=== PATIENT | female | born 1945 | race Caucasian/White ===

== ENCOUNTER → 2019-10-16 10:36 | Outpatient (BNVA) | payer MEDICARE, OTHER, SELFPAY | PROVIDERS: Family Provider Family Medicine; PCP Family Medicine; Visit Provider Nurse Practitioner Family | DX: R25.1 Tremor, unspecified (principal); R07.9 Chest pain, unspecified; J01.90 Acute sinusitis, unspecified | CPT/HCPCS: 36416; 82962 ==

== ENCOUNTER 2019-10-19 21:43 | Emergency (ER) | payer MEDICARE, OTHER, SELFPAY ==
[2019-10-19 21:48] VITALS: BP 155/84; PULSE 66; RESP 16; TEMP 37; O2SAT 93; BMI 27.2
--- NOTE | 2019-10-19 22:32 | ECG_ITS ---
Measurements Intervals [place] Rate: 58 P: 48 VT: 144 QRS: 44 QRSD: 98 T: -33 QT: 399 QTc: 394 SINUS BRADYCARDIA NONSPECIFIC T-WAVE ABNORMALITY Compared to ECG 01/05/2018 22:10:28 Sinus rhythm no longer present Possible ischemia no longer present T-wave abnormality still present Electronically Signed On 10-20-2019 14:09:10 [employer] by Sivan Smallwood M.D. [id number]
--- NOTE | 2019-10-19 22:33 | XR_ITS ---
WS: [id number] XR chest 1V portable [id number] REASON FOR EXAM: dyspnea/cough FINDINGS: A large hiatal hernia is seen. The heart and mediastinum were normal. There is arteriosclerotic changes in the arch of the aorta. The peripheral lungs are clear there is no congestive heart failure, pneumonia, pleural effusion, or pneumothorax. No osseous abnormalities. XR/XR chest 1V portable [id number] IMPRESSION: Large hiatal hernia Arteriosclerotic changes in the arch of the aorta.
--- NOTE | 2019-10-19 22:59 | ED_ITS ---
Entered by Estefany Valle, acting as scribe for Niraj Krueger DO Oct 19, 2019 21:43 HPI - Chest Pain General: Chief Complaint: Chest Pain Stated Complaint: CHEST PAIN Time Seen by Provider: 10/19/19 22:30 History of Present Illness: HPI narrative: 74 yo female complains of chest pain for 3 days. Worse with palpation. Pt reports having some releif with tramadol. No change with activity. No associated dyspnea, no diaphoresis. MD complaint: chest pain Timing of current episode: episodic Pain location: substernal and left chest Pain radiation: none Exacerbating factors: palpation Associated symptoms: Deny abdominal pain, dyspnea, fever(s), nausea, palpitations, syncope or vomiting Review of Systems Narrative: 74yo female presents with chest pain. Symptoms started 3 days ago and have been intermittent. Patient denies any trouble breathing, nausea, or vomiting. She does not notice anything worsens chest pain but does note pain improves with tramadol. Const: Denies: fever, chills, body aches, fatigue, malaise or night sweats Eyes: Denies: change in vision or blurry vision ENMT: Denies: throat pain, oral sores/lesions, dental pain, nasal discharge or nasal congestion Card: Reports: chest pain; Denies: palpitations, irregular heart rhythm, edema, syncope, shortness of breath on exertion, shortness of breath when lying down or leg pain with exertion Resp: Denies: shortness of breath, productive cough, non-productive cough or wheezing GI: Denies: abdominal pain, nausea, vomiting, vomiting blood, coffee grounds in vomit, difficulty swallowing, heartburn/indigestion, diarrhea, constipation, cramping, blood in stool or black tarry stool : Denies: flank pain, painful urination, urinary frequency, urinary urgency, urinary incontinence or blood in urine Musc: Denies: neck pain, back pain, extremity pain, extremity swelling, joint pain or joint swelling Skin/Breast: Denies: rash, itching or redness Neuro: Denies: headache, numbness in extremities, weakness in extremities, changes in sensation, lack of coordination, difficulty walking, frequent falls, dizziness, vertigo or confusion Psych: Denies: anxiety, depression, loss of interest, visual hallucinations, auditory hallucinations, suicidal ideation or homicidal ideation Endo: Denies: excessive urination, excessive thirst, tired all the time or cold intolerance Emery/Lymph: Denies: easy bruising, easy bleeding, petechiae, enlarged lymph nodes or tender lymph nodes PFSH ED PFSH: Medical History (Updated 10/20/19 @ 00:07 by Niraj Krueger, ) Anxiety and depression Asthma, mild persistent Asymptomatic cholelithiasis Bilateral hearing loss Calculus of kidney right; 6 mm without private branch exchange service adviser time 01/10; 7 mm obstructing right proximal stone; evaluated and treated [facility] Hospitalized at [facility] 02/10 for sepsis, UTI, NSTEMI, and right proximal ureteral calculus with hydronephrosis Chronic idiopathic constipation Chronic low back pain Chronic osteoarthritis Chronic right shoulder pain Essential (primary) hypertension Gastro-esophageal reflux disease without esophagitis HX: breast cancer 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, unspecified Mixed hyperlipidemia Obstructive sleep apnea Osteoporosis PAD (peripheral artery disease) stent right SFA Type 2 diabetes mellitus with diabetic polyneuropathy Urinary incontinence in female Vitamin D deficiency Surgical History (Updated 10/18/19 @ 11:17 by CARLOTTA Aponte) History of intravascular stent placement (~2003) right leg; [place], [place] History of lumpectomy of left breast (~1969) [place] History of shoulder surgery (~2014) right; Dr Chiu, [place] [facility] [place] Hx of bladder repair surgery (~2004) Dr Nunez's office in [place], [place] Hx of lithotripsy Social History Smoking and tobacco status: former smoker Quit status (tobacco): has quit using tobacco Year quit tobacco: 2001 Alcohol intake: never Lives independently: Yes Household members: none Marital status: / Current occupational status: retired Current gender identity: Female Physical Exam Const: COMMON NORMALS: average body habitus, oriented x3 and alert GENERAL APPEARANCE: cooperative, comfortable, well kempt and well developed NUTRITIONAL APPEARANCE: obese ORIENTATION/CONSCIOUSNESS: Yes awake, Yes oriented to person and Yes oriented to place HENMT: COMMON NORMALS: normocephalic, head/scalp atraumatic, EAC's normal, TM's normal bilaterally, external nose normal, moist oral mucous membranes and oropharynx normal HEAD & SCALP: normocephalic and atraumatic NOSE: external nose normal EXTERNAL AUDITORY CANAL: EAC's normal TYMPANIC MEMBRANE: TM's normal bilaterally MOUTH: oral and palatal mucosa normal, lip normal and tongue normal THROAT: posterior oropharynx normal and tonsils normal Eye: COMMON NORMALS: PERRL, EOMs intact bilaterally, conjunctivae normal and no scleral icterus CONJUNCTIVA: Yes conjunctivae normal PUPIL: Yes PERRL Neck/C-Spine: COMMON NORMALS: full ROM, no lymphadenopathy, supple, no meningeal signs and thyroid normal THYROID: thyroid normal and asymmetrical Lymph: LYMPHATIC: no lymphadenopathy noted Chest: CHEST: Yes tenderness sternoclavicular joint Resp: COMMON NORMALS: normal respiratory effort, no retractions, no use of accessory muscles and clear to auscultation bilaterally AUSCULTATION: clear to auscultation bilaterally Cardio: COMMON NORMALS: regular rate and regular rhythm RATE: regular rate RHYTHM: regular rhythm HEART SOUNDS: no murmurs GI: COMMON NORMALS: normal to inspection, nondistended, normoactive bowel sounds, soft to palpation and no hepatosplenomegaly PALPATION: Yes soft and Yes no hepatosplenomegaly : COMMON NORMALS: Yes no CVA tenderness BLADDER/KIDNEY EXAM: Yes no CVA tenderness Back/Pelvis: COMMON NORMALS: no CVA tenderness LUMBAR SPINE/LOWER BACK: Yes normal to inspection Extremity: COMMON NORMALS: no clubbing, cyanosis or edema, no calf tenderness and no pedal edema Neuro: COMMON NORMALS: oriented x3 SENSORIUM/ORIENTATION: Yes alert, Yes oriented to person and Yes oriented to place MENINGEAL SIGNS: Yes no meningeal signs Psych: APPEARANCE: Yes well kempt Skin: COMMON NORMALS: no rashes or lesions noted and skin turgor normal GENERAL SKIN EXAM: no rashes or lesions noted and turgor normal Course ED course: pain is reproducible with palpation. Vital Signs: Vital signs: Vital Signs Temperature 98.6 F 10/19/19 21:48 Pulse Rate 55 L 10/20/19 00:32 Respiratory Rate 16 10/20/19 00:32 Blood Pressure 124/65 10/20/19 00:32 Pulse Oximetry 94 10/20/19 00:32 MDM - Chest Pain Lab Data: Labs: Lab Results 10/19/19 10/19/19 10/19/19 Range/Units 23:02 23:02 23:02 WBC 4.1 (4.0-10.0) 10^3/ uL RBC 4.57 (4.1-5.3) 10^6/u L Hgb 12.7 (11.5-15.3) g/dL Hct 42.0 (37.0-47.0) % MCV 91.9 (81-99) fL MCH 27.8 L (28.0-34.0) pg MCHC 30.2 (30.0-36.0) g/dL RDW 13.1 (12.1-15.1) % Plt Count 173 (130-400) 10^3/c mm MPV 11.1 H (7.4-10.4) fL Neut % (Auto) 53.7 % Lymph % (Auto) 33.1 % [place] % (Auto) 8.1 % Eos % (Auto) 4.7 % Baso % (Auto) 0.2 % Neut # (Auto) 2.2 (1.8-7.7) 10^3/u L Lymph # (Auto) 1.3 (0.8-4.8) 10^3/u L [place] # (Auto) 0.3 (0.2-0.9) 10^3/u L Eos # (Auto) 0.2 (0.0-0.8) 10^3/u L Baso # (Auto) 0.0 (0.0-0.1) 10^3/u L Nucleated RBC % (a uto) 0 % Nucleated RBCs # 0.0 /100WBC Sodium 139 (136-145) mmol/L Potassium 4.7 (3.5-5.1) mmol/L Chloride 102 (98-107) mmol/L Carbon Dioxide 25 (22-29) mmol/L Anion Gap 16.7 (5-19) BUN 17 (8-23) mg/dL Creatinine 0.8 (0.5-0.9) mg/dL Glucose 108 (65-115) mg/dL Calcium 10.5 (8.5-10.5) mg/dL Total Bilirubin 0.2 (0.15-1.2) mg/dL AST 20 (0-32) U/L ALT 16 (0-33) U/L Alkaline Phosphata se 45 (35-105) IU/L Troponin T Baselin e 11 H (0-10) ng/mL Total Protein 7.8 (6.6-8.7) g/dL Albumin 4.6 (3.5-5.2) g/dL Globulin 3.2 (1.3-4.6) g/dL Discharge Plan Discharge Patient Disposition: Home, Self-Care Clinical Impression: Anterior chest wall pain Condition: Stable Prescriptions: No Action fosinopril 10 mg tablet 10 mg PO DAILY RF: 0 citalopram 20 mg tablet 20 mg PO ONCE RF: 0 metformin 500 mg tablet 500 mg PO BID RF: 0 tramadol 50 mg tablet 50 mg PO TID PRNRF: 0 omeprazole 20 mg capsule,delayed release(DR/EC) 20 mg PO DAILY RF: 0 potassium chloride 10 mEq tablet extended release 20 meq PO DAILY RF: 0 sennosides [Senna Lax] 8.6 mg tablet 17.2 mg PO .HS RF: 0 simvastatin 10 mg tablet 10 mg PO ONCE RF: 0 aspirin 81 mg tablet,delayed release (DR/EC) 81 mg PO ONCE RF: 0 cetirizine [Zyrtec] 10 mg tablet 10 mg PO ONCE RF: 0 cholecalciferol (vitamin D3) 2,000 unit tablet 2,000 unit PO ONCE RF: 0 oxybutynin chloride 5 mg tablet 5 mg PO BID RF: 0 ketoconazole 2 % shampoo 1 applic TOPICAL .3 x week RF: 0 ketoconazole 2 % cream 1 applic TOPICAL BID RF: 0 fluticasone propionate [Flonase Allergy Relief] 50 mcg/actuation spray,suspension 2 spray INTRANASAL DAILY RF: 0 nitroglycerin 0.4 mg tablet, sublingual 0.4 mg SUBLINGUAL Q5M PRN (Reason: Chest Pain) RF: 0 multivitamin Capsule 1 cap PO QAM RF: 0 calcium carbonate-vitamin D3 250-125 mg-unit tablet 1 tab PO DAILY RF: 0 glucosamine [id number] 500-250-250 mg capsule 1 cap PO DAILY RF: 0 omega-3 fatty acids [Fish Oil Concentrate] 1,000 mg capsule 1,000 mg PO DAILY RF: 0 amoxicillin-pot clavulanate [Augmentin] 875-125 mg tablet 1 tab PO BID Qty: 20 RF: 0 Discharge Orders: Discharge Order (Routine); Ordered 10/20/19 Ordered By: Niraj Krueger Referrals: Lucy Moreland MD [Primary Care Provider] - Discharge Diet: Usual diet Discharge Activity: Limit activity as instructed Activity Restrictions/Additional Instructions: Follow-up with Dr. Maguire this coming week. Discharge Date/Time: 10/20/19 00:33 Coding Level of Care Code ED Oriental Rug Repairer for Chg Fwd Exam Comprehensive The documentation recorded by the Tori monsivais Bailey Leadawn, accurately reflects the service I personally performed and the decisions made by , Niraj Krueger, Oct 19, 2019 21:43
[2019-10-19 23:07] LABS: Basophils % 0.2 %; Eosinophils # 0.2 10^3/uL (0.0-0.8); Eosinophils % 4.7 %; Hemoglobin 12.7 g/dL (11.5-15.3); Lymphocytes # 1.3 10^3/uL (0.8-4.8); Lymphocytes % 33.1 %; Mean Corpuscular HGB Conc 30.2 g/dL (30.0-36.0); Mean Corpuscular Hemoglobin 27.8 pg (28.0-34.0); Mean Corpuscular Volume 91.9 fL (81-99); Mean Platelet Volume 11.1 fL (7.4-10.4); Monocytes # 0.3 10^3/uL (0.2-0.9); Monocytes % 8.1 %; Neutrophils # 2.2 10^3/uL (1.8-7.7); Neutrophils % 53.7 %; Nucleated Red Blood Cells % 0 %; Platelet Count 173 10^3/cmm (130-400); Red Blood Count 4.57 10^6/uL (4.1-5.3); Red Cell Distribution Width 13.1 % (12.1-15.1); White Blood Count 4.1 10^3/uL (4.0-10.0)
[2019-10-19 23:31] LABS: Alanine Aminotransferase 16 U/L (0-33); Albumin Level 4.6 g/dL (3.5-5.2); Alkaline Phosphatase 45 IU/L (35-105); Anion Gap 16.7 (5-19); Aspartate Amino Transferase 20 U/L (0-32); Blood Urea Nitrogen 17 mg/dL (8-23); Calcium 10.5 mg/dL (8.5-10.5); Carbon Dioxide 25 mmol/L (22-29); Chloride 102 mmol/L (98-107); Globulin 3.2 g/dL (1.3-4.6); Glucose 108 mg/dL (65-115); Potassium 4.7 mmol/L (3.5-5.1); Sodium 139 mmol/L (136-145); Total Bilirubin 0.2 mg/dL (0.15-1.2); Total Protein 7.8 g/dL (6.6-8.7)
[2019-10-19 23:33] LABS: Troponin(5th) Baseline 11 ng/mL (0-10)
[2019-10-19 23:51] VITALS: BP 128/74; PULSE 57; RESP 23; O2SAT 94
[2019-10-20] VITALS: BP 124/69; PULSE 55; RESP 14; O2SAT 93
[2019-10-20 00:32] VITALS: BP 124/65; PULSE 55; RESP 16; O2SAT 94
--- NOTE | 2019-10-23 14:04 | DCPLANNER ---
assistant manager quality management had message to schedule a follow up appointment for patient with [facility]. assistant manager quality management called [facility], spoke with Alee, a follow up appointment is scheduled for Tuesday, November 12, 2019 at 11:[address] Maguire. Clinic will call patient with appointment information.
--- NOTE | 2019-11-13 11:30 | DCPLANNER ---
Appointment scheduled for 11.12.19 with [facility], was cancelled.
== END 2019-10-20 00:33 | disposition home or self-care (01) ==
PROVIDERS: Emergency Provider Family Medicine; Family Provider Family Medicine; PCP Family Medicine
DX: R07.89 Other chest pain (principal); J45.20 Mild intermittent asthma, uncomplicated; I10 Essential (primary) hypertension; E78.2 Mixed hyperlipidemia; E11.51 Type 2 diabetes mellitus with diabetic peripheral angiopathy without gangrene; E11.42 Type 2 diabetes mellitus with diabetic polyneuropathy; E66.9 Obesity, unspecified; Z68.27 Body mass index [BMI] 27.0-27.9, adult; Z79.84 Long term (current) use of oral hypoglycemic drugs; Z79.51 Long term (current) use of inhaled steroids; Z87.891 Personal history of nicotine dependence
CPT/HCPCS: 71045; 80053; 84484; 85025; 93005; 99282; 99284

== ENCOUNTER → 2019-11-27 13:11 | Outpatient (BNVA) | payer MEDICARE, OTHER, SELFPAY | PROVIDERS: Family Provider Family Medicine; PCP Family Medicine; Visit Provider Anesthesiology | DX: Z76.89 Persons encountering health services in other specified circumstances (principal) ==

== ENCOUNTER 2020-01-15 09:55 | Outpatient (CLI) | payer MEDICARE, OTHER, SELFPAY ==
--- NOTE | 2019-11-06 09:32 | PC.NURSE ---
Stress test rescheduled Pt drank cup of coffee at 0700 this am she states. Stress test rescheduled and instructions sent home with patient.
--- NOTE | 2020-01-15 10:21 | NMCV_ITS ---
NM sarah perf SPECT r/s* [id number] Lucy Galindo Age: 74 Gender: F : 1945 Exam Date: 01/15/2020 11:02 Ordering Phys: Lyn Aguiar Technologist: SHERWIN Middleton Exam Location: [facility] Indications: ATHEROSCLEROTIC HEART DISEASE STRESS TEST Please see separate stress test report in [facility] for full findings IMAGE PROTOCOL Rest/Stress 1 Lexiscan Day Radiopharmaceutical Dose (mCi) Administration Site Administered by Rest: Tc-99m 10.4 IV SHERWIN Nesbitt Sestamibi Stress:Tc-99m 32.4 IV SHERWIN Nesbitt Sestamibi Rest: 15-Jan-2020 60 Discovery 630 Stress: 15-Jan-2020 30 Discovery 630 0.4mg Lexiscan. Supine position only as patient was unable to lay prone. SPECT RESULTS Technical Quality: Good Raw Data Analysis: Subdiaphragmatic activity Image Corrections: No attenuation or motion correction applied Summed Stress Score: 10 Summed Rest Score: 6 Summed Difference Score: 4 PERFUSION FINDINGS Moderate area of decreased tracer uptake in the basal and mid inferolateral, mid anterolateral, apical lateral, apical anterior and LV apex with some reversibility in the inferolateral and anterolateral regions. Small area of decreased tracer was also was noted in the basal inferior region, with some reversibility. FUNCTIONAL RESULTS (calculated via Gated SPECT) Stress Image LV EF (%): 64 Stress EDV (mL):89 TID: 0.87 Stress ESV (mL):32 FUNCTIONAL FINDINGS: LV wall motion analysis revealed mild hypokinesia of the septum. IMPRESSIONS 1. Myocardial perfusion imaging revealing moderate area of slightly decreased tracer uptake in the basal and mid inferolateral, mid anterolateral and basal inferior wall regions, with some reversibility, suggestive of myocardial scarring with ischemia mostly in the distribution of the left circumflex artery with some involvement of the right coronary artery. 2. Normal LV ejection fraction 64%. 3. LV wall motion analysis revealing mild hypokinesia of the septum. 4. Normal LV volume. No similar previous studies are available for comparison. No similar previous studies are available for comparison Dr Sole Maguire MD [facility] (Electronically Signed) Final Date: 15 Jan 2020 18:06 S
--- NOTE | 2020-01-15 10:21 | ECG_ITS ---
NAME OF STUDY: LEXISCAN SESTAMIBI STRESS TEST INDICATION: Chest Pain, LEXISCAN STRESS TEST ORDERING PHYSICIAN: Cardiology nurse practitioner CLINICAL INFORMATION: Chest pain INTERPRETATION: 1. The patient was brought to the laboratory where Lexiscan was infused over 20 seconds. The resting blood pressure was 188/87. Maximum blood pressure was 209/81. The resting heart rate was 56 beats per minute. The maximum heart rate is 117 beats per minute. 2. The baseline electrocardiogram reveals sinus rhythm with an interventricular conduction delay and T wave inversion in the inferolateral leads. 3. With Lexiscan infusion, there were no ST segment changes to suggest ischemia. 4. The patient experienced no symptoms or arrhythmias during the examination. CONCLUSION: 1. Unremarkable Lexiscan infusion. 2. Nuclear imaging to follow. Electronically Signed On 01-15-2020 16:16:55 CDT by Mark Berrios M.D. [id number]
[2020-01-15 10:22] VITALS: BMI 26.2
[2020-01-15 11:51] VITALS: BP 181/67; PULSE 98
[2020-01-15] MEDS: regadenoson 0.4 Mg/5 ml Syringe IVP (11:51)
== END 2020-01-15 09:56 | disposition home or self-care (01) ==
LOC: RAD 09:58
PROVIDERS: Family Provider Family Medicine; PCP Family Medicine; Visit Provider Nurse Practitioner Family
DX: I25.10 Atherosclerotic heart disease of native coronary artery without angina pectoris (principal); I25.9 Chronic ischemic heart disease, unspecified
CPT/HCPCS: 78452; 93017; A9500; J2785

== ENCOUNTER → 2020-02-15 09:43 | Outpatient (BNVA) | payer MEDICARE, OTHER, SELFPAY | PROVIDERS: Family Provider Family Medicine; PCP Family Medicine; Visit Provider Anesthesiology | DX: G89.29 Other chronic pain (principal); M54.2 Cervicalgia; M25.511 Pain in right shoulder; M19.90 Unspecified osteoarthritis, unspecified site; M54.9 Dorsalgia, unspecified; M79.7 Fibromyalgia; Z79.891 Long term (current) use of opiate analgesic | CPT/HCPCS: 99214 ==

== ENCOUNTER → 2020-02-20 11:16 | Outpatient (BNVA) | payer MEDICARE, OTHER, SELFPAY | PROVIDERS: Family Provider Family Medicine; PCP Family Medicine; Visit Provider Family Medicine | DX: E78.2 Mixed hyperlipidemia (principal); E11.42 Type 2 diabetes mellitus with diabetic polyneuropathy | CPT/HCPCS: 80053; 80061; 83036; 84443; 85025 ==

== ENCOUNTER 2020-03-03 09:59 | Outpatient (CLI) | payer MEDICARE, OTHER, SELFPAY ==
--- NOTE | 2020-03-03 10:24 | MM_ITS ---
WS: [id number] BILATERAL DIGITAL DIAGNOSTIC MAMMOGRAM MAMMOGRAPHY WITH CAD CLINICAL INFORMATION: HX OF BREAST CA HISTORY: History of left breast cancer. Bilateral breast tenderness. COMPARISON: February 26, 2019. TECHNIQUE: Bilateral CC, MLO, and ML views. FINDINGS: Scattered fibroglandular densities bilaterally. Vascular calcification. Secretory calcification. Punc kirkpatrick and lucent centered calcifications are stable. Stable parenchymal fibrosis left breast from prio r lumpectomy. Decreased left breast volume is unchanged. No suspicious focal mass, asymmetry, calcifications, or architectural distortion. No evidence of ro gnancy. MM/[place] [id number] IMPRESSION: BI-RADS: 2-Benign FOLLOW UP: 1 Year Follow-up Recommend return to annual diagnostic mammography.
== END 2020-03-03 10:00 | disposition home or self-care (01) ==
LOC: RADSHAW 10:04
PROVIDERS: PCP Family Medicine; Visit Provider Family Medicine
DX: Z85.3 Personal history of malignant neoplasm of breast (principal)
CPT/HCPCS: 77066

== ENCOUNTER → 2020-03-04 10:54 | Outpatient (BNVA) | payer MEDICARE, OTHER, SELFPAY | PROVIDERS: PCP Family Medicine; Visit Provider Internal Medicine Cardiovascular Disease | DX: R94.39 Abnormal result of other cardiovascular function study (principal); Z79.01 Long term (current) use of anticoagulants; Z79.899 Other long term (current) drug therapy | CPT/HCPCS: 80053; 85025 ==

== ENCOUNTER 2020-03-07 11:41 | Day surgery (SDC) | payer MEDICARE, OTHER, SELFPAY ==
[2020-03-06 11:40] VITALS: BMI 26.2
[2020-03-07] VITALS (22 sets, daily range): BP systolic 85–171; BP diastolic 50–93; PULSE 60–92; RESP 10–25; TEMP 36.9; O2SAT 93–98
--- NOTE | 2020-03-07 11:14 | W.PM.OPSUD ---
Surgery/Procedure H&P Update DATE OF PROCEDURE: March 07, 2020 DATE H&P PERFORMED: 03/04/20 H&P UPDATE INFORMATION: I have reviewed H&P completed within last 30 days and I have examined patient prior to procedure PLANNED PROCEDURE: Operation Date: 03/07/20 13:30 Proposed Procedures p Cardiac Catheterization(Left) - Sole Maguire MD PATIENT REASSESSED PRIOR TO SEDATION, WITH NO CHANGE NOTED: Yes PHYSICAL EXAM: alert and oriented x 3 AIRWAY EVAL/ANESTHESIA PLAN: normal airway, ASA III, Monitored Anesthesia, Local Anesthesia, Risks, benefits & alternatives of sedation and/or procedure discussed and Patient agrees to continue as planned
--- NOTE | 2020-03-07 11:30 | XACV_ITS ---
Ht: 150 cm Wt: 59 kg BSA: 1.58 m2 Gender: Female : 1945 Any Known Allergies: No known allergies Exam Priority: Routine Procedure(s): Procedure Description: Diagnostic procedure Procedure Description: Left ventriculography Procedure Description: Coronary Angiography Diagnostic Cath Status: Elective Diagnostic Findings The left main is a medium caliber vessel with no significant stenotic lesions. The left and descending artery is a medium caliber vessel which appears to taper off towards the LV apex. Right after the first diagonal branch, the artery appears to have around 40% eccentric narrowing. Mid and distal LAD he was found to have minimal intimal irregularities. The left circumflex artery is a relatively small caliber vessel, of found to have minimal intimal arises proximally with no significant obstructive lesions. The intermedius artery appears to be a high diagonal branch with a minimal ostial narrowing. No significant stenotic lesions were noted. The right coronary artery is a medium caliber dominant vessel which was found to have stented areas at the mid and distal segments. The stented areas were found to be widely patent. The PDA and the PLV branches were found to have minimal intimal irregularities. The proximal right coronary artery also was found to have mild diffuse disease. Conclusions No significant disease noted in the Left Main, LAD, Circumflex, or RCA coronary arteries. Normal left ventricular systolic function. Ejection fraction of 55%. This is a 74-year-old white female with a history of coronary disease, status post PCI, presented with complaints of chest pain and shortness of breath. She had a myocardial perfusion imaging which revealed areas of fixed and reversible defects. As per the patient, her symptoms were limiting her activities. In view of her ongoing symptoms, in order to further evaluate the coronary status, a cardiac catheterization was recommended. Patient underwent left heart catheterization with a left and right coronary angiogram and LV angiogram today. The findings are as follows. Patent stented segments of the right coronary artery. Mild diffuse disease in the other vessels. Normal LV size ejection fraction of 55%. LVEDP of 8 mmHg. Based on this angiogram findings, it was decided to treat her medically. She is transferred to medical floor in stable condition. Recommendations Continue current medical management and risk factor modification. Diagnostic RX Recommendation: medical therapy and/or counseling LV EDP: 8 mmHg Ejection Fraction: 55.0 % Left Ventriculography Findings: The LV gram was performed in the SALAS position. The LV cavity appears to be normal size. The LV ejection fraction was around 55%. No significant mitral valve prolapse. or mitral regurgitation. No filling defects were noted. Pressures Phase:Rest AO : 291 mmHg / 163 mmHg ( 220 mmHg ) @ 9:02:00 AM 289 mmHg / 110 mmHg ( 177 mmHg ) @ 9:11:00 AM 296 mmHg / 99 mmHg ( 177 mmHg ) @ 9:11:00 AM LV : 269 mmHg / -25 mmHg / @ 9:08:00 AM 265 mmHg / -32 mmHg / @ 9:09:00 AM 280 mmHg / -39 mmHg / @ 9:11:00 AM Valves Phase:DefaultPhase AV : 1.0 mmHg @ 2:28:09 PM AV Mean Gradient: 0.0 mmHg @ 2:28:09 PM Clinical Evaluation EBL: 5mL-10mL Procedural Details Procedure Consent Obtained. Pre-Procedure Time Out. Identified patient by full name and date of as verbalized by the patient/guarantor. Does the consent match the physician's order: Yes. Accurate & Complete Informed Consent: Yes. Inpatient/Outpatient History & Physical on Chart: Yes. If H&P is completed, is and addenduem needed: No; If yes, is the addendum complete: N/A. Visualize and Verify Site with Patient/Guarantor: N/A. Relevant Radiology Images available: Yes. Pre-op teaching completed and patient verbalized understanding. The risks, benefits, and alternatives of sedation and/or procedure were discussed by physician. The patient agrees to continue. Procedure started. Correct patient, site and procedure confirmed by cath team. Current diagnosis: Chest Pain. PERRLA. 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 Lungs clear x 5 lobes. Pre Procedural Pulses: bilateral dorsalis pedis was 1+. Pre Procedural Pulses: bilateral posterior tibial was 1+. Pre Procedural Pulses: bilateral radial was 2+. Oxygen started at 2liters/min via nasal canula. bilateral groins was prepped with chloroprep then draped in the usual sterile fashion. Physician notified. Baseline sample Acquired. HR: 66 BPM. Equipment: 5F - Femoral. Kit, Micropuncture. Heparinized Saline (2 units/mL), 1000 mL bag. Cardiac Cath Pack. ACIST Manifold Kit Model BT 2000. Physician arrived. Physician scrubbed in. Immediate Pre-Procedure Time Out. Correct Patient: Yes; Correct Procedure: Yes; Correct Site: Yes; Correct Patient Position: Yes; Correct Supplies: Yes; Dried Flammable Prep: Yes; Blood Products Available: No;. Lidocaine 1% infiltrated to the right groin. Lidocaine 1% infiltrated to the right groin. Venous access obtained with a micropuncture set. 4FR sheath sutured in. Arterial access obtained with micropuncture set. A 5 somali JL4 catheter in over wire. Multiple views taken of left coronary artery. Catheter out. A 5 somali JR4 catheter in over wire. Multiple views taken of right coronary artery. Catheter out. A 5 somali Angled Pig catheter in over wire. EDP Sample taken: LV 269/-26,15; HR: 87 BPM; SpO2: 100%. EDP Sample taken: LV 265/-33,6; HR: 91 BPM; SpO2: 100%. LV gram performed in SALAS @ 10 mL/second for a total of 30 mL. EDP Sample taken: LV 280/-40,10; HR: 94 BPM; SpO2: 100%. Pullback taken: LV Off; AO 289/110(177); Mean: 0mmHg, Peak to Peak: 1mmHg, SEP: 12sec/min; HR: 94 BPM; SpO2: 100%. Catheter out. Sheath(s) sutured into position with 2-0 silk and sterile 4x4's and Op-site applied over the site. No oozing or signs and symptoms of hematoma noted. Arterial sheath flushed and connected to tranducer and pressure bag with heparinized saline. Vital chart was stopped. PERRLA. 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 No VTE prophylaxis required. Medication's Wasted: Lidocaine 1% = 5 mL. Medication's Wasted: Other = 75mcg. Medication's Wasted: Heparin = 3000 units. Medication's Wasted: Hydralazine 10 mg. A Suture was successful obtaining hemostatsis at the Right Femoral vein insertion site. A Suture was successful obtaining hemostatsis at the Right Femoral artery insertion site. Post Procedure: Pulses reassessed and unchanged. [facility] Clinical Fraility Score: 4: Vulnerable. Carpet Tile Layer Indications: Suspected CAD. Chest Pain Symptom Assessment: Typical Angina Symptoms. Cardiovascular Instability: No. Total IV fluids: 100 mL. Contrast type used: Omnipaque 300 mgI/mL, 500 mL bottle. Post-op diagnosis: Chest Pain. Complications: None. Estimated blood loss: 5mL-10mL. Glucose checked, result 92. Procedure completed. Patient transferred by bed to 1st floor. Site: Right Femoral vein Sheath Size: 4 Fr Hemostasis Method: Suture Hemostasis Success: Successful Site: Right Femoral artery Sheath Size: 5 Fr Hemostasis Method: Suture Hemostasis Success: Successful Procedure Medications Start: 1:51 PM Stop: 1:51 PM Medication: Versed 1 mg and Fentanyl 25 mcg Amount: 1 Route: I.V. Start: 1:55 PM Stop: 1:55 PM Medication: Hydralazine Amount: 10 mg Route: I.V. Start: 1:57 PM Stop: 1:57 PM Medication: Heparin Amount: 1500 units Route: I.V. Start: 2:00 PM Stop: 2:00 PM Medication: Versed Amount: 1 mg Route: I.V. I, the attending physician, have reviewed and verified all procedure medications. Yes, all medications given per verbal order History/Risk Factors Hypertension: Yes Dyslipidemia: Yes Diabetic Therapy: Oral Peripheral Arterial Disease (PAD): Yes Myocardial Infarction (NM): No Obesity: No Renal Disease: No Tobacco Use: Former Prior Interventions PCI: No CABG: No Valve Surgery: No Report Signatures Finalized by:Dr Sole Maguire MD [facility] on 03/07/2020 4:04:18 PM
[2020-03-07] MEDS: diphenhydrAMINE 50 mg Capsule PO (12:55)
--- NOTE | 2020-03-07 13:02 | SUR.PREOP ---
Difficult IV access Patient has poor peripheral IV access. 4 attempts made by myself (2 attempts) and Filiberto Gifford (2 attempts). Dr Maguire notified. States he will place a femoral venous line in the laborer cutting tool.
[2020-03-07 14:31] LABS: Glucose Point of Care 92 mg/dL (70-110)
--- NOTE | 2020-03-07 14:57 | PC.NURSE ---
From Systems Administration Analyst Received pt from label stitcher, alert, awake,hard of hearing, oriented. Noted 2 sheaths on right groin. 5 Fr arterial sheath and 4 Fr Venous sheath. Received verbal order from dr. michelle to removed venous sheath once the 1 L of bag is finished tonight. oriented pt to staff and call light use. Will monitor.
[2020-03-07] MEDS: dextrose 5%-ns + KCl 20 20 MEQ/1,000 ML BAG 125 MEQ IV (15:31)
[2020-03-07] MEDS: tizanidine 4 mg Tablet PO (15:47)
--- NOTE | 2020-03-07 16:30 | PC.NURSE ---
Sheath Removal Explained procedure to pt. Pre-medicated pt with fentanyl as ordered prior to sheath removal. Femoral artery felt. 5 Fr sheath removed on right groin. Manual pressure applied for 20 mins. Hemostasis achieved. No hematoma, swelling or bleeding noted. PT and DP is palpable 2+-3+. warm skin. Pt denies any pain and tolerated procedure well. Neurovascular monitored. Applied dressing to right groin. Instructed pt to call nurse if she started to have any unusual pain, numbness or wetness on right groin area. Pt verbalizes understanding.
[2020-03-07] MEDS: fentaNYL 50 mcg/mL INJ 2mL IVP (16:32)
[2020-03-07 17:05] LABS: Glucose Point of Care 123 mg/dL (70-110)
[2020-03-07] MEDS: potassium chloride ER 10 mEq Tablet PO (18:42)
[2020-03-07] MEDS: atorvastatin 40 mg Tablet 20 MG PO (21:37)
[2020-03-07] MEDS: aspirin 81 mg EC Tablet PO (21:37)
[2020-03-07] MEDS: oxybutynin 5 mg Tablet PO (21:37)
[2020-03-07] MEDS: TRAMadol 50 mg Tablet PO (22:43)
[2020-03-08] MEDS: acetaminophen 325 mg Tablet 650 MG PO (03:12)
[2020-03-08 04:34] LABS: Anion Gap 14.3 (5-19); Blood Urea Nitrogen 17 mg/dL (8-23); Calcium 10.1 mg/dL (8.5-10.5); Carbon Dioxide 26 mmol/L (22-29); Chloride 105 mmol/L (98-107); Glucose 112 mg/dL (65-115); Osmolality Calculated 289 mOsm/kg (285-295); Potassium 4.3 mmol/L (3.5-5.1); Sodium 141 mmol/L (136-145)
--- NOTE | 2020-03-08 06:00 | PC.NURSE ---
At 1220 I pulled her venous sheath. Held direct pressure on the site for ten minutes. Sight was dry and intact. Applied a sponge dressing covered with bio-collusive dressing.
[2020-03-08 07:01] VITALS: BP 130/72; PULSE 68; RESP 15; TEMP 36.8; O2SAT 92
[2020-03-08 07:36] LABS: Glucose Point of Care 108 mg/dL (70-110)
[2020-03-08] MEDS: omega-3 fatty acids 1,000 mg Capsule 1000 MG PO (07:58)
[2020-03-08] MEDS: cetirizine 10 mg Tablet PO (07:58)
[2020-03-08] MEDS: pantoprazole DR 40 mg Tablet PO (08:01)
[2020-03-08] MEDS: meloxicam 7.5 mg tablet PO (08:01)
[2020-03-08] MEDS: citalopram 20 mg Tablet PO (08:01)
[2020-03-08] MEDS: lisinopril 10 mg Tablet PO (08:01)
[2020-03-08] MEDS: potassium chloride ER 10 mEq Tablet PO (08:01)
--- NOTE | 2020-03-08 08:05 | PM.DCS ---
Discharge Providers Date of Admission: March 07, 2020 Date of Discharge: March 08, 2020 Attending Provider at Discharge: Sole Maguire MD Primary Care Provider: Lucy Moreland MD Diagnoses at Discharge Discharge Diagnosis (1) Abnormal nuclear stress test: Status: Acute (2) Dyslipidemia (high LDL; low HDL): Status: Acute (3) Benign essential HTN: Status: Acute (4) Peripheral arterial disease: Status: Acute (5) Atherosclerotic heart disease of [place] coronary artery without angina pectoris: Status: Acute Qualifiers: [place] vs. transplanted heart: [place] heart Qualified Code(s): I25.10 - Atherosclerotic heart disease of [place] coronary artery without angina pectoris (6) Type 2 diabetes mellitus with diabetic polyneuropathy: Status: Acute (7) Chronic low back pain: Status: Chronic (8) Essential (primary) hypertension: Status: Acute (9) Obstructive sleep apnea: Status: Acute (10) Chest pain: Status: Acute Qualifiers: Chest pain type: unspecified Qualified Code(s): R07.9 - Chest pain, unspecified Reason for Visit Reason for Visit: OPIAB Brief History: Patient was placed in the hospital yesterday by Dr. Maguire for elective coronary angiography due to chest pain and an abnormal stress test Hospital Course Hospital Course: Patient was placed in the hospital yesterday for purposes of elective coronary angiography due to chest pain and an abnormal stress test. Angiography revealed patent stents and nothing which required intervention. The procedure was done via the right common femoral artery. No vascular complications were noted. No bleeding, hematoma or pulsatile mass. Patient was kept overnight since the procedure was done late in the day. Physical Exam Narrative: EXAM NARRATIVE: GENERAL: In general she looks comfortable HEENT: Exam within normal limits. NECK: Supple without jugular vein distention. The carotid upstroke is normal without bruits. BACK: Exam normal. LUNGS: Clear. HEART: Regular rate and rhythm. ABDOMEN: Benign without organomegaly or tenderness. EXTREMITIES: No edema. The right groin entry site is flat, dry without bleeding or hematoma or pulsatile mass. NEUROLOGIC: Exam normal. SKIN: Unremarkable. Discharge Data Data Completed and Pending: Completed Studies During Hospitalization Category Date Time Status TRIM OPERATOR request for service Routin e Exams 03/07/20 11:30 Completed Labs from last 24 hours 03/08/20 03/08/20 03/07/20 07:30 03:20 16:37 Sodium 141 Potassium 4.3 Chloride 105 Carbon Dioxide 26 Anion Gap 14.3 BUN 17 Creatinine 0.7 Glucose 112 POC Glucose 108 123 Calculated Osmolal ity 289 Calcium 10.1 03/07/20 14:26 Sodium Potassium Chloride Carbon Dioxide Anion Gap BUN Creatinine Glucose POC Glucose 92 Calculated Osmolal ity Calcium Vitals: Last Vital Signs Temp 98.2 F 03/08/20 07:01 Pulse 68 03/08/20 07:01 Resp 15 03/08/20 07:01 BP 130/72 03/08/20 07:01 Pulse Ox 92 03/08/20 07:01 Discharge Plan Discharge Patient Disposition: Home, Self-Care Condition: Stable Prescriptions: Continued meloxicam 7.5 mg tablet 7.5 mg PO QAM RF: 0 citalopram 20 mg tablet 20 mg PO QAM RF: 0 cetirizine [Zyrtec] 10 mg tablet 10 mg PO DAILY RF: 0 cholecalciferol (vitamin D3) 2,000 unit tablet 2,000 unit PO EVERY OTHER DAY RF: 0 ketoconazole 2 % cream 1 applic TOPICAL BID RF: 0 fluticasone propionate [Flonase Allergy Relief] 50 mcg/actuation spray,suspension 2 spray INTRANASAL DAILY RF: 0 nitroglycerin 0.4 mg tablet, sublingual 0.4 mg SUBLINGUAL Q5M PRN (Reason: Chest Pain) RF: 0 multivitamin Capsule 1 cap PO BEDTIME RF: 0 glucosamine [id number]-tzv 500-250-250 mg capsule 1 cap PO QAM RF: 0 omega-3 fatty acids [Fish Oil Concentrate] 1,000 mg capsule 1,000 mg PO QAM RF: 0 tramadol 50 mg tablet 50 mg PO TID PRN (Reason: pain) 30 Days Qty: 90 RF: 1 tizanidine 4 mg tablet 4 mg PO QDAY PRN (Reason: muscle spasticity) Qty: 30 RF: 0 albuterol sulfate [Ventolin HFA] 90 mcg/actuation HFA aerosol inhaler 2 puff INHALATION .qid prn Qty: 8.5 RF: 1 ketoconazole 2 % shampoo 1 applic TOPICAL .3 x week Qty: 120 RF: 2 sennosides [Senna Lax] 8.6 mg tablet 17.2 mg PO .HS 30 Days Qty: 60 RF: 3 simvastatin 10 mg tablet 10 mg PO BEDTIME RF: 0 fosinopril 10 mg tablet 10 mg PO QAM RF: 0 metformin 500 mg tablet 500 mg PO BID RF: 0 potassium chloride 10 mEq tablet extended release 10 meq PO BID RF: 0 aspirin 81 mg tablet,delayed release (DR/EC) 81 mg PO BEDTIME RF: 0 omeprazole 20 mg capsule,delayed release(DR/EC) 20 mg PO QAM RF: 0 oxybutynin chloride 5 mg tablet 5 mg PO BEDTIME RF: 0 Discharge Orders: Discharge Order (Routine); Ordered 03/08/20 Ordered By: Mark Berrios Referrals: Lyn Aguiar FNP [Nurse Practitioner] - 7-10 days Lucy Moreland MD [Primary Care Provider] - Discharge Diet: Usual diet Discharge Activity: Limit activity as instructed Patient Instructions: Left Heart Catheterization (DC), Post Angiogram Home Care Instructions Activity Restrictions/Additional Instructions: No lifting over 10 pounds for 2 days. Hold metformin for 2 days. Otherwise all medications the same. 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 transplanted heart: [place] heart Type 2 diabetes mellitus with diabetic polyneuropathy E11.42 Chronic low back pain M54.5; G89.29 Essential (primary) hypertension I10 Obstructive sleep apnea G47.33 Chest pain R07.9 Chest pain type: unspecified
[2020-03-08 11:39] VITALS: BP 141/61; PULSE 80; RESP 19; TEMP 37; O2SAT 95
[2020-03-08] MEDS: TRAMadol 50 mg Tablet PO (11:59)
[2020-03-08 12:01] VITALS: BP 136/79
[2020-03-08] MEDS: fluticasone nasal spray 16gm Btl 2 SPRAY INTRANASAL (12:15)
[2020-03-08] MEDS: ketoconazole Cream 15 gm 1 APPLIC TOPICAL (12:23)
--- NOTE | 2020-03-08 13:07 | PC.NURSE ---
Discharge to home Instructed pt on follow-up appointments with her pcp and dr. michelle HYDROELECTRIC PLANT MECHANICAL ENGINEER in 7-days. Educated pt and dgtr Sade on post angiogram home care instructions such as activity restrictions and wound care. Discharge papers provided to pt. Ushered pt via wheelchair to ER.
== END 2020-03-08 13:07 | disposition home or self-care (01) ==
LOC: CCL 11:43 → CSU 23:51
PROVIDERS: PCP Family Medicine; Visit Provider Internal Medicine Cardiovascular Disease
DX: I25.10 Atherosclerotic heart disease of native coronary artery without angina pectoris (principal); R94.39 Abnormal result of other cardiovascular function study; I10 Essential (primary) hypertension; I73.9 Peripheral vascular disease, unspecified; E78.2 Mixed hyperlipidemia; E11.42 Type 2 diabetes mellitus with diabetic polyneuropathy; G89.29 Other chronic pain; M54.5 Low back pain; G47.33 Obstructive sleep apnea (adult) (pediatric); R07.9 Chest pain, unspecified; Z79.82 Long term (current) use of aspirin; Z79.84 Long term (current) use of oral hypoglycemic drugs; M79.7 Fibromyalgia; Z85.3 Personal history of malignant neoplasm of breast
CPT/HCPCS: 12345; 36415; 36416; 80048; 82962; 93452; C1769; C1887; C1894; J0360; J1644; J2250; J3010; J7030; Q0163; Q9967

== ENCOUNTER → 2020-03-17 12:35 | Outpatient (BNVA) | payer MEDICARE, OTHER, SELFPAY | PROVIDERS: PCP Family Medicine; Visit Provider Nurse Practitioner Family | DX: I25.10 Atherosclerotic heart disease of native coronary artery without angina pectoris (principal); Z87.891 Personal history of nicotine dependence | CPT/HCPCS: 80048 ==

== ENCOUNTER → 2020-03-26 11:43 | Outpatient (BNVA) | payer MEDICARE, OTHER, SELFPAY | PROVIDERS: PCP Family Medicine; Visit Provider Family Medicine | DX: E11.9 Type 2 diabetes mellitus without complications (principal); F17.211 Nicotine dependence, cigarettes, in remission; Z71.89 Other specified counseling | CPT/HCPCS: 36416; 82962 ==

== ENCOUNTER 2020-04-17 09:12 | Outpatient (CLI) | payer MEDICARE, OTHER, SELFPAY ==
--- NOTE | 2020-04-17 09:30 | XR_ITS ---
WS: [id number] EXAM: ABDOMINAL KUB DATE OF EXAMINATION: 04/17/2020, 0925 hours COMPARISON: Abdominal KUB from 08/30/[address] from 09/01/2018 HISTORY: Patient is 75 years old with history of kidney stones. Follow-up. FINDINGS: Bowel gas pattern is normal. There is quite a bit of increased stool suggesting constipation. Multipl e calcifications in the pelvis are again demonstrated felt to represent uterine calcified leiomyomas. On the CT from 09/01/2018 there is a calcification overlying the inferior right kidney silhouette whic h appears to be present but hard to evaluate secondary to stool obscuring detail. No calcification ov erlying the left kidney silhouette or course of the ureters. Overall bone density is decreased. Degen erative changes in the spine. Solid organ silhouettes do not appear enlarged. XR/XR KUB [id number] IMPRESSION: Calcification overlying the right kidney silhouette appear to be similar to a C T from 09/01/2018. Poorly seen secondary to overlying stool. Increased stool with findings of constipation.
== END 2020-04-17 09:13 | disposition home or self-care (01) ==
LOC: RAD 09:17
PROVIDERS: PCP Family Medicine; Visit Provider Urology
DX: N20.0 Calculus of kidney (principal); K59.00 Constipation, unspecified
CPT/HCPCS: 74018; 81001

== ENCOUNTER → 2020-05-19 12:06 | Outpatient (BNVA) | payer MEDICARE, OTHER, SELFPAY | PROVIDERS: PCP Family Medicine; Visit Provider Nurse Practitioner Family | DX: E55.9 Vitamin D deficiency, unspecified (principal); E11.42 Type 2 diabetes mellitus with diabetic polyneuropathy; E78.5 Hyperlipidemia, unspecified; I10 Essential (primary) hypertension | CPT/HCPCS: 80053; 80061; 82306; 83036; 84443; 85025 ==

== ENCOUNTER → 2020-05-20 09:21 | Outpatient (BNVA) | payer MEDICARE, OTHER, SELFPAY | PROVIDERS: Family Provider Family Medicine; PCP Family Medicine; Visit Provider Anesthesiology | DX: G89.29 Other chronic pain (principal); M54.2 Cervicalgia; M54.9 Dorsalgia, unspecified; M19.90 Unspecified osteoarthritis, unspecified site; Z79.891 Long term (current) use of opiate analgesic | CPT/HCPCS: 99213; 99214 ==

== ENCOUNTER → 2020-08-06 11:50 | Outpatient (BNVA) | payer MEDICARE, OTHER, SELFPAY | PROVIDERS: Family Provider Family Medicine; PCP Family Medicine; Visit Provider Family Medicine | DX: E11.9 Type 2 diabetes mellitus without complications (principal); E78.5 Hyperlipidemia, unspecified; E55.9 Vitamin D deficiency, unspecified; I10 Essential (primary) hypertension | CPT/HCPCS: 80053; 80061; 83036; 85025 ==

== ENCOUNTER → 2020-09-09 09:56 | Outpatient (BNVA) | payer MEDICARE, OTHER, SELFPAY | PROVIDERS: Family Provider Family Medicine; PCP Family Medicine; Visit Provider Anesthesiology | DX: G89.29 Other chronic pain (principal); M54.2 Cervicalgia; M54.9 Dorsalgia, unspecified; M19.90 Unspecified osteoarthritis, unspecified site; Z79.891 Long term (current) use of opiate analgesic | CPT/HCPCS: 99214 ==

== ENCOUNTER → 2020-11-19 10:55 | Outpatient (BNVA) | payer MEDICARE, OTHER, SELFPAY | PROVIDERS: Family Provider Family Medicine; PCP Family Medicine; Visit Provider Nurse Practitioner Family | DX: E11.9 Type 2 diabetes mellitus without complications (principal); E55.9 Vitamin D deficiency, unspecified; K21.9 Gastro-esophageal reflux disease without esophagitis; F41.9 Anxiety disorder, unspecified; F32.9 Major depressive disorder, single episode, unspecified; I10 Essential (primary) hypertension; E78.5 Hyperlipidemia, unspecified; L21.9 Seborrheic dermatitis, unspecified; G47.33 Obstructive sleep apnea (adult) (pediatric); F17.211 Nicotine dependence, cigarettes, in remission | CPT/HCPCS: 80053; 80061; 82306; 83036; 85025 ==

== ENCOUNTER 2020-12-07 13:29 | Observation (INO) | payer MEDICARE, OTHER, SELFPAY ==
[2020-12-07] VITALS (7 sets, daily range): BP systolic 144–151; BP diastolic 79–110; PULSE 56–77; RESP 17–21; TEMP 36.8; O2SAT 92–96; BMI 28.6
--- NOTE | 2020-12-07 14:07 | ECG_ITS ---
[facility] Test Date: 2020-12-11 Pat Name: Lucy Galindo Department: Room: 276 Gender: Female Associate Financial Advisor: : 1945 Requested By: Bud Cortes Order Number: [id number] Jimi MD: Sole Maguire M.D. Measurements Intervals [place] Rate: 90 P: 39 TN: 123 QRS: -7 QRSD: 93 T: 18 QT: 339 QTc: 417 Interpretive Statements SINUS RHYTHM Compared to ECG 12/07/2020 21:38:46 Sinus bradycardia no longer present T-wave abnormality no longer present Possible ischemia no longer present Electronically Signed On 12-12-2020 20:55:16 CDT by Sole Maguire M.D. [id number]
--- NOTE | 2020-12-07 14:07 | XRR_ITS ---
PROCEDURE INFORMATION: Exam: XR Chest Exam date and time: 12/07/2020 2:23 PM Age: 75 years old Clinical indication: Chest pain/chest ache. Dyspnea. TECHNIQUE: Imaging protocol: XR of the chest. Views: 1 view. COMPARISON: CR XR chest 1V portable [id number] 10/19/2019 10:34 PM FINDINGS: Lungs: No pulmonary consolidation. Pleural spaces: No pleural effusion. No pneumothorax. Heart/Mediastinum: The cardiac silhouette is approximately unchanged given differences in patient rotation. A large hiatal hernia is again seen. No gross evidence of pneumomediastinum. Bones/joints: No gross fracture. There are suture anchors in the proximal right humerus. Probable calcific tendinosis of the right rotator cuff. XR/XR chest 1V portable [id number] IMPRESSION: 1. Stable cardiomegaly. 2. Stable large hiatal hernia.
--- NOTE | 2020-12-07 14:09 | W.ED.SOB ---
HPI - SOB/Dyspnea General: Chief Complaint: Shortness of Breath/Dyspnea Stated Complaint: SOB, CP Time Seen by Provider: 12/07/20 13:51 History of Present Illness: HPI Narrative: The patient is a 75-year-old female with past medical history of coronary artery disease with AK in the early 1999', diabetes, frequent UTIs who comes to the ER complaining of increasing shortness of breath with minimal exertion. For example she says when she arrived to the ER and changed into the gown she became short of breath and after she lies on the gurney her shortness of breath resolves. She also says she has a mild midsternal chest ache which comes and goes not related to the shortness of breath. She is a former heavy smoker but never has been told that she has COPD. She says she had a recent stress test last year and that she follows Dr. Maguire for this problem of shortness of breath. She saw him a week ago and he told her to come to the ER if it got worse and she says it is getting worse with lesser and lesser exertion. Denies recent illness MD elicited complaint: shortness of breath Pertinent past history: diabetes Severity: moderate Exacerbating factors: exertion Relieving factors: nothing Associated symptoms: Reports no associated symptoms; Deny abdominal pain, chest pain, dizziness, extremity pain, orthopnea, palpitations or polyuria Treatment prior to arrival: none Review of Systems General: Reports: 10 or more systems reviewed and unremarkable except in HPI and below Const: Denies: fatigue Eyes: Denies: change in vision, blurry vision or eye redness ENMT: Denies: throat pain, swelling of lips/tongue, ear or mastoid pain or nasal congestion Card: Denies: chest pain, palpitations, irregular heart rhythm, edema, dyspnea on exertion or orthopnea Resp: Reports: dyspnea; Denies: productive cough or non-productive cough GI: Denies: abdominal pain, diarrhea or GI cramping : Denies: flank pain, difficulty voiding, urinary frequency or urinary urgency Musc: Denies: neck pain, back pain, extremity pain, joint pain, joint redness, limited range of motion or muscle weakness Skin/Breast: Denies: rash, pruritus, erythema, skin pain or skin tenderness Neuro: Denies: headache(s), numbness in extremities, weakness in extremities, sensory changes, difficulty walking, dizziness, confusion or Slurred speech present Psych: Denies: anxiety or depression Endo: Denies: polyuria All/Imm: Denies: urticaria, throat swelling or tongue swelling PFSH ED PFSH: Medical History Abnormal nuclear stress test Anxiety and depression Asthma, mild persistent Asymptomatic cholelithiasis Atherosclerotic heart disease of [place] coronary artery without angina pectoris Benign essential HTN Bilateral hearing loss Calculus of kidney right; 6 mm 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 Hospitalized at [facility] 02/10 for sepsis, UTI, NSTEMI, and right proximal ureteral calculus with hydronephrosis Chronic idiopathic constipation Chronic low back pain Chronic neck and back pain Chronic osteoarthritis Chronic right shoulder pain Dyslipidemia (high LDL; low HDL) Encounter for counseling for care management of patient with chronic conditions and complex health needs using nurse-based model Encounter for long-term opiate analgesic use Enrolled in chronic care management Essential (primary) hypertension Fibromyalgia Gastro-esophageal reflux disease without esophagitis HX: breast cancer 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, 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 Mixed hyperlipidemia Obstructive sleep apnea Osteoporosis PAD (peripheral artery disease) stent right SFA Peripheral arterial disease Recurrent UTI Type 2 diabetes mellitus with diabetic polyneuropathy Urinary incontinence in female Vitamin D deficiency Surgical History History of intravascular stent placement (~2003) right leg; [place], [place] History of lumpectomy of left breast (~1969) [place] History of shoulder surgery (~2014) right; [place] [facility] [place] of bladder repair surgery (~2004) Dr Nunez's office in [place], [place] Hx of lithotripsy Family History Brother Cancer Lung Father , at age 74 Diabetes Cancer colon Mother , age 89 Diabetes CAD (coronary artery disease) Cancer breast Denies family history of Clotting disorder Dementia Hyperlipidemia Psychiatric illness Chronic kidney disease (CKD) Suicide Anesthesia complication Bleeding disorder Family history of premature coronary artery disease Lung disease Hypertension Stroke Social History Smoking and tobacco status: former smoker Quit status (tobacco): has quit using tobacco Year quit tobacco: 2001 Alcohol intake: never Lives independently: Yes Household members: none Marital status: / Current occupational status: retired History of recent travel: No Current gender identity: Female Physical Exam Const: COMMON NORMALS: no acute distress, average body habitus, patient oriented x3, no limitations, healthy appearing, alert and well nourished GENERAL APPEARANCE: cooperative, comfortable, well kempt and well developed ORIENTATION/CONSCIOUSNESS: Yes awake, Yes oriented to person, Yes oriented to place and Yes oriented to time HENMT: COMMON NORMALS: normocephalic, external ears normal and Normal external nose present HEAD & SCALP: normal to inspection and normocephalic NOSE: Normal external nose present EXTERNAL EAR: Yes external ears normal MOUTH: Normal oral and palatal mucosa present THROAT: posterior oropharynx normal Eye: COMMON NORMALS: Equal, round and reactive pupils present and EOMs intact bilaterally GENERAL EYE: appearance normal, both eyes and all related structures PUPIL: Yes Equal, round and reactive pupils present Neck/C-Spine: COMMON NORMALS: full ROM, no lymphadenopathy, no meningeal signs and no JVD GENERAL: Yes normal visual inspection Lymph: LYMPHATIC: no lymphadenopathy noted Chest: COMMONS NORMALS: normal inspection of the chest and normal palpation of entire chest wall Resp: COMMON NORMALS: normal respiratory effort, No retractions, No use of accessory muscles, clear to auscultation bilaterally and percussion normal EFFORT & INSPECTION: Yes able to speak in complete sentences AUSCULTATION: clear to auscultation bilaterally PERCUSSION: percussion normal Cardio: COMMON NORMALS: no JVD, regular rate, regular rhythm, S1 normal heart sound present, S2 normal heart sound present and Peripheral pulses 2+ throughout RATE: regular rate RHYTHM: regular rhythm HEART SOUNDS: S1 normal heart sound present and S2 normal heart sound present PERIPHERAL PULSES: Peripheral pulses 2+ throughout GI: COMMON NORMALS: Normal to inspection, nondistended, normoactive bowel sounds present, Soft to palpation, non-tender and no masses INSPECTION: Yes normal to inspection PALPATION: Yes Soft to palpation : COMMON NORMALS: Yes no CVA tenderness BLADDER/KIDNEY EXAM: Yes no CVA tenderness Back/Pelvis: COMMON NORMALS: no CVA tenderness, thoracic and lumbar spine normal to inspection, no thoracic nor lumbar tenderness and thoraco-lumbar ROM normal Extremity: COMMON NORMALS: normal to inspection, full ROM, capillary refill normal, no joint enlargement and no pedal edema GENERAL: Yes normal exam except as noted Neuro: COMMON NORMALS: patient oriented x3, CN's II-XII intact bilaterally, moves all extremities, no focal motor deficits, no sensory deficits noted and gait normal SENSORIUM/ORIENTATION: Yes alert, Yes oriented to person, Yes oriented to place and Yes oriented to time MENINGEAL SIGNS: Yes no meningeal signs Psych: COMMON NORMALS: mental status grossly normal, Normal thought process present, cooperative, normal affect and speech normal APPEARANCE: Yes well kempt ATTITUDE: Yes calm SPEECH: Yes normal speech THOUGHT PROCESS: Normal thought process present Skin: COMMON NORMALS: no rashes or lesions noted GENERAL SKIN EXAM: no rashes or lesions noted Course Vital Signs: Vital signs: Vital Signs Temperature 98.2 F 12/07/20 13:36 Pulse Rate 57 L 12/07/20 17:20 Respiratory Rate 19 H 12/07/20 17:20 Blood Pressure 144/110 12/07/20 17:20 Pulse Oximetry 96 12/07/20 17:20 MDM - SOB/Dyspnea MDM Narrative: Medical decision making narrative: The patient is a 75-year-old female with coronary artery disease, history of myocardial infarction who comes to the ER complaining of increasing shortness of breath on exertion. She is not short of breath with minimal exertion. Perfusion scan from last year shows areas of reversible ischemia. Initial troponin and EKG are normal. Attempted to contact Dr. Maguire with no LOC. Dr. Gunn is in a procedure and unable to answer. Discussed with Dr. Sy who accepts for observation. Lab Data: Labs: Lab Results 12/07/20 12/07/20 12/07/20 Range/Units 14:45 14:45 14:45 WBC 6.3 (4.0-10.0) 10^3/ uL RBC 4.66 (4.1-5.3) 10^6/u L Hgb 13.2 (11.5-15.3) g/dL Hct 42.6 (37.0-47.0) % MCV 91.4 (81-99) fL MCH 28.3 (28.0-34.0) pg MCHC 31.0 (30.0-36.0) g/dL RDW 13.0 (12.1-15.1) % Plt Count 169 (130-400) 10^3/c mm MPV 11.6 H (7.4-10.4) fL Neut % (Auto) 68.2 % Lymph % (Auto) 19.4 % [place] % (Auto) 8.7 % Eos % (Auto) 2.7 % Baso % (Auto) 0.5 % Neut # (Auto) 4.30 (1.8-7.7) 10^3/u L Lymph # (Auto) 1.2 (0.8-4.8) 10^3/u L [place] # (Auto) 0.6 (0.2-0.9) 10^3/u L Eos # (Auto) 0.2 (0.0-0.8) 10^3/u L Baso # (Auto) 0.0 (0.0-0.1) 10^3/u L Nucleated RBC % (a uto) 0 % Nucleated RBCs # 0.0 /100WBC D-Dimer 0.55 (0-0.59) ug/mIFE U Sodium 141 (136-145) mmol/L Potassium 4.6 (3.5-5.1) mmol/L Chloride 102 (98-107) mmol/L Carbon Dioxide 27 (22-29) mmol/L Anion Gap 16.6 (5-19) BUN 14 (8-23) mg/dL Creatinine 0.6 (0.5-0.9) mg/dL GFR Calculation Not Reportable Glucose 83 (65-115) mg/dL Calculated Osmolal ity 292 (285-295) mOsm/k g Calcium 9.7 (8.5-10.5) mg/dL Total Bilirubin 0.3 (0.15-1.2) mg/dL AST 18 (0-32) U/L ALT 13 (0-33) U/L Alkaline Phosphata se 54 (35-105) IU/L Troponin T Baselin e (0-10) ng/L NT-Pro-B Natriuret Pep 362 (0-450) pg/mL Total Protein 7.5 (6.6-8.7) g/dL Albumin 4.6 (3.5-5.2) g/dL Globulin 2.9 (1.3-4.6) g/dL Urine Color (Yellow) Urine Appearance (CLEAR) Urine pH (5-7) Ur Specific Gravit y (1.005-1.030) Urine Protein (Negative) Urine Glucose (UA) (Normal) Urine Ketones (Negative) Urine Blood (Negative) Urine Nitrate (Negative) Urine Bilirubin (Negative) Urine Urobilinogen (Negative) mg/dL Ur Leukocyte [place] ase (Negative) 12/07/20 12/07/20 Range/Units 14:45 15:13 WBC (4.0-10.0) 10^3/ uL RBC (4.1-5.3) 10^6/u L Hgb (11.5-15.3) g/dL Hct (37.0-47.0) % MCV (81-99) fL MCH (28.0-34.0) pg MCHC (30.0-36.0) g/dL RDW (12.1-15.1) % Plt Count (130-400) 10^3/c mm MPV (7.4-10.4) fL Neut % (Auto) % Lymph % (Auto) % [place] % (Auto) % Eos % (Auto) % Baso % (Auto) % Neut # (Auto) (1.8-7.7) 10^3/u L Lymph # (Auto) (0.8-4.8) 10^3/u L [place] # (Auto) (0.2-0.9) 10^3/u L Eos # (Auto) (0.0-0.8) 10^3/u L Baso # (Auto) (0.0-0.1) 10^3/u L Nucleated RBC % (a uto) % Nucleated RBCs # /100WBC D-Dimer (0-0.59) ug/mIFE U Sodium (136-145) mmol/L Potassium (3.5-5.1) mmol/L Chloride (98-107) mmol/L Carbon Dioxide (22-29) mmol/L Anion Gap (5-19) BUN (8-23) mg/dL Creatinine (0.5-0.9) mg/dL GFR Calculation Glucose (65-115) mg/dL Calculated Osmolal ity (285-295) mOsm/k g Calcium (8.5-10.5) mg/dL Total Bilirubin (0.15-1.2) mg/dL AST (0-32) U/L ALT (0-33) U/L Alkaline Phosphata se (35-105) IU/L Troponin T Baselin e 7 (0-10) ng/L NT-Pro-B Natriuret Pep (0-450) pg/mL Total Protein (6.6-8.7) g/dL Albumin (3.5-5.2) g/dL Globulin (1.3-4.6) g/dL Urine Color Yellow (Yellow) Urine Appearance Clear (CLEAR) Urine pH 5 (5-7) Ur Specific Gravit y 1.015 (1.005-1.030) Urine Protein Neg (Negative) Urine Glucose (UA) Norm (Normal) Urine Ketones Negative (Negative) Urine Blood Neg (Negative) Urine Nitrate Negative (Negative) Urine Bilirubin Neg (Negative) Urine Urobilinogen Norm (Negative) mg/dL Ur Leukocyte [place] ase Negative (Negative) Discharge Plan Discharge Patient Disposition: Placed in Observation Clinical Impression: REMY (dyspnea on exertion) Coding Level of Care Code ED Aging Box Hand for Baljeet Fwd Exam Comprehensive
[2020-12-07 14:48] LABS: Basophils % 0.5 %; Eosinophils # 0.2 10^3/uL (0.0-0.8); Eosinophils % 2.7 %; Hematocrit 42.6 % (37.0-47.0); Hemoglobin 13.2 g/dL (11.5-15.3); Lymphocytes # 1.2 10^3/uL (0.8-4.8); Lymphocytes % 19.4 %; Mean Corpuscular Hemoglobin 28.3 pg (28.0-34.0); Mean Corpuscular Volume 91.4 fL (81-99); Mean Platelet Volume 11.6 fL (7.4-10.4); Monocytes # 0.6 10^3/uL (0.2-0.9); Monocytes % 8.7 %; Neutrophils % 68.2 %; Nucleated Red Blood Cells % 0 %; Platelet Count 169 10^3/cmm (130-400); Red Blood Count 4.66 10^6/uL (4.1-5.3); White Blood Count 6.3 10^3/uL (4.0-10.0)
[2020-12-07] MEDS: aspirin 81 mg Chew Tablet 324 MG PO (15:06)
[2020-12-07 15:25] LABS: D Dimer 0.55 ug/mIFEU (0-0.59)
[2020-12-07 15:26] LABS: Troponin(5th) Baseline 7 ng/L (0-10)
[2020-12-07 15:30] LABS: Add Urine Microscopic? NO; Charge for UA Resulting for Rev
[2020-12-07 15:34] LABS: Alanine Aminotransferase 13 U/L (0-33); Albumin Level 4.6 g/dL (3.5-5.2); Alkaline Phosphatase 54 IU/L (35-105); Aspartate Amino Transferase 18 U/L (0-32); Blood Urea Nitrogen 14 mg/dL (8-23); Calcium 9.7 mg/dL (8.5-10.5); Carbon Dioxide 27 mmol/L (22-29); Chloride 102 mmol/L (98-107); Globulin 2.9 g/dL (1.3-4.6); Glucose 83 mg/dL (65-115); NT Pro B Type Natriuretic Pept 362 pg/mL (0-450); Osmolality Calculated 292 mOsm/kg (285-295); Sodium 141 mmol/L (136-145); Total Bilirubin 0.3 mg/dL (0.15-1.2); Total Protein 7.5 g/dL (6.6-8.7)
[2020-12-07 15:37] LABS: Bilirubin Urine Neg (Negative); Blood Urine Neg (Negative); Glucose Urine UA Norm (Normal); Ketones Urine Negative (Negative); Leukocyte Esterase Urine Negative (Negative); Nitrate Urine Negative (Negative); Protein Urine Neg (Negative); Specific Gravity, Urine 1.015 (1.005-1.030); Urine Appearance Clear (CLEAR); Urine Color Yellow (Yellow); Urobilinogen Urine Norm (Negative); pH Urine 5 (5-7)
[2020-12-07 15:54] LABS: Anion Gap 16.6 (5-19)
[2020-12-07 15:55] LABS: Potassium 4.6 mmol/L (3.5-5.1)
--- NOTE | 2020-12-07 16:07 | ECG_ITS ---
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 Measurements Intervals [place] Rate: 58 P: 40 ND: 135 QRS: 12 QRSD: 101 T: -31 QT: 440 QTc: 433 Interpretive Statements SINUS BRADYCARDIA NONSPECIFIC T-WAVE ABNORMALITY Compared to ECG 10/19/2019 21:57:47 No significant changes Electronically Signed On 12-08-2020 20:14:47 CDT by Chavez Gunn M.D. [id number]
--- NOTE | 2020-12-07 18:49 | PM.HP ---
Providers/Chief Complaint Primary Care Provider: Lucy Moreland MD Chief Complaint: SOB, CP History of Present Illness Lucy Galindo is a 75 year old female with a past medical history of CAD, status post stenting, history of breast cancer, peripheral arterial disease, hypertension, MILAD, anxiety, depression, asthma, bilateral hearing loss, chronic osteoarthritis, fibromyalgia, GERD, MILAD on CPAP, gto-[id number] type 2 diabetes mellitus, who presents to [facility] due to exertional shortness of breath. Patient tells me that she has exertional shortness of breath for the last 6 months, she tells me that she for the last 6 months has developed increased shortness of breath with exertion, she tells me that she takes a [employer] blasting to [facility], normally she is able to do most of her shopping with minimal symptomatology, but over the last 6 months she is becoming increasingly short of breath when she finishes her shopping trip, she denies wheezing, denies cough, denies any sick contacts, denies any exposure to COVID-19, denies any COVID-19 positivity. Denies any recent surgeries, no recent travel, no calf pain, no calf swelling. She tells me that sometimes with this change shortness of breath she will get some anterior chest discomfort, really not a pain, but more like a pressure-like pain across anterior chest, lasting a few seconds, nonradiating, no lightheaded, dizziness, no nausea, vomiting. Patient had a angiogram on 03/17/2020 which showed mild diffuse disease, patent stented segment, normal LV function. She also saw Dr. Maguire a few days ago, who felt that her symptoms were fairly nonspecific, and that symptoms could be related to reactive artery disease. Denies current smoking, but does have previous history of smoking. Denies any wheezing with exertion. Albuterol does not seem to help her symptomatology. Denies any orthopnea. Denies any paroxysmal nocturnal dyspnea. Review of Systems Const: Denies: fever(s), chills, fatigue or malaise Eyes: Denies: change in vision or blurry vision ENMT: Denies: nasal congestion Card: Reports: chest pain; Denies: irregular heart rhythm, swelling of feet/ankles or lightheadedness Resp: Reports: dyspnea; Denies: productive cough, non-productive cough or wheezing GI: Denies: abdominal pain, nausea, vomiting, hematemesis, diarrhea, constipation, hematochezia or melena : Denies: flank pain, dysuria or urinary frequency Musc: Denies: neck pain or back pain Skin/Breast: Denies: rash Neuro: Denies: headache(s), dizziness or vertigo Psych: Denies: anxiety or depression Endo: Denies: polyuria or polydipsia Medications/Allergies Home Medications Medication Instructions Recorded Confirmed Last Taken Type glucosamine sulfate 500 1 cap PO BID@ cap 08/31/19 12/07/20 12/07/20 History mg-chondroitin 250 mg-msm 250 mg capsule nitroglycerin 0.4 mg sublingual 0.4 mg SUBLINGUAL Q5M PRN 08/31/19 12/07/20 12/05/20 History tablet omega-3 fatty acids 1,000 mg 1,000 mg PO DAILY@999 cap 08/31/19 12/07/20 12/07/20 History capsule oxybutynin chloride 5 mg PO BEDTIME@199903/06/20 12/07/20 12/06/20 History tramadol 50 mg tablet 50 mg PO TID PRN 30 Days #90 tab 09/09/20 12/07/20 12/07/20 Rx ketoconazole 2 % shampoo 1 applic TOPICAL .3 x week #120 ml 11/19/20 12/07/20 Unknown Rx ketoconazole 2 % topical cream 1 applic TOPICAL BID #60 g 11/19/20 12/07/20 12/07/20 Rx vitamin B complex 1 tab PO DAILY@99911/19/20 12/07/20 12/07/20 History Flonase Allergy Relief 2 spray INTRANASAL DAILY@99912/07/20 12/07/20 12/07/20 History Kimmie-osmar 17.2 mg PO BEDTIME@199912/07/20 12/07/20 12/06/20 History Ventolin HFA 2 puff INHALATION QID PRN 12/07/20 12/07/20 Unknown History Vitamin B-12 1 tab PO DAILY@99912/07/20 12/07/20 12/07/20 History Zyrtec 10 mg PO DAILY@99912/07/20 12/07/20 12/07/20 History aspirin 81 mg PO BEDTIME@199912/07/20 12/07/2012/06/21 History cholecalciferol (vitamin D3) 2,000 unit PO Q2D 12/07/20 12/07/20 12/06/20 History citalopram 20 mg PO DAILY@1000 12/07/20 12/07/20 12/07/20 History fosinopril 10 mg PO DAILY@1000 12/07/20 12/07/20 12/07/20 History meloxicam 7.5 mg PO DAILY@1000 12/07/20 12/07/20 12/07/20 History metformin 500 mg PO BID@1000,199912/07/20 12/07/20 12/07/20 History multivitamin 1 tab PO DAILY@199912/07/20 12/07/20 12/06/20 History omeprazole 20 mg PO DAILY@1000 12/07/20 12/07/20 12/07/20 History potassium chloride 10 meq PO BID@1000,199912/07/20 12/07/20 12/07/20 History simvastatin 40 mg PO BEDTIME 12/07/20 12/07/20 12/06/20 History tizanidine 4 mg PO DAILY PRN 12/07/20 12/07/20 Unknown History Allergies Allergy/AdvReac Type Severity Reaction Status Date / Time No Known Allergies Allergy Verified 12/07/20 13:35 PFSH Acute PFSH: Medical History Abnormal nuclear stress test Anxiety and depression Asthma, mild persistent Asymptomatic cholelithiasis Atherosclerotic heart disease of [place] coronary artery without angina pectoris Benign essential HTN Bilateral hearing loss Calculus of kidney right; 6 mm without change management manager time 01/10; 7 mm obstructing right proximal stone; evaluated and treated [facility] Hospitalized at [facility] 02/10 for sepsis, UTI, NSTEMI, and right proximal ureteral calculus with hydronephrosis Chronic idiopathic constipation Chronic low back pain Chronic neck and back pain Chronic osteoarthritis Chronic right shoulder pain Dyslipidemia (high LDL; low HDL) Encounter for counseling for care management of patient with chronic conditions and complex health needs using nurse-based model Encounter for long-term opiate analgesic use Enrolled in chronic care management Essential (primary) hypertension Fibromyalgia Gastro-esophageal reflux disease without esophagitis HX: breast cancer 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, unspecified intermediate card tender (current) use of opiate analgesic Mixed hyperlipidemia Obstructive sleep apnea Osteoporosis PAD (peripheral artery disease) stent right SFA Peripheral arterial disease Recurrent UTI Type 2 diabetes mellitus with diabetic polyneuropathy Urinary incontinence in female Vitamin D deficiency Surgical History History of intravascular stent placement (~2003) right leg; [place], [place] History of lumpectomy of left breast (~1969) [place] History of shoulder surgery (~2014) right; Dr Chiu, [facility] [place] Hx of bladder repair surgery (~2004) Dr Nunez's office in [place], [place] Hx of lithotripsy Family History Brother Cancer Lung Father , at age 74 Diabetes Cancer colon Mother , age 89 Diabetes CAD (coronary artery disease) Cancer breast Denies family history of Clotting disorder Dementia Hyperlipidemia Psychiatric illness Chronic kidney disease (CKD) Suicide Anesthesia complication Bleeding disorder Family history of premature coronary artery disease Lung disease Hypertension Stroke Social History Smoking and tobacco status: former smoker Quit status (tobacco): has quit using tobacco Year quit tobacco: 2001 Alcohol intake: never Lives independently: Yes Household members: none Marital status: / Current occupational status: retired History of recent travel: No Current gender identity: Female Vitals/I&O/Wt Last Vital Signs Temp 98.2 F 12/07/20 13:36 Pulse 57 L 12/07/20 17:20 Resp 19 H 12/07/20 17:20 BP 144/110 12/07/20 17:20 Pulse Ox 96 12/07/20 17:20 Weight last 48 hrs Weight 64.41 kg Physical Exam Narrative: EXAM NARRATIVE: Patient has bilateral hearing loss, hard of hearing Const: COMMON NORMALS: no acute distress and patient oriented x3 GENERAL APPEARANCE: cooperative and comfortable HENMT: COMMON NORMALS: normocephalic HEAD & SCALP: normocephalic Eye: COMMON NORMALS: Equal, round and reactive pupils present and EOMs intact bilaterally GENERAL EYE: appearance normal, both eyes and all related structures PUPIL: Yes Equal, round and reactive pupils present Neck/C-Spine: COMMON NORMALS: full ROM, no lymphadenopathy and no JVD THYROID: Thyroid normal Lymph: LYMPHATIC: no lymphadenopathy noted Resp: COMMON NORMALS: normal respiratory effort, No retractions, No use of accessory muscles and clear to auscultation bilaterally AUSCULTATION: clear to auscultation bilaterally Cardio: COMMON NORMALS: no JVD, regular rate, regular rhythm, S1 normal heart sound present, S2 normal heart sound present, No gallops present (Cardio), No clicks present (Cardio) and No murmurs present (Cardio) RATE: regular rate RHYTHM: regular rhythm HEART SOUNDS: S1 normal heart sound present and S2 normal heart sound present GI: COMMON NORMALS: Normal to inspection, nondistended, normoactive bowel sounds present, Soft to palpation, non-tender and No hepatosplenomegaly present PALPATION: Yes Soft to palpation and Yes No hepatosplenomegaly present Extremity: COMMON NORMALS: normal to inspection, full ROM and no pedal edema Neuro: COMMON NORMALS: patient oriented x3, CN's II-XII intact bilaterally, moves all extremities and no focal motor deficits Psych: COMMON NORMALS: mental status grossly normal, Normal thought process present and cooperative THOUGHT PROCESS: Normal thought process present Data : 12/07/20 14:45 12/07/20 14:45 A&P Assessment and plan (1) REMY (dyspnea on exertion): -Etiology is unclear at this point -She did have a cardiac catheterization in February 2020 which showed mild diffuse disease, patent stented segment, no significant revascularizable lesions -No wheezing, no history of COPD, but does has asthma, albuterol does not seem to help -Troponins here are minimally elevated, EKG no acute ST-T wave changes, BMP within normal limits, chest x-ray does not show focal pneumonia, no pulmonary vascular congestion Plan: -Admit -Follow troponins, serial EKGs -Monitor for symptomatology, monitor for chest pain -Continue aspirin, statin, nitro -We will order CT angiogram of the chest to evaluate for possible pulmonary emboli -We will order cardiac echocardiogram -Follow telemetry, for any A. fib events -Will consider discussing case with cardiology based on pending work-up -If work-up comes unremarkable, can consider event monitor for monitor for paroxysmal A. fib as a possible etiology -Full code -Lovenox for DVT prophylaxis Status: Acute (2) Anxiety and depression: Status: Acute (3) Osteoporosis: Status: Acute Qualifiers: Osteoporosis type: age-related Presence of current pathological fracture: without current pathological fracture Qualified Code(s): M81.0 - Age-related osteoporosis without current pathological fracture (4) Diabetes: Low-dose sliding scale Status: Acute Qualifiers: Diabetes mellitus type: type 2 Diabetes mellitus intermediate card tender insulin use: without intermediate card tender use Diabetes mellitus complication status: without complication Qualified Code(s): E11.9 - Type 2 diabetes mellitus without complications (5) Benign essential HTN: Status: Acute (6) Peripheral arterial disease: Status: Acute (7) Atherosclerotic heart disease of mo[place]gan coronary artery without angina pectoris: Status: Acute Qualifiers: [place] vs. transplanted heart: mo[place]gan heart Qualified Code(s): I25.10 - Atherosclerotic heart disease of [place] coronary artery without angina pectoris (8) Chronic neck and back pain: Status: Acute (9) Fibromyalgia: Status: Chronic (10) Mixed hyperlipidemia: Status: Acute (11) Obstructive sleep apnea: Status: Acute Attestations Medical Necessity Statement*: Patient requires hospitalization, outpatient with observation, for exertional shortness of breath, chest pain Coding Level of Care Code Acute Team Leader for [facility] Fw Diagnoses REMY (dyspnea on exertion) R06.00 Anxiety and depression F41.9; F32.9 Osteoporosis M81.0 Osteoporosis type: age-related Presence of current pathological fracture: without current pathological fracture Diabetes E11.9 Diabetes mellitus type: type 2 Diabetes mellitus intermediate card tender insulin use: without intermediate card tender use Diabetes mellitus complication status: without complication Benign essential HTN I10 Peripheral arterial disease I73.9 Atherosclerotic heart disease of mo[place] coronary artery without angina pectoris I25.10 [place] vs. transplanted heart: [place]gan heart Chronic neck and back pain M54.2; M54.9; G89.29 Fibromyalgia M79.7 Mixed hyperlipidemia E78.2 Obstructive sleep apnea G47.33
[2020-12-07 18:53] LABS: Troponin 5 2HR 7.35 ng/L (0-10); Troponin 5 2HR Delta 0.35 ABS# (0-10)
--- NOTE | 2020-12-07 20:07 | ECG_ITS ---
[facility] ED Test Date: 2020-12-07 Pat Name: Lucy Galindo Department: Room: 276 Gender: Female X Ray Inspector: : 1945 Requested By: Bud Cortes Order Number: [id number] Jimi MD: Sivan Smallwood M.D. Measurements Intervals [place] Rate: 55 P: 41 DC: 147 QRS: 18 QRSD: 100 T: -40 QT: 441 QTc: 425 Interpretive Statements SINUS BRADYCARDIA MODERATE T-WAVE ABNORMALITY, CONSIDER INFERIOR ISCHEMIA [-0.1+ mV T WAVE IN II/aVF] Compared to ECG 12/07/2020 17:12:00 Possible ischemia now present T-wave abnormality still present Electronically Signed On 12-14-2020 10:58:12 CDT by Sivan Smallwood M.D. [id number]
--- NOTE | 2020-12-07 20:26 | CTR_ITS ---
PROCEDURE INFORMATION: Exam: CTA Chest With Contrast Exam date and time: 12/07/2020 1:51 AM Age: 75 years old Clinical indication: Dyspnea; Prior surgery; Surgery date: 6+ months; Surgery type: Stent; Additional info: SOB TECHNIQUE: Imaging protocol: Computed tomographic angiography of the chest with contrast. 3D rendering (Not supervised by radiologist): MIP and/or 3D reconstructed images were created by the technologist. Radiation optimization: All CT scans at this facility use at least one of these dose optimization techniques: automated exposure control; mA and/or kV adjustment per patient size (includes targeted exams where dose is matched to clinical indication); or iterative reconstruction. Contrast material: OMNI 350; Contrast volume: 95 ml; Contrast route: INTRAVENOUS (IV); COMPARISON: 1. CR (CHEST, ) 2020-12-07 14:22 2. CR XR chest 1V portable [id number] 2019-10-19 22:34 RADIATION DOSE METRICS: Total DLP (mGy-cm): 622.42 FINDINGS: Limitations: Limited by patient's body habitus. Pulmonary arteries: No filling defects in the pulmonary arteries to suggest pulmonary emboli. The pulmonary arteries demonstrate moderate central enlargement, consistent with moderate pulmonary hypertension. Aorta: Mild aortic atherosclerosis. Lungs: Dependent subsegmental pulmonary atelectasis. There is a pulmonary parenchymal calcification consistent with remote granulomatous organism exposure. Pleural spaces: Unremarkable. No pneumothorax. No pleural effusion. Heart: Mild moderate coronary artery disease. Lymph nodes: Multiple calcified mediastinal and hilar lymph nodes. Stomach and bowel: Moderate to large hiatal hernia with gastric wall thickening. Bones/joints: Unremarkable. No acute fracture. Soft tissues: Previous left breast surgery with mastectomy or lumpectomy. Small right-sided Bochdalek hernia. Medium size left [place]k hernia. Other findings: Right proximal humeral suture anchors. Exaggerated kyphotic curvature. IMPRESSION: 1. Moderate to large paraesophageal hiatal hernia with gastric wall thickening. 2. No filling defects in the pulmonary arteries to suggest pulmonary emboli. PROCEDURE INFORMATION: Exam: CT Abdomen With Contrast Exam date and time: 12/07/2020 1:51 AM Age: 75 years old Clinical indication: Dyspnea; Prior surgery; Surgery date: 6+ months; Surgery type: Stent; Additional info: SOB TECHNIQUE: Imaging protocol: Computed tomography images of the abdomen with intravenous contrast. COMPARISON: 1. CR (CHEST, ) 2020-12-07 14:22 2. CR XR chest 1V portable [id number] 2019-10-19 22:34 FINDINGS: Liver: The liver demonstrates punctate calcifications, consistent with remote granulomatous organism exposure. Gallbladder and bile ducts: Cholelithiasis. Pancreas: Normal. No ductal dilation. Spleen: Normal. No splenomegaly. Adrenals: Normal. No mass. Kidneys and ureters: Lobulated scarred right inferior renal pole. Couple tiny punctate nonobstructing renal calculi. Stomach and bowel: Moderate colonic diverticulosis. Moderate to large paraesophageal hiatal hernia with gastric wall thickening. Intraperitoneal space: Unremarkable. No free air. No significant fluid collection. Lymph nodes: Unremarkable. No enlarged lymph nodes. Vasculature: Moderate renal artery stenosis. 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 Mild moderate celiac artery origin stenosis. Moderate aortic atherosclerosis. Bones/joints: Unremarkable. No acute fracture. No dislocation. Soft tissues: Unremarkable. CT/CT angio chest PE protcl [id number] IMPRESSION: 1. Cholelithiasis. 2. Moderate colonic diverticulosis without acute inflammatory changes. 3. Moderate renal artery stenosis. 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 Mild moderate celiac artery origin stenosis. 4. Moderate to large paraesophageal hiatal hernia with gastric wall thickening. Radiation Dose CTDIVOL = (mGy): DLP = 622.42 (mGy-cm)
[2020-12-07 21:26] LABS: Troponin 5 6HR 8.34 ng/L (0-10); Troponin 5 6HR Delta 1.34 ng/L (0-12)
--- NOTE | 2020-12-07 22:57 | PC.NURSE ---
Medication was given late due to CT
[2020-12-08] VITALS (7 sets, daily range): BP systolic 118–147; BP diastolic 75–79; PULSE 56–80; RESP 16–18; TEMP 36.7–37.2; O2SAT 90–95
[2020-12-08] MEDS: iohexol 350 mg/mL 100 mL Btl IV (02:16)
[2020-12-08] MEDS: aspirin 81 mg EC Tablet PO (02:24)
[2020-12-08] MEDS: atorvastatin 40 mg Tablet 20 MG PO (02:24)
[2020-12-08] MEDS: potassium chloride ER 10 mEq Tablet PO ×2 (02:24→09:17)
[2020-12-08] MEDS: sennosides 8.6 mg Tablet 17.2 MG PO (02:25)
[2020-12-08] MEDS: oxybutynin 5 mg Tablet PO (02:25)
[2020-12-08] MEDS: enoxaparin 40 mg/0.4 mL Syringe SUBCUT (02:25)
[2020-12-08] MEDS: TRAMadol 50 mg Tablet PO ×2 (02:32→09:07)
--- NOTE | 2020-12-08 06:26 | PC.NURSE ---
No tele available. Tele placed on patient at 645
[2020-12-08 07:02] LABS: Glucose Point of Care 109 mg/dL (70-110)
[2020-12-08 07:58] LABS: Basophils % 0.6 %; Eosinophils # 0.2 10^3/uL (0.0-0.8); Eosinophils % 4.7 %; Hematocrit 41.8 % (37.0-47.0); Lymphocytes # 1.2 10^3/uL (0.8-4.8); Mean Corpuscular HGB Conc 31.1 g/dL (30.0-36.0); Mean Corpuscular Hemoglobin 28.6 pg (28.0-34.0); Mean Corpuscular Volume 91.9 fL (81-99); Monocytes # 0.5 10^3/uL (0.2-0.9); Monocytes % 9.8 %; Neutrophils # 2.99 10^3/uL (1.8-7.7); Neutrophils % 60.7 %; Nucleated Red Blood Cells % 0 %; Platelet Count 225 10^3/cmm (130-400); Red Blood Count 4.55 10^6/uL (4.1-5.3); White Blood Count 4.9 10^3/uL (4.0-10.0)
[2020-12-08 08:27] LABS: Alanine Aminotransferase 10 U/L (0-33); Albumin Level 4.1 g/dL (3.5-5.2); Alkaline Phosphatase 50 IU/L (35-105); Aspartate Amino Transferase 14 U/L (0-32); Blood Urea Nitrogen 12 mg/dL (8-23); Calcium 9.4 mg/dL (8.5-10.5); Carbon Dioxide 25 mmol/L (22-29); Chloride 105 mmol/L (98-107); Globulin 2.7 g/dL (1.3-4.6); Glucose 102 mg/dL (65-115); Magnesium 1.6 mg/dL (1.7-2.3); NT Pro B Type Natriuretic Pept 808 pg/mL (0-450); Osmolality Calculated 290 mOsm/kg (285-295); Sodium 140 mmol/L (136-145); Total Bilirubin 0.4 mg/dL (0.15-1.2); Total Protein 6.8 g/dL (6.6-8.7)
[2020-12-08] MEDS: lisinopril 10 mg Tablet PO (09:09)
[2020-12-08] MEDS: fluticasone nasal spray 16gm Btl 2 SPRAY INTRANASAL (09:09)
[2020-12-08] MEDS: omega-3 fatty acids 1,000 mg Capsule 1000 MG PO (09:09)
[2020-12-08] MEDS: citalopram 20 mg Tablet PO (09:09)
[2020-12-08] MEDS: cetirizine 10 mg Tablet PO (09:09)
[2020-12-08] MEDS: pantoprazole DR 40 mg Tablet PO (09:09)
[2020-12-08 10:35] LABS: Glucose Point of Care 199 mg/dL (70-110)
--- NOTE | 2020-12-08 11:19 | P.DS_ITS ---
Discharge Providers Date of Admission: 12/07/20 18:37 Date of Discharge: December 08, 2020 Attending Provider at Admission: Chin Sy MD Attending Provider at Discharge: Tania Reyes MD Primary Care Provider: Lucy Moreland MD Diagnoses at Discharge Discharge Diagnosis (1) REMY (dyspnea on exertion): Status: Acute (2) Paraesophageal hernia: Status: Acute (3) Atherosclerotic heart disease of [place] coronary artery without angina pectoris: Status: Chronic Qualifiers: [place] vs. 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 insulin use: without prison use Diabetes mellitus type: type 2 Qualified Code(s): E11.9 - Type 2 diabetes mellitus without complications (9) Osteoporosis: Status: Chronic Qualifiers: Osteoporosis type: age-related Presence of current pathological fracture: without current pathological fracture Qualified Code(s): M81.0 - Age- related osteoporosis without current pathological fracture (10) Chronic neck and back pain: Status: Chronic (11) Fibromyalgia: Status: Chronic (12) Anxiety and depression: Status: Chronic (13) Renal artery stenosis: Status: Chronic Permanent problem details: Moderate, noted on CTA 11/2020 (14) Superior mesenteric artery stenosis: Status: Chronic Permanent problem details: Moderate, noted on CTA 11/2020 Some celiac artery stenosis also noted Reason for Visit Reason for Visit: SOB, CP Hospital Course Hospital Course Mrs. Galindo presented with shortness of breath. It has been progressively worsening lately. She has noticed it more when she bends over or gets up and moves around. She has been seen by Dr. Maguire recently and had an arteriogram last year which just showed some mild diffuse changes but patent stents. Dr. Maguire did not feel that her symptoms were cardiac in nature. He was thinking more reactive airway disease. Her breathing became worse prompting her to come in for additional evaluation as she was scared that something more significant was going on. CTA of the chest did not show any evidence of PE. Echocardiogram showed an ejection fraction of 60%. She did have grade 1/4 diastolic dysfun ction. Serial cardiac enzymes were unremarkable. No arrhythmias were noted on telemetry monitoring. What was noted on CTA of the chest was a large paraesophageal hernia. I wonder how much this is contributing to her symptoms. I did go on and start her on a PPI because of this. My overall suspicion is that her symptoms are multifactorial related to weight gain over the last year, some increasing kyphosis related to osteoporosis, decreased activity as well as known sleep apnea. We talked about gradually increasing exercises as directed by physical therapy to see if she can increase her endurance. She felt comfortable with this plan and does not know why she quit working on keeping up her activity. We also discussed posture to help with the her upper back and neck pain which she attributes to sitting in a chair hunched over looking at her cell phone so much. Is feeling better after being reassured that things were looking okay. She remains short of breath but hopeful that things will get better over time. The CTA that she had done to evaluate for PE did end up revealing evidence of some renal artery stenosis as well as superior mesenteric artery stenosis. Blood pressures were within appropriate ranges and not requiring significant additional management. She did not complain of abdominal pain or other GI symptoms. These diagnoses were added to patient's problem list for future reference. Physical Exam Narrative: EXAM NARRATIVE: No acute distress, awake and alert, oriented. She does have a hump at the upper part of her back associated with some pain and stiffness. No point tenderness along her back or chest wall. Lungs are clear to auscultation. No end expiratory wheezes, pursed lip breathing or other accessory muscle use noted. She has a regular rhythm. Abdomen is soft. Posture is noted to be slouched. We talked about trying to sit more upright. No pitting edema. Discharge Data Data Completed and Pending: Completed Studies During Hospitalization Category Date Time Status CT angio chest PE protcl [id number] Urge nt Cat Scan 12/07/20 20:26 Completed XR chest 1V bay[place] ble [id number] Stat Exams 12/07/20 14:07 Completed CV echo complete* [id number] Routine Ultrasound 12/08/20 20:26 Completed Laboratory Last Values WBC 4.9 10^3/uL (4.0- 10.0) 12/08/20 07:15 RBC 4.55 10^6/uL (4.1 -5.3) 12/08/20 07:15 Hgb 13.0 g/dL (11.5-1 5.3) 12/08/20 07:15 Hct 41.8 % (37.0-47.0 ) 12/08/20 07:15 MCV 91.9 fL (81-99) 12/08/20 07:15 MCH 28.6 pg (28.0-34. 0) 12/08/20 07:15 MCHC 31.1 g/dL (30.0-3 6.0) 12/08/20 07:15 RDW 13.0 % (12.1-15.1 ) 12/08/20 07:15 Plt Count 225 10^3/cmm (130 -400) 12/08/20 07:15 MPV 11.0 fL (7.4-10.4 ) H 12/08/20 07:15 Neut % (Auto) 60.7 % 12/08/20 07:15 Lymph % (Auto) 24.0 % 12/08/20 07:15 [place] % (Auto) 9.8 % 12/08/20 07:15 Eos % (Auto) 4.7 % 12/08/20 07:15 Baso % (Auto) 0.6 % 12/08/20 07:15 Neut # (Auto) 2.99 10^3/uL (1.8 -7.7) 12/08/20 07:15 Lymph # (Auto) 1.2 10^3/uL (0.8- 4.8) 12/08/20 07:15 [place] # (Auto) 0.5 10^3/uL (0.2- 0.9) 12/08/20 07:15 Eos # (Auto) 0.2 10^3/uL (0.0- 0.8) 12/08/20 07:15 Baso # (Auto) 0.0 10^3/uL (0.0- 0.1) 12/08/20 07:15 Nucleated RBC % (a uto) 0 % 12/08/20 07:15 Nucleated RBCs # 0.0 /100WBC 12/08/20 07:15 D-Dimer 0.55 ug/mIFEU (0- 0.59) 12/07/20 14:45 Sodium 140 mmol/L (136-1 45) 12/08/20 07:15 Potassium 4.0 mmol/L (3.5-5 .1) 12/08/20 07:15 Chloride 105 mmol/L (98-10 7) 12/08/20 07:15 Carbon Dioxide 25 mmol/L (22-29) 12/08/20 07:15 Anion Gap 14.0 (5-19) 12/08/20 07:15 BUN 12 mg/dL (8-23) 12/08/20 07:15 Creatinine 0.5 mg/dL (0.5-0. 9) 12/08/20 07:15 GFR Calculation Not Reportable 12/08/20 07:15 Glucose 102 mg/dL (65-115 ) 12/08/20 07:15 POC Glucose 199 mg/dL (70-110 ) H 12/08/20 10:29 Calculated Osmolal ity 290 mOsm/kg (285- 295) 12/08/20 07:15 Calcium 9.4 mg/dL (8.5-10 .5) 12/08/20 07:15 Phosphorus 4.0 mg/dL (2.5-4. 5) 12/08/20 07:15 Magnesium 1.6 mg/dL (1.7-2. 3) L 12/08/20 07:15 Total Bilirubin 0.4 mg/dL (0.15-1 .2) 12/08/20 07:15 AST 14 U/L (0-32) 12/08/20 07:15 ALT 10 U/L (0-33) 12/08/20 07:15 Alkaline Phosphata se 50 IU/L (35-105) 12/08/20 07:15 Troponin T Baselin e 7 ng/L (0-10) 12/07/20 14:45 Troponin T 120 Min toby 7.35 ng/L (0-10) 12/07/20 17:02 Delta Troponin T 0.35 ABS# (0-10) 12/07/20 17:02 Troponin T Hi Sens 6Hr 8.34 ng/L (0-10) 12/07/20 20:38 Troponin T Hi Sens 6Hr Delta 1.34 ng/L (0-12) 12/07/20 20:38 NT-Pro-B Natriuret Pep 808 pg/mL (0-450) H 12/08/20 07:15 Total Protein 6.8 g/dL (6.6-8.7 ) 12/08/20 07:15 Albumin 4.1 g/dL (3.5-5.2 ) 12/08/20 07:15 Globulin 2.7 g/dL (1.3-4.6 ) 12/08/20 07:15 Urine Color Yellow (Yellow) 12/07/20 15:13 Urine Appearance Clear (CLEAR) 12/07/20 15:13 Urine pH 5 (5-7) 12/07/20 15:13 Ur Specific Gravit y 1.015 (1.005-1.0 30) 12/07/20 15:13 Urine Protein Neg (Negative) 12/07/20 15:13 Urine Glucose (UA) Norm (Normal) 12/07/20 15:13 Urine Ketones Negative (Negati ve) 12/07/20 15:13 Urine Blood Neg (Negative) 12/07/20 15:13 Urine Nitrate Negative (Negati ve) 12/07/20 15:13 Urine Bilirubin Neg (Negative) 12/07/20 15:13 Urine Urobilinogen Norm mg/dL (Negat tamia) 12/07/20 15:13 Ur Leukocyte [place] ase Negative (Negati ve) 12/07/20 15:13 Vitals: Last Vital Signs Temp 98.7 F 12/08/20 07:30 Pulse 80 12/08/20 08:25 Resp 16 12/08/20 08:25 BP 118/75 12/08/20 07:30 Pulse Ox 91 12/08/20 08:25 Discharge Plan Discharge Patient Disposition: Home Condition: Stable Prescriptions: New pantoprazole 40 mg tablet,delayed release (DR/EC) 40 mg PO DAILY Qty: 30 RF: 0 Continued nitroglycerin 0.4 mg tablet, sublingual 0.4 mg SUBLINGUAL Q5M PRN (Reason: Chest Pain) RF: 0 glucosamine eby-pukrjndmwq-cbd 500-250-250 mg capsule 1 cap PO BID@1000,2000 RF: 0 omega-3 fatty acids [Fish Oil Concentrate] 1,000 mg capsule 1,000 mg PO DAILY@1000 RF: 0 tramadol 50 mg tablet 50 mg PO TID PRN (Reason: pain) 30 Days Qty: 90 RF: 2 vitamin B complex 1 tab PO DAILY@1000 RF: 0 ketoconazole 2 % shampoo 1 applic TOPICAL .3 x week Qty: 120 RF: 2 ketoconazole 2 % cream 1 applic TOPICAL BID Qty: 60 RF: 1 oxybutynin chloride 5 mg tablet 5 mg PO BEDTIME@1999 RF: 0 multivitamin Tablet 1 tab PO DAILY@1999 RF: 0 fosinopril 10 mg tablet 10 mg PO DAILY@999 RF: 0 Kimmie-osmar 8.6 mg tablet 17.2 mg PO BEDTIME@1999 RF: 0 Zyrtec 10 mg tablet 10 mg PO DAILY@999 RF: 0 tizanidine 4 mg tablet 4 mg PO DAILY PRN (Reason: muscle spasticity) RF: 0 potassium chloride 10 mEq tablet extended release 10 meq PO BID@ RF: 0 aspirin 81 mg tablet,delayed release (DR/EC) 81 mg PO BEDTIME@1999 RF: 0 meloxicam 7.5 mg tablet 7.5 mg PO DAILY@999 RF: 0 citalopram 20 mg tablet 20 mg PO DAILY@999 RF: 0 simvastatin 20 mg tablet 40 mg PO BEDTIME RF: 0 omeprazole 20 mg capsule,delayed release(DR/EC) 20 mg PO DAILY@999 RF: 0 Ventolin HFA 90 mcg/actuation HFA aerosol inhaler 2 puff INHALATION QID PRN (Reason: Shortness Of Breath) RF: 0 Flonase Allergy Relief 50 mcg/actuation spray,suspension 2 spray INTRANASAL DAILY@999 RF: 0 cholecalciferol (vitamin D3) 50 mcg (2,000 unit) tablet 2,000 unit PO Q2D RF: 0 Vitamin B-12 1 tab PO DAILY@999 RF: 0 Held metformin 500 mg tablet 500 mg PO BID@ RF: 0 Hold Instructions: Resume on 12/10/20. held due to contrast administration for CTA chest Discharge Orders: Discharge Order (Routine); Ordered 12/08/20 Ordered By: Tania Reyes Referrals: Lucy Moreland MD [Primary Care Provider] - 12/12/20 10:20 am Discharge Diet: Usual diet Discharge Activity: Increase activity as tolerated and As per PT/OT instructions Patient Instructions: Osteoarthritis, Type 2 Diabetes, Diabetes and Diet, Pantoprazole (By mouth), Dyspnea Activity Restrictions/Additional Instructions: You were evaluated secondary to increasing shortness of breath with activity. CTA of the chest did not show any evidence of pulmonary emboli. You were noted to have part of your stomach protruding along your esophagus, what is known as a hernia. This may be a partial contributor to your shortness of breath. Because of this I have started you on a stomach medication to see if it gives you any relief in your symptoms. As we discussed, I believe your shortness of breath is probably multifactorial related to known obstructive sleep apnea, weight gain over the last year, some kyphosis related to osteoporosis and decreased activity of late. Echocardiogram was done and showed normal ejection fraction without any wall motion abnormalities or notated elevated pressures. Because you had a CAT scan of your chest with contrast I have held metformin for a couple of days but she can otherwise resume medications as she usually takes them, described above. Please follow-up with your primary care provider for continued symptoms. As we discussed use recently saw Dr. Maguire who did not feel symptoms were secondary to cardiac issues.. Please STOP taking your metformin until you follow up with Dr. Moreland. Discharge Attestations Time Spent in Discharge Care*: greater than 30 min Specific Discharge Activities: educating patient, documenting/other paperwork and evaluating patient/reviewing data Status at Discharge: Cognitive status at discharge: cognitively intact , Behavioral status at discharge: cooperative , Functional status at discharge: independent ambulation Overall status at discharge: patient is back to base line Quality Metrics Clinical Quality Measures During this hospital stay, did patient experience: None Coding Level of Care Code Acute Chg FW [place] note Diagnoses REMY (dyspnea on exertion) R06.00 Paraesophageal hernia K44.9 Atherosclerotic heart disease of [place] coronary artery without angina pectoris I25.10 [place] vs. 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
--- NOTE | 2020-12-08 20:26 | USCV_ITS ---
Lucy Galindo Age: 75 Gender: F : 1945 Exam Date: 12/08/2020 06:14 Ordering Phys: Chin Sy MD Technologist: Sharee Campbell Exam Location: [facility] [place] Indication: SOB BP: 147 / 77 HR: 63 Rhythm: Sinus Technical Quality: Adequate MEASUREMENTS (Male / Female) Normal Values 2D ECHO LV Diastolic Diameter PLAX 3.7 cm 4.2 - 5.9 / 3.9 - 5.3 cm LV Systolic Diameter PLAX 2.2 cm LV Chamber Size 2.0 cm IVS Diastolic Thickness 1.0 cm 0.6 - 1.0 / 0.6 - 0.9 cm IVS Systolic Thickness 1.1 cm LVPW Diastolic Thickness 1.0 cm 0.6 - 1.0 / 0.6 - 0.9 cm LVPW Systolic Thickness 1.6 cm RV Chamber Size 2.8 cm LVOT Diameter 2.1 cm LV Ejection Fraction 2D Teich 70.7 % LV Ejection Fraction MOD 2C 57.9 % LV Ejection Fraction 2C AL 62.0 % LA Diameter 3.7 cm LA Width 2.4 cm LA Height 3.0 cm RA Width 2.4 cm RA Height 2.9 cm Aorta at Sinotubular Diameter 2.1 cm M-MODE LV Diastolic Diameter MM 4.1 cm 4.2 - 5.9 / 3.9 - 5.3 cm LV Systolic Diameter MM 2.6 cm LV Ejection Fraction MM Teich 65.0 % IVS Diastolic Thickness MM 0.8 cm 0.6 - 1.0 / 0.6 - 0.9 cm IVS Systolic Thickness MM 1.5 cm LVPW Diastolic Thickness MM 1.3 cm 0.6 - 1.0 / 0.6 - 0.9 cm LVPW Systolic Thickness MM 1.4 cm RV Diastolic Diameter MM 0.9 cm Aortic Annulus Diameter 2.8 cm LA Ao Ratio MM 1.6 MV E Point Septal Separation 0.3 cm DOPPLER AV Peak Velocity 144.0 cm/s LVOT Peak Velocity 96.0 cm/s AV Area Cont Eq vti 2.3 cm squared AV Area Cont Eq pk 2.2 cm squared MV Area PHT 2.4 cm squared Mitral E to A Ratio 0.7 MV E' Velocity 41.5 cm/s Mitral E to MV E' Ratio 13.5 Mitral E to LV E' Lateral Ratio 16.3 Mitral E to LV E' Septal Ratio 11.7 TR Peak Velocity 152.9 cm/s TR Peak Gradient 9.4 mmHg TR Mean Velocity 104.9 cm/s TR Mean Gradient 5.1 mmHg TR Velocity Time Integral 41.0 cm TV Peak E Velocity 58.0 cm/s Right Atrial Pressure 3.0 mmHg Pulmonary Artery Systolic Pressu 12.4 mmHg PV Peak Velocity 105.0 cm/s RV Acceleration Time 0.1 s RV Ejection Time 0.3 s RV AcT/ET 0.3 FINDINGS Left Ventricle Normal left ventricular size and systolic function, EF 60 %. Mild left ventricular hypertrophy. Grade I/IV diastolic dysfunction (abnormal relaxation filling pattern), normal to mildly elevated filling pressures. Dyskinetic basal septal segment Right Ventricle The right ventricle is normal in size and function. Right Atrium The right atrium is normal in size. Left Atrium The left atrium is normal in size. Mitral Valve Moderate mitral annular calcification. Aortic Valve Thickened aortic valve. Tricuspid Valve Trace tricuspid valve regurgitation. Estimated pulmonary artery peak systolic pressure was 12.4 mmHg Pulmonic Valve Pulmonic valve not well visualized. Pericardium Normal pericardium without effusion. Aorta Normal ascending aorta dimension. CONCLUSIONS Normal left ventricular size and systolic function, EF 60 %. Mild left ventricular hypertrophy. Grade I/IV diastolic dysfunction (abnormal relaxation filling pattern), normal to mildly elevated filling pressures. Wall motion of normality as mentioned above .moderate mitral annular calcification. Thickened aortic valve. Trace tricuspid valve regurgitation. Estimated pulmonary artery peak systolic pressure was 12.4 mmHg. Compared to the study from 10/17/2015, there may not be a significant change Dr Sole Maguire MD [facility] (Electronically Signed) Final Date: 08 December 2020 08:40 S
== END 2020-12-08 13:50 | disposition home or self-care (01) ==
LOC: ER 18:40 → MEDSURG 18:58
PROVIDERS: Admitting Provider Family Medicine; Emergency Provider Family Medicine; PCP Family Medicine; Visit Provider Hospitalist
DX: R06.00 Dyspnea, unspecified (principal); K44.9 Diaphragmatic hernia without obstruction or gangrene; I25.10 Atherosclerotic heart disease of native coronary artery without angina pectoris; G47.33 Obstructive sleep apnea (adult) (pediatric); E78.2 Mixed hyperlipidemia; I73.9 Peripheral vascular disease, unspecified; I10 Essential (primary) hypertension; E11.9 Type 2 diabetes mellitus without complications; M81.0 Age-related osteoporosis without current pathological fracture; M54.2 Cervicalgia; G89.29 Other chronic pain; M79.7 Fibromyalgia; F41.9 Anxiety disorder, unspecified; F32.9 Major depressive disorder, single episode, unspecified; I70.1 Atherosclerosis of renal artery; K55.1 Chronic vascular disorders of intestine; Z95.5 Presence of coronary angioplasty implant and graft; Z85.3 Personal history of malignant neoplasm of breast; Z87.891 Personal history of nicotine dependence
CPT/HCPCS: 36415; 36416; 71045; 71275; 80053; 81003; 82962; 83735; 83880; 84100; 84484; 85025; 85378; 93005; 93306; 94664; 96372; 97110; 97161; 97165; 99285; G0378; J1650; J1815; Q9967

== ENCOUNTER → 2020-12-10 11:12 | Outpatient (BNVA) | payer MEDICARE, OTHER, SELFPAY | PROVIDERS: PCP Family Medicine; Visit Provider Nurse Practitioner Family | DX: K21.9 Gastro-esophageal reflux disease without esophagitis (principal); K44.9 Diaphragmatic hernia without obstruction or gangrene; E11.42 Type 2 diabetes mellitus with diabetic polyneuropathy | CPT/HCPCS: 80048 ==

== ENCOUNTER → 2020-12-16 10:22 | Outpatient (BNVA) | payer MEDICARE, OTHER, SELFPAY | PROVIDERS: PCP Family Medicine; Visit Provider Anesthesiology | DX: G89.29 Other chronic pain (principal); M54.2 Cervicalgia; M54.9 Dorsalgia, unspecified; M19.90 Unspecified osteoarthritis, unspecified site; Z79.891 Long term (current) use of opiate analgesic | CPT/HCPCS: 99214 ==

== ENCOUNTER 2021-01-25 17:46 | Emergency (ER) | payer MEDICARE, OTHER, SELFPAY ==
[2021-01-25 17:49] VITALS: BP 185/97; PULSE 71; RESP 18; TEMP 36.7; O2SAT 96; BMI 27.2
--- NOTE | 2021-01-25 17:50 | CTR_ITS ---
PROCEDURE INFORMATION: Exam: CT Head Without Contrast Exam date and time: 01/25/2021 6:36 PM Age: 75 years old Clinical indication: Injury or trauma; Fall; Laceration; Without loss of consciousness; Without residual foreign body; Forehead and scalp; Patient HX: Tripped while walking [place] to forehead and back of head TECHNIQUE: Imaging protocol: Computed tomography of the head without contrast. Radiation optimization: All CT scans at this facility use at least one of these dose optimization techniques: automated exposure control; mA and/or kV adjustment per patient size (includes targeted exams where dose is matched to clinical indication); or iterative reconstruction. COMPARISON: CT head wo con* [id number] 10/11/2016 9:00 PM RADIATION DOSE METRICS: Total DLP (mGy-cm): 960.52 FINDINGS: Brain: Brain atrophy is again noted. No hemorrhage or evidence of acute infarction is seen. 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 Paranasal sinuses: Visualized sinuses are unremarkable. No fluid levels. Mastoid air cells: Visualized mastoid air cells are well aerated. Bones/joints: Unremarkable. No acute fracture. Soft tissues: Mild soft tissue swelling and a laceration are present in the forehead. CT/CT head wo con* [id number] IMPRESSION: No acute intracranial abnormality Radiation Dose CTDIVOL = (mGy): DLP = 960.52 (mGy-cm)
--- NOTE | 2021-01-25 17:50 | CTR_ITS ---
PROCEDURE INFORMATION: Exam: CT Cervical Spine Without Contrast Exam date and time: 01/25/2021 6:36 PM Age: 75 years old Clinical indication: Injury or trauma; Fall; Blunt trauma; Patient HX: Tripped while walking; Additional info: All TECHNIQUE: Imaging protocol: Computed tomography images of the cervical spine without contrast. Radiation optimization: All CT scans at this facility use at least one of these dose optimization techniques: automated exposure control; mA and/or kV adjustment per patient size (includes targeted exams where dose is matched to clinical indication); or iterative reconstruction. COMPARISON: CT Cervical Spine wo* [id number] 10/11/2016 9:04 PM RADIATION DOSE METRICS: Total DLP (mGy-cm): 316.29 FINDINGS: Mild degenerative changes are observed in the cervical spine. No cervical spine fracture is visualized. Spinal alignment is normal. A tiny bone island is present in the C3 vertebral body. CT/CT cervical spin wo con* [id number] IMPRESSION: No cervical spine fracture. Radiation Dose CTDIVOL = (mGy): DLP = 316.29 (mGy-cm)
[2021-01-25 18:37] VITALS: BP 152/114; PULSE 69; O2SAT 96
--- NOTE | 2021-01-25 18:59 | W.ED.WOUNDLC ---
Documented by User: Adry Osman 01/25/21 21:29 HPI - Wound/Laceration General: Chief Complaint: Wound/Laceration Stated Complaint: HEAD LAC S/P FALL Time Seen by Provider: 01/25/21 17:50 Source: patient Mode of arrival: ambulatory Limitations: no limitations History of Present Illness: HPI narrative: 75 yo female patient presents to ER via ambulance for head laceration. Pt states she is always unsteady on her feet when she walks and did not have anyone there at the moment to help her. Pt states she was out in the yard and fell and hit her head on a rock. Pt denies any LOC. pt denies any neck pain. Pt deneis any back or hip pain Pt states the only thing that hurts is her head. Pt is not anticoagulated. Pt is unsure of last tetanus Onset (ago): minute(s) (15) Location: other (forehead 10 cm laceration) Place: home Context: accidental Associated symptoms: Reports no associated symptoms; Denies chills, fever(s), nausea, syncope or vomiting Review of Systems Const: Denies: fever(s), chills, body aches, change in appetite, change in weight, fatigue, malaise or diaphoresis Eyes: Denies: change in vision, blurry vision, blind spots, photophobia, eye discomfort, eye discharge, eye redness, floaters or seeing flashes ENMT: Denies: throat pain, uvular edema, enlarged tonsils, odynophagia, hoarseness, mouth pain, swelling of lips/tongue, oral sores, bleeding gums, dental pain, dry mouth, ear or mastoid pain, ear discharge, change in hearing, tinnitus, disequilibrium, nasal discharge, nasal congestion, post nasal drip or sinus pain Card: Denies: chest pain, palpitations, irregular heart rhythm, edema, swelling of feet/ankles, lightheadedness, syncope, pre-syncope, dyspnea on exertion, orthopnea, leg pain with exertion or acrocyanosis Resp: Denies: dyspnea, productive cough, non-productive cough, wheezing, stridor, pain on inspiration, change in phlegm color, hemoptysis or chest congestion GI: Denies: abdominal pain, nausea, vomiting, hematemesis, dysphagia, diarrhea, constipation, GI cramping, change in bowel habits or rectal pain : Denies: flank pain, difficulty voiding, dysuria, urinary frequency, urinary urgency, urinary hesitancy or hematuria Musc: Denies: neck pain, back pain, extremity pain, extremity swelling, joint pain, joint swelling, joint redness, joint warmth or deformity Skin/Breast: Reports: other (10 cm laceration to midline forehead); Denies: rash, pruritus, erythema, sores, new lesions, changes in skin color or dry skin Neuro: Denies: headache(s), numbness in extremities, weakness in extremities, sensory changes, lack of coordination, difficulty walking, frequent falls, dizziness, vertigo, confusion, behavioral changes, Slurred speech present, difficulty communicating thoughts or seizure-like activity Psych: Denies: anxiety, depression, suicidal ideation or homicidal ideation Endo: Denies: polyuria, polydipsia, tired all the time, cold intolerance, excessive sweating, flushing, hot flashes or heat intolerance Emery/Lymph: Denies: easy bruising, easy bleeding, petechiae, purpura, enlarged lymph nodes or tender lymph nodes All/Imm: Denies: urticaria, throat swelling, tongue swelling, facial swelling, acute wheezing or itchy eyes PFSH ED PFSH: Medical History Abnormal nuclear stress test Anxiety and depression Asthma, mild persistent Asymptomatic cholelithiasis Atherosclerotic heart disease of [place] coronary artery without angina pectoris Benign essential HTN Bilateral hearing loss Calculus of kidney right; 6 mm without exchange architect time 01/10; 7 mm obstructing right proximal stone; evaluated and treated [facility] Hospitalized at [facility] 02/10 for sepsis, UTI, NSTEMI, and right proximal ureteral calculus with hydronephrosis Chronic idiopathic constipation Chronic low back pain Chronic neck and back pain Chronic osteoarthritis Chronic right shoulder pain Fibromyalgia Gastro-esophageal reflux disease without esophagitis HX: breast cancer 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, 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 Mixed hyperlipidemia Obstructive sleep apnea on CPAP Osteoporosis PAD (peripheral artery disease) stent right SFA Recurrent UTI Renal artery stenosis Moderate, noted on CTA 11/2020 Superior mesenteric artery stenosis Moderate, noted on CTA 11/2020 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 Urinary incontinence in female Vitamin D deficiency Surgical History History of intravascular stent placement (~2003) right leg; [place], [place] History of lumpectomy of left breast (~1969) [place] History of shoulder surgery (~2014) right; Dr Chiu, [facility] [place] Hx of bilateral cataract extraction Hx of bladder repair surgery (~2004) Dr Nunez's office in [place], [place] Hx of lithotripsy Family History Brother Cancer Lung Father , at age 74 Diabetes Cancer colon Mother , age 89 Diabetes CAD (coronary artery disease) Cancer breast Denies family history of Clotting disorder Dementia Hyperlipidemia Psychiatric illness Chronic kidney disease (CKD) Suicide Anesthesia complication Bleeding disorder Family history of premature coronary artery disease Lung disease Hypertension Stroke Social History Smoking and tobacco status: former smoker Quit status (tobacco): has quit using tobacco Year quit tobacco: 2001 Former quit date comment: smoked 2PPD x 25 yrs Second hand smoke exposure: No Alcohol intake: never Caregiver/support person: Yes Lives independently: Yes Household members: none Marital status: / Current occupational status: retired History of recent travel: No Current gender identity: Female Special shan needs: No Physical Exam Const: COMMON NORMALS: no acute distress, patient oriented x3, healthy appearing, alert and well nourished GENERAL APPEARANCE: cooperative, comfortable, well kempt and well developed; not ill appearing ORIENTATION/CONSCIOUSNESS: Yes awake, Yes oriented to person, Yes oriented to place and Yes oriented to time HENMT: COMMON NORMALS: hearing grossly normal bilaterally, external ears normal, EAC's normal, TM's normal bilaterally, Normal external nose present, Normal nasal mucous membranes and turbinates present and moist oral mucous membranes HEAD & SCALP: normal to inspection and other (pt with 10 cm laceration to forehead jagged and linear) FACE & SINUS: sinuses nontender and face symmetric NOSE: Normal external nose present, Normal nares present, Normal nasal mucous membranes and turbinates present, No nasal discharge present and Abnormal external nose present EXTERNAL EAR: Yes external ears normal and Yes mastoids normal EXTERNAL AUDITORY CANAL: EAC's normal TYMPANIC MEMBRANE: TM's normal bilaterally MOUTH: Normal oral and palatal mucosa present, lip normal, tongue normal and Normal salivary glands and ducts present THROAT: no uvular edema Eye: COMMON NORMALS: Equal, round and reactive pupils present, EOMs intact bilaterally, conjunctivae normal, no scleral icterus and no papilledema GENERAL EYE: appearance normal, both eyes and all related structures EYELID: eyelids normal CONJUNCTIVA: Yes conjunctivae normal SCLERA: sclerae normal CORNEA: Yes corneas normal PUPIL: Yes Equal, round and reactive pupils present DIRECT OPHTHALMOSCOPY: Yes no papilledema Neck/C-Spine: COMMON NORMALS: full ROM, no lymphadenopathy, supple, no meningeal signs, no JVD and Thyroid normal GENERAL: Yes normal visual inspection and Yes trachea midline THYROID: Thyroid normal CERVICAL SPINE: Yes cervical ROM normal Lymph: LYMPHATIC: no lymphadenopathy noted and no lymphedema noted Chest: COMMONS NORMALS: normal inspection of the chest and normal palpation of entire chest wall Resp: COMMON NORMALS: normal respiratory effort, No retractions, No use of accessory muscles and clear to auscultation bilaterally EFFORT & INSPECTION: Yes able to speak in complete sentences and Yes symmetric chest movement AUSCULTATION: clear to auscultation bilaterally Cardio: COMMON NORMALS: no JVD, regular rate and regular rhythm RATE: regular rate RHYTHM: regular rhythm GI: COMMON NORMALS: Normal to inspection, nondistended, normoactive bowel sounds present, Soft to palpation, non-tender, No hepatosplenomegaly present, no masses and no bruits INSPECTION: Yes normal to inspection AUSCULTATION: Yes normoactive bowel sounds PALPATION: Yes Soft to palpation and Yes No hepatosplenomegaly present PERCUSSION: normal to percussion RECTAL EXAM: deferred : COMMON NORMALS: Yes no CVA tenderness, Yes normal external appearance, Yes normal appearance of the vagina, Yes normal appearance of the cervix, Yes normal bimanual exam, Yes No adnexal tenderness and Yes no masses BLADDER/KIDNEY EXAM: Yes no CVA tenderness BIMANUAL EXAM - VAGINA & UTERUS: Yes normal bimanual exam Back/Pelvis: COMMON NORMALS: no CVA tenderness, thoracic and lumbar spine normal to inspection, no thoracic nor lumbar tenderness, thoraco-lumbar ROM normal and straight leg raise negative bilaterally THORACIC SPINE/UPPER BACK: Yes normal to inspection LUMBAR SPINE/LOWER BACK: Yes normal to inspection Extremity: COMMON NORMALS: normal to inspection, full ROM and capillary refill normal GENERAL: Yes normal exam except as noted Neuro: COMMON NORMALS: patient oriented x3, CN's II-XII intact bilaterally, moves all extremities, no focal motor deficits, no sensory deficits noted, deep tendon reflexes 2+ bilaterally and gait normal SENSORIUM/ORIENTATION: Yes alert, Yes oriented to person, Yes oriented to place and Yes oriented to time MENINGEAL SIGNS: Yes no meningeal signs CRANIAL NERVES: Yes CN normal except as noted SPEECH: speech normal GAIT: Yes Normal gait present SENSORY EXAM: Yes extremities MOTOR EXAM: 5/5 motor strength present throughout Psych: COMMON NORMALS: mental status grossly normal, Normal thought process present, cooperative, normal affect, speech normal, activity/motor behavior normal, denies hallucinations, denies homicidal ideation and denies suicidal ideation APPEARANCE: Yes grossly normal and Yes well kempt ATTITUDE: Yes calm ACTIVITY/MOTOR BEHAVIOR: Yes appropriate eye contact SPEECH: Yes normal speech THOUGHT PROCESS: Normal thought process present THOUGHT CONTENT: Yes Normal thought content present ATTENTION/CONCENTRATION: Yes attention grossly intact MEMORY/COGNITION: Yes memory grossly intact INSIGHT: Good insight present (Psych) JUDGEMENT: Good judgement present (Psych) Skin: COMMON NORMALS: no rashes or lesions noted, no wounds, turgor normal, no jaundice, no petechiae and no mottling GENERAL SKIN EXAM: no rashes or lesions noted and turgor normal Procedures Laceration Laceration 1: Site: scalp Size (cm): 10 Description: linear, flap and irregular Depth: simple, single layer Local Anesthetic: lidocaine 1% and with epi Amount of anesthesia used (mL): 10 Pre-repair: wound explored and irrigated extensively Skin layer closed with: nylon Size (cm): 5-0 Number of sutures: 17 Technique: simple, interrupted Course Vital Signs: Vital signs: Vital Signs Temperature 98.1 F 01/25/21 17:49 Pulse Rate 101 H 01/25/21 21:39 Respiratory Rate 19 H 01/25/21 21:39 Blood Pressure 140/91 01/25/21 21:39 Pulse Oximetry 98 01/25/21 21:39 MDM - Wound/Laceration MDM Narrative: Medical decision making narrative: Pt is well appearing non toxic and in no acute distress. Pt ct head and ct ervical spine were negative for any acute findings. Pt did not have any LOC. Pt tetanus was updated. I will start patienet on antibiotics given extent of laceration. Please see procedure note for lac repair. I discussed with patient and family head injury precautions and home care and when to return to the ER. Lab Data: Labs: Lab Results 01/25/21 01/25/21 01/25/21 Range/Units 19:24 19:24 19:24 WBC 10.5 H (4.0-10.0) 10^3/ uL RBC 4.21 (4.1-5.3) 10^6/u L Hgb 11.9 (11.5-15.3) g/dL Hct 39.1 (37.0-47.0) % MCV 92.9 (81-99) fL MCH 28.3 (28.0-34.0) pg MCHC 30.4 (30.0-36.0) g/dL RDW 12.8 (12.1-15.1) % Plt Count 217 (130-400) 10^3/c mm MPV 11.0 H (7.4-10.4) fL Neut % (Auto) 79.2 % Lymph % (Auto) 13.7 % [place] % (Auto) 4.5 % Eos % (Auto) 1.9 % Baso % (Auto) 0.4 % Neut # (Auto) 8.31 H (1.8-7.7) 10^3/u L Lymph # (Auto) 1.4 (0.8-4.8) 10^3/u L [place] # (Auto) 0.5 (0.2-0.9) 10^3/u L Eos # (Auto) 0.2 (0.0-0.8) 10^3/u L Baso # (Auto) 0.0 (0.0-0.1) 10^3/u L Nucleated RBC % (a uto) 0 % Nucleated RBCs # 0.0 /100WBC PT 13.50 (12.1-14.9) SECO NDS INR 1.00 (0.8-1.2) APTT 28.0 (23.9-36.7) SECO NDS Sodium 137 (136-145) mmol/L Potassium 4.3 (3.5-5.1) mmol/L Chloride 102 (98-107) mmol/L Carbon Dioxide 23 (22-29) mmol/L Anion Gap 16.3 (5-19) BUN 16 (8-23) mg/dL Creatinine 0.6 (0.5-0.9) mg/dL GFR Calculation Not Reportable Glucose 121 H (65-115) mg/dL Calculated Osmolal ity 286 (285-295) mOsm/k g Calcium 8.7 (8.5-10.5) mg/dL Discharge Plan Discharge Patient Disposition: Home Clinical Impression: Closed head injury without loss of consciousness Qualifiers: Encounter type: initial encounter Qualified Code(s): S09.90XA - Unspecified injury of head, initial encounter Laceration of head Qualifiers: Encounter type: initial encounter Location of open wound of head: scalp Foreign body presence: without foreign body Qualified Code(s): S01.01XA - Laceration without foreign body of scalp, initial encounter Condition: Stable Prescriptions: New cephalexin 500 mg capsule 500 mg PO Q8H 10 Days Qty: 30 RF: 0 No Action nitroglycerin 0.4 mg tablet, sublingual 0.4 mg SUBLINGUAL Q5M PRN (Reason: Chest Pain) RF: 0 glucosamine [id number]-zyo 500-250-250 mg capsule 1 cap PO BID@ RF: 0 tramadol 50 mg tablet 50 mg PO TID PRN (Reason: pain) 30 Days Qty: 90 RF: 1 vitamin B complex 1 tab PO DAILY@999 RF: 0 ketoconazole 2 % shampoo 1 applic TOPICAL .3 x week Qty: 120 RF: 2 ketoconazole 2 % cream 1 applic TOPICAL BID Qty: 60 RF: 1 pantoprazole 40 mg tablet,delayed release (DR/EC) 40 mg PO DAILY Qty: 30 RF: 2 oxybutynin chloride 5 mg tablet 5 mg PO BEDTIME@1999 RF: 0 multivitamin Tablet 1 tab PO DAILY@1999 RF: 0 fosinopril 10 mg tablet 10 mg PO DAILY@999 RF: 0 metformin 500 mg tablet 500 mg PO BID@ RF: 0 Hold Instructions: Resume on 12/10/20. held due to contrast administration for CTA chest Kimmie-osmar 8.6 mg tablet 17.2 mg PO BEDTIME@1999 RF: 0 Zyrtec 10 mg tablet 10 mg PO DAILY@999 RF: 0 tizanidine 4 mg tablet 4 mg PO DAILY PRN (Reason: muscle spasticity) RF: 0 potassium chloride 10 mEq tablet extended release 10 meq PO BID@999,1999 RF: 0 aspirin 81 mg tablet,delayed release (DR/EC) 81 mg PO BEDTIME@1999 RF: 0 meloxicam 7.5 mg tablet 7.5 mg PO DAILY@999 RF: 0 citalopram 20 mg tablet 20 mg PO DAILY@1000 RF: 0 simvastatin 20 mg tablet 40 mg PO BEDTIME RF: 0 omeprazole 20 mg capsule,delayed release(DR/EC) 20 mg PO DAILY@999 RF: 0 Ventolin HFA 90 mcg/actuation HFA aerosol inhaler 2 puff INHALATION QID PRN (Reason: Shortness Of Breath) RF: 0 Flonase Allergy Relief 50 mcg/actuation spray,suspension 2 spray INTRANASAL DAILY@999 RF: 0 cholecalciferol (vitamin D3) 50 mcg (2,000 unit) tablet 2,000 unit PO Q2D RF: 0 Vitamin B-12 1 tab PO DAILY@999 RF: 0 Discharge Orders: Discharge ED (Routine); Ordered 01/25/21 Ordered By: Adry Osman Referrals: Lucy Moreland MD [Primary Care Provider] - Discharge Diet: Advance as tolerated Discharge Activity: Resume usual activity Patient Instructions: Concussion/Head Injury - Adult, Scalp Laceration, Opioid Safety Activity Restrictions/Additional Instructions: Please take medications as prescribed Please return to ER in 8-10 days for suture removal or sooner if headaches that get worse weakness or numbness in any part of your body coordination problems that get worse vomiting (that occurs more than once) slurred speech problems waking up from sleep more confusion, irritability, or anxiety any symptom that seems to be getting worse Coding Level of Care Code ED Sensor Specialist for Chg Fwd Exam Comprehensive Documented by User: Pedro Ly DO 01/26/21 02:15 HPI - Wound/Laceration General: Chief Complaint: Wound/Laceration Stated Complaint: HEAD LAC S/P FALL Time Seen by Provider: 01/25/21 17:50 PFSH ED PFSH: Medical History Abnormal nuclear stress test Anxiety and depression Asthma, mild persistent Asymptomatic cholelithiasis Atherosclerotic heart disease of [place] coronary artery without angina pectoris Benign essential HTN Bilateral hearing loss Calculus of kidney right; 6 mm without exchange architect time 01/10; 7 mm obstructing right proximal stone; evaluated and treated [facility] Hospitalized at [facility] 02/10 for sepsis, UTI, NSTEMI, and right proximal ureteral calculus with hydronephrosis Chronic idiopathic constipation Chronic low back pain Chronic neck and back pain Chronic osteoarthritis Chronic right shoulder pain Fibromyalgia Gastro-esophageal reflux disease without esophagitis HX: breast cancer 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, 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 Mixed hyperlipidemia Obstructive sleep apnea on CPAP Osteoporosis PAD (peripheral artery disease) stent right SFA Recurrent UTI Renal artery stenosis Moderate, noted on CTA 11/2020 Superior mesenteric artery stenosis Moderate, noted on CTA 11/2020 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 Urinary incontinence in female Vitamin D deficiency Surgical History History of intravascular stent placement (~2003) right leg; [place], [place] History of lumpectomy of left breast (~1969) [place] History of shoulder surgery (~2014) right; Dr Chiu, [facility] [place] Hx of bilateral cataract extraction Hx of bladder repair surgery (~2004) Dr Nunez's office in [place], [place] Hx of lithotripsy Family History Brother Cancer Lung Father , at age 74 Diabetes Cancer colon Mother , age 89 Diabetes CAD (coronary artery disease) Cancer breast Denies family history of Clotting disorder Dementia Hyperlipidemia Psychiatric illness Chronic kidney disease (CKD) Suicide Anesthesia complication Bleeding disorder Family history of premature coronary artery disease Lung disease Hypertension Stroke Social History Smoking and tobacco status: former smoker Quit status (tobacco): has quit using tobacco Year quit tobacco: 2001 Former quit date comment: smoked 2PPD x 25 yrs Second hand smoke exposure: No Alcohol intake: never Caregiver/support person: Yes Lives independently: Yes Household members: none Marital status: / Current occupational status: retired History of recent travel: No Current gender identity: Female Special shan needs: No Course Vital Signs: Vital signs: Vital Signs Temperature 98.1 F 01/25/21 17:49 Pulse Rate 101 H 01/25/21 21:39 Respiratory Rate 19 H 01/25/21 21:39 Blood Pressure 140/91 01/25/21 21:39 Pulse Oximetry 98 01/25/21 21:39 MDM - Wound/Laceration MDM Narrative: Medical decision making narrative: 75-year-old female with significant injury after a fall. She was evaluated originally by CARLOTTA Mcginnis. I agree with her history, evaluation, and management. I examined the patient as well. Her laceration came together excellent. She is awake, and appropriate, and at baseline mentally. She will be allowed discharge. Lab Data: Labs: Lab Results 01/25/21 01/25/21 01/25/21 Range/Units 19:24 19:24 19:24 WBC 10.5 H (4.0-10.0) 10^3/ uL RBC 4.21 (4.1-5.3) 10^6/u L Hgb 11.9 (11.5-15.3) g/dL Hct 39.1 (37.0-47.0) % MCV 92.9 (81-99) fL MCH 28.3 (28.0-34.0) pg MCHC 30.4 (30.0-36.0) g/dL RDW 12.8 (12.1-15.1) % Plt Count 217 (130-400) 10^3/c mm MPV 11.0 H (7.4-10.4) fL Neut % (Auto) 79.2 % Lymph % (Auto) 13.7 % [place] % (Auto) 4.5 % Eos % (Auto) 1.9 % Baso % (Auto) 0.4 % Neut # (Auto) 8.31 H (1.8-7.7) 10^3/u L Lymph # (Auto) 1.4 (0.8-4.8) 10^3/u L [place] # (Auto) 0.5 (0.2-0.9) 10^3/u L Eos # (Auto) 0.2 (0.0-0.8) 10^3/u L Baso # (Auto) 0.0 (0.0-0.1) 10^3/u L Nucleated RBC % (a uto) 0 % Nucleated RBCs # 0.0 /100WBC PT 13.50 (12.1-14.9) SECO NDS INR 1.00 (0.8-1.2) APTT 28.0 (23.9-36.7) SECO NDS Sodium 137 (136-145) mmol/L Potassium 4.3 (3.5-5.1) mmol/L Chloride 102 (98-107) mmol/L Carbon Dioxide 23 (22-29) mmol/L Anion Gap 16.3 (5-19) BUN 16 (8-23) mg/dL Creatinine 0.6 (0.5-0.9) mg/dL GFR Calculation Not Reportable Glucose 121 H (65-115) mg/dL Calculated Osmolal ity 286 (285-295) mOsm/k g Calcium 8.7 (8.5-10.5) mg/dL Discharge Plan Discharge Patient Disposition: Home Clinical Impression: Closed head injury without loss of consciousness Qualifiers: Encounter type: initial encounter Qualified Code(s): S09.90XA - Unspecified injury of head, initial encounter Laceration of head Qualifiers: Encounter type: initial encounter Location of open wound of head: scalp Foreign body presence: without foreign body Qualified Code(s): S01.01XA - Laceration without foreign body of scalp, initial encounter Condition: Stable Prescriptions: New cephalexin 500 mg capsule 500 mg PO Q8H 10 Days Qty: 30 RF: 0 No Action nitroglycerin 0.4 mg tablet, sublingual 0.4 mg SUBLINGUAL Q5M PRN (Reason: Chest Pain) RF: 0 glucosamine [id number]-[id number]-rfu 500-250-250 mg capsule 1 cap PO BID@1000,2000 RF: 0 tramadol 50 mg tablet 50 mg PO TID PRN (Reason: pain) 30 Days Qty: 90 RF: 1 vitamin B complex 1 tab PO DAILY@1000 RF: 0 ketoconazole 2 % shampoo 1 applic TOPICAL .3 x week Qty: 120 RF: 2 ketoconazole 2 % cream 1 applic TOPICAL BID Qty: 60 RF: 1 pantoprazole 40 mg tablet,delayed release (DR/EC) 40 mg PO DAILY Qty: 30 RF: 2 oxybutynin chloride 5 mg tablet 5 mg PO BEDTIME@1999 RF: 0 multivitamin Tablet 1 tab PO DAILY@1999 RF: 0 fosinopril 10 mg tablet 10 mg PO DAILY@999 RF: 0 metformin 500 mg tablet 500 mg PO BID@ RF: 0 Hold Instructions: Resume on 12/10/20. held due to contrast administration for CTA chest Kimmie-osmar 8.6 mg tablet 17.2 mg PO BEDTIME@1999 RF: 0 Zyrtec 10 mg tablet 10 mg PO DAILY@999 RF: 0 tizanidine 4 mg tablet 4 mg PO DAILY PRN (Reason: muscle spasticity) RF: 0 potassium chloride 10 mEq tablet extended release 10 meq PO BID@ RF: 0 aspirin 81 mg tablet,delayed release (DR/EC) 81 mg PO BEDTIME@1999 RF: 0 meloxicam 7.5 mg tablet 7.5 mg PO DAILY@999 RF: 0 citalopram 20 mg tablet 20 mg PO DAILY@999 RF: 0 simvastatin 20 mg tablet 40 mg PO BEDTIME RF: 0 omeprazole 20 mg capsule,delayed release(DR/EC) 20 mg PO DAILY@999 RF: 0 Ventolin HFA 90 mcg/actuation HFA aerosol inhaler 2 puff INHALATION QID PRN (Reason: Shortness Of Breath) RF: 0 Flonase Allergy Relief 50 mcg/actuation spray,suspension 2 spray INTRANASAL DAILY@999 RF: 0 cholecalciferol (vitamin D3) 50 mcg (2,000 unit) tablet 2,000 unit PO Q2D RF: 0 Vitamin B-12 1 tab PO DAILY@999 RF: 0 Discharge Orders: Discharge ED (Routine); Ordered 01/25/21 Ordered By: Adry Osman Referrals: Lucy Moreland MD [Primary Care Provider] - Discharge Diet: Advance as tolerated Discharge Activity: Resume usual activity Patient Instructions: Concussion/Head Injury - Adult, Scalp Laceration, Opioid Safety Activity Restrictions/Additional Instructions: Please take medications as prescribed Please return to ER in 8-10 days for suture removal or sooner if headaches that get worse weakness or numbness in any part of your body coordination problems that get worse vomiting (that occurs more than once) slurred speech problems waking up from sleep more confusion, irritability, or anxiety any symptom that seems to be getting worse Coding Level of Care Code ED Sensor Specialist for [place] Fwd Exam Comprehensive
[2021-01-25 19:29] LABS: Basophils % 0.4 %; Eosinophils # 0.2 10^3/uL (0.0-0.8); Eosinophils % 1.9 %; Hematocrit 39.1 % (37.0-47.0); Hemoglobin 11.9 g/dL (11.5-15.3); Lymphocytes # 1.4 10^3/uL (0.8-4.8); Lymphocytes % 13.7 %; Mean Corpuscular HGB Conc 30.4 g/dL (30.0-36.0); Mean Corpuscular Hemoglobin 28.3 pg (28.0-34.0); Mean Corpuscular Volume 92.9 fL (81-99); Monocytes # 0.5 10^3/uL (0.2-0.9); Monocytes % 4.5 %; Neutrophils # 8.31 10^3/uL (1.8-7.7); Neutrophils % 79.2 %; Nucleated Red Blood Cells % 0 %; Platelet Count 217 10^3/cmm (130-400); Red Blood Count 4.21 10^6/uL (4.1-5.3); Red Cell Distribution Width 12.8 % (12.1-15.1); White Blood Count 10.5 10^3/uL (4.0-10.0)
[2021-01-25] MEDS: tetanus-diphtheria tox (adult) 0.5 mL SDV IM (19:37)
[2021-01-25 19:45] LABS: Blood Urea Nitrogen 16 mg/dL (8-23); Calcium 8.7 mg/dL (8.5-10.5); Carbon Dioxide 23 mmol/L (22-29); Chloride 102 mmol/L (98-107); Creatinine Clr Calc Pharmacy 58.7367; Glucose 121 mg/dL (65-115); Osmolality Calculated 286 mOsm/kg (285-295); Sodium 137 mmol/L (136-145)
[2021-01-25 19:54] LABS: Anion Gap 16.3 (5-19); Potassium 4.3 mmol/L (3.5-5.1)
[2021-01-25 21:27] VITALS: BP 129/96; PULSE 86; RESP 19; O2SAT 95
[2021-01-25] MEDS: cephALEXin 500 mg Capsule PO (21:31)
[2021-01-25 21:39] VITALS: BP 140/91; PULSE 101; RESP 19; O2SAT 98
== END 2021-01-25 21:39 | disposition home or self-care (01) ==
PROVIDERS: Emergency Provider Registered Nurse; PCP Family Medicine
DX: S09.8XXA Other specified injuries of head, initial encounter (principal); S01.01XA Laceration without foreign body of scalp, initial encounter; Z79.84 Long term (current) use of oral hypoglycemic drugs; Z79.82 Long term (current) use of aspirin; I25.10 Atherosclerotic heart disease of native coronary artery without angina pectoris; I10 Essential (primary) hypertension; Z85.3 Personal history of malignant neoplasm of breast; E78.2 Mixed hyperlipidemia; E11.9 Type 2 diabetes mellitus without complications; Z87.891 Personal history of nicotine dependence; W19.XXXA Unspecified fall, initial encounter; Z23 Encounter for immunization
CPT/HCPCS: 12004; 70450; 72125; 80048; 85025; 85610; 85730; 90471; 90714; 99283; 99291

== ENCOUNTER → 2021-02-09 11:30 | Outpatient (BNVA) | payer MEDICARE, OTHER, SELFPAY | PROVIDERS: PCP Family Medicine; Visit Provider Family Medicine | DX: N23 Unspecified renal colic (principal); R53.1 Weakness; Z48.02 Encounter for removal of sutures | CPT/HCPCS: 81000 ==

== ENCOUNTER 2021-02-19 06:00 | Outpatient (RCR) | payer MEDICARE, OTHER, SELFPAY | END 2021-02-25 23:59 | disposition home or self-care (01) | LOC: APT 06:00 | PROVIDERS: PCP Family Medicine; Referring Provider Family Medicine; Visit Provider Family Medicine | DX: R53.1 Weakness (principal) | CPT/HCPCS: 97112; 97161 ==

== ENCOUNTER → 2021-02-19 10:22 | Outpatient (BNVA) | payer MEDICARE, OTHER, SELFPAY | PROVIDERS: PCP Family Medicine; Visit Provider Family Medicine | DX: E11.42 Type 2 diabetes mellitus with diabetic polyneuropathy (principal); E78.5 Hyperlipidemia, unspecified; F32.9 Major depressive disorder, single episode, unspecified; F41.9 Anxiety disorder, unspecified; I10 Essential (primary) hypertension | CPT/HCPCS: 80053; 80061; 83036; 85025 ==

== ENCOUNTER 2021-02-26 06:00 | Outpatient (RCR) | payer MEDICARE, OTHER, SELFPAY | END 2021-03-28 23:59 | disposition home or self-care (01) | LOC: APT 06:00 | PROVIDERS: PCP Family Medicine; Referring Provider Family Medicine; Visit Provider Family Medicine | DX: R53.1 Weakness (principal) | CPT/HCPCS: 97110 ==

== ENCOUNTER → 2021-03-10 09:52 | Outpatient (BNVA) | payer MEDICARE, OTHER, SELFPAY | PROVIDERS: PCP Family Medicine; Visit Provider Anesthesiology | DX: G89.29 Other chronic pain (principal); M54.2 Cervicalgia; M54.5 Low back pain; M19.90 Unspecified osteoarthritis, unspecified site; Z79.891 Long term (current) use of opiate analgesic | CPT/HCPCS: 99214 ==

== ENCOUNTER 2021-03-24 10:40 | Outpatient (CLI) | payer MEDICARE, OTHER, SELFPAY ==
--- NOTE | 2021-03-24 11:00 | MM_ITS ---
WS: [id number] BILATERAL DIGITAL DIAGNOSTIC MAMMOGRAM MAMMOGRAPHY WITH CAD CLINICAL INFORMATION: Z85.3 - Personal history of malignant neoplasm of breast COMPARISON: March 03, 2020 TECHNIQUE: Bilateral CC, MLO, and ML views. FINDINGS: Scattered fibroglandular densities bilaterally. Punctate calcifications. Vascular calcifications. Vol ume loss left breast similar to the prior examination. No suspicious focal mass, asymmetry, calcifications, or architectural distortion. No evidence of ro gnancy. MM/[id number] IMPRESSION: BI-RADS: 2-Benign FOLLOW UP: 1 Year Follow-up Recommend return to annual diagnostic mammography.
== END 2021-03-24 10:41 | disposition home or self-care (01) ==
PROVIDERS: PCP Family Medicine; Visit Provider Family Medicine
DX: Z85.3 Personal history of malignant neoplasm of breast (principal)
CPT/HCPCS: 77066

== ENCOUNTER → 2021-06-10 11:15 | Outpatient (BNVA) | payer MEDICARE, OTHER, SELFPAY | PROVIDERS: PCP Family Medicine; Visit Provider Family Medicine | DX: E11.42 Type 2 diabetes mellitus with diabetic polyneuropathy (principal); E53.8 Deficiency of other specified B group vitamins; E55.9 Vitamin D deficiency, unspecified; E78.5 Hyperlipidemia, unspecified; I10 Essential (primary) hypertension; Z23 Encounter for immunization | CPT/HCPCS: 80053; 80061; 82607; 83036; 84443; 85025 ==

== ENCOUNTER 2021-06-29 06:00 | Outpatient (RCR) | payer MEDICARE, OTHER, SELFPAY | END 2021-07-28 23:59 | disposition home or self-care (01) | LOC: APT 06:00 | PROVIDERS: PCP Family Medicine; Referring Provider Family Medicine; Visit Provider Family Medicine | DX: R53.1 Weakness (principal) | CPT/HCPCS: 97110; 97164 ==

== ENCOUNTER → 2021-07-01 11:19 | Outpatient (BNVA) | payer MEDICARE, OTHER, SELFPAY | PROVIDERS: PCP Family Medicine; Visit Provider Nurse Practitioner Family | DX: J40 Bronchitis, not specified as acute or chronic (principal); Z20.822 Contact with and (suspected) exposure to COVID-19 | CPT/HCPCS: 71046; 87635 ==

== ENCOUNTER → 2021-07-14 08:27 | Outpatient (BNVA) | payer MEDICARE, OTHER, SELFPAY | PROVIDERS: PCP Family Medicine; Visit Provider Anesthesiology | DX: G89.29 Other chronic pain (principal); M54.50 Low back pain, unspecified; M54.2 Cervicalgia; M25.511 Pain in right shoulder; M19.90 Unspecified osteoarthritis, unspecified site; Z79.891 Long term (current) use of opiate analgesic; Z87.891 Personal history of nicotine dependence | CPT/HCPCS: 99214 ==

== ENCOUNTER 2021-07-29 12:12 | Outpatient (RCR) | payer MEDICARE, OTHER, SELFPAY | END 2021-08-28 23:59 | disposition home or self-care (01) | LOC: APT 12:12 | PROVIDERS: PCP Family Medicine; Referring Provider Family Medicine; Visit Provider Family Medicine | DX: R53.1 Weakness (principal) | CPT/HCPCS: 71046; 97110; 97164 ==

== ENCOUNTER → 2021-09-15 08:08 | Outpatient (BNVA) | payer MEDICARE, OTHER, SELFPAY | PROVIDERS: PCP Family Medicine; Visit Provider Anesthesiology | DX: G89.29 Other chronic pain (principal); M54.50 Low back pain, unspecified; M54.2 Cervicalgia; M19.90 Unspecified osteoarthritis, unspecified site; Z87.891 Personal history of nicotine dependence; Z79.891 Long term (current) use of opiate analgesic | CPT/HCPCS: 99214 ==

== ENCOUNTER → 2022-02-03 11:56 | Outpatient (BNVA) | payer MEDICARE, OTHER, SELFPAY | PROVIDERS: PCP Family Medicine; Visit Provider Nurse Practitioner Family | DX: E53.8 Deficiency of other specified B group vitamins (principal); E55.9 Vitamin D deficiency, unspecified; I10 Essential (primary) hypertension; E78.5 Hyperlipidemia, unspecified; E11.42 Type 2 diabetes mellitus with diabetic polyneuropathy; R60.9 Edema, unspecified; J44.9 Chronic obstructive pulmonary disease, unspecified | CPT/HCPCS: 80053; 80061; 82607; 83036; 85025 ==

== ENCOUNTER 2022-03-15 09:57 | Outpatient (CLI) | payer MEDICARE, OTHER, SELFPAY ==
--- NOTE | 2022-03-15 10:00 | XR_ITS ---
WS: [id number] XR KUB [id number] REASON FOR EXAM: UROLITHIASIS FINDINGS: Large amount of stool and gas in the colon overlying both kidneys. No intrarenal calculi are identified. No calculi along the course of the ureters or overlying the bladder are identified. There are calcifications in the pelvis compatible with uterine leiomyoma. No other significant findings. XR/XR KUB [id number] IMPRESSION: No urinary tract calculi are identified however this could be technical.
== END 2022-03-15 09:58 | disposition home or self-care (01) ==
PROVIDERS: PCP Family Medicine; Visit Provider Urology
DX: I25.10 Atherosclerotic heart disease of native coronary artery without angina pectoris (principal); E78.5 Hyperlipidemia, unspecified; I10 Essential (primary) hypertension; R60.9 Edema, unspecified; N20.9 Urinary calculus, unspecified; N39.0 Urinary tract infection, site not specified; R32 Unspecified urinary incontinence
CPT/HCPCS: 51798; 74018; 81003; 99213; 99214

== ENCOUNTER 2022-03-29 09:57 | Outpatient (CLI) | payer MEDICARE, OTHER, SELFPAY ==
--- NOTE | 2022-03-29 10:09 | MM_ITS ---
WS: [id number] DIAGNOSTIC BILATERAL DIGITAL BREAST TOMOSYNTHESIS MAMMOGRAPHY WITH CAD HISTORY: HX OF BREAST CA COMPARISON: 03/24/2021, 03/03/2020 and 02/26/2019 TECHNIQUE: Bilateral craniocaudad, mediolateral oblique, and mediolateral views are submitted with to mosynthesis and SM. Computer aided detection utilized. Breast composition: There are scattered areas of fibroglandular density. Volume loss and postoperativ e and posttreatment changes within the LEFT breast are stable. There is scarring and skin thickening and retraction of the LEFT breast. Dystrophic calcifications. No recurrent mass identified. There are a few benign calcifications scattered within the RIGHT breast. MM/[place] [id number] IMPRESSION: BI-RADS: 2-Benign FOLLOW UP: 1 Year Follow-up
== END 2022-03-29 09:58 | disposition home or self-care (01) ==
PROVIDERS: PCP Family Medicine; Visit Provider Family Medicine
DX: Z85.3 Personal history of malignant neoplasm of breast (principal)
CPT/HCPCS: 77062

== ENCOUNTER → 2022-05-12 12:02 | Outpatient (BNVA) | payer MEDICARE, OTHER, SELFPAY | PROVIDERS: PCP Family Medicine; Visit Provider Family Medicine | DX: D64.9 Anemia, unspecified (principal); E11.42 Type 2 diabetes mellitus with diabetic polyneuropathy; E55.9 Vitamin D deficiency, unspecified; E78.5 Hyperlipidemia, unspecified; I10 Essential (primary) hypertension; J44.9 Chronic obstructive pulmonary disease, unspecified; R60.9 Edema, unspecified; R32 Unspecified urinary incontinence | CPT/HCPCS: 80053; 80061; 82306; 83036; 84443; 85025 ==

== ENCOUNTER 2022-06-05 20:38 | Emergency (ER) | payer MEDICARE, OTHER, SELFPAY ==
[2022-06-05 20:47] VITALS: BP 132/74; PULSE 54; RESP 19; TEMP 37.2; O2SAT 94; BMI 24.2
--- NOTE | 2022-06-05 21:17 | XRR_ITS ---
PROCEDURE INFORMATION: Exam: XR Chest Exam date and time: 06/05/2022 9:29 PM Age: 77 years old Clinical indication: Shortness of breath; Additional info: SOB TECHNIQUE: Imaging protocol: Radiologic exam of the chest. Views: 1 view. COMPARISON: CR XR chest 2V* [id number] 07/29/2021 12:02 PM FINDINGS: Lungs: Continued prominent lung volumes. Small calcified granuloma in the right mid lung still likely. No interval consolidation. Pleural spaces: No pneumothorax or apparent pleural fluid. Heart/Mediastinum: Moderate hiatal hernia again evident. Cardiomegaly more apparent than before, probably unchanged. Bones/joints: Metallic anchors in the right humeral head. No suggestion of acute bony disease. XR/XR chest 1V portable [id number] IMPRESSION: No acute findings. Continued cardiomegaly, prominent lung volumes and a moderate hiatal hernia.
[2022-06-05 21:36] LABS: Basophils % 0.2 %; Eosinophils # 0.1 10^3/uL (0.0-0.8); Eosinophils % 0.9 %; Hemoglobin 13.3 g/dL (11.5-15.3); Lymphocytes % 10.6 %; Mean Corpuscular HGB Conc 30.9 g/dL (30.0-36.0); Mean Corpuscular Hemoglobin 28.2 pg (28.0-34.0); Mean Corpuscular Volume 91.3 fl (81-99); Monocytes # 0.5 10^3/uL (0.2-0.9); Monocytes % 5.4 %; Neutrophils # 7.89 10^3/uL (1.8-7.7); Neutrophils % 82.6 %; Nucleated Red Blood Cells % 0 %; Platelet Count 192 10^3/cmm (130-400); Red Blood Count 4.71 10^6/uL (4.1-5.3); Red Cell Distribution Width 13.8 % (12.1-15.1); White Blood Count 9.6 10^3/uL (4.0-10.0)
[2022-06-05] MEDS: FUROsemide 10 mg/mL SDV 10mL 60 MG IVP (21:37)
--- NOTE | 2022-06-05 21:38 | ECG_ITS ---
[facility] Test Date: 2022-06-05 Pat Name: Lucy Galindo Department: Room: Gender: Female [employer] Manager: : 1945 Requested By: Pedro Bassett Order Number: [id number] Jimi MD: Sole Maguire M.D. Measurements Intervals [place] Rate: 55 P: 56 GA: 138 QRS: 46 QRSD: 101 T: -11 QT: 447 QTc: 429 Interpretive Statements SINUS BRADYCARDIA NONSPECIFIC T-WAVE ABNORMALITY Compared to ECG 12/11/2020 08:57:15 T-wave abnormality now present Sinus rhythm no longer present Electronically Signed On 06-06-2022 18:03:49 CDT by Sole Maguire M.D. [email or web address]/store/[id number]
[2022-06-05 21:56] LABS: SARS Covid-2 Antigen negative (Negative)
[2022-06-05 22:10] LABS: Lactic Sepsis W/Reflex 1.2 mmol/L (0.5-2.2); Troponin(5th) Baseline 24 ng/L (0-10)
[2022-06-05 22:15] LABS: Add Urine Microscopic? NO; Charge for UA Resulting for Rev
[2022-06-05 22:18] LABS: Alanine Aminotransferase 11 U/L (0-33); Albumin Level 4.3 g/dL (3.5-5.2); Alkaline Phosphatase 48 U/L (35-105); Anion Gap 13.7 (5-19); Aspartate Amino Transferase 15 U/L (0-32); Blood Urea Nitrogen 18 mg/dL (8-23); Calcium 9.5 mg/dL (8.5-10.5); Carbon Dioxide 28 mmol/L (22-29); Chloride 99 mmol/L (98-107); Creatinine Clr Calc Pharmacy 50.6038; Glucose 144 mg/dL (65-115); NT Pro B Type Natriuretic Pept 1849 pg/mL (0-450); Osmolality Calculated 286 mOsm/kg (285-295); Potassium 4.7 mmol/L (3.5-5.1); Sodium 136 mmol/L (136-145); Total Bilirubin 0.4 mg/dL (0.15-1.2); Total Protein 7.3 g/dL (6.6-8.7)
[2022-06-05 22:21] LABS: Bilirubin Urine Neg (Negative); Blood Urine Neg (Negative); Glucose Urine UA Norm (Normal); Ketones Urine Negative (Negative); Leukocyte Esterase Urine Negative (Negative); Nitrate Urine Negative (Negative); Protein Urine Neg (Negative); Urine Appearance Clear (CLEAR); Urine Color Yellow (Yellow); Urobilinogen Urine Neg (Negative); pH Urine 5 (5-7)
--- NOTE | 2022-06-05 23:18 | ECG_ITS ---
[facility] Test Date: 2022-06-05 Pat Name: Lucy Galindo Department: Room: Gender: Female Inspector Publications: : 1945 Requested By: Pedro Bassett Order Number: [id number] Jimi MD: Sole Maguire M.D. Measurements Intervals [place] Rate: 62 P: 65 ME: 151 QRS: 46 QRSD: 101 T: 0 QT: 435 QTc: 445 Interpretive Statements SINUS RHYTHM WITH FREQUENT ECTOPIC PREMATURE COMPLEXES NONSPECIFIC ST & T-WAVE ABNORMALITY ABNORMAL RHYTHM ECG Compared to ECG 06/05/2022 21:38:33 Sinus bradycardia no longer present T-wave abnormality still present Electronically Signed On 06-06-2022 18:28:16 CDT by Sole Maguire M.D. [email or web address] rutan hospital.[employer]/store/OM/[id number]
[2022-06-05 23:41] LABS: Troponin 5 2HR 27.69 ng/L (0-10)
[2022-06-05 23:42] LABS: Troponin 5 2HR Delta 3.69 ABS# (0-10)
--- NOTE | 2022-06-06 16:57 | W.ED.SOB ---
HPI - SOB/Dyspnea General: Chief Complaint: Shortness of Breath/Dyspnea Stated Complaint: SOB Time Seen by Provider: 06/05/22 20:49 Source: patient History of Present Illness: HPI Narrative: 77 year old female here with shortness of breath. Symptoms have progressed over the course of the day. She denies any fever. She notes a very mild cough. No speed and production. No sick contacts. She has furosemide at home to take, but did not notice her legs swelling too much, so she did not take it. She uses oxygen at home at 2 liters. She?s feeling much better here than she did at home, after EMS treatment. MD elicited complaint: shortness of breath Pertinent past history: other Onset (ago): hour(s) Context: other Timing: constant and progressively worsening Severity: moderate Exacerbating factors: lying flat and exertion Relieving factors: oxygen and bronchodilators Known history of: other Associated symptoms: Reports chest congestion, chest pain (mild), cough (mild) and orthopnea; Deny abdominal pain, dizziness, fever(s), hemoptysis, nausea, palpitations or vomiting Treatment prior to arrival: oxygen and bronchodilator Related Data: Home oxygen amount: 2 liters Review of Systems Const: Denies: fever(s) Eyes: Denies: change in vision Card: Reports: chest pain (mild) and orthopnea; Denies: palpitations Resp: Reports: chest congestion; Denies: hemoptysis GI: Denies: abdominal pain, nausea or vomiting : Denies: difficulty voiding Skin/Breast: Denies: rash Neuro: Denies: dizziness [facility] ED PFSH: Medical History Abnormal nuclear stress test Anxiety and depression Asthma, mild persistent Asymptomatic cholelithiasis Atherosclerotic heart disease of [place] coronary artery without angina pectoris Benign essential HTN Bilateral hearing loss Calculus of kidney right; 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 01/10; 7 mm obstructing right proximal stone; evaluated and treated [facility] Hospitalized at [facility] 02/10 for sepsis, UTI, NSTEMI, and right proximal ureteral calculus with hydronephrosis Chronic idiopathic constipation Chronic low back pain Chronic neck and back pain Chronic osteoarthritis Chronic right shoulder pain Fibromyalgia Gastro-esophageal reflux disease without esophagitis HX: breast cancer 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, unspecified prison (current) use of opiate analgesic Mixed hyperlipidemia Obstructive sleep apnea on CPAP Osteoporosis PAD (peripheral artery disease) stent right SFA Recurrent UTI Renal artery stenosis Moderate, noted on CTA 11/2020 Superior mesenteric artery stenosis Moderate, noted on CTA 11/2020 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 Urinary incontinence in female Urolithiasis Vitamin D deficiency Surgical History History of intravascular stent placement (~2003) right leg; [place], [place] History of lumpectomy of left breast (~1969) [place] History of shoulder surgery (~2014) right; Dr Chiu, [facility] Hx of bilateral cataract extraction Hx of bladder repair surgery (~2004) Dr Nunez's office in [place], [place] Hx of lithotripsy Family History Brother Cancer Lung Father , at age 74 Diabetes Cancer colon Mother , age 89 Diabetes CAD (coronary artery disease) Cancer breast Denies family history of Clotting disorder Dementia Hyperlipidemia Psychiatric illness Chronic kidney disease (CKD) Suicide Anesthesia complication Bleeding disorder Family history of premature coronary artery disease Lung disease Hypertension Stroke Social History Smoking and tobacco status: former smoker Quit status (tobacco): has quit using tobacco Year quit tobacco: 2001 Former quit date comment: smoked 2PPD x 25 yrs Second hand smoke exposure: No Alcohol intake: never Caregiver/support person: Yes Lives independently: Yes Household members: none Marital status: / Current occupational status: retired History of recent travel: No Current gender identity: Female Special shan needs: No Physical Exam Const: COMMON NORMALS: no acute distress and alert GENERAL APPEARANCE: cooperative, comfortable and frail appearing; not ill appearing HENMT: COMMON NORMALS: normocephalic and Normal external nose present HEAD & SCALP: normocephalic FACE & SINUS: normal facial exam and face symmetric NOSE: Normal external nose present Eye: COMMON NORMALS: Equal, round and reactive pupils present and EOMs intact bilaterally PUPIL: Yes Equal, round and reactive pupils present Neck/C-Spine: GENERAL: Yes trachea midline Chest: CHEST: Yes Symmetrical chest wall rise Resp: COMMON NORMALS: normal respiratory effort, No retractions, No use of accessory muscles and clear to auscultation bilaterally AUSCULTATION: clear to auscultation bilaterally and diminished lung sounds Cardio: COMMON NORMALS: regular rate and regular rhythm RATE: regular rate RHYTHM: regular rhythm GI: COMMON NORMALS: Normal to inspection, nondistended, normoactive bowel sounds present Extremity: GENERAL: Yes edema (1+) Neuro: MARQUES COMA SCALE: document GCS findings Everett coma scale eye opening: Spontaneous [place] coma scale verbal response: Orientated Marques coma scale motor response: Obey commands Marques coma scale total score: 15 SENSORIUM/ORIENTATION: Yes alert SENSORY EXAM: Yes extremities (intact) Psych: COMMON NORMALS: speech normal SPEECH: Yes normal speech Skin: COMMON NORMALS: no rashes or lesions noted GENERAL SKIN EXAM: no rashes or lesions noted Course Vital Signs: Vital signs: Vital Signs Temperature 98.9 F 06/05/22 20:47 Pulse Rate 54 L 06/05/22 20:47 Respiratory Rate 19 H 06/05/22 20:47 Blood Pressure 132/74 06/05/22 20:47 Pulse Oximetry 94 06/05/22 20:47 Oxygen Delivery Me thod 06/05/22 20:47 Oxygen Flow Rate 2 06/05/22 20:47 MDM - SOB/Dyspnea Medical Decision Making She is improved after dialysis here. Sats have been normal on her home oxygen setting. She will continue diary sis at home. She knows to return for any return of her symptoms. Laboratory work up is reviewed. CBC is normal. BMP is not remarkable. Troponin Did not significantly change it two hours. BNP is elevated. Chest X-ray is read as non acute, but there is cardiomegaly, and some mild vascular congestion present. EKG shows no acute St changes. Lab Data : 06/05/22 21:25 06/05/22 21:25 Labs/Radiology: Radiology Impressions Chest X-Ray 06/05/22 21:17 IMPRESSION: No acute findings. Continued cardiomegaly, prominent lung volumes and a moderate hiatal hernia. Laboratory Results WBC 9.6 10^3/uL (4.0-10.0) 06/05/22 21:25 RBC 4.71 10^6/uL (4.1-5.3) 06/05/22 21:25 Hgb 13.3 g/dL (11.5-15.3) 06/05/22 21:25 Hct 43.0 % (37.0-47.0) 06/05/22: MCV 91.3 fl (81-99) 06/05/22 21: MCH 28.2 pg (28.0-34.0) 06/05/22: MCHC 30.9 g/dL (30.0-36.0) 06/05/22: RDW 13.8 % (12.1-15.1) 06/05/22: Plt Count 192 10^3/cmm (130-400) 06/05/22: MPV 11.0 fL (7.4-10.4) H 06/05/22: Neut % (Auto) 82.6 % 06/05/22: Lymph % (Auto) 10.6 % 06/05/22: [place] % (Auto) 5.4 % 06/05/22: Eos % (Auto) 0.9 % 06/05/22: Baso % (Auto) 0.2 % 06/05/22: Neut # (Auto) 7.89 10^3/uL (1.8-7.7) H 06/05/22: Lymph # (Auto) 1.0 10^3/uL (0.8-4.8) 06/05/22: [place] # (Auto) 0.5 10^3/uL (0.2-0.9) 06/05/22: Eos # (Auto) 0.1 10^3/uL (0.0-0.8) 06/05/22: Baso # (Auto) 0.0 10^3/uL (0.0-0.1) 06/05/22: Nucleated RBC % (auto) 0 % 06/05/22: Nucleated RBCs # 0.0 /100WBC 06/05/22 21: Sodium 136 mmol/L (136-145) 06/05/22 21: Potassium 4.7 mmol/L (3.5-5.1) 06/05/22: Chloride 99 mmol/L (98-107) 06/05/22: Carbon Dioxide 28 mmol/L (22-29) 06/05/22 21:25 Anion Gap 13.7 (5-19) 06/05/22 21:25 BUN 18 mg/dL (8-23) 06/05/22 21:25 Creatinine 0.7 mg/dL (0.5-0.9) 06/05/22 21:25 GFR Calculation Not Reportable 06/05/22 21:25 Glucose 144 mg/dL (65-115) H 06/05/22 21:25 Calculated Osmolality 286 mOsm/kg (285-295) 06/05/22 21:25 Lactic Acid 1.2 mmol/L (0.5-2.2) 06/05/22 21:25 Calcium 9.5 mg/dL (8.5-10.5) 06/05/22:25 Total Bilirubin 0.4 mg/dL (0.15-1.2) 06/05/22 21:25 AST 15 U/L (0-32) 06/05/22 21:25 ALT 11 U/L (0-33) 06/05/22 21:25 Alkaline Phosphatase 48 U/L (35-105) 06/05/22 21:25 Troponin T Baseline 24 ng/L (0-10) H 06/05/22 21:25 Troponin T 120 Minute 27.69 ng/L (0-10) H 06/05/22 23:15 Delta Troponin T 3.69 ABS# (0-10) 06/05/22 23:15 NT-Pro-B Natriuret Pep 1849 pg/mL (0-450) H 06/05/22 21:25 Total Protein 7.3 g/dL (6.6-8.7) 06/05/22 21:25 Albumin 4.3 g/dL (3.5-5.2) 06/05/22 21:25 Globulin 3.0 g/dL (1.3-4.6) 06/05/22 21:25 Urine Color Yellow (Yellow) 06/05/22 22:10 Urine Appearance Clear (CLEAR) 06/05/22 22:10 Urine pH 5 (5-7) 06/05/22 22:10 Ur Specific [place] 1.020 (1.005-1.030) 06/05/22 22:10 Urine Protein Neg (Negative) 06/05/22 22:10 Urine Glucose (UA) Norm (Normal) 06/05/22 22:10 Urine Ketones Negative (Negative) 06/05/22 22:10 Urine Blood Neg (Negative) 06/05/22 22:10 Urine Nitrate Negative (Negative) 06/05/22 22:10 Urine Bilirubin Neg (Negative) 06/05/22 22:10 Urine Urobilinogen Neg mg/dL (Negative) 06/05/22 22:10 Ur Leukocyte Esterase Negative (Negative) 06/05/22 22:10 SARS-CoV-2 Ag (Rapid) negative (Negative) 06/05/22 21:35 Discharge Plan Discharge Patient Disposition: Home Clinical Impression: Pulmonary edema Condition: Stable Prescriptions: No Action vitamin B complex 1 tab PO DAILY@1000 ketoconazole 2 % cream 1 applic TOPICAL BID Qty: 60 1RF Rx Instructions: to rash on face and chin Ventolin HFA 90 mcg/actuation HFA aerosol inhaler 2 puff INHALATION QID PRN (Reason: Shortness Of Breath) Qty: 18 2RF amlodipine 5 mg tablet See Rx Instructions .ROUTE .COMPLEX Qty: 30 2RF Dose Instruction: TAKE ONE TABLET BY MOUTH DAILY Rx Instructions: TAKE ONE TABLET BY MOUTH DAILY budesonide-formoterol 80-4.5 mcg/actuation HFA aerosol inhaler See Rx Instructions .ROUTE .COMPLEX Qty: 10.2 2RF Dose Instruction: INHALE TWO PUFFS INTO LUNGS TWICE DAILY Rx Instructions: INHALE TWO PUFFS INTO LUNGS TWICE DAILY carvedilol 3.125 mg tablet 3.125 mg PO BID Qty: 180 3RF Rx Instructions: must administer with a meal/food cholecalciferol (vitamin D3) 50 mcg (2,000 unit) tablet See Rx Instructions .ROUTE .COMPLEX Qty: 90 1RF Dose Instruction: TAKE ONE TABLET BY MOUTH EVERY OTHER DAY Rx Instructions: TAKE ONE TABLET BY MOUTH EVERY OTHER DAY citalopram 20 mg tablet See Rx Instructions .ROUTE .COMPLEX Qty: 90 1RF Dose Instruction: TAKE ONE TABLET BY MOUTH DAILY AT 10:00AM Rx Instructions: TAKE ONE TABLET BY MOUTH DAILY AT 10:00AM furosemide 20 mg tablet 20 mg PO QAM PRN (Reason: edema) Qty: 90 0RF ketoconazole 2 % shampoo 1 applic TOPICAL .3 x week Qty: 120 2RF lisinopril 40 mg tablet 40 mg PO DAILY 90 Days Qty: 90 3RF meloxicam 7.5 mg tablet See Rx Instructions .ROUTE .COMPLEX Qty: 90 0RF Dose Instruction: TAKE ONE TABLET BY MOUTH DAILY AT 10:00AM Rx Instructions: TAKE ONE TABLET BY MOUTH DAILY AT 10:00AM metformin 500 mg tablet See Rx Instructions .ROUTE .COMPLEX Qty: 180 1RF Hold Instructions: Resume on 12/10/20. held due to contrast administration for CTA chest Dose Instruction: TAKE ONE TABLET BY MOUTH TWICE DAILY AT 10:00AM AND 8:00PM Rx Instructions: TAKE ONE TABLET BY MOUTH TWICE DAILY AT 10:00AM AND 8:00PM nitroglycerin 0.4 mg tablet, sublingual 0.4 mg SUBLINGUAL Q5M PRN (Reason: Chest Pain) Qty: 20 0RF oxybutynin chloride 5 mg tablet See Rx Instructions .ROUTE .COMPLEX Qty: 60 2RF Dose Instruction: TAKE ONE TABLET BY MOUTH TWICE DAILY Rx Instructions: TAKE ONE TABLET BY MOUTH TWICE DAILY pantoprazole 40 mg tablet,delayed release (DR/EC) See Rx Instructions .ROUTE .COMPLEX Qty: 90 1RF Dose Instruction: TAKE ONE TABLET BY MOUTH DAILY Rx Instructions: TAKE ONE TABLET BY MOUTH DAILY potassium chloride 10 mEq tablet extended release See Rx Instructions .ROUTE .COMPLEX Qty: 180 1RF Dose Instruction: TAKE ONE TABLET BY MOUTH TWICE DAILY AT 10:00AM AND 8:00PM Rx Instructions: TAKE ONE TABLET BY MOUTH TWICE DAILY AT 10:00AM AND 8:00PM rosuvastatin 10 mg tablet See Rx Instructions .ROUTE .COMPLEX Qty: 30 3RF Dose Instruction: TAKE ONE TABLET BY MOUTH DAILY Rx Instructions: TAKE ONE TABLET BY MOUTH DAILY Kimmie-osmar 8.6 mg tablet See Rx Instructions .ROUTE .COMPLEX Qty: 120 5RF Dose Instruction: TAKE TWO TABLETS BY MOUTH AT BEDTIME Rx Instructions: TAKE TWO TABLETS BY MOUTH AT BEDTIME (DME) oxygen 2L via NC See Rx Instructions .Route .MEDSUPPLY Qty: 1 0RF Rx Instructions: As directed aspirin 81 mg tablet,delayed release (DR/EC) See Rx Instructions .ROUTE .COMPLEX Qty: 90 4RF Dose Instruction: TAKE ONE TABLET BY MOUTH AT BEDTIME Rx Instructions: TAKE ONE TABLET BY MOUTH AT BEDTIME tramadol 50 mg tablet 50 mg PO TID Qty: 90 0RF tizanidine 4 mg tablet See Rx Instructions .ROUTE .COMPLEX Qty: 30 1RF Dose Instruction: TAKE ONE TABLET BY MOUTH EVERY DAY NEEDED FOR MUSCLE SPASTICITY Rx Instructions: TAKE ONE TABLET BY MOUTH EVERY DAY NEEDED FOR MUSCLE SPASTICITY multivitamin Tablet 1 tab PO DAILY@1999 Discharge Orders: Discharge ED (Routine); Ordered 06/06/22 Ordered By: Pedro Ly Referrals: Lucy Moreland MD [Primary Care Provider] - Patient Instructions: Pulmonary Edema (ED) Activity Restrictions/Additional Instructions: Take your furosemide (water pill) daily for the next 3 days, then stop. Return for fever greater than 100, development of cough, worsening shortness of breath despite treatment, any other concerning symptoms. Coding Level of Care Code ED Ceo Na for Baljeet Mcfarland
== END 2022-06-06 00:43 | disposition home or self-care (01) ==
PROVIDERS: Emergency Provider Emergency Medicine; PCP Family Medicine
DX: J81.1 Chronic pulmonary edema (principal); Z79.84 Long term (current) use of oral hypoglycemic drugs; Z79.82 Long term (current) use of aspirin; Z20.822 Contact with and (suspected) exposure to COVID-19; I25.10 Atherosclerotic heart disease of native coronary artery without angina pectoris; Z85.3 Personal history of malignant neoplasm of breast; E78.2 Mixed hyperlipidemia; E11.9 Type 2 diabetes mellitus without complications
CPT/HCPCS: 71045; 80053; 81003; 83605; 83880; 84484; 85025; 87426; 93005; 96374; 99285; J1940

== ENCOUNTER 2022-08-05 10:23 | Emergency (ER) | payer MEDICARE, OTHER, SELFPAY ==
[2022-08-05 10:28] VITALS: BP 110/67
[2022-08-05 10:33] VITALS: BP 169/90; PULSE 68; RESP 16; O2SAT 93
--- NOTE | 2022-08-05 11:01 | XR_ITS ---
WS: [id number] EXAMINATION: XR ribs LT mn 3V w CXR1V [id number] REASON FOR EXAM: fall, pain COMPARISON: 06/05/2022. ORDER DATE: 08/05/2022 11:01 AM FINDINGS: Lungs: Continued prominent lung volumes. Small calcified granuloma in the right mid lung still likely. No interval consolidation. Pleural spaces: No pneumothorax or apparent pleural fluid. Heart/Mediastinum: Large hiatal hernia again evident. Cardiomegaly unchanged. Bones/joints: Metallic anchors in the right humeral head. No suggestion of acute rib fracture change.. XR/XR ribs LT mn 3V w CXR1V [id number] IMPRESSION: No acute findings. Continued cardiomegaly, prominent lung volumes and Unchanged large hiatal hernia. No acute fractures.
--- NOTE | 2022-08-05 11:01 | W.ED.FALL ---
Documented by User: AGATA Diallo 08/05/22 14:00 HPI - Fall General: Stated Complaint: fall, rib pain Time Seen by Provider: 08/05/22 10:42 Source: patient Mode of arrival: EMS Limitations: no limitations History of Present Illness: Patient is a 77-year-old female presents to ED today via EMS for concerns of a left rib fracture. Patient tells me she had gotten out of bed in the middle of the night to use the restroom when she accidentally stumbled and fell and struck her left side. Patient states she was able to get up from the floor with assistance and has been ambulatory since the fall. She does not complain of any hip or knee pain. She denies striking her head or LOC. She denies feeling dizzy or lightheaded prior to the fall. He has not had any chest pain, shortness of breath, difficulty breathing, or palpitations. She states she has pain to her left ribs with deep inhalation. Patient tells me she has chronic shortness of breath from COPD and is supposed to be wearing oxygen continuously however admittedly does not. She wears CPAP at night. She states her shortness of breath currently is at her baseline. complaint: fall Onset (ago): hour(s) Fall from: standing Fall witnessed: no Place fall occurred: home Loss of consciousness: None Prolonged down time: no Symptoms prior to fall: none Context: tripped/slipped Location of injury: chest (L ribs) Associated symptoms-after fall: Reports chest pain (L rib pain); Denies abdominal pain, confusion, difficulty walking, headache(s), hematuria, lightheadedness or neck pain Review of Systems Const: Denies: fever(s), chills, body aches, fatigue or malaise Card: Reports: chest pain (L rib pain) and dyspnea on exertion (chronic); Denies: palpitations, irregular heart rhythm, edema, swelling of feet/ankles, lightheadedness, syncope, pre-syncope, orthopnea, leg pain with exertion or acrocyanosis Resp: Reports: dyspnea (chronic-supposed to wear O2 continously but does not) and pain on inspiration; Denies: productive cough, non-productive cough, wheezing, change in phlegm color, hemoptysis or chest congestion GI: Denies: abdominal pain, nausea, vomiting or diarrhea : Denies: flank pain, dysuria or hematuria Musc: Denies: neck pain, back pain, extremity pain or joint pain Skin/Breast: Denies: rash Neuro: Denies: headache(s), numbness in extremities, weakness in extremities, sensory changes, lack of coordination, difficulty walking, dizziness or confusion PFS ED PFSH: Medical History Abnormal nuclear stress test Anxiety and depression Asthma, mild persistent Asymptomatic cholelithiasis Atherosclerotic heart disease of [place] coronary artery without angina pectoris Benign essential HTN Bilateral hearing loss Calculus of kidney right; 6 mm without microsoft exchange administrator time 01/10; 7 mm obstructing right proximal stone; evaluated and treated [facility] Hospitalized at [facility] 02/10 for sepsis, UTI, NSTEMI, and right proximal ureteral calculus with hydronephrosis Chronic idiopathic constipation Chronic low back pain Chronic neck and back pain Chronic osteoarthritis Chronic right shoulder pain Fibromyalgia Gastro-esophageal reflux disease without esophagitis HX: breast cancer 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, 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 Mixed hyperlipidemia Obstructive sleep apnea on CPAP Osteoporosis PAD (peripheral artery disease) stent right SFA Recurrent UTI Renal artery stenosis Moderate, noted on CTA 11/2020 Superior mesenteric artery stenosis Moderate, noted on CTA 11/2020 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 Urinary incontinence in female Urolithiasis Vitamin D deficiency Surgical History History of intravascular stent placement (~2003) right leg; [place], [place] History of lumpectomy of left breast (~1969) [place] History of shoulder surgery (~2014) right; Dr Chiu, [facility] [place] Hx of bilateral cataract extraction Hx of bladder repair surgery (~2004) Dr Nunez's office in [place], [place] Hx of lithotripsy Family History Brother Cancer Lung Father , at age 74 Diabetes Cancer colon Mother , age 89 Diabetes CAD (coronary artery disease) Cancer breast Denies family history of Clotting disorder Dementia Hyperlipidemia Psychiatric illness Chronic kidney disease (CKD) Suicide Anesthesia complication Bleeding disorder Family history of premature coronary artery disease Lung disease Hypertension Stroke Social History Smoking and tobacco status: former smoker Quit status (tobacco): has quit using tobacco Year quit tobacco: 2001 Former quit date comment: smoked 2PPD x 25 yrs Second hand smoke exposure: No Alcohol intake: never Caregiver/support person: Yes Lives independently: Yes Household members: none Marital status: / Current occupational status: retired History of recent travel: No Current gender identity: Female Special shan needs: No Physical Exam Const: COMMON NORMALS: no acute distress, average body habitus, patient oriented x3, no limitations, healthy appearing, alert and well nourished GENERAL APPEARANCE: cooperative ORIENTATION/CONSCIOUSNESS: Yes awake, Yes oriented to person, Yes oriented to place and Yes oriented to time OTHER: hard of hearing HENMT: COMMON NORMALS: normocephalic and atraumatic HEAD & SCALP: normal to inspection, normocephalic and atraumatic FACE & SINUS: normal facial exam Neck/C-Spine: COMMON NORMALS: full ROM GENERAL: Yes normal visual inspection CERVICAL SPINE: Yes cervical ROM normal, No pain with cervical ROM, No Cervical spine tenderness, No step off deformity and No Paracervical muscle tenderness Chest: COMMONS NORMALS: normal inspection of the chest CHEST: Yes tenderness (L lateral ribs; crepitus noted consistent with rib fx) Resp: COMMON NORMALS: normal respiratory effort EFFORT & INSPECTION: Yes able to speak in complete sentences, No labored, No grunting, No stridor, No retractions and No uses accessory muscles AUSCULTATION: rhonchi (patient with hx of COPD) OTHER: pain to left ribs with deep inspiration Cardio: COMMON NORMALS: regular rate and regular rhythm RATE: regular rate RHYTHM: regular rhythm GI: COMMON NORMALS: Normal to inspection, nondistended, normoactive bowel sounds present, Soft to palpation and non-tender INSPECTION: Yes normal to inspection PALPATION: Yes Soft to palpation Back/Pelvis: COMMON NORMALS: thoracic and lumbar spine normal to inspection, no thoracic nor lumbar tenderness and thoraco-lumbar ROM normal Extremity: COMMON NORMALS: normal to inspection and full ROM GENERAL: Yes normal exam except as noted Neuro: MARQUES COMA SCALE: document GCS findings [place] coma scale eye opening: Spontaneous [place] coma scale verbal response: Orientated [place] coma scale motor response: Obey commands [place] coma scale total score: 15 COMMON NORMALS: patient oriented x3, CN's II-XII intact bilaterally, moves all extremities, no focal motor deficits and no sensory deficits noted SENSORIUM/ORIENTATION: Yes alert, Yes oriented to person, Yes oriented to place and Yes oriented to time Skin: COMMON NORMALS: no rashes or lesions noted GENERAL SKIN EXAM: no rashes or lesions noted Course Vital Signs: Vital signs: Vital Signs Pulse Rate 68 08/05/22 10:33 Respiratory Rate 16 08/05/22 10:33 Blood Pressure 169/90 08/05/22 10:33 Pulse Oximetry 93 08/05/22 10:33 Oxygen Delivery Me thod 08/05/22 10:33 MDM - Fall Medical Decision Making Patient has nondisplaced fractures of her ninth and 10th ribs. Patient states she takes tramadol daily for arthritis and would like to continue this medication and does not want anything stronger. She will be discharged home with an incentive spirometer. Recommend she wear her oxygen like she is supposed to with her COPD. She states she lives with her son who can continue to help care for her. I would like her to follow-up with primary care next week. Strict return ED precautions given. Case was discussed with Dr. Martinez who agrees with care plan for patient. Lab Data 08/05/22 10:51 08/05/22 10:51 Radiology Impressions Ribs X-Ray 08/05/22 11:01 IMPRESSION: No acute findings. Continued cardiomegaly, prominent lung volumes and Unchanged large hiatal hernia. No acute fractures. Chest CT 08/05/22 12:13 IMPRESSION: 1. No pneumothorax or pulmonary contusion or laceration. 2. Nondisplaced posterior lateral LEFT 10th rib fracture in 2 places. Ninth rib also is probably fractured, nondisplaced. 3. Large hiatal hernia. 4. Cardiomegaly and pulmonary hypertension. 5. Cholelithiasis. Laboratory Results WBC 4.4 10^3/uL (4.0-10.0) 08/05/22 10:51 RBC 5.45 10^6/uL (4.1-5.3) H 08/05/22 10:51 Hgb 15.5 g/dL (11.5-15.3) H 08/05/22 10:51 Hct 48.9 % (37.0-47.0) H 08/05/22 10:51 MCV 89.7 fl (81-99) 08/05/22 10:51 MCH 28.4 pg (28.0-34.0) 08/05/22 10:51 MCHC 31.7 g/dL (30.0-36.0) 08/05/22 10:51 RDW 13.9 % (12.1-15.1) 08/05/22 10:51 Plt Count 235 10^3/cmm (130-400) 08/05/22 10:51 MPV 11.9 fL (7.4-10.4) H 08/05/22 10:51 Neut % (Auto) 69.4 % 08/05/22 10:51 Lymph % (Auto) 19.9 % 08/05/22 10:51 [place] % (Auto) 7.4 % 08/05/22 10:51 Eos % (Auto) 2.9 % 08/05/22 10:51 Baso % (Auto) 0.2 % 08/05/22 10:51 Neut # (Auto) 3.07 10^3/uL (1.8-7.7) 08/05/22 10:51 Lymph # (Auto) 0.9 10^3/uL (0.8-4.8) 08/05/22 10:51 [place] # (Auto) 0.3 10^3/uL (0.2-0.9) 08/05/22 10:51 Eos # (Auto) 0.1 10^3/uL (0.0-0.8) 08/05/22 10:51 Baso # (Auto) 0.0 10^3/uL (0.0-0.1) 08/05/22 10:51 Nucleated RBC % (auto) 0 % 08/05/22 10:51 Nucleated RBCs # 0.0 /100WBC 08/05/22 10:51 Sodium 142 mmol/L (136-145) 08/05/22 10:51 Potassium 4.1 mmol/L (3.5-5.1) 08/05/22 10:51 Chloride 98 mmol/L (98-107) 08/05/22 10:51 Carbon Dioxide 29 mmol/L (22-29) 08/05/22 10:51 Anion Gap 19.1 (5-19) H 08/05/22 10:51 BUN 16 mg/dL (8-23) 08/05/22 10:51 Creatinine 0.8 mg/dL (0.5-0.9) 08/05/22 10:51 GFR Calculation Not Reportable 08/05/22 10:51 Glucose 144 mg/dL (65-115) H 08/05/22 10:51 Calculated Osmolality 298 mOsm/kg (285-295) H 08/05/22 10:51 Calcium 10.6 mg/dL (8.5-10.5) H 08/05/22 10:51 Total Bilirubin 0.5 mg/dL (0.15-1.2) 08/05/22 10:51 AST 18 U/L (0-32) 08/05/22 10:51 ALT 13 U/L (0-33) 08/05/22 10:51 Alkaline Phosphatase 50 U/L (35-105) 08/05/22 10:51 Total Protein 8.4 g/dL (6.6-8.7) 08/05/22 10:51 Albumin 5.2 g/dL (3.5-5.2) 08/05/22 10:51 Globulin 3.2 g/dL (1.3-4.6) 08/05/22 10:51 Discharge Plan Discharge Patient Disposition: Home Clinical Impression: Multiple fractures of ribs of left side Qualifiers: Encounter type: initial encounter Fracture type: closed Qualified Code(s): S22.42XA - Multiple fractures of ribs, left side, initial encounter for closed fracture Condition: Stable Prescriptions: No Action Ventolin HFA 90 mcg/actuation HFA aerosol inhaler 2 puff INHALATION QID PRN (Reason: Shortness Of Breath) Qty: 18 2RF carvedilol 3.125 mg tablet 3.125 mg PO BID Qty: 180 3RF Rx Instructions: must administer with a meal/food furosemide 20 mg tablet 20 mg PO QAM PRN (Reason: edema) Qty: 90 0RF ketoconazole 2 % shampoo 1 applic TOPICAL .3 x week Qty: 120 2RF (DME) oxygen 2L via NC See Rx Instructions .Route .MEDSUPPLY Qty: 1 0RF Rx Instructions: As directed ciprofloxacin HCl 250 mg tablet 250 mg PO BID Qty: 20 0RF Rx Instructions: for 10 days (rx filled 08/03/22) multivitamin Tablet 1 tab PO DAILY@2000 Nitrostat 0.4 mg Tablet, Sublingual 0.4 mg SUBLINGUAL Q5M PRN (Reason: Chest Pain) Rx Instructions: do not exceed 3 doses per episode Zyrtec 10 mg Tablet 10 mg PO DAILY PRN (Reason: Allergy Symptoms) Vitamin B-12 1,000 mcg Tablet 1,000 mcg PO DAILY vitamin B complex Tablet 1 tab PO DAILY metformin 500 mg tablet 500 mg PO BID tizanidine 4 mg tablet 4 mg PO DAILY PRN (Reason: Muscle Spasticity) potassium chloride 10 mEq tablet extended release 10 meq PO BID@10,20 amlodipine 5 mg tablet 5 mg PO QAM aspirin 81 mg tablet,delayed release (DR/EC) 81 mg PO BEDTIME tramadol 50 mg tablet 50 mg PO Q4H PRN (Reason: Pain) meloxicam 7.5 mg tablet 7.5 mg PO DAILY@10 citalopram 20 mg tablet 20 mg PO DAILY@10 pantoprazole 40 mg tablet,delayed release (DR/EC) 40 mg PO QAM ketoconazole 2 % cream 1 applic TOPICAL BID PRN (Reason: Rash) Rx Instructions: to rash on face and chin oxybutynin chloride 5 mg tablet 5 mg PO BID rosuvastatin 10 mg tablet 10 mg PO QPM budesonide-formoterol 80-4.5 mcg/actuation HFA aerosol inhaler 2 puff inhalation BID cholecalciferol (vitamin D3) 50 mcg (2,000 unit) tablet 2,000 unit PO EVERY OTHER DAY Kimmie-osmar 8.6 mg tablet 17.2 mg PO BEDTIME Discharge Orders: Discharge ED (Routine); Ordered 08/05/22 Ordered By: Sol Castro Referrals: Lucy Moreland MD [Primary Care Provider] - Patient Instructions: Rib Fracture (ED), Fractures - Rib Activity Restrictions/Additional Instructions: As we discussed you would like to continue taking your Tramadol for pain and did not want to try anything stronger for treatment of your rib fractures. You need to be using your incentive spirometer as frequently as possible. He should have been given instructions prior to discharge on usage. You need to be wearing your oxygen for your COPD as instructed. Please follow-up with your primary care provider early next week for reevaluation. You need to return to the emergency department for severe chest pain, shortness of breath, difficulty breathing, fevers, or any other concerns you may have. I hope you begin to feel better soon. Coding Level of Care Code ED Estimating Engineer for Chg Fwd Exam Comprehensive Documented by User: Roger Martinez DO 08/05/22 14:26 HPI - Fall General: Stated Complaint: fall, rib pain Time Seen by Provider: 08/05/22 10:42 PFSH ED PFSH: Medical History Abnormal nuclear stress test Anxiety and depression Asthma, mild persistent Asymptomatic cholelithiasis Atherosclerotic heart disease of [place] coronary artery without angina pectoris Benign essential HTN Bilateral hearing loss Calculus of kidney right; 6 mm without microsoft exchange administrator time 01/10; 7 mm obstructing right proximal stone; evaluated and treated [facility] Hospitalized at [facility] 02/10 for sepsis, UTI, NSTEMI, and right proximal ureteral calculus with hydronephrosis Chronic idiopathic constipation Chronic low back pain Chronic neck and back pain Chronic osteoarthritis Chronic right shoulder pain Fibromyalgia Gastro-esophageal reflux disease without esophagitis HX: breast cancer 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, 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 Mixed hyperlipidemia Obstructive sleep apnea on CPAP Osteoporosis PAD (peripheral artery disease) stent right SFA Recurrent UTI Renal artery stenosis Moderate, noted on CTA 11/2020 Superior mesenteric artery stenosis Moderate, noted on CTA 11/2020 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 Urinary incontinence in female Urolithiasis Vitamin D deficiency Surgical History History of intravascular stent placement (~2003) right leg; [place], [place] History of lumpectomy of left breast (~1969) [place] History of shoulder surgery (~2014) right; Dr Chiu, [facility] [place] Hx of bilateral cataract extraction Hx of bladder repair surgery (~2004) Dr Nunez's office in [place], [place] Hx of lithotripsy Family History Brother Cancer Lung Father , at age 74 Diabetes Cancer colon Mother , age 89 Diabetes CAD (coronary artery disease) Cancer breast Denies family history of Clotting disorder Dementia Hyperlipidemia Psychiatric illness Chronic kidney disease (CKD) Suicide Anesthesia complication Bleeding disorder Family history of premature coronary artery disease Lung disease Hypertension Stroke Social History Smoking and tobacco status: former smoker Quit status (tobacco): has quit using tobacco Year quit tobacco: 2001 Former quit date comment: smoked 2PPD x 25 yrs Second hand smoke exposure: No Alcohol intake: never Caregiver/support person: Yes Lives independently: Yes Household members: none Marital status: / Current occupational status: retired History of recent travel: No Current gender identity: Female Special shan needs: No Physical Exam Neuro: MARQUES COMA SCALE: document GCS findings [place] coma scale total score: 15 Course Consultations: Consultation #1: I was one of the attending physicians on duty at the time that this patient was seen by the advanced nurse practitioner. This case was reviewed with me and I recommended a CT scan. She is CT scan did not reveal any evidence of pneumothorax did show lower left-sided rib fractures. We reviewed potential treatment plans and it was the patient's preference to be discharged home with family assistance and close follow-up. I agree with that plan of care with good return precautions. Vital Signs: Vital signs: Vital Signs Pulse Rate 68 08/05/22 10:33 Respiratory Rate 16 08/05/22 10:33 Blood Pressure 169/90 08/05/22 10:33 Pulse Oximetry 93 08/05/22 10:33 Oxygen Delivery Or thod 08/05/22 10:33 MDM - Fall Lab Data 08/05/22 10:51 08/05/22 10:51 Radiology Impressions Ribs X-Ray 08/05/22 11:01 IMPRESSION: No acute findings. Continued cardiomegaly, prominent lung volumes and Unchanged large hiatal hernia. No acute fractures. Chest CT 08/05/22 12:13 IMPRESSION: 1. No pneumothorax or pulmonary contusion or laceration. 2. Nondisplaced posterior lateral LEFT 10th rib fracture in 2 places. Ninth rib also is probably fractured, nondisplaced. 3. Large hiatal hernia. 4. Cardiomegaly and pulmonary hypertension. 5. Cholelithiasis. Laboratory Results WBC 4.4 10^3/uL (4.0-10.0) 08/05/22 10:51 RBC 5.45 10^6/uL (4.1-5.3) H 08/05/22 10:51 Hgb 15.5 g/dL (11.5-15.3) H 08/05/22 10:51 Hct 48.9 % (37.0-47.0) H 08/05/22 10:51 MCV 89.7 fl (81-99) 08/05/22 10:51 MCH 28.4 pg (28.0-34.0) 08/05/22 10:51 MCHC 31.7 g/dL (30.0-36.0) 08/05/22 10:51 RDW 13.9 % (12.1-15.1) 08/05/22 10:51 Plt Count 235 10^3/cmm (130-400) 08/05/22 10:51 MPV 11.9 fL (7.4-10.4) H 08/05/22 10:51 Neut % (Auto) 69.4 % 08/05/22 10:51 Lymph % (Auto) 19.9 % 08/05/22 10:51 [place] % (Auto) 7.4 % 08/05/22 10:51 Eos % (Auto) 2.9 % 08/05/22 10:51 Baso % (Auto) 0.2 % 08/05/22 10:51 Neut # (Auto) 3.07 10^3/uL (1.8-7.7) 08/05/22 10:51 Lymph # (Auto) 0.9 10^3/uL (0.8-4.8) 08/05/22 10:51 [place] # (Auto) 0.3 10^3/uL (0.2-0.9) 08/05/22 10:51 Eos # (Auto) 0.1 10^3/uL (0.0-0.8) 08/05/22 10:51 Baso # (Auto) 0.0 10^3/uL (0.0-0.1) 08/05/22 10:51 Nucleated RBC % (auto) 0 % 08/05/22 10:51 Nucleated RBCs # 0.0 /100WBC 08/05/22 10:51 Sodium 142 mmol/L (136-145) 08/05/22 10:51 Potassium 4.1 mmol/L (3.5-5.1) 08/05/22 10:51 Chloride 98 mmol/L (98-107) 08/05/22 10:51 Carbon Dioxide 29 mmol/L (22-29) 08/05/22 10:51 Anion Gap 19.1 (5-19) H 08/05/22 10:51 BUN 16 mg/dL (8-23) 08/05/22 10:51 Creatinine 0.8 mg/dL (0.5-0.9) 08/05/22 10:51 GFR Calculation Not Reportable 08/05/22 10:51 Glucose 144 mg/dL (65-115) H 08/05/22 10:51 Calculated Osmolality 298 mOsm/kg (285-295) H 08/05/22 10:51 Calcium 10.6 mg/dL (8.5-10.5) H 08/05/22 10:51 Total Bilirubin 0.5 mg/dL (0.15-1.2) 08/05/22 10:51 AST 18 U/L (0-32) 08/05/22 10:51 ALT 13 U/L (0-33) 08/05/22 10:51 Alkaline Phosphatase 50 U/L (35-105) 08/05/22 10:51 Total Protein 8.4 g/dL (6.6-8.7) 08/05/22 10:51 Albumin 5.2 g/dL (3.5-5.2) 08/05/22 10:51 Globulin 3.2 g/dL (1.3-4.6) 08/05/22 10:51 Discharge Plan Discharge Patient Disposition: Home Clinical Impression: Multiple fractures of ribs of left side Qualifiers: Encounter type: initial encounter Fracture type: closed Qualified Code(s): S22.42XA - Multiple fractures of ribs, left side, initial encounter for closed fracture Condition: Stable Prescriptions: No Action Ventolin HFA 90 mcg/actuation HFA aerosol inhaler 2 puff INHALATION QID PRN (Reason: Shortness Of Breath) Qty: 18 2RF carvedilol 3.125 mg tablet 3.125 mg PO BID Qty: 180 3RF Rx Instructions: must administer with a meal/food furosemide 20 mg tablet 20 mg PO QAM PRN (Reason: edema) Qty: 90 0RF ketoconazole 2 % shampoo 1 applic TOPICAL .3 x week Qty: 120 2RF (DME) oxygen 2L via [place] See Rx Instructions .Route .MEDSUPPLY Qty: 1 0RF Rx Instructions: As directed ciprofloxacin HCl 250 mg tablet 250 mg PO BID Qty: 20 0RF Rx Instructions: for 10 days (rx filled 08/03/22) multivitamin Tablet 1 tab PO DAILY@2000 Nitrostat 0.4 mg Tablet, Sublingual 0.4 mg SUBLINGUAL Q5M PRN (Reason: Chest Pain) Rx Instructions: do not exceed 3 doses per episode Zyrtec 10 mg Tablet 10 mg PO DAILY PRN (Reason: Allergy Symptoms) Vitamin B-12 1,000 mcg Tablet 1,000 mcg PO DAILY vitamin B complex Tablet 1 tab PO DAILY metformin 500 mg tablet 500 mg PO BID tizanidine 4 mg tablet 4 mg PO DAILY PRN (Reason: Muscle Spasticity) potassium chloride 10 mEq tablet extended release 10 meq PO BID@10,20 amlodipine 5 mg tablet 5 mg PO QAM aspirin 81 mg tablet,delayed release (DR/EC) 81 mg PO BEDTIME tramadol 50 mg tablet 50 mg PO Q4H PRN (Reason: Pain) meloxicam 7.5 mg tablet 7.5 mg PO DAILY@10 citalopram 20 mg tablet 20 mg PO DAILY@10 pantoprazole 40 mg tablet,delayed release (DR/EC) 40 mg PO QAM ketoconazole 2 % cream 1 applic TOPICAL BID PRN (Reason: Rash) Rx Instructions: to rash on face and chin oxybutynin chloride 5 mg tablet 5 mg PO BID rosuvastatin 10 mg tablet 10 mg PO QPM budesonide-formoterol 80-4.5 mcg/actuation HFA aerosol inhaler 2 puff inhalation BID cholecalciferol (vitamin D3) 50 mcg (2,000 unit) tablet 2,000 unit PO EVERY OTHER DAY Kimmie-osmar 8.6 mg tablet 17.2 mg PO BEDTIME Discharge Orders: Discharge ED (Routine); Ordered 08/05/22 Ordered By: Sol Castro Referrals: Lucy Moreland MD [Primary Care Provider] - Patient Instructions: Rib Fracture (ED), Fractures - Rib Activity Restrictions/Additional Instructions: As we discussed you would like to continue taking your Tramadol for pain and did not want to try anything stronger for treatment of your rib fractures. You need to be using your incentive spirometer as frequently as possible. He should have been given instructions prior to discharge on usage. You need to be wearing your oxygen for your COPD as instructed. Please follow-up with your primary care provider early next week for reevaluation. You need to return to the emergency department for severe chest pain, shortness of breath, difficulty breathing, fevers, or any other concerns you may have. I hope you begin to feel better soon. Coding Level of Care Code ED Estimating Engineer for Baljeet Fwd Exam Comprehensive
--- NOTE | 2022-08-05 11:46 | PC.PHAR ---
pt states she takes care of her own medications-pt states she doesnt take lisinopril 40mg daily lyle minor never filled transferred [facility] filled 09/09/21 90d/s-
--- NOTE | 2022-08-05 12:13 | CT_ITS ---
WS: [id number] CT CHEST WITHOUT INTRAVENOUS CONTRAST HISTORY: L rib pain/trauma/fall TECHNIQUE: Contiguous 5 mm axial imaging performed on the thorax. Coronal and sagittal reformats are submitted. All CT scans at [facility] use at least one of these dose optimization techniques: automated exposure control; mA and/or kV adjustment per patient size (includes targeted exams where dose is matched to clinical indication); or iterative reconstruction. CONTRAST: None DLP: 263.34 mGy.cm COMPARISON: 12/08/2020 Lungs and central airway: Increased AP diameter due to marked kyphosis. No pneumothorax or mass. A fe w scattered granulomata. No pulmonary contusion or laceration. Pleura: Normal. No pleural effusion. Heart and pericardium: Mild enlargement of the heart. Mediastinum and krista: No mediastinum or hilar adenopathy. Vessels: Heavily calcified aorta. Pulmonary artery is enlarged measuring 3.2 cm. Chest wall and lower neck: No soft tissue masses. Upper abdomen: Cholelithiasis. Heavily calcified splenic artery. Large hiatal hernia. Osseous structures: Marked increase in thoracic kyphosis. No spine fracture. Nondisplaced fractures i nvolving the posterior lateral LEFT 10th rib and 2 places. Suspect nondisplaced ninth rib fracture. CT/CT chest wo con [id number] IMPRESSION: 1. No pneumothorax or pulmonary contusion or laceration. 2. Nondisplaced posterior lateral LEFT 10th rib fracture in 2 places. Ninth ri b also is probably fractured, nondisplaced. 3. Large hiatal hernia. 4. Cardiomegaly and pulmonary hypertension. 5. Cholelithiasis.
[2022-08-05 12:24] LABS: Basophils % 0.2 %; Eosinophils # 0.1 10^3/uL (0.0-0.8); Eosinophils % 2.9 %; Hematocrit 48.9 % (37.0-47.0); Hemoglobin 15.5 g/dL (11.5-15.3); Lymphocytes # 0.9 10^3/uL (0.8-4.8); Lymphocytes % 19.9 %; Mean Corpuscular HGB Conc 31.7 g/dL (30.0-36.0); Mean Corpuscular Hemoglobin 28.4 pg (28.0-34.0); Mean Corpuscular Volume 89.7 fl (81-99); Mean Platelet Volume 11.9 fL (7.4-10.4); Monocytes # 0.3 10^3/uL (0.2-0.9); Monocytes % 7.4 %; Neutrophils # 3.07 10^3/uL (1.8-7.7); Neutrophils % 69.4 %; Nucleated Red Blood Cells % 0 %; Platelet Count 235 10^3/cmm (130-400); Red Blood Count 5.45 10^6/uL (4.1-5.3); Red Cell Distribution Width 13.9 % (12.1-15.1); White Blood Count 4.4 10^3/uL (4.0-10.0)
[2022-08-05 12:39] LABS: Alanine Aminotransferase 13 U/L (0-33); Albumin Level 5.2 g/dL (3.5-5.2); Alkaline Phosphatase 50 U/L (35-105); Anion Gap 19.1 (5-19); Aspartate Amino Transferase 18 U/L (0-32); Blood Urea Nitrogen 16 mg/dL (8-23); Calcium 10.6 mg/dL (8.5-10.5); Carbon Dioxide 29 mmol/L (22-29); Chloride 98 mmol/L (98-107); Globulin 3.2 g/dL (1.3-4.6); Glucose 144 mg/dL (65-115); Osmolality Calculated 298 mOsm/kg (285-295); Potassium 4.1 mmol/L (3.5-5.1); Sodium 142 mmol/L (136-145); Total Bilirubin 0.5 mg/dL (0.15-1.2); Total Protein 8.4 g/dL (6.6-8.7)
[2022-08-05 15:30] VITALS: PULSE 69; RESP 16; O2SAT 92
== END 2022-08-05 15:30 | disposition home or self-care (01) ==
PROVIDERS: Emergency Provider Physician Assistant; PCP Family Medicine
DX: S22.42XA Multiple fractures of ribs, left side, initial encounter for closed fracture (principal); Z79.84 Long term (current) use of oral hypoglycemic drugs; Z79.82 Long term (current) use of aspirin; Z87.891 Personal history of nicotine dependence; I25.10 Atherosclerotic heart disease of native coronary artery without angina pectoris; Z85.3 Personal history of malignant neoplasm of breast; E78.2 Mixed hyperlipidemia; E11.9 Type 2 diabetes mellitus without complications; W01.10XA Fall on same level from slipping, tripping and stumbling with subsequent striking against unspecified object, initial encounter
CPT/HCPCS: 71101; 71250; 80053; 85025; 99284

== ENCOUNTER → 2023-01-03 14:32 | Outpatient (BNVA) | payer MEDICARE, OTHER, SELFPAY | PROVIDERS: PCP Family Medicine; Visit Provider Family Medicine | DX: E11.42 Type 2 diabetes mellitus with diabetic polyneuropathy (principal); E55.9 Vitamin D deficiency, unspecified; E78.5 Hyperlipidemia, unspecified; I10 Essential (primary) hypertension; F32.9 Major depressive disorder, single episode, unspecified; F41.9 Anxiety disorder, unspecified | CPT/HCPCS: 80053; 80061; 82306; 83036; 84443; 85025 ==

== ENCOUNTER → 2023-04-13 10:34 | Outpatient (BNVA) | payer MEDICARE, OTHER, SELFPAY | PROVIDERS: PCP Family Medicine; Visit Provider Family Medicine | DX: E11.42 Type 2 diabetes mellitus with diabetic polyneuropathy (principal) | CPT/HCPCS: 80053; 80061; 83036; 85025 ==

== ENCOUNTER 2023-06-13 10:07 | Outpatient (CLI) | payer MEDICARE, SELFPAY ==
--- NOTE | 2023-06-13 10:20 | MM_ITS ---
WS: [id number] DIAGNOSTIC BILATERAL DIGITAL BREAST TOMOSYNTHESIS MAMMOGRAPHY WITH CAD HISTORY: Z85.3 - Personal history of malignant neoplasm of breast COMPARISON: 03/29/2022 and 03/24/2021 TECHNIQUE: Bilateral craniocaudad, mediolateral oblique, and mediolateral views are submitted with to mosynthesis and SM. Computer aided detection utilized. Breast composition: There are scattered areas of fibroglandular density. Volume loss in the LEFT [facility]. Prior lumpectomy. Increased breast arterial calcifications in the LEFT breast. Benign calcificati ons RIGHT breast. IMPRESSION: MM/[place] [id number] BI-RADS: 2-Benign FOLLOW UP: 1 Year Follow-up
== END 2023-06-13 10:08 | disposition home or self-care (01) ==
PROVIDERS: PCP Family Medicine; Visit Provider Family Medicine
DX: Z85.3 Personal history of malignant neoplasm of breast (principal)
CPT/HCPCS: 77062; G0279

== ENCOUNTER → 2023-10-19 17:32 | Outpatient (BNVA) | payer MEDICARE, SELFPAY | PROVIDERS: PCP Family Medicine; Visit Provider Nurse Practitioner Family | DX: N39.0 Urinary tract infection, site not specified (principal) | CPT/HCPCS: 81000; 81003 ==

== ENCOUNTER → 2023-12-02 13:29 | Outpatient (BNVA) | payer MEDICARE, SELFPAY | PROVIDERS: PCP Family Medicine; Visit Provider Family Medicine | DX: J44.9 Chronic obstructive pulmonary disease, unspecified (principal); R09.02 Hypoxemia; E11.42 Type 2 diabetes mellitus with diabetic polyneuropathy; I10 Essential (primary) hypertension; E78.5 Hyperlipidemia, unspecified; E55.9 Vitamin D deficiency, unspecified; E53.8 Deficiency of other specified B group vitamins; I50.9 Heart failure, unspecified; F32.9 Major depressive disorder, single episode, unspecified; F41.9 Anxiety disorder, unspecified; R06.00 Dyspnea, unspecified | CPT/HCPCS: 80053; 80061; 82306; 82607; 83036; 84443; 85025 ==

== ENCOUNTER → 2024-01-21 12:35 | Outpatient (BNVA) | payer MEDICARE, SELFPAY | PROVIDERS: PCP Family Medicine; Visit Provider Family Medicine | DX: R10.9 Unspecified abdominal pain (principal); M94.0 Chondrocostal junction syndrome [Tietze] | CPT/HCPCS: 81000 ==

== ENCOUNTER → 2024-05-23 12:20 | Outpatient (BNVA) | payer MEDICARE, SELFPAY | PROVIDERS: PCP Nurse Practitioner; Visit Provider Nurse Practitioner | DX: E11.9 Type 2 diabetes mellitus without complications (principal) | CPT/HCPCS: 80053; 80061; 83036 ==

== ENCOUNTER 2024-05-29 09:50 | Inpatient (IN) | payer MEDICARE, SELFPAY ==
[2024-05-29] VITALS (58 sets, daily range): BP systolic 85–139; BP diastolic 56–92; PULSE 66–129; RESP 20–30; TEMP 36.8–37.2; O2SAT 89–96; BMI 27.4; BMI 26.2
--- NOTE | 2024-05-29 09:53 | XR_ITS ---
WS: [id number] Exam: XR chest 1V portable [id number] Date/Time of Exam: 05/29/2024 9:55 AM Reason For Exam: dyspnea/cough Comparison 08/05/2022. Mild patchy infiltrates noted in both lower lobes suspicious for pneumonia. The lungs are fully infla rhea. No pleural effusions. Heart size top limits normal. The mediastinum is normal in contour. Large hiatal hernia. XR/XR chest 1V portable [id number] IMPRESSION: 1. Mild patchy bibasal infiltrates suspicious for pneumonia. 2. Prominent hiatal hernia.
--- NOTE | 2024-05-29 09:54 | ECG_ITS ---
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 Measurements Intervals [place] Rate: 83 P: 71 [place]: 131 QRS: 50 QRSD: 101 T: -57 QT: 333 QTc: 392 Interpretive Statements SINUS RHYTHM NONSPECIFIC T-WAVE ABNORMALITY Compared to ECG 06/05/2022 23:12:07 No significant changes Electronically Signed On 05-29-2024 16:25:31 CDT by Chavez Gunn M.D. [id number] f
--- NOTE | 2024-05-29 10:02 | W.ED.SOB ---
HPI - SOB/Dyspnea General: Chief Complaint: Shortness of Breath/Dyspnea Stated Complaint: SOB Time Seen by Provider: 05/29/24 09:52 History of Present Illness: HPI Narrative: 79-year-old female presents emergency room via EMS from local clinic. She has not not been feeling well last week was told she had pneumonia and started some antibiotics and steroids she is on antihypertensives and diuretics as well she has a history of diabetes mellitus. She went to the doctor's office today in follow-up with having increasing shortness of breath reported reported severe hypoxia down in the 60% range she is normally on 2 liters (patient states she takes 2-1/2 the office note states she is supposed to be on 2) she arrives here sats are good on 4 L. She was in atrial fibrillation when first encountered EMS had an EKG showing atrial fibrillation but she converted when arriving here she is in a sinus arrhythmia with a rate in the 80s and 90s during exam she went back into A-fib with a rate of 140s. She denies any productive cough she feels like he did not think coughed up no fever sweats or chills. Patient reports having been seen in the office recently according to the office notes on they stopped amlodipine due to swelling and started on Entresto twice a day. Associated symptoms: Reports chest congestion and palpitations; Deny abdominal pain, chest pain or fever(s) Related Data Home Medications Medication Instructions Recorded Confirmed multivitamin 1 tab PO DAILY@199912/07/20 05/29/24 aspirin 81 mg tablet,delayed 81 mg PO BEDTIME 08/05/22 05/29/24 release nitroglycerin 0.4 mg sublingual 0.4 mg sublingual Q5M PRN Chest 08/05/22 05/29/24 tablet (Nitrostat) Pain sennosides 8.6 mg tablet (Kimmie-osmar) 17.2 mg PO BEDTIME 08/05/22 05/29/24 tramadol 50 mg tablet 50 mg PO Q4H PRN Pain 08/05/22 05/29/24 vitamin B complex 1 tab PO DAILY 08/05/22 05/29/24 Previous Rx's Medication Instructions Recorded ketoconazole 2 % shampoo 1 applic topical .3 x week #120 mL 05/12/22 cetirizine 10 mg tablet (Zyrtec) 10 mg PO DAILY PRN Allergy 12/02/23 Symptoms #30 tabs cyanocobalamin (vitamin B-12) 1,000 mcg IM .monthly #3 mL 12/02/23 1,000 mcg/mL injection solution ketoconazole 2 % topical cream 1 applic topical BID PRN Rash #30 12/02/23 grams meloxicam 7.5 mg tablet See Rx Instructions .Route 12/02/23 .COMPLEX #90 tabs oxygen 2L via NC #1 ea 12/02/23 pantoprazole 40 mg tablet,delayed 40 mg PO QAM #90 tabs 12/02/23 release potassium chloride 10 mEq See Rx Instructions .Route 12/02/23 tablet,extended release .COMPLEX #180 tabs tizanidine 4 mg tablet See Rx Instructions .Route 12/02/23 .COMPLEX #30 tabs furosemide 20 mg tablet 20 mg PO QAM PRN edema #90 tabs 02/14/24 albuterol sulfate 90 mcg/actuation 2 puff inhalation Q4H PRN 05/23/24 aerosol inhaler shortness of breath or wheezing #18 grams budesonide 160 mcg-glycopyr 9 2 inh inhalation BID #10.7 grams 05/23/24 mcg-formot 4.8 mcg/actuation HFA inhaler (Breztri Aerosphere) carvedilol 3.125 mg tablet 3.125 mg PO BID #60 tabs 05/23/24 cholecalciferol (vitamin D3) 50 2,000 unit PO EVERY OTHER DAY #14 05/23/24 mcg (2,000 unit) tablet tabs citalopram 20 mg tablet 20 mg PO DAILY #30 tabs 05/23/24 metformin 500 mg tablet 500 mg PO BID #60 tabs 05/23/24 oxybutynin chloride 5 mg tablet 5 mg PO BID #60 tabs 05/23/24 rosuvastatin 10 mg tablet 10 mg PO .at bedtime #30 tabs 05/23/24 sacubitril 24 mg-valsartan 26 mg 1 tab PO BID #60 tabs 05/23/24 tablet (Entresto) Allergies Allergy/AdvReac Type Severity Reaction Status Date / Time No Known Allergies Allergy Verified 05/29/24 08:40 Review of Systems Const: Denies: fever(s) or chills Card: Reports: palpitations and irregular heart rhythm; Denies: chest pain Resp: Reports: dyspnea, non-productive cough, wheezing and chest congestion GI: Denies: abdominal pain : Denies: dysuria, urinary frequency or urinary urgency Musc: Denies: neck pain or back pain Skin/Breast: Denies: rash PFSH ED PFSH: Medical History Urolithiasis Superior mesenteric artery stenosis Moderate, noted on CTA 11/2020 Some celiac artery stenosis also noted Renal artery stenosis Moderate, noted on CTA 11/2020 Abnormal nuclear stress test Benign essential HTN Atherosclerotic heart disease of [place] coronary artery without angina pectoris Chronic neck and back pain Recurrent UTI Fibromyalgia group home (current) use of opiate analgesic Chronic low back pain Calculus of kidney right; 6 mm without change of address clerk time 01/10; 7 mm obstructing right proximal stone; evaluated and treated [facility] 02/10 for sepsis, UTI, NSTEMI, and right proximal ureteral calculus with hydronephrosis Bilateral hearing loss 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, unspecified Anxiety and depression HX: breast cancer Chronic osteoarthritis Chronic idiopathic constipation PAD (peripheral artery disease) stent right SFA Mixed hyperlipidemia Vitamin D deficiency Gastro-esophageal reflux disease without esophagitis Asthma, mild persistent Urinary incontinence in female Chronic right shoulder pain Osteoporosis Asymptomatic cholelithiasis Obstructive sleep apnea on CPAP Type 2 diabetes mellitus with diabetic polyneuropathy Surgical History Hx of bilateral cataract extraction Hx of lithotripsy History of lumpectomy of left breast (~1969) [place] History of [place] surgery (~2014) [place]; [place] [facility] [place]x of bladder repair surgery (~2004) Dr Nunez's office in [place], [place] History of intravascular stent placement (~2003) right leg; [place], [place] Family History Brother Cancer Lung Father , at age 74 Diabetes Cancer colon Mother , age 89 Diabetes CAD (coronary artery disease) Cancer breast Denies family history of Clotting disorder Dementia Hyperlipidemia Psychiatric illness Chronic kidney disease (CKD) Suicide Anesthesia complication Bleeding disorder Family history of premature coronary artery disease Lung disease Hypertension Stroke Social History Smoking and tobacco/nicotine status: former use of tobacco/nicotine Quit status (tobacco/nicotine): has quit using Year quit tobacco: 2001 Former quit date comment: smoked 2PPD x 25 yrs Second hand smoke exposure: No Alcohol intake: never Substance/Drug Use: never Caregiver/support person: Yes Lives independently: Yes Household members: none Marital status: / Current occupational status: retired Current gender identity: Female Special shan needs: No Physical Exam Const: GENERAL APPEARANCE: cooperative ORIENTATION/CONSCIOUSNESS: Yes awake, Yes oriented to person, Yes oriented to place and Yes oriented to time HENMT: COMMON NORMALS: normocephalic, atraumatic and hearing grossly normal bilaterally HEAD & SCALP: normocephalic and atraumatic Resp: COMMON NORMALS: normal respiratory effort, No retractions, No use of accessory muscles and clear to auscultation bilaterally AUSCULTATION: clear to auscultation bilaterally Cardio: COMMON NORMALS: regular rate and No murmurs present (Cardio) RATE: regular rate and tachycardic RHYTHM: abnormal rhythm GI: COMMON NORMALS: Soft to palpation and No hepatosplenomegaly present AUSCULTATION: Yes normoactive bowel sounds PALPATION: Yes Soft to palpation, No Tenderness to palpation present (GI), No Guarding due to palpation present (GI) and Yes No hepatosplenomegaly present Extremity: COMMON NORMALS: normal to inspection, capillary refill normal, no clubbing, cyanosis or edema, no calf tenderness and no pedal edema Neuro: SENSORIUM/ORIENTATION: Yes oriented to person, Yes oriented to place and Yes oriented to time Skin: COMMON NORMALS: no rashes or lesions noted GENERAL SKIN EXAM: no rashes or lesions noted Course Vital Signs: Vital signs: Vital Signs Temperature 98.6 F 05/29/24 09:51 Pulse Rate 94 05/29/24 11:05 Respiratory Rate 25 H 05/29/24 11:05 Blood Pressure 121/74 05/29/24 11:05 Pulse Oximetry 95 05/29/24 11:00 Oxygen Delivery Me thod Nasal Cannula 05/29/24 09:51 Oxygen Flow Rate 4 05/29/24 09:51 MDM - SOB/Dyspnea Medical Decision Making Pneumonia and right lower lobe with A-fib with rapid ventricular response. Initially she converted then had recurrent she has started on Cardizem 10 a push and then an IV drip. She required titration up to 7-1/2 to get her rate under control currently she is at upper 70s to low 80s on the 7 and half. We have cultured her and started her on IV Levaquin continuing to require 4 L/min as well. Discussed with hospitalist will admit. Lab Data 05/29/24 10:12 05/29/24 10:12 Labs/Radiology: Radiology Impressions Chest X-Ray 05/29/24 09:53 IMPRESSION: 1. Mild patchy bibasal infiltrates suspicious for pneumonia. 2. Prominent hiatal hernia. Laboratory Results WBC 7.57 10^3/uL (3.29-11.43) 05/29/24 10:12 RBC 4.43 10^6/uL (3.85-5.65) 05/29/24 10:12 Hgb 11.90 g/dL (11.27-16.99) 05/29/24 10:12 Hct 38.8 % (36-47) 05/29/24 10:12 MCV 87.6 fl (85-98) 05/29/24 10:12 MCH 26.9 pg (27-33) L 05/29/24 10:12 MCHC 30.7 g/dL (30-55) 05/29/24 10:12 RDW 14.7 % (12.1-15.1) 05/29/24 10:12 Plt Count 328 10^3/cmm (157-399) 05/29/24 10:12 MPV 9.9 fL (7.4-10.4) 05/29/24 10:12 Neut % (Auto) 80.9 % 05/29/24 10:12 Lymph % (Auto) 9.0 % 05/29/24 10:12 Bee % (Auto) 8.9 % 05/29/24 10:12 Eos % (Auto) 0.0 % 05/29/24 10:12 Baso % (Auto) 0.4 % 05/29/24 10:12 Neut # (Auto) 6.13 10^3/uL (1.8-7.7) 05/29/24 10:12 Lymph # (Auto) 0.7 10^3/uL (0.8-4.8) L 05/29/24 10:12 Bee # (Auto) 0.7 10^3/uL (0.2-0.9) 05/29/24 10:12 Eos # (Auto) 0.0 10^3/uL (0.0-0.8) 05/29/24 10:12 Baso # (Auto) 0.0 10^3/uL (0.0-0.1) 05/29/24 10:12 Nucleated RBC % (auto) 0 % 05/29/24 10:12 Nucleated RBCs # 0.0 /100WBC 05/29/24 10:12 Specimen Type Arterial 05/29/24 09:57 Sample Site Radial, right 05/29/24 09:57 ABG pH 7.41 (7.35-7.45) 05/29/24 09:57 ABG pCO2 45.1 mmHg (35-45) H 05/29/24 09:57 ABG pO2 69.2 mmHg (80.0-100.0) L 05/29/24 09:57 ABG PO2/FiO2 Ratio 192 05/29/24 09:57 ABG HCO3 28.4 mmol/L (22-26) H 05/29/24 09:57 ABG O2 Saturation 94.9 05/29/24 09:57 ABG Base Excess 3.2 mmol/L (-2.0-2.0) H 05/29/24 09:57 Rafal Test Pos 05/29/24 09:57 A-a O2 Gradient 17.3 mmHg (5-10) H 05/29/24 09:57 Hematocrit 34.9 % (37-47) L 05/29/24 09:57 Hgb O2 Saturation 93.9 % (95-100) L 05/29/24 09:57 Carboxyhemoglobin 1.0 %THgb (0.4-20.1) 05/29/24 09:57 Methemoglobin 0.1 % (0.4-1.5) L 05/29/24 09:57 Total Hemoglobin 11.4 g/dL (12-16) L 05/29/24 09:57 Sodium 142.0 mmol/L (131-143) 05/29/24 09:57 Potassium 3.4 mmol/L (3.5-5.0) L 05/29/24 09:57 Glucose 165.0 mg/dL (70-115) H 05/29/24 09:57 Ionized Calcium 1.2 mmol/L (1.1-1.4) 05/29/24 09:57 O2 Delivery Device Nc 05/29/24 09:57 O2 Liters/Min 4.0 % 05/29/24 09:57 FiO2 36.0 % 05/29/24 09:57 Sample Taker Operator ID Keeganro 05/29/24 09:57 Sodium 142 mmol/L (136-145) 05/29/24 10:12 Potassium 3.9 mmol/L (3.5-5.1) 05/29/24 10:12 Chloride 100 mmol/L (98-107) 05/29/24 10:12 Carbon Dioxide 29 mmol/L (22-29) 05/29/24 10:12 Anion Gap 16.9 (5-19) 05/29/24 10:12 BUN 21 mg/dL (8-23) 05/29/24 10:12 Creatinine 1.2 mg/dL (0.5-0.9) H 05/29/24 10:12 GFR Calculation Not Reportable 05/29/24 10:12 Glucose 166 mg/dL (65-115) H 05/29/24 10:12 Calculated Osmolality 301 mOsm/kg (285-295) H 05/29/24 10:12 Calcium 9.3 mg/dL (8.5-10.5) 05/29/24 10:12 Total Bilirubin 0.5 mg/dL (0.15-1.2) 05/29/24 10:12 AST 23 U/L (0-32) 05/29/24 10:12 ALT 19 U/L (0-33) 05/29/24 10:12 Alkaline Phosphatase 113 U/L (35-105) H 05/29/24 10:12 Troponin T Baseline 28 ng/L (0-10) H 05/29/24 10:12 NT-Pro-B Natriuret Pep 3596 pg/mL (0-450) H 05/29/24 10:12 Total Protein 6.7 g/dL (6.6-8.7) 05/29/24 10:12 Albumin 3.7 g/dL (3.5-5.2) 05/29/24 10:12 Globulin 3.0 g/dL (1.3-4.6) 05/29/24 10:12 All radiology interpretation(s) finalized by discharge Discharge Plan Discharge Patient Disposition: Admitted As Inpatient Clinical Impression: Acute hypoxemic respiratory failure, Acute exacerbation of chronic obstructive airways disease, Pneumonia, Atrial fibrillation with rapid ventricular response Condition: Stable Coding Level of Care Code ED Fun House Attendant for Baljeet Mcfarland
--- NOTE | 2024-05-29 10:07 | ECG_ITS ---
[facility] Test Date: 2024-05-29 Pat Name: Lucy Galindo Department: Room: Gender: Female Field Auditor: : 1945 Requested By: Niraj Nelson Order Number: [id number] Jimi MD: Chavez Gunn M.D. Measurements Intervals [place] Rate: 120 P: 0 [place]: 0 QRS: 50 QRSD: 109 T: 268 QT: 324 QTc: 458 Interpretive Statements ATRIAL FIBRILLATION WITH RAPID VENTRICULAR RESPONSE WITH ABERRANT CONDUCTION OR VENTRICULAR PREMATURE COMPLEXES ST DEVIATION AND MODERATE T-WAVE ABNORMALITY, CONSIDER LATERAL ISCHEMIA [-0.1+ mV T-WAVE IN I/aVL/V5/V6] ST DEVIATION AND MODERATE T-WAVE ABNORMALITY, CONSIDER INFERIOR ISCHEMIA [-0.1+ mV T-WAVE IN II/aVF] INTERPRETATION BASED ON A DEFAULT AGE OF 40 YEARS Compared to ECG 05/29/2024 09:51:07 Aberrant conduction of supraventricular beat(s) now present Possible ischemia now present Sinus rhythm no longer present T-wave abnormality still present Electronically Signed On 05-29-2024 16:25:16 CDT by Chavez Gunn M.D. [id number] f
[2024-05-29 10:10] LABS: ABG PCO2 45.1 mmHg (35-45); ABG PH Result 7.41 (7.35-7.45); Alveolar-Arterial Oxygen Gradi 17.3 mmHg (5-10); Arterial Blood Gas Hematocrit 34.9 % (37-47); Base Excess ABG 3.2 mmol/L (-2.0-2.0); Blood Gas Allen Test Pos; Blood Gas Operator Identificat MONRO; Blood Gas Sample Site Radial, right; Blood Gas Sample Type Arterial; HCO3 ABG 28.4 mmol/L (22-26); HGB O2 Sat 93.9 % (95-100); Ionized Calcium Level - ABG 1.2 mmol/L (1.1-1.4); Methemoglobin 0.1 % (0.4-1.5); Oxygen Device NC; Oxygen Saturation ABG 94.9; PO2 ABG 69.2 mmHg (80.0-100.0); PO2 FiO2 Ratio Arterial Blood 192; Potassium Level - ABG 3.4 mmol/L (3.5-5.0); Total Hemoglobin 11.4 g/dL (12-16)
[2024-05-29] MEDS: dilTIAZem 5 mg/mL SDV 5 mL 10 MG IVP (10:12)
[2024-05-29] MEDS: dilTIAZem 100 MG in sodium chloride 0.9% (add-van) 100 ML IV (10:16)
[2024-05-29 10:21] LABS: Basophils % 0.4 %; Hematocrit 38.8 % (36-47); Lymphocytes # 0.7 10^3/uL (0.8-4.8); Mean Corpuscular HGB Conc 30.7 g/dL (30-55); Mean Corpuscular Hemoglobin 26.9 pg (27-33); Mean Corpuscular Volume 87.6 fl (85-98); Mean Platelet Volume 9.9 fL (7.4-10.4); Monocytes # 0.7 10^3/uL (0.2-0.9); Monocytes % 8.9 %; Neutrophils # 6.13 10^3/uL (1.8-7.7); Neutrophils % 80.9 %; Nucleated Red Blood Cells % 0 %; Platelet Count 328 10^3/cmm (157-399); Red Blood Count 4.43 10^6/uL (3.85-5.65); Red Cell Distribution Width 14.7 % (12.1-15.1); White Blood Count 7.57 10^3/uL (3.29-11.43)
[2024-05-29 10:41] LABS: Troponin(5th) Baseline 28 ng/L (0-10)
[2024-05-29 10:50] LABS: Alanine Aminotransferase 19 U/L (0-33); Albumin Level 3.7 g/dL (3.5-5.2); Alkaline Phosphatase 113 U/L (35-105); Anion Gap 16.9 (5-19); Aspartate Amino Transferase 23 U/L (0-32); Blood Urea Nitrogen 21 mg/dL (8-23); Calcium 9.3 mg/dL (8.5-10.5); Carbon Dioxide 29 mmol/L (22-29); Chloride 100 mmol/L (98-107); Creatinine Clr Calc Pharmacy 37.0205; Glucose 166 mg/dL (65-115); NT Pro B Type Natriuretic Pept 3596 pg/mL (0-450); Osmolality Calculated 301 mOsm/kg (285-295); Potassium 3.9 mmol/L (3.5-5.1); Sodium 142 mmol/L (136-145); Total Bilirubin 0.5 mg/dL (0.15-1.2); Total Protein 6.7 g/dL (6.6-8.7)
[2024-05-29 11:27] LABS: Bilirubin Urine Negative (Negative); Blood Urine 2+ (Negative); Glucose Urine UA Negative (Normal); Ketones Urine Trace (Negative); Leukocyte Esterase Urine Negative (Negative); Nitrate Urine Negative (Negative); Protein Urine 2+ (Negative); Specific Gravity, Urine 1.015 (1.005-1.030); Urine Appearance Cloudy (CLEAR); Urine Color Yellow (Yellow); pH Urine 5.5 (5-7)
[2024-05-29 11:32] LABS: Lactic Sepsis W/Reflex 1.6 mmol/L (0.5-2.2)
[2024-05-29 11:36] LABS: UA Manual Slide Review YES; UA Slide Review UA Slide Review Perf
[2024-05-29 11:41] LABS: Add Urine Culture? No; Add Urine Microscopic? YES; Bacteria Urine 1+ /hpf; Fine Granular Casts Urine 25-40 /lpf; Mucus Urine 1+ /hpf; RBC Urine 0-4 /hpf (0-2); Squamous Epithelial Cell Urine 0-4 /hpf (0-5); Transitional Epi Cells Urine 0-4 /hpf
[2024-05-29] MEDS: methylPREDNISolone sod succ 125 mg/2 mL INJ IVP (11:51)
--- NOTE | 2024-05-29 11:54 | ECG_ITS ---
[facility] Test Date: 2024-05-29 Pat Name: Lucy Galindo Department: Room: Gender: Female Stock Room Manager: : 1945 Requested By: Niraj Nelson Order Number: [id number] Jimi MD: Chavez Gunn M.D. Measurements Intervals [place] Rate: 85 P: 75 [place]: 127 QRS: 44 QRSD: 101 T: -77 QT: 297 QTc: 353 Interpretive Statements SINUS RHYTHM WITH FREQUENT SUPRAVENTRICULAR PREMATURE COMPLEXES NONSPECIFIC ST & T-WAVE ABNORMALITY Compared to ECG 05/29/2024 10:02:55 Atrial fibrillation no longer present Ventricular premature complex(es) no longer present Aberrant conduction of supraventricular beat(s) no longer present Possible ischemia no longer present T-wave abnormality still present Electronically Signed On 05-29-2024 16:32:14 CDT by Chavez Gunn M.D. [id number]
[2024-05-29] MEDS: ipratropium-albuterol 3 mL Neb INHALATION ×3 (11:55→20:13)
[2024-05-29] MEDS: levofloxacin-dextrose 5 % 750 MG/150 ML PREMIX 100 MG IV (12:02)
[2024-05-29 12:05] LABS: Troponin 5 2HR 19.65 ng/L (0-10)
[2024-05-29 12:07] LABS: Troponin 5 2HR Delta -8.35 ABS# (0-10)
--- NOTE | 2024-05-29 12:44 | PM.HP ---
Providers/Chief Complaint Admitting Physician: Noman Lino MD Primary Care Provider: Allan Mak, DIRECTOR SEARCH-C Chief Complaint: SOB History of Present Illness Lucy Galindo is a 79 year old female presenting to the emergency department with shortness of breath, confusion, increased wheezing the last 4 days. Family believes she is had a temperature possibly up to 104 ?F although this is not confirmed. She has not had any vomiting, diarrhea. There have been some ill contacts with her grandkids. No prior history of A-fib. No blood in stool or black or tarry stools. Denies any chest discomfort. Family reports no obvious aspiration, and is still been drinking liquids. Cough has been productive of yellow sputum, no blood In the emergency department she received a Cardizem bolus, Cardizem drip, DuoNeb, Levaquin, and Solu-Medrol. Review of Systems General: Reports: 10 or more systems reviewed and unremarkable except in HPI and below Card: Denies: chest pain Resp: Reports: dyspnea, productive cough and wheezing GI: Denies: abdominal pain, nausea, vomiting, hematochezia or melena Medications/Allergies Home Medications Medication Instructions Recorded Confirmed Last Taken Type multivitamin 1 tab PO DAILY@199912/07/20 05/29/24 05/28/24 20:00 History ketoconazole 2 % shampoo 1 applic topical .3 x week #120 mL 05/12/22 05/29/24 Unknown Rx aspirin 81 mg tablet,delayed 81 mg PO BEDTIME 08/05/22 05/29/24 05/28/24 20:00 History release nitroglycerin 0.4 mg sublingual 0.4 mg sublingual Q5M PRN Chest 08/05/22 05/29/24 Unknown History tablet (Nitrostat) Pain sennosides 8.6 mg tablet (Kimmie-osmar) 17.2 mg PO BEDTIME 08/05/22 05/29/24 05/28/24 07:00 History tramadol 50 mg tablet 50 mg PO Q4H PRN Pain 08/05/22 05/29/24 05/28/24 20:00 History vitamin B complex 1 tab PO DAILY 08/05/22 05/29/24 05/28/24 History cetirizine 10 mg tablet (Zyrtec) 10 mg PO DAILY PRN Allergy 12/02/23 05/29/24 Unknown Rx Symptoms #30 tabs cyanocobalamin (vitamin B-12) 1,000 mcg IM .monthly #3 mL 12/02/23 05/29/24 05/16/24 08:00 Rx 1,000 mcg/mL injection solution ketoconazole 2 % topical cream 1 applic topical BID PRN Rash #30 12/02/23 05/29/24 Unknown Rx grams meloxicam 7.5 mg tablet See Rx Instructions .Route 12/02/23 05/29/24 05/28/24 10:00 Rx .COMPLEX #90 tabs oxygen 2L via NC #1 ea 12/02/23 05/29/24 Unknown Rx pantoprazole 40 mg tablet,delayed 40 mg PO QAM #90 tabs 12/02/23 05/29/24 05/29/24 07:00 Rx release potassium chloride 10 mEq See Rx Instructions .Route 12/02/23 05/29/24 05/28/24 20:00 Rx tablet,extended release .COMPLEX #180 tabs tizanidine 4 mg tablet See Rx Instructions .Route 12/02/23 05/29/24 Unknown Rx .COMPLEX #30 tabs furosemide 20 mg tablet 20 mg PO QAM PRN edema #90 tabs 02/14/24 05/29/24 05/29/24 07:00 Rx albuterol sulfate 90 mcg/actuation 2 puff inhalation Q4H PRN 05/23/24 05/29/24 Unknown Rx aerosol inhaler shortness of breath or wheezing #18 grams budesonide 160 mcg-glycopyr 9 2 inh inhalation BID #10.7 grams 05/23/24 05/29/24 Unknown Rx mcg-formot 4.8 mcg/actuation HFA inhaler (Breztri Aerosphere) carvedilol 3.125 mg tablet 3.125 mg PO BID #60 tabs 05/23/24 05/29/24 05/29/24 08:00 Rx cholecalciferol (vitamin D3) 50 2,000 unit PO EVERY OTHER DAY #14 05/23/24 05/29/24 05/27/24 Rx mcg (2,000 unit) tablet tabs citalopram 20 mg tablet 20 mg PO DAILY #30 tabs 05/23/24 05/29/24 05/29/24 07:00 Rx metformin 500 mg tablet 500 mg PO BID #60 tabs 05/23/24 05/29/24 05/29/24 07:00 Rx oxybutynin chloride 5 mg tablet 5 mg PO BID #60 tabs 05/23/24 05/29/24 05/29/24 07:00 Rx rosuvastatin 10 mg tablet 10 mg PO .at bedtime #30 tabs 05/23/24 05/29/24 05/28/24 20:00 Rx sacubitril 24 mg-valsartan 26 mg 1 tab PO BID #60 tabs 05/23/24 05/29/24 05/29/24 07:00 Rx tablet (Entresto) Allergies Allergy/AdvReac Type Severity Reaction Status Date / Time No Known Allergies Allergy Verified 05/29/24 08:40 PFSH Acute PFSH: Medical History Urolithiasis Superior mesenteric artery stenosis Moderate, noted on CTA 11/2020 Some celiac artery stenosis also noted Renal artery stenosis Moderate, noted on CTA 11/2020 Abnormal nuclear stress test Benign essential HTN Atherosclerotic heart disease of [place] coronary artery without angina pectoris Chronic neck and back pain Recurrent UTI Fibromyalgia USP (current) use of opiate analgesic Chronic low back pain Calculus of kidney right; 6 mm without global director air and climate change time 01/10; 7 mm obstructing right proximal stone; evaluated and treated [facility] 02/10 for sepsis, UTI, NSTEMI, and right proximal ureteral calculus with hydronephrosis Bilateral hearing loss 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, unspecified Anxiety and depression HX: breast cancer Chronic osteoarthritis Chronic idiopathic constipation PAD (peripheral artery disease) stent right SFA Mixed hyperlipidemia Vitamin D deficiency Gastro-esophageal reflux disease without esophagitis Asthma, mild persistent Urinary incontinence in female Chronic right shoulder pain Osteoporosis Asymptomatic cholelithiasis Obstructive sleep apnea on CPAP Type 2 diabetes mellitus with diabetic polyneuropathy Surgical History Hx of bilateral cataract extraction Hx of lithotripsy History of lumpectomy of left breast (~1969) [place] History of shoulder surgery (~2014) right; Dr Chiu, [facility] Hx of bladder repair surgery (~2004) Dr Nunez's office in [place], [place] History of intravascular stent placement (~2003) right leg; [place], [place] Family History Brother Cancer Lung Father , at age 74 Diabetes Cancer colon Mother , age 89 Diabetes CAD (coronary artery disease) Cancer breast Denies family history of Clotting disorder Dementia Hyperlipidemia Psychiatric illness Chronic kidney disease (CKD) Suicide Anesthesia complication Bleeding disorder Family history of premature coronary artery disease Lung disease Hypertension Stroke Social History Smoking and tobacco/nicotine status: former use of tobacco/nicotine Quit status (tobacco/nicotine): has quit using Year quit tobacco: 2001 Former quit date comment: smoked 2PPD x 25 yrs Second hand smoke exposure: No Alcohol intake: never Substance/Drug Use: never Caregiver/support person: Yes Lives independently: Yes Household members: none Marital status: / Current occupational status: retired Current gender identity: Female Special shan needs: No Vitals/I&O/Wt Last Vital Signs Temp 98.6 F 05/29/24 09:51 Pulse 81 05/29/24 12:05 Resp 26 H 05/29/24 12:05 BP 130/85 05/29/24 12:05 Pulse Ox 95 05/29/24 12:05 O2 Del Method Nasal Cannula 05/29/24 12:05 O2 Flow Rate 4 05/29/24 12:05 Weight last 48 hrs Weight 61.689 kg Physical Exam Narrative: General exam demonstrates a hard of hearing white female, with audible wheezing and at least mild to moderate retractions on 4 L of oxygen with a respiratory rate of approximately 30. HEENT: Atraumatic normocephalic. Oropharynx is clear Neck is supple no lymphadenopathy thyromegaly Cardiovascular irregular, irregular currently with controlled rate but on presentation heart rate around 130 Lungs bilateral expiratory wheezes Abdomen is soft, positive bowel sounds. No obvious organomegaly exam is deferred Extremities no cyanosis clubbing edema, cap refill brisk Skin no rash Neuro no obvious focal deficits Data 05/29/24 10:12 05/29/24 10:12 Other Labs: ABG demonstrated a pH 7.4, pCO2 45, pO2 of 70 on 4 L LFTs are normal with the exception of slight elevation in alk phos Lactic acid 1.6 Calcium and albumin are normal Troponin 28 and repeat 19 BNP 3596 Urinalysis with 0-4 reds, 5-10 whites, 1+ bacteria and negative leukocyte Estrace COVID panel ordered and pending Chest x-ray which I reviewed demonstrates concern for right lung pneumonia, hiatal hernia EKG demonstrates A-fib with RVR, rate of 120, normal axis, nonspecific ST-T wave changes Micro: Microbiology 05/29/24 11:35 Blood Culture - Preliminary Blood SPECIMEN COLLECTED 05/29/24 11:39 Blood Culture - Preliminary Blood SPECIMEN COLLECTED A&P Assessment and plan (1) Pneumonia: Patient presents with concern of pneumonia Initiate Rocephin and azithromycin MRSA PCR Sputum culture Blood cultures were already obtained Obtain COVID PCR (2) Acute hypoxemic respiratory failure: Patient presents with acute hypoxemic respiratory failure secondary to pneumonia, COPD exacerbation, A-fib with RVR Wean oxygen as tolerated. Note that she is on a baseline oxygen amount of 2.5 L. (3) Acute exacerbation of chronic obstructive airways disease: Patient presents with acute COPD exacerbation Budesonide twice daily DuoNeb every 4 hours Prednisone 40 mg a day. She is already received a dose of Solu-Medrol in the emergency department (4) Atrial fibrillation with rapid ventricular response: Patient presented with A-fib with RVR She was initiated on Cardizem drip Check echo Check TSH Initiate metoprolol 25 mg twice daily, holding Coreg secondary to wheezing Wean Cardizem drip off as tolerated. Anticoagulation with Lovenox initially, and when stabilizes consider Eliquis. 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 Diagnoses Pneumonia J18.9 Acute hypoxemic respiratory failure J96.01 Acute exacerbation of chronic obstructive airways disease J44.1 Atrial fibrillation with rapid ventricular response I48.91 CHF (congestive heart failure) I50.9 Type 2 diabetes mellitus without complication, without long-term current use of insulin E11.9 Diabetes mellitus type: type 2 Diabetes mellitus group home insulin use: without group home use Diabetes mellitus complication status: without complication Time Spent (min) 53
[2024-05-29 12:51] LABS: Covid PCR NEGATIVE (Negative); Influenza A NEGATIVE (Negative); Influenza B NEGATIVE (Negative); Respiratory Syncytial Virus Ce NEGATIVE (Negative)
--- NOTE | 2024-05-29 13:04 | USCV_ITS ---
Lucy Galindo Age: 79 Gender: F : 1945 Exam Date: 05/29/2024 19:29 Ordering Phys: Noman Lino MD Technologist: NICKI [place] [facility] [place]: new onset Atrial fibrillation, pneumonia, DM, SOB, hypoxic in 60s, O2 dependent 2L. BP: 117 / 66 HR: 90 Rhythm: Atrial fibrillation Technical Quality: Adequate MEASUREMENTS (Male / Female) Normal Values 2D ECHO LV Diastolic Diameter PLAX 3.2 cm 4.2 - 5.9 / 3.9 - 5.3 cm IVS Diastolic Thickness 1.5 cm 0.6 - 1.0 / 0.6 - 0.9 cm IVS Systolic Thickness 1.9 cm LVPW Diastolic Thickness 1.1 cm 0.6 - 1.0 / 0.6 - 0.9 cm LVPW Systolic Thickness 2.0 cm LVOT Diameter 1.7 cm LV Ejection Fraction 2D Teich 56.8 % LV Ejection Fraction MOD 4C 61.2 % LV Ejection Fraction MOD 2C 63.8 % LV Ejection Fraction 2C AL 68.5 % LA Diameter 3.3 cm LA Sys Volume AL 84.9 cm cubed LA Sys Volume Index AL 53.8 cm cubed/m squared Aorta at Sinotubular Diameter 2.9 cm IVC Diameter 1.0 cm M-MODE LA Ao Ratio MM 1.5 AV Cusp Separation MM 1.2 cm DOPPLER AV Peak Velocity 241.0 cm/s LVOT Peak Velocity 75.0 cm/s AV Area Cont Eq vti 0.7 cm squared AV Area Cont Eq pk 0.7 cm squared MV Peak Velocity 157.0 cm/s MV Area PHT 4.8 cm squared Mitral E to A Ratio 0.0 TV Peak Velocity 311.0 cm/s TR Peak Velocity 319.0 cm/s TR Peak Gradient 40.7 mmHg TV Peak E Velocity 71.0 cm/s Right Atrial Pressure 10.0 mmHg Pulmonary Artery Systolic Pressu 50.7 mmHg PV Peak Velocity 145.0 cm/s FINDINGS Left Ventricle Normal left ventricular size and systolic function, EF 64%.. Mild left ventricular hypertrophy. No regional wall motion abnormalities. Right Ventricle The right ventricle is normal in size and function. Right Atrium The right atrium is normal in size. Left Atrium The left atrium is normal in size. Mitral Valve Moderate mitral annular calcification. Mild mitral valve regurgitation. Aortic Valve Severe low gradient possibly normal flow aortic valve stenosis, with a valve area of 0.71 cm squared. Peak velocity 2.59 m/s. Peak gradient of 27 with a mean gradient of 11 mmHg Tricuspid Valve Mild tricuspid valve regurgitation. Pulmonic Valve Pulmonic valve not well visualized. Pericardium Normal pericardium without effusion. Aorta Normal ascending aorta dimension. IVC Normal inferior vena cava. CONCLUSIONS Normal left ventricular size and systolic function, EF 64%.. Mild left ventricular hypertrophy. No regional wall motion abnormalities. Moderate mitral annular calcification. Mild mitral valve regurgitation. Severe low gradient possibly normal flow aortic valve stenosis, with a valve area of 0.71 cm squared. Peak velocity 2.59 m/s. Peak gradient of 27 with a mean gradient of 11 mmHg. Estimated pulmonary artery peak systolic pressure 51 mmHg Mild tricuspid valve regurgitation. There is no pericardial effusion. There are no intracardiac masses. Compared to the study from 12/08/2020, the aortic valve stenosis appears to be new. The aortic valve area calculation could be misleading because of some technical issues. Dr Sole Maguire MD [facility] (Electronically Signed) Final Date: 30 May 2024 09:46 S
[2024-05-29 13:26] LABS: Thyroid Stimulating Hormone 0.44 uIU/mL (0.27-4.20)
[2024-05-29 14:44] LABS: Glucose Point of Care 188 mg/dL (70-110)
[2024-05-29] MEDS: enoxaparin 60 mg/0.6 mL Syringe SUBCUT (15:08)
[2024-05-29] MEDS: cefTRIAXone 1,000 mg SDV 1000 MG IVP (15:08)
[2024-05-29] MEDS: azithromycin 500 MG in sodium chloride 0.9% 250 ML 250 MG IV (15:08)
--- NOTE | 2024-05-29 15:54 | ECG_ITS ---
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 Measurements Intervals [place] Rate: 123 P: 0 CO: 0 QRS: 39 QRSD: 102 T: 265 QT: 335 QTc: 480 Interpretive Statements ATRIAL FIBRILLATION WITH RAPID VENTRICULAR RESPONSE ST DEVIATION AND MODERATE T-WAVE ABNORMALITY, CONSIDER LATERAL ISCHEMIA [-0.1+ mV T-WAVE IN I/aVL/V5/V6] ST DEVIATION AND MODERATE T-WAVE ABNORMALITY, CONSIDER INFERIOR ISCHEMIA [-0.1+ mV T-WAVE IN II/aVF] Compared to ECG 05/29/2024 11:31:04 Possible ischemia now present Sinus rhythm no longer present T-wave abnormality still present Electronically Signed On 05-29-2024 16:26:20 CDT by Chavez Gunn M.D. [email or web address]
[2024-05-29 16:24] LABS: MRSA PCR OZH (swab) NOT DETECTED (Not Detecte)
[2024-05-29 16:58] LABS: Troponin 5 6HR 17.01 ng/L (0-10)
[2024-05-29 17:02] LABS: Troponin 5 6HR Delta -10.99 ng/L (0-12)
--- NOTE | 2024-05-29 18:07 | PC.RESP ---
Pt and family state pt uses [facility] ([facility]) for CPAP. Pt daughter states she called HOME to get pt new tubing and mask for cpap couple days ago due to being worn out. Called and spoke to Renuka from HOME to get pt settings. Renuka states last known settings for pt is bipap of 06/03 and pt has not received any new supplies from HOME since 2018.
[2024-05-29] MEDS: insulin lispro 100 unit/1 mL SUBCUT ×2 (18:44→21:21)
[2024-05-29] MEDS: sacubitril/valsartan 24-26 mg Tablet 1 EACH PO (18:44)
--- NOTE | 2024-05-29 18:48 | PC.NURSE ---
Patients blood sugar was 194. Unable to sync glucometer.
[2024-05-29] MEDS: budesonide 0.5 mg/2 mL Neb INHALATION (20:13)
[2024-05-29 20:55] LABS: Glucose Point of Care 236 mg/dL (70-110)
[2024-05-29] MEDS: atorvastatin 40 mg Tablet PO (21:21)
[2024-05-29] MEDS: metoprolol tartrate 25 mg Tablet PO (21:21)
[2024-05-30] VITALS (18 sets, daily range): BP systolic 94–130; BP diastolic 54–71; PULSE 67–119; RESP 16–25; TEMP 36.7–37.4; O2SAT 90–100
[2024-05-30] MEDS: dilTIAZem 100 MG in sodium chloride 0.9% (add-van) 100 ML 10 MG IV (00:22)
[2024-05-30] MEDS: ipratropium-albuterol 3 mL Neb INHALATION ×7 (00:24→23:22)
[2024-05-30] MEDS: enoxaparin 60 mg/0.6 mL Syringe SUBCUT (02:35)
[2024-05-30 05:12] LABS: Basophils % 0.2 %; Lymphocytes # 0.8 10^3/uL (0.8-4.8); Lymphocytes % 13.2 %; Mean Corpuscular HGB Conc 30.9 g/dL (30-55); Mean Corpuscular Hemoglobin 26.3 pg (27-33); Mean Corpuscular Volume 85.4 fl (85-98); Mean Platelet Volume 10.1 fL (7.4-10.4); Monocytes # 0.1 10^3/uL (0.2-0.9); Monocytes % 2.1 %; Neutrophils # 4.87 10^3/uL (1.8-7.7); Neutrophils % 83.6 %; Nucleated Red Blood Cells % 0 %; Platelet Count 334 10^3/cmm (157-399); Red Cell Distribution Width 14.6 % (12.1-15.1); White Blood Count 5.82 10^3/uL (3.29-11.43)
[2024-05-30 05:31] LABS: Alanine Aminotransferase 21 U/L (0-33); Albumin Level 3.4 g/dL (3.5-5.2); Alkaline Phosphatase 97 U/L (35-105); Anion Gap 16.2 (5-19); Aspartate Amino Transferase 35 U/L (0-32); Blood Urea Nitrogen 25 mg/dL (8-23); Calcium 9.2 mg/dL (8.5-10.5); Carbon Dioxide 26 mmol/L (22-29); Chloride 102 mmol/L (98-107); Creatinine Clr Calc Pharmacy 42.3989; Globulin 3.3 g/dL (1.3-4.6); Glucose 223 mg/dL (65-115); Magnesium 1.6 mg/dL (1.7-2.3); Osmolality Calculated 303 mOsm/kg (285-295); Potassium 3.2 mmol/L (3.5-5.1); Sodium 141 mmol/L (136-145); Total Bilirubin 0.3 mg/dL (0.15-1.2); Total Protein 6.7 g/dL (6.6-8.7)
[2024-05-30] MEDS: pantoprazole DR 40 mg Tablet PO (06:37)
[2024-05-30 06:42] LABS: Glucose Point of Care 213 mg/dL (70-110)
[2024-05-30] MEDS: acetaminophen 325 mg Tablet 650 MG PO (06:48)
[2024-05-30] MEDS: budesonide 0.5 mg/2 mL Neb INHALATION ×2 (07:48→19:48)
[2024-05-30] MEDS: predniSONE 20 mg Tablet 40 MG PO (08:18)
[2024-05-30] MEDS: citalopram 20 mg Tablet PO (08:18)
[2024-05-30] MEDS: potassium chloride oral liq 20 mEq/15 mL UDC 40 MEQ PO (08:18)
[2024-05-30] MEDS: sacubitril/valsartan 24-26 mg Tablet 1 EACH PO ×2 (08:18→17:52)
[2024-05-30] MEDS: metoprolol tartrate 25 mg Tablet PO (08:18)
[2024-05-30] MEDS: insulin lispro 100 unit/1 mL SUBCUT ×4 (08:18→21:12)
[2024-05-30] MEDS: magnesium sulfate premix 2 GM/50 ML PIGGYBACK IV (08:19)
--- NOTE | 2024-05-30 08:29 | PC.CHAP ---
Pastoral Care Encounter/Spiritual Assessment Type of Contact [] Declined cash management clerk visit [] Patient/Family/Request visit [] Outpatient visit [] Follow-up visit [] Physician referral [] Code/Alert [] Routine visit [] Staff referral [] Actively dying [] Patient sleeping [] Family support [] [] Out of room [] Palliative care [] [x] Receiving care in room [] Pre-surgical visit [] Trauma [] Long length of stay [] ICU visit [] Other: Relational/Emotional Strength [] Patient feels connected with others/family/visitors/staff [] Distress [] Loneliness/isolation [] Abandonment Spirituality of Patient [] Person of Erna [] Attends Confucianist of their Erna [] Believes in Prayer [] Reads Bible or Orthodox materials [] There are Spiritual issues to be addressed Mold Filler Interventions [] Prayer [] Active listening [] Non-anxious presence [] Spiritual/emotional support [] Crisis/trauma care [] Spiritual counseling [] Bereavement support [] Provided bereavement packet [] Provided Bible/devotional materials [] Provided toy/stuffed animal, coloring book to patient or family member [] Provided Communion [] Anointing/[place] [] Salvation [] Completed spiritual assessment [] Other: Impact on Illness or Injury [] Angry [] Fearful [] Anxious [] Often cries [] Exhaustion [] Unable to work [] Unable to attend mosque [] Unable to walk/stand [] Unable to read [] Unable to drive [] Unable to eat/drink [] Unable to sleep [] Unable to be with family [] Patient intubated [] Other: Summary Time spent with patient
--- NOTE | 2024-05-30 08:54 | PM.PN ---
Documented by User: RICARDO Fu STDBIA 05/30/24 11:24 Subjective Subjective: Patient endorses generalized weakness with SOB and nonproductive cough this morning. Patient reportedly converted back to sinus rhythm and experienced low BP so she was taken off the Cardizem drip. Patient denies chest pain, headache, vision changes, or abdominal pain. Vitals/I&O/Wt Last Vital Signs Temp 98.7 F 05/30/24 07:19 Pulse 89 05/30/24 08:03 Resp 18 05/30/24 07:47 BP 126/69 05/30/24 07:19 Pulse Ox 96 05/30/24 07:47 O2 Del Method Nasal Cannula 05/30/24 07:47 O2 Flow Rate 2.5 05/30/24 07:47 FiO2 30 05/30/24 05:14 05/29/24 05/30/24 05/30/24 22:59 06:59 14:59 Intake Total 535.25 / 685.25 50.5 / 735.75 Balance 535.25 / 685.25 50.5 / 735.75 Weight last 48 hrs Weight 129 lb 12.8 oz Weight 129 lb 12.8 oz Weight 129 lb 12.8 oz Weight 136 lb Physical Exam Neck/C-Spine: OTHER: Supple Resp: OTHER: Bilateral breath sounds, clear to ascultation, normal chest wall expansion Cardio: OTHER: Normal rate and rhythm without murmurs, gallops, or rubs GI: OTHER: Soft, nondistended, nontender with normal bowel sounds Extremity: OTHER: No edema or cyanosis Data 05/30/24 04:45 05/30/24 04:45 Micro: Microbiology 05/29/24 11:35 Blood Culture - Preliminary Blood SPECIMEN COLLECTED 05/29/24 11:39 Blood Culture - Preliminary Blood SPECIMEN COLLECTED A&P Assessment and plan (1) Pneumonia: CXR showed patchy infiltrates Continue Rocephin and Azithromycin MRSA was negative Sputum culture will be obtained Blood cultures pending Covid PCR was negative (2) Acute hypoxemic respiratory failure: Patient presented with acute hypoxemic respiratory failure secondary to pneumonia, COPD exacerbation, A-fib with RVR Wean oxygen as tolerated. Note that she is currently at 3L of O2 via nasal cannula, her baseline is 2.5L (3) Acute exacerbation of chronic obstructive airways disease: Patient presented with acute COPD exacerbation Budesonide twice daily DuoNeb every 4 hours Received a dose of Solu-Medrol in the emergency department. Give Prednisone 40 mg a day. (4) CHF (congestive heart failure): Patient with history of congestive heart failure Patient had low BP secondary to converting back to normal rhythm; BP was gone back up. Continue Entresto No evidence of fluid overload on exam (5) Atrial fibrillation with rapid ventricular response: Patient presented with A-fib with RVR Patient was initially on Cardizem, patient spontaneously cardioverted this morning and developed low BP, Cardizem drip was stopped Increase metoprolol to 37.5 mg BID Echo showed EF of 64%, mild LVH, mild mitral regurg, aortic stenosis with valve area of .71cm squared. elevated pulmonary artery peak systolic pressure, mild tricusipd regurg, no effusion or masses. Consult cardio on aortic stenosis TSH was .44 Switch anticoag to Eliquis 5mg BID (6) Diabetes: Hold metformin Sliding scale insulin Consistent carb diet Qualifiers: Diabetes mellitus complication status: without complication Diabetes mellitus medical terminologist insulin use: without medical terminologist use Diabetes mellitus type: type 2 Qualified Code(s): E11.9 - Type 2 diabetes mellitus without complications Plan Potassium is 3.2 and Mg 1.6, supplemented with 40mg KCl PO and Mg 2g in 50ml IV Full code Start Eliquis for anticoagulation Coding Level of Care Code 24391 Diagnoses Pneumonia J18.9 Acute hypoxemic respiratory failure J96.01 Acute exacerbation of chronic obstructive airways disease J44.1 CHF (congestive heart failure) I50.9 Atrial fibrillation with rapid ventricular response I48.91 Type 2 diabetes mellitus without complication, without long-term current use of insulin E11.9 Diabetes mellitus complication status: without complication Diabetes mellitus skilled nursing insulin use: without skilled nursing use Diabetes mellitus type: type 2 Time Spent (min) 27 Documented by User: Noman Lino MD 05/30/24 11:25 Subjective Medications: Reviewed: Yes Data 05/30/24 04:45 05/30/24 04:45 A&P Assessment and plan (1) Pneumonia: (2) Acute hypoxemic respiratory failure: (3) Acute exacerbation of chronic obstructive airways disease: Patient presented with acute COPD exacerbation Budesonide twice daily DuoNeb every 4 hours Received a dose of Solu-Medrol in the emergency department. Continue Prednisone 40 mg a day. (4) CHF (congestive heart failure): (5) Atrial fibrillation with rapid ventricular response: Patient presented with A-fib with RVR Patient was initially on Cardizem, patient spontaneously cardioverted this morning and developed low BP, Cardizem drip was stopped Increase metoprolol to 37.5 mg BID Echo showed EF of 64%, mild LVH, mild mitral regurg, aortic stenosis with valve area of .71cm squared. elevated pulmonary artery peak systolic pressure, mild tricusipd regurg, no effusion or masses. Consult cardio on aortic stenosis as outpatient TSH was .44 Switch anticoag to Eliquis 5mg BID(discontinue Lovenox) (6) Diabetes: Qualifiers: Diabetes mellitus complication status: without complication Diabetes mellitus medical terminologist insulin use: without medical terminologist use Diabetes mellitus type: type 2 Qualified Code(s): E11.9 - Type 2 diabetes mellitus without complications Attestations Medical Necessity Statement*: Needs continue hospital stay for further antiobiotics for pneumonia and treatment of afib Diagnoses Pneumonia J18.9 Acute hypoxemic respiratory failure J96.01 Acute exacerbation of chronic obstructive airways disease J44.1 CHF (congestive heart failure) I50.9 Atrial fibrillation with rapid ventricular response I48.91 Type 2 diabetes mellitus without complication, without long-term current use of insulin E11.9 Diabetes mellitus complication status: without complication Diabetes mellitus skilled nursing insulin use: without skilled nursing use Diabetes mellitus type: type 2 Time Spent (min) 27
[2024-05-30] MEDS: metoprolol tartrate 25 mg Tablet 12.5 MG PO (09:40)
[2024-05-30 12:02] LABS: Glucose Point of Care 215 mg/dL (70-110)
[2024-05-30 12:02] LABS: Glucose Point of Care 108 mg/dL (70-110)
[2024-05-30 12:02] LABS: Glucose Point of Care 258 mg/dL (70-110)
[2024-05-30] MEDS: azithromycin 500 MG in sodium chloride 0.9% 250 ML 250 MG IV (14:47)
[2024-05-30] MEDS: cefTRIAXone 1,000 mg SDV 1000 MG IVP (14:47)
[2024-05-30 17:20] LABS: Glucose Point of Care 258 mg/dL (70-110)
[2024-05-30 20:53] LABS: Glucose Point of Care 305 mg/dL (70-110)
[2024-05-30] MEDS: atorvastatin 40 mg Tablet PO (21:12)
[2024-05-30] MEDS: apixaban 5 mg Tablet PO (21:12)
[2024-05-30] MEDS: metoprolol tartrate 25 mg Tablet 37.5 MG PO (21:12)
[2024-05-31] VITALS (13 sets, daily range): BP systolic 98–139; BP diastolic 57–84; PULSE 63–78; RESP 18–28; TEMP 36.8–37.2; O2SAT 90–98; BMI 28.2
[2024-05-31] MEDS: ipratropium-albuterol 3 mL Neb INHALATION ×5 (04:22→20:30)
[2024-05-31 04:33] LABS: Basophils % 0.1 %; Hematocrit 31.6 % (36-47); Lymphocytes # 0.7 10^3/uL (0.8-4.8); Lymphocytes % 8.3 %; Mean Corpuscular HGB Conc 30.7 g/dL (30-55); Mean Corpuscular Hemoglobin 26.6 pg (27-33); Mean Corpuscular Volume 86.6 fl (85-98); Mean Platelet Volume 10.1 fL (7.4-10.4); Monocytes # 0.5 10^3/uL (0.2-0.9); Monocytes % 6.2 %; Neutrophils # 6.79 10^3/uL (1.8-7.7); Neutrophils % 84.5 %; Nucleated Red Blood Cells % 0 %; Platelet Count 323 10^3/cmm (157-399); Red Blood Count 3.65 10^6/uL (3.85-5.65); White Blood Count 8.04 10^3/uL (3.29-11.43)
[2024-05-31 04:51] LABS: Alanine Aminotransferase 26 U/L (0-33); Albumin Level 2.9 g/dL (3.5-5.2); Alkaline Phosphatase 73 U/L (35-105); Anion Gap 11.2 (5-19); Aspartate Amino Transferase 34 U/L (0-32); Blood Urea Nitrogen 25 mg/dL (8-23); Calcium 8.7 mg/dL (8.5-10.5); Carbon Dioxide 29 mmol/L (22-29); Chloride 105 mmol/L (98-107); Creatinine Clr Calc Pharmacy 45.6568; Globulin 2.7 g/dL (1.3-4.6); Glucose 205 mg/dL (65-115); Osmolality Calculated 304 mOsm/kg (285-295); Potassium 3.2 mmol/L (3.5-5.1); Sodium 142 mmol/L (136-145); Total Bilirubin 0.2 mg/dL (0.15-1.2); Total Protein 5.6 g/dL (6.6-8.7)
[2024-05-31] MEDS: pantoprazole DR 40 mg Tablet PO (06:29)
[2024-05-31 06:30] LABS: Glucose Point of Care 211 mg/dL (70-110)
[2024-05-31] MEDS: budesonide 0.5 mg/2 mL Neb INHALATION ×2 (07:27→20:30)
[2024-05-31] MEDS: potassium chloride oral liq 20 mEq/15 mL UDC 40 MEQ PO ×2 (09:08→12:13)
[2024-05-31] MEDS: insulin lispro 100 unit/1 mL SUBCUT ×4 (09:09→21:25)
[2024-05-31] MEDS: citalopram 20 mg Tablet PO (09:09)
[2024-05-31] MEDS: predniSONE 20 mg Tablet 40 MG PO (09:09)
[2024-05-31] MEDS: sacubitril/valsartan 24-26 mg Tablet 1 EACH PO ×2 (09:09→18:24)
[2024-05-31] MEDS: metoprolol tartrate 25 mg Tablet 37.5 MG PO ×2 (09:09→21:26)
[2024-05-31] MEDS: apixaban 5 mg Tablet PO ×2 (09:44→21:26)
[2024-05-31] MEDS: pneumococcal (23 valent) SDV 0.5 mL IM (09:44)
--- NOTE | 2024-05-31 10:29 | P.PN_ITS ---
Subjective 2 Subjective: Lcuy is still little bit short of breath but states she is nearing baseline. No chest discomfort. Very hard of hearing. I did visit with her family regarding potential discharge tomorrow. Medications: Reviewed: Yes Vitals/I&O/Wt Last Vital Signs Temp 99.0 F 05/31/24 07:02 Pulse 65 05/31/24 07:27 Resp 24 H 05/31/24 07:27 BP 138/84 05/31/24 07:02 Pulse Ox 97 05/31/24 07:27 O2 Del Method BiPAP 05/31/24 07:27 O2 Flow Rate 2.5 05/30/24 19:48 FiO2 30 05/31/24 07:27 05/30/24 05/31/24 05/31/24 22:59 06:59 14:59 Intake Total 490 / 1225.083 400 / 1625.083 240 / 240 Output Total 250 / 250 Balance 240 / 975.083 400 / 1375.083 240 / 240 Weight last 48 hrs Weight 63.4 kg Weight 58.876 kg Weight 58.876 kg Weight 58.876 kg Physical Exam 2 Narrative: General exam no distress, I changed her oxygen to 2.5 L. Neck is supple no lymphadenopathy thyromegaly Cardiovascular regular rate and rhythm Lungs diminished breath sounds bilaterally but no wheezing or crackles today Abdomen is soft, positive bowel sounds. No obvious organomegaly Extremities no cyanosis clubbing edema, cap refill brisk Data 05/31/24 04:13 05/31/24 04:13 Micro: Microbiology 05/29/24 11:35 Blood Culture - Preliminary Blood NEGATIVE TO DATE 05/29/24 11:39 Blood Culture - Preliminary Blood NEGATIVE TO DATE A&P Assessment and plan (1) Pneumonia: CXR showed patchy infiltrates Continue Rocephin and Azithromycin MRSA was negative Sputum culture not yet obtained Blood cultures negative to date Covid PCR was negative (2) Acute hypoxemic respiratory failure: Patient presented with acute hypoxemic respiratory failure secondary to pneumonia, COPD exacerbation, A-fib with RVR Wean oxygen as tolerated. Nearing her baseline oxygen requirement (3) Acute exacerbation of chronic obstructive airways disease: Patient presented with acute COPD exacerbation Budesonide twice daily DuoNeb every 4 hours Continue prednisone (4) CHF (congestive heart failure): Patient with history of congestive heart failure Patient had low BP secondary to converting back to normal rhythm; BP was gone back up. Continue Entresto Add Lasix 20 mg daily. Note that she has aortic stenosis on her ultrasound. Will need followed up with cardiology regarding progression to severe. This can be done as an outpatient. (5) Atrial fibrillation with rapid ventricular response: Patient presented with A-fib with RVR Patient was initially on Cardizem, patient spontaneously cardioverted this morning and developed low BP, Cardizem drip was stopped Continue metoprolol to 37.5 mg BID. She appears to be in sinus rhythm currently. Echo showed EF of 64%, mild LVH, mild mitral regurg, aortic stenosis with valve area of .71cm squared. elevated pulmonary artery peak systolic pressure, mild tricusipd regurg, no effusion or masses. Consult cardio on aortic stenosis as outpatient TSH was .44 Now anticoagulated with Eliquis. (6) Diabetes: Hold metformin Sliding scale insulin Consistent carb diet Qualifiers: Diabetes mellitus type: type 2 Diabetes mellitus custodial insulin use: without superintendent marine oil terminal use Diabetes mellitus complication status: without complication Qualified Code(s): E11.9 - Type 2 diabetes mellitus without complications Plan Hypokalemia, supplement Hypomagnesemia, supplemented yesterday and normal today. Full code Eliquis will suffice for DVT prophylaxis as well. Likely discharge tomorrow. Attestations 2 Medical Necessity Statement*: Needs continued hospitalization for IV antibiotics related to pneumonia. Diagnoses Pneumonia J18.9 Acute hypoxemic respiratory failure J96.01 Acute exacerbation of chronic obstructive airways disease J44.1 CHF (congestive heart failure) I50.9 Atrial fibrillation with rapid ventricular response I48.91 Type 2 diabetes mellitus without complication, without long-term current use of insulin E11.9 Diabetes mellitus type: type 2 Diabetes mellitus custodial insulin use: without superintendent marine oil terminal use Diabetes mellitus complication status: without complication Time Spent (min) 24
[2024-05-31 11:16] LABS: Glucose Point of Care 156 mg/dL (70-110)
[2024-05-31] MEDS: cefTRIAXone 1,000 mg SDV 1000 MG IVP (14:26)
[2024-05-31] MEDS: azithromycin 500 MG in sodium chloride 0.9% 250 ML 250 MG IV (14:26)
[2024-05-31 16:45] LABS: Glucose Point of Care 275 mg/dL (70-110)
[2024-05-31 21:06] LABS: Glucose Point of Care 258 mg/dL (70-110)
[2024-05-31] MEDS: acetaminophen 325 mg Tablet 650 MG PO (21:26)
[2024-05-31] MEDS: atorvastatin 40 mg Tablet PO (21:26)
[2024-06-01] VITALS (10 sets, daily range): BP systolic 132–151; BP diastolic 59–90; PULSE 57–74; RESP 11–24; TEMP 36.6–37.2; O2SAT 90–98; BMI 29.0
[2024-06-01] MEDS: ipratropium-albuterol 3 mL Neb INHALATION ×3 (00:19→08:34)
[2024-06-01 04:58] LABS: Basophils % 0.1 %; Hematocrit 33.6 % (36-47); Lymphocytes # 0.6 10^3/uL (0.8-4.8); Mean Corpuscular HGB Conc 29.8 g/dL (30-55); Mean Corpuscular Hemoglobin 26.7 pg (27-33); Mean Corpuscular Volume 89.6 fl (85-98); Mean Platelet Volume 10.5 fL (7.4-10.4); Monocytes # 0.4 10^3/uL (0.2-0.9); Monocytes % 4.8 %; Neutrophils # 7.88 10^3/uL (1.8-7.7); Neutrophils % 85.9 %; Nucleated Red Blood Cells % 0 %; Platelet Count 329 10^3/cmm (157-399); Red Blood Count 3.75 10^6/uL (3.85-5.65); Red Cell Distribution Width 15.4 % (12.1-15.1); White Blood Count 9.17 10^3/uL (3.29-11.43)
[2024-06-01 05:24] LABS: Anion Gap 12.5 (5-19); Blood Urea Nitrogen 27 mg/dL (8-23); Calcium 8.8 mg/dL (8.5-10.5); Carbon Dioxide 25 mmol/L (22-29); Chloride 111 mmol/L (98-107); Creatinine Clr Calc Pharmacy 58.6013; Glucose 249 mg/dL (65-115); Magnesium 1.9 mg/dL (1.7-2.3); Osmolality Calculated 311 mOsm/kg (285-295); Potassium 4.5 mmol/L (3.5-5.1); Sodium 144 mmol/L (136-145)
[2024-06-01] MEDS: pantoprazole DR 40 mg Tablet PO (06:31)
[2024-06-01 06:59] LABS: Glucose Point of Care 254 mg/dL (70-110)
[2024-06-01] MEDS: FUROsemide 20 mg Tablet PO (07:54)
[2024-06-01] MEDS: sacubitril/valsartan 24-26 mg Tablet 1 EACH PO (07:55)
[2024-06-01] MEDS: predniSONE 20 mg Tablet 40 MG PO (07:55)
[2024-06-01] MEDS: citalopram 20 mg Tablet PO (07:55)
[2024-06-01] MEDS: apixaban 5 mg Tablet PO (07:55)
[2024-06-01] MEDS: metoprolol tartrate 25 mg Tablet 37.5 MG PO (08:05)
[2024-06-01] MEDS: insulin lispro 100 unit/1 mL SUBCUT ×2 (08:05→13:13)
--- NOTE | 2024-06-01 08:16 | PM.DCS ---
Discharge Providers Date of Admission: 05/29/24 13:09 Date of Discharge: June 01, 2024 Attending Provider at Admission: Noman Lino MD Attending Provider at Discharge: Noman Lino MD Primary Care Provider: REJI Soares Diagnoses at Discharge Discharge Diagnosis (1) Pneumonia: Status: Acute (2) Acute hypoxemic respiratory failure: Status: Acute (3) Acute exacerbation of chronic obstructive airways disease: Status: Acute (4) CHF (congestive heart failure): Status: Chronic (5) Atrial fibrillation with rapid ventricular response: Status: Acute (6) Diabetes: Status: Acute Qualifiers: Diabetes mellitus type: type 2 Diabetes mellitus long term care phlebotomist insulin use: without senior living use Diabetes mellitus complication status: without complication Qualified Code(s): E11.9 - Type 2 diabetes mellitus without complications Reason for Visit Reason for Visit: SOB Hospital Course Hospital Course Lucy is a 79-year-old white female with past medical history of COPD on 2 L of oxygen, osteoarthritis, vascular disease, diabetes who presented with shortness of breath, and fever. She had significant wheezing. There was concern for an acute COPD exacerbation, and she was in atrial fibrillation with rapid ventricular rate. She was anticoagulated, rate controlled medications of metoprolol was increased, IV antibiotics prescribed for pneumonia, steroids for COPD and pulmonary toilet. With this treatment she had gradual improvement. An echocardiogram was obtained, which demonstrated preserved EF but worsening of her aortic stenosis to probably severe. Lasix was added at low-dose. She had not been taking this at home. With these changes heart rate became under better control, she was able to wean down to her normal oxygen requirement of 2 to 2.5 L. Risks and benefits of medication changes including Eliquis were described to the patient, as well as her family as she is significantly hard of hearing. She still has some significant exertional dyspnea, likely secondary to her aortic stenosis. This will be followed up in cardiology clinic in 1 week, with BMP and CBC. She was able to ask questions and agreed with the plan. She will finish up course of antibiotics and steroids. She tells me that she has a CPAP or BiPAP at home which she should continue to use when sleeping. Anti-inflammatory, muscle relaxant were discontinued secondary to comorbid illnesses. Physical Exam Narrative: General Exam no distress Neck supple Cardiovascular regular rate and rhythm with 2/6 systolic murmur Lungs some coarse breath sounds at the bases Abdomen is soft nontender Extremities no cyanosis clubbing or edema Discharge Data Studies Completed and Pending Completed Studies During Hospitalization Category Date Time Status XR chest 1V portable 80000 Stat Exams 05/29/24 09:53 Completed CV. echo complete* [id number] Routine Ultrasound 05/29/24 13:04 Completed Pending at discharge Category Date Time Status Blood Culture Stat Lab 05/29/24 11:35 Results Sputum Culture and Gram Stain Routine Lab 05/29/24 14:09 Uncollected Radiology Impressions Chest X-Ray 05/29/24 09:53 IMPRESSION: 1. Mild patchy bibasal infiltrates suspicious for pneumonia. 2. Prominent hiatal hernia. Laboratory Results WBC 9.17 10^3/uL (3.29-11.43) 06/01/24 04:32 RBC 3.75 10^6/uL (3.85-5.65) L 06/01/24 04:32 Hgb 10.00 g/dL (11.27-16.99) L 06/01/24 04:32 Hct 33.6 % (36-47) L 06/01/24 04:32 MCV 89.6 fl (85-98) 06/01/24 04:32 MCH 26.7 pg (27-33) L 06/01/24 04:32 MCHC 29.8 g/dL (30-55) L 06/01/24 04:32 RDW 15.4 % (12.1-15.1) H 06/01/24 04:32 Plt Count 329 10^3/cmm (157-399) 06/01/24 04:32 MPV 10.5 fL (7.4-10.4) H 06/01/24 04:32 Neut % (Auto) 85.9 % 06/01/24 04:32 Lymph % (Auto) 7.0 % 06/01/24 04:32 [place] % (Auto) 4.8 % 06/01/24 04:32 Eos % (Auto) 0.0 % 06/01/24 04:32 Baso % (Auto) 0.1 % 06/01/24 04:32 Neut # (Auto) 7.88 10^3/uL (1.8-7.7) H 06/01/24 04:32 Lymph # (Auto) 0.6 10^3/uL (0.8-4.8) L 06/01/24 04:32 [place] # (Auto) 0.4 10^3/uL (0.2-0.9) 06/01/24 04:32 Eos # (Auto) 0.0 10^3/uL (0.0-0.8) 06/01/24 04:32 Baso # (Auto) 0.0 10^3/uL (0.0-0.1) 06/01/24 04:32 Nucleated RBC % (auto) 0 % 06/01/24 04:32 Nucleated RBCs # 0.0 /100WBC 06/01/24 04:32 Specimen Type Arterial 05/29/24 09:57 Sample Site Radial, right 05/29/24 09:57 ABG pH 7.41 (7.35-7.45) 05/29/24 09:57 ABG pCO2 45.1 mmHg (35-45) H 05/29/24 09:57 ABG pO2 69.2 mmHg (80.0-100.0) L 05/29/24 09:57 ABG PO2/FiO2 Ratio 192 05/29/24 09:57 ABG HCO3 28.4 mmol/L (22-26) H 05/29/24 09:57 ABG O2 Saturation 94.9 05/29/24 09:57 ABG Base Excess 3.2 mmol/L (-2.0-2.0) H 05/29/24 09:57 Rafal Test Pos 05/29/24 09:57 A-a O2 Gradient 17.3 mmHg (5-10) H 05/29/24 09:57 Hematocrit 34.9 % (37-47) L 05/29/24 09:57 Hgb O2 Saturation 93.9 % (95-100) L 05/29/24 09:57 Carboxyhemoglobin 1.0 %THgb (0.4-20.1) 05/29/24 09:57 Methemoglobin 0.1 % (0.4-1.5) L 05/29/24 09:57 Total Hemoglobin 11.4 g/dL (12-16) L 05/29/24 09:57 Sodium 142.0 mmol/L (131-143) 05/29/24 09:57 Potassium 3.4 mmol/L (3.5-5.0) L 05/29/24 09:57 Glucose 165.0 mg/dL (70-115) H 05/29/24 09:57 Ionized Calcium 1.2 mmol/L (1.1-1.4) 05/29/24 09:57 O2 Delivery Device Nc 05/29/24 09:57 O2 Liters/Min 4.0 % 05/29/24 09:57 FiO2 36.0 % 05/29/24 09:57 Pellet Mill Operator ID [place] 05/29/24 09:57 Sodium 144 mmol/L (136-145) 06/01/24 04:32 Potassium 4.5 mmol/L (3.5-5.1) 06/01/24 04:32 Chloride 111 mmol/L (98-107) H 06/01/24 04:32 Carbon Dioxide 25 mmol/L (22-29) 06/01/24 04:32 Anion Gap 12.5 (5-19) 06/01/24 04:32 BUN 27 mg/dL (8-23) H 06/01/24 04:32 Creatinine 0.8 mg/dL (0.5-0.9) 06/01/24 04:32 GFR Calculation Not Reportable 06/01/24 04:32 Glucose 249 mg/dL (65-115) H 06/01/24 04:32 POC Glucose 254 mg/dL (70-110) H 06/01/24 06:49 Calculated Osmolality 311 mOsm/kg (285-295) H 06/01/24 04:32 Lactic Acid 1.6 mmol/L (0.5-2.2) 05/29/24 10:12 Calcium 8.8 mg/dL (8.5-10.5) 06/01/24 04:32 Magnesium 1.9 mg/dL (1.7-2.3) 06/01/24 04:32 Total Bilirubin 0.2 mg/dL (0.15-1.2) 05/31/24 04:13 AST 34 U/L (0-32) H 05/31/24 04:13 ALT 26 U/L (0-33) 05/31/24 04:13 Alkaline Phosphatase 73 U/L (35-105) 05/31/24 04:13 Troponin T Baseline 28 ng/L (0-10) H 05/29/24 10:12 Troponin T 120 Minute 19.65 ng/L (0-10) H 05/29/24 11:39 Delta Troponin T -8.35 ABS# (0-10) L 05/29/24 11:39 Troponin T Hi Sens 6Hr 17.01 ng/L (0-10) H 05/29/24 16:20 Troponin T Hi Sens 6Hr Delta -10.99 ng/L (0-12) L 05/29/24 16:20 NT-Pro-B Natriuret Pep 3596 pg/mL (0-450) H 05/29/24 10:12 Total Protein 5.6 g/dL (6.6-8.7) L 05/31/24 04:13 Albumin 2.9 g/dL (3.5-5.2) L 05/31/24 04:13 Globulin 2.7 g/dL (1.3-4.6) 05/31/24 04:13 TSH 0.44 uIU/mL (0.27-4.20) 05/29/24 11:39 Urine Color Yellow (Yellow) 05/29/24 11:12 Urine Appearance Cloudy (CLEAR) A 05/29/24 11:12 Urine pH 5.5 (5-7) 05/29/24 11:12 Ur Specific [place] 1.015 (1.005-1.030) 05/29/24 11:12 Urine Protein 2+ (Negative) A 05/29/24 11:12 Urine Glucose (UA) Negative (Normal) 05/29/24 11:12 Urine Ketones Trace (Negative) 05/29/24 11:12 Urine Blood 2+ (Negative) A 05/29/24 11:12 Urine Nitrate Negative (Negative) 05/29/24 11:12 Urine Bilirubin Negative (Negative) 05/29/24 11:12 Urine Urobilinogen 1.0 mg/dL (Negative) 05/29/24 11:12 Ur Leukocyte Esterase Negative (Negative) 05/29/24 11:12 Urine RBC 0-4 /hpf (0-2) H 05/29/24 11:12 Urine WBC 5-10 /hpf (0-5) H 05/29/24 11:12 Ur Squamous Epith Cells 0-4 /hpf (0-5) H 05/29/24 11:12 Ur Transition Epith Cell 0-4 /hpf 05/29/24 11:12 Amorphous Sediment Not Reportable 05/29/24 11:12 Urine Bacteria 1+ /hpf (NONE) H 05/29/24 11:12 Hyaline Casts 5-10 /lpf H 05/29/24 11:12 Fine Granular Casts 25-40 /lpf H 05/29/24 11:12 Urine Mucus 1+ /hpf 05/29/24 11:12 Nasal MRSA (PCR) Not detected (Not Detecte) 05/29/24 14:22 Coronavirus (PCR) Negative (Negative) 05/29/24 11:53 Influenza A (PCR) Negative (Negative) 05/29/24 11:53 Influenza Type B (PCR) Negative (Negative) 05/29/24 11:53 RSV (PCR) Negative (Negative) 05/29/24 11:53 Vitals Last Vital Signs Temp 97.9 F 06/01/24 04:59 Pulse 65 06/01/24 07:33 Resp 24 H 06/01/24 07:33 BP 146/86 06/01/24 07:33 Pulse Ox 96 06/01/24 07:33 O2 Del Method BiPAP 06/01/24 07:33 O2 Flow Rate 2 06/01/24 07:33 FiO2 30 06/01/24 04:30 Discharge Plan Discharge Patient Disposition: Home Condition: Stable Prescriptions: New Eliquis 5 mg Tablet 5 mg PO BID@0900,2100 Qty: 60 0RF cefdinir 300 mg capsule 300 mg PO BID 7 Days Qty: 14 0RF prednisone 20 mg Tablet 40 mg PO DAILY Qty: 4 0RF metoprolol tartrate 25 mg Tablet 37.5 mg PO BID@0900,2100 Qty: 90 0RF furosemide 20 mg Tablet 20 mg PO DAILY@0800 Qty: 30 0RF Continued ketoconazole 2 % shampoo 1 applic TOPICAL .3 x week Qty: 120 2RF cyanocobalamin (vitamin B-12) 1,000 mcg/mL solution 1,000 mcg IM .monthly Qty: 3 6RF Zyrtec 10 mg tablet 10 mg PO DAILY PRN (Reason: Allergy Symptoms) Qty: 30 3RF pantoprazole 40 mg tablet,delayed release (DR/EC) 40 mg PO QAM Qty: 90 1RF potassium chloride 10 mEq tablet extended release See Rx Instructions .ROUTE .COMPLEX Qty: 180 1RF Dose Instruction: TAKE ONE TABLET BY MOUTH TWICE DAILY AT 10am AND 8pm Rx Instructions: TAKE ONE TABLET BY MOUTH TWICE DAILY AT 10am AND 8pm ketoconazole 2 % cream 1 applic TOPICAL BID PRN (Reason: Rash) Qty: 30 3RF Rx Instructions: to rash on face and chin (DME) oxygen 2L via NC See Rx Instructions .Route .MEDSUPPLY Qty: 1 0RF Rx Instructions: As directed Entresto 24-26 mg tablet 1 tab PO BID Qty: 60 0RF Breztri Aerosphere 160-9-4.8 mcg/actuation HFA aerosol inhaler 2 inh inhalation BID Qty: 10.7 2RF albuterol sulfate 90 mcg/actuation HFA aerosol inhaler 2 puff inhalation Q4H PRN (Reason: shortness of breath or wheezing) Qty: 18 2RF cholecalciferol (vitamin D3) 50 mcg (2,000 unit) tablet 2,000 unit PO EVERY OTHER DAY Qty: 14 2RF citalopram 20 mg tablet 20 mg PO DAILY Qty: 30 2RF metformin 500 mg tablet 500 mg PO BID Qty: 60 2RF oxybutynin chloride 5 mg tablet 5 mg PO BID Qty: 60 2RF rosuvastatin 10 mg tablet 10 mg PO .at bedtime Qty: 30 2RF multivitamin Tablet 1 tab PO DAILY@2000 nitroglycerin [Nitrostat] 0.4 mg Tablet, Sublingual 0.4 mg SUBLINGUAL Q5M PRN (Reason: Chest Pain) Rx Instructions: do not exceed 3 doses per episode vitamin B complex Tablet 1 tab PO DAILY aspirin 81 mg tablet,delayed release (DR/EC) 81 mg PO BEDTIME tramadol 50 mg tablet 50 mg PO Q4H PRN (Reason: Pain) sennosides [Kimmie-osmar] 8.6 mg tablet 17.2 mg PO BEDTIME Discontinued meloxicam 7.5 mg tablet See Rx Instructions .ROUTE .COMPLEX Qty: 90 1RF Dose Instruction: TAKE ONE TABLET BY MOUTH DAILY AT 10am Rx Instructions: TAKE ONE TABLET BY MOUTH DAILY AT 10am tizanidine 4 mg tablet See Rx Instructions .ROUTE .COMPLEX Qty: 30 1RF Dose Instruction: TAKE ONE TABLET BY MOUTH EVERY DAY NEEDED FOR muscle spasticity Rx Instructions: TAKE ONE TABLET BY MOUTH EVERY DAY NEEDED FOR muscle spasticity carvedilol 3.125 mg tablet 3.125 mg PO BID Qty: 60 2RF Rx Instructions: must administer with a meal/food furosemide 20 mg tablet 20 mg PO QAM PRN (Reason: edema) Qty: 90 2RF Discharge Orders: Discharge Order (Routine); Ordered 06/01/24 Ordered By: Noman Lino Referrals: Allan Mak FNP-C [Primary Care Provider] - 4-7 days Lyn Aguiar FNP [Nurse Practitioner] - 1 week (SHELLEY ARAMBULA on follow up. Follow up of severe , Afib new onset) Discharge Diet: Cardiac and Diabetic Discharge Activity: Increase activity as tolerated Patient Instructions: A-fib (Atrial Fibrillation) (DC), Aortic Stenosis (DC), Bacterial Pneumonia (GEN), Opioid Safety Activity Restrictions/Additional Instructions: Take all medicine as prescribed Continue your oxygen at 2.5 L Finish 2 more days of prednisone, 40 mg a day Finish 7 more days of antibiotic Take your Lasix every day 20 mg in the morning Follow-up with cardiology 1 week with SHELLEY ARAMBULA, for follow-up of your atrial fibrillation new onset and aortic stenosis now known to be severe Monitor for any bleeding as you will be starting Eliquis, and anticoagulant to prevent CVA. Discharge Attestations Time Spent in Discharge Care*: greater than 30 min Status at Discharge: Cognitive status at discharge: cognitively intact, Behavioral status at discharge: cooperative, Quality Metrics Clinical Quality Measures [ No reported AMI, CVA or VTE this stay] Coding Level of Care Code 73408 Total time (in minutes) for Discharge: 35 Diagnoses Pneumonia J18.9 Acute hypoxemic respiratory failure J96.01 Acute exacerbation of chronic obstructive airways disease J44.1 CHF (congestive heart failure) I50.9 Atrial fibrillation with rapid ventricular response I48.91 Type 2 diabetes mellitus without complication, without long-term current use of insulin E11.9 Diabetes mellitus type: type 2 Diabetes mellitus long term care phlebotomist insulin use: without senior living use Diabetes mellitus complication status: without complication
[2024-06-01] MEDS: budesonide 0.5 mg/2 mL Neb INHALATION (08:34)
[2024-06-01 08:35] LABS: Glucose Point of Care 220 mg/dL (70-110)
--- NOTE | 2024-06-01 09:15 | PC.SOCIAL ---
IMM Updated Updated pt on IMM. No questions voiced. Provided pt a copy. Initialed, dated, & timed a copy & placed in chart.
[2024-06-01 12:04] LABS: Glucose Point of Care 177 mg/dL (70-110)
== END 2024-06-01 14:46 | disposition home health service (06) | DRG 193 ==
LOC: ER 11:20 → CSU 13:10
PROVIDERS: Admitting Provider Internal Medicine; Emergency Provider Family Medicine; PCP Nurse Practitioner; Visit Provider Internal Medicine
DX: J18.9 Pneumonia, unspecified organism (principal); J96.01 Acute respiratory failure with hypoxia; J44.1 Chronic obstructive pulmonary disease with (acute) exacerbation; J44.0 Chronic obstructive pulmonary disease with (acute) lower respiratory infection; I11.0 Hypertensive heart disease with heart failure; I50.9 Heart failure, unspecified; I48.91 Unspecified atrial fibrillation; E11.51 Type 2 diabetes mellitus with diabetic peripheral angiopathy without gangrene; E11.42 Type 2 diabetes mellitus with diabetic polyneuropathy; M19.90 Unspecified osteoarthritis, unspecified site; I25.10 Atherosclerotic heart disease of native coronary artery without angina pectoris; I99.9 Unspecified disorder of circulatory system; M79.7 Fibromyalgia; F41.9 Anxiety disorder, unspecified; F32.A Depression, unspecified; K59.04 Chronic idiopathic constipation; E78.2 Mixed hyperlipidemia; K21.9 Gastro-esophageal reflux disease without esophagitis; G47.33 Obstructive sleep apnea (adult) (pediatric); H91.90 Unspecified hearing loss, unspecified ear; Z87.891 Personal history of nicotine dependence; Z99.81 Dependence on supplemental oxygen; Z79.01 Long term (current) use of anticoagulants; Z79.84 Long term (current) use of oral hypoglycemic drugs; Z79.82 Long term (current) use of aspirin
CPT/HCPCS: 0241U; 36415; 36416; 36600; 71045; 80048; 80051; 80053; 81001; 82330; 82805; 82962; 83605; 83735; 83880; 84443; 84484; 85025; 87040; 90471; 90732; 93005; 93306; 94640; 94660; 96365; 96367; 96372; 96375; 99285; A9270; J0456; J0696; J1650; J1815; J1956; J2919; J3475; J3490; J7050; J7512; J7626

== ENCOUNTER → 2024-06-11 15:13 | Outpatient (BNVA) | payer MEDICARE, SELFPAY | PROVIDERS: PCP Nurse Practitioner; Visit Provider Internal Medicine Cardiovascular Disease | DX: I48.91 Unspecified atrial fibrillation (principal); Z79.01 Long term (current) use of anticoagulants; Z79.82 Long term (current) use of aspirin; Z87.891 Personal history of nicotine dependence; I35.0 Nonrheumatic aortic (valve) stenosis; I73.9 Peripheral vascular disease, unspecified; I25.10 Atherosclerotic heart disease of native coronary artery without angina pectoris; I10 Essential (primary) hypertension; E78.5 Hyperlipidemia, unspecified | CPT/HCPCS: 99214 ==

== ENCOUNTER 2024-06-20 11:56 | Emergency (ER) | payer MEDICARE, SELFPAY ==
--- NOTE | 2024-06-20 12:11 | ECG_ITS ---
[facility] Pat Name: Lucy Galindo Department: Room: Gender: Female Drafter Commercial: : 1945 Requested By: Niraj Nelson Order Number: [id number] Jimi MD: Sole Maguire M.D. Measurements Intervals [place] Rate: 62 P: 69 MO: 118 QRS: 55 QRSD: 103 T: 35 QT: 436 QTc: 446 Interpretive Statements SINUS RHYTHM WITH SHORT MO INTERVAL Compared to ECG 05/29/2024 15:31:42 Short MO interval now present Atrial fibrillation no longer present T-wave abnormality no longer present Possible ischemia no longer present Electronically Signed On 06-20-2024 22:37:55 CDT by Sole Maguire M.D. [email or web address]
[2024-06-20 12:12] VITALS: BP 151/82; PULSE 58; RESP 23; TEMP 36.7; O2SAT 91; BMI 25.8
--- NOTE | 2024-06-20 12:24 | XR_ITS ---
WS: [id number] Exam: XR chest 1V portable [id number] Date/Time of Exam: 06/20/2024 12:29 PM Reason For Exam: dyspnea/cough Comparison 05/29/2024. The lungs are fully expanded. Mild infiltrate in the RIGHT lower lung zone probably chronic. Remainin g lung strat[place] are clear. Mild cardiac enlargement unchanged. Prominent hiatal hernia. No pleural effu trisha. No significant bony abnormality. XR/XR chest 1V portable [id number] IMPRESSION: 1. Mild infiltrate in the RIGHT lower lung zone probably chronic. 2. Mild cardiac enlargement unchanged. Prominent hiatal hernia.
[2024-06-20 12:55] LABS: Basophils % 0.7 %; Eosinophils # 0.1 10^3/uL (0.0-0.8); Eosinophils % 1.9 %; Hematocrit 29.9 % (36-47); Lymphocytes # 0.8 10^3/uL (0.8-4.8); Lymphocytes % 13.7 %; Mean Corpuscular HGB Conc 29.1 g/dL (30-55); Mean Corpuscular Hemoglobin 26.6 pg (27-33); Mean Corpuscular Volume 91.4 fl (85-98); Mean Platelet Volume 11.1 fL (7.4-10.4); Monocytes # 0.3 10^3/uL (0.2-0.9); Monocytes % 5.7 %; Neutrophils # 4.48 10^3/uL (1.8-7.7); Neutrophils % 77.7 %; Nucleated Red Blood Cells % 0 %; Platelet Count 205 10^3/cmm (157-399); Red Blood Count 3.27 10^6/uL (3.85-5.65); Red Cell Distribution Width 16.7 % (12.1-15.1); White Blood Count 5.77 10^3/uL (3.29-11.43)
[2024-06-20 13:12] LABS: Alanine Aminotransferase 13 U/L (0-33); Albumin Level 3.7 g/dL (3.5-5.2); Alkaline Phosphatase 76 U/L (35-105); Anion Gap 15.4 (5-19); Aspartate Amino Transferase 17 U/L (0-32); Blood Urea Nitrogen 14 mg/dL (8-23); Calcium 8.7 mg/dL (8.5-10.5); Carbon Dioxide 28 mmol/L (22-29); Chloride 101 mmol/L (98-107); Creatinine Clr Calc Pharmacy 52.2641; Globulin 2.6 g/dL (1.3-4.6); Glucose 147 mg/dL (65-115); Osmolality Calculated 293 mOsm/kg (285-295); Potassium 4.4 mmol/L (3.5-5.1); Sodium 140 mmol/L (136-145); Total Bilirubin 0.6 mg/dL (0.15-1.2); Total Protein 6.3 g/dL (6.6-8.7)
[2024-06-20 13:13] VITALS: BP 140/77; PULSE 112; O2SAT 94
[2024-06-20 13:16] LABS: Covid PCR NEGATIVE (Negative); Influenza A NEGATIVE (Negative); Influenza B NEGATIVE (Negative); Respiratory Syncytial Virus Ce NEGATIVE (Negative)
[2024-06-20 13:23] LABS: ABG PCO2 42.4 mmHg (35-45); ABG PH Result 7.43 (7.35-7.45); Alveolar-Arterial Oxygen Gradi 14.6 mmHg (5-10); Arterial Blood Gas Hematocrit 26.1 % (37-47); Base Excess ABG 3.5 mmol/L (-2.0-2.0); Blood Gas Allen Test Pos; Blood Gas Operator Identificat glc; Blood Gas Sample Site Radial, right; Blood Gas Sample Type Arterial; Carboxyhemoglobin 1.7 %THgb (0.4-20.1); HCO3 ABG 28.2 mmol/L (22-26); HGB O2 Sat 92.4 % (95-100); Ionized Calcium Level - ABG 1.2 mmol/L (1.1-1.4); Methemoglobin 0.2 % (0.4-1.5); Oxygen Device NC; Oxygen Saturation ABG 94.1; PO2 ABG 64.1 mmHg (80.0-100.0); PO2 FiO2 Ratio Arterial Blood 200; Potassium Level - ABG 4.2 mmol/L (3.5-5.0); Total Hemoglobin 8.5 g/dL (12-16)
--- NOTE | 2024-06-20 13:43 | PC.PHAR ---
Patient has an in home nurse with [facility]
--- NOTE | 2024-06-20 14:00 | W.ED.SOB ---
HPI - SOB/Dyspnea General: Chief Complaint: Shortness of Breath/Dyspnea Stated Complaint: SOB Time Seen by Provider: 06/20/24 12:19 History of Present Illness: HPI Narrative: 79-year-old female presents emergency room with complaint of shortness of breath. She denies any chest pain. EMS reported she was at 80% oxygen where they evaluated her. She is currently on 2 L by nasal cannula satting 92% she is not short of breath denies having any chest pain. She has not had any chest pain earlier. She is normally on 2 to 3 L by nasal cannula. She denies any fever sweats chills hemoptysis or productive cough Associated symptoms: Deny abdominal pain, chest pain or fever(s) Related Data Home Medications Medication Instructions Recorded Confirmed multivitamin 1 tab PO DAILY@199912/07/20 06/20/24 aspirin 81 mg tablet,delayed 81 mg PO BEDTIME 08/05/22 06/20/24 release nitroglycerin 0.4 mg sublingual 0.4 mg sublingual Q5M PRN Chest 08/05/22 06/20/24 tablet (Nitrostat) Pain sennosides 8.6 mg tablet (Kimmie-osmar) 17.2 mg PO BEDTIME 08/05/22 06/20/24 tramadol 50 mg tablet 50 mg PO Q4H PRN Pain 08/05/22 06/20/24 vitamin B complex 1 tab PO DAILY 08/05/22 06/20/24 Previous Rx's Medication Instructions Recorded ketoconazole 2 % shampoo 1 applic topical .3 x week #120 mL 05/12/22 cetirizine 10 mg tablet (Zyrtec) 10 mg PO DAILY PRN Allergy 12/02/23 Symptoms #30 tabs cyanocobalamin (vitamin B-12) 1,000 mcg IM .monthly #3 mL 12/02/23 1,000 mcg/mL injection solution ketoconazole 2 % topical cream 1 applic topical BID PRN Rash #30 12/02/23 grams oxygen 2L via NC #1 ea 12/02/23 albuterol sulfate 90 mcg/actuation 2 puff inhalation Q4H PRN 05/23/24 aerosol inhaler shortness of breath or wheezing #18 grams budesonide 160 mcg-glycopyr 9 2 inh inhalation BID #10.7 grams 09/25/24 mcg-formot 4.8 mcg/actuation HFA inhaler (Breztri Aerosphere) cholecalciferol (vitamin D3) 50 2,000 unit PO EVERY OTHER DAY #14 05/23/24 mcg (2,000 unit) tablet tabs citalopram 20 mg tablet 20 mg PO DAILY #30 tabs 05/23/24 oxybutynin chloride 5 mg tablet 5 mg PO BID #60 tabs 05/23/24 rosuvastatin 10 mg tablet 10 mg PO .at bedtime #30 tabs 05/23/24 prednisone 20 mg tablet 40 mg (2 x 20 mg) PO DAILY #4 tabs 06/01/24 apixaban 5 mg tablet (Eliquis) 5 mg PO BID@0900,2100 #60 tabs 06/06/24 furosemide 20 mg tablet 20 mg PO DAILY@0800 #30 tabs 06/06/24 metformin 500 mg tablet,extended 1,500 mg (3 x 500 mg) PO DAILY #90 06/06/24 release 24 hr tabs metoprolol tartrate 25 mg tablet 37.5 mg (1.5 x 25 mg) PO 06/06/24 BID@0900,2100 #90 tabs pantoprazole 20 mg tablet,delayed 20 mg PO QAM #30 tabs 06/06/24 release potassium chloride 10 mEq 10 meq PO BID #60 tabs 06/06/24 tablet,extended release sacubitril 24 mg-valsartan 26 mg 1 tab PO BID #60 tabs 06/06/24 tablet (Entresto) BiPap supplies #1 ea 06/10/24 doxycycline hyclate 100 mg capsule 100 mg PO BID 10 days #20 caps 06/20/24 methylprednisolone 4 mg tablets in See Rx Instructions PO .COMPLEX 06/20/24 a dose pack (Medrol (David)) #21 ea Allergies Allergy/AdvReac Type Severity Reaction Status Date / Time No Known Allergies Allergy Verified 06/20/24 12:21 Review of Systems Const: Denies: fever(s) or chills Card: Denies: chest pain Resp: Denies: dyspnea GI: Denies: abdominal pain : Denies: dysuria, urinary frequency or urinary urgency Musc: Denies: neck pain or back pain Skin/Breast: Denies: rash PFSH ED PFSH: Medical History Diabetes mellitus with hyperglycemia, without long-term current use of insulin Urolithiasis Superior mesenteric artery stenosis Moderate, noted on CTA 11/2020 Some celiac artery stenosis also noted Renal artery stenosis Moderate, noted on CTA 11/2020 Abnormal nuclear stress test Benign essential HTN Atherosclerotic heart disease of [place] coronary artery without angina pectoris Chronic neck and back pain Recurrent UTI Fibromyalgia [facility] (current) use of opiate analgesic Chronic low back pain Calculus of kidney right; 6 mm without supervisor records change time 01/10; 7 mm obstructing right proximal stone; evaluated and treated [facility] at [facility] 02/10 for sepsis, UTI, NSTEMI, and right proximal ureteral calculus with hydronephrosis Bilateral hearing loss 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, unspecified Anxiety and depression HX: breast cancer Chronic osteoarthritis Chronic idiopathic constipation PAD (peripheral artery disease) stent right SFA Mixed hyperlipidemia Vitamin D deficiency Gastro-esophageal reflux disease without esophagitis Asthma, mild persistent Urinary incontinence in female Chronic right shoulder pain Osteoporosis Asymptomatic cholelithiasis Obstructive sleep apnea on BiPAP Type 2 diabetes mellitus with diabetic polyneuropathy Surgical History Hx of bilateral cataract extraction Hx of lithotripsy History of lumpectomy of left breast (~1969) [place] History of shoulder surgery (~2014) right; Dr Chiu, [facility] [place] Hx of bladder repair surgery (~2004) Dr Nunez's office in [place], [place] History of intravascular stent placement (~2003) right leg; [place], [place] Family History Brother Cancer Lung Father , at age 74 Diabetes Cancer colon Mother , age 89 Diabetes CAD (coronary artery disease) Cancer breast Denies family history of Clotting disorder Dementia Hyperlipidemia Psychiatric illness Chronic kidney disease (CKD) Suicide Anesthesia complication Bleeding disorder Family history of premature coronary artery disease Lung disease Hypertension Stroke Social History Smoking and tobacco/nicotine status: former use of tobacco/nicotine Quit status (tobacco/nicotine): has quit using Year quit tobacco: 2001 Former quit date comment: smoked 2PPD x 25 yrs Second hand smoke exposure: No Alcohol intake: never Substance/Drug Use: never Caregiver/support person: Yes Lives independently: Yes Household members: none Marital status: / Current occupational status: retired Current gender identity: Female Special shan needs: No Physical Exam Const: GENERAL APPEARANCE: cooperative ORIENTATION/CONSCIOUSNESS: Yes awake, Yes oriented to person, Yes oriented to place and Yes oriented to time HENMT: COMMON NORMALS: normocephalic, atraumatic and hearing grossly normal bilaterally HEAD & SCALP: normocephalic and atraumatic Resp: COMMON NORMALS: normal respiratory effort, No retractions, No use of accessory muscles and clear to auscultation bilaterally AUSCULTATION: clear to auscultation bilaterally Cardio: COMMON NORMALS: regular rate, regular rhythm and No murmurs present (Cardio) RATE: regular rate RHYTHM: regular rhythm GI: COMMON NORMALS: Soft to palpation and No hepatosplenomegaly present AUSCULTATION: Yes normoactive bowel sounds PALPATION: Yes Soft to palpation, No Tenderness to palpation present (GI), No Guarding due to palpation present (GI) and Yes No hepatosplenomegaly present Extremity: COMMON NORMALS: normal to inspection, capillary refill normal, no clubbing, cyanosis or edema, no calf tenderness and no pedal edema Neuro: SENSORIUM/ORIENTATION: Yes oriented to person, Yes oriented to place and Yes oriented to time Skin: COMMON NORMALS: no rashes or lesions noted GENERAL SKIN EXAM: no rashes or lesions noted Course Vital Signs: Vital signs: Vital Signs Temperature 98.1 F 06/20/24 12:12 Pulse Rate 69 06/20/24 14:46 Respiratory Rate 23 H 06/20/24 12:12 Blood Pressure 159/82 06/20/24 14:46 Pulse Oximetry 98 06/20/24 14:46 Oxygen Delivery Me thod Nasal Cannula 06/20/24 12:12 Oxygen Flow Rate 3.5 06/20/24 12:12 MDM - SOB/Dyspnea Medical Decision Making Labs and imaging reviewed. Patient has been chronically anemic is a little bit more anemic than she has been in the past that should be followed up as an outpatient does not require admission at this time is no signs of active bleeding. She denies any hematochezia melena hematemesis or coffee-ground emesis. She states she is feeling fine she is at her baseline oxygen and is well compensated. Her pO2 on her blood gas is low but she shows that she has been well compensated than normal pH. She otherwise feels fine. Recommend putting her short course of a Medrol Dosepak and doxycycline continue to use the albuterol as needed continue her oxygen at her usual rate recheck if she has any worsening or changes. Follow-up for repeat hemoglobin with primary care doctor within the next week Medical Records I reviewed the patient's medical records. Lab Data I reviewed the patient's lab results. 06/20/24 12:49 06/20/24 12:49 Labs/Radiology: Radiology Impressions Chest X-Ray 06/20/24 12:24 IMPRESSION: 1. Mild infiltrate in the RIGHT lower lung zone probably chronic. 2. Mild cardiac enlargement unchanged. Prominent hiatal hernia. Laboratory Results WBC 5.77 10^3/uL (3.29-11.43) 06/20/24 12:49 RBC 3.27 10^6/uL (3.85-5.65) L 06/20/24 12:49 Hgb 8.70 g/dL (11.27-16.99) L 06/20/24 12:49 Hct 29.9 % (36-47) L 06/20/24 12:49 MCV 91.4 fl (85-98) 06/20/24 12:49 MCH 26.6 pg (27-33) L 06/20/24 12:49 MCHC 29.1 g/dL (30-55) L 06/20/24 12:49 RDW 16.7 % (12.1-15.1) H 06/20/24 12:49 Plt Count 205 10^3/cmm (157-399) 06/20/24 12:49 MPV 11.1 fL (7.4-10.4) H 06/20/24 12:49 Neut % (Auto) 77.7 % 06/20/24 12:49 Lymph % (Auto) 13.7 % 06/20/24 12:49 Sunflower % (Auto) 5.7 % 06/20/24 12:49 Eos % (Auto) 1.9 % 06/20/24 12:49 Baso % (Auto) 0.7 % 06/20/24 12:49 Neut # (Auto) 4.48 10^3/uL (1.8-7.7) 06/20/24 12:49 Lymph # (Auto) 0.8 10^3/uL (0.8-4.8) 06/20/24 12:49 Sunflower # (Auto) 0.3 10^3/uL (0.2-0.9) 06/20/24 12:49 Eos # (Auto) 0.1 10^3/uL (0.0-0.8) 06/20/24 12:49 Baso # (Auto) 0.0 10^3/uL (0.0-0.1) 06/20/24 12:49 Nucleated RBC % (auto) 0 % 06/20/24 12:49 Nucleated RBCs # 0.0 /100WBC 06/20/24 12:49 Specimen Type Arterial 06/20/24 13:11 Sample Site Radial, right 06/20/24 13:11 ABG pH 7.43 (7.35-7.45) 06/20/24 13:11 ABG pCO2 42.4 mmHg (35-45) 06/20/24 13:11 ABG pO2 64.1 mmHg (80.0-100.0) L 06/20/24 13:11 ABG PO2/FiO2 Ratio 200 06/20/24 13:11 ABG HCO3 28.2 mmol/L (22-26) H 06/20/24 13:11 ABG O2 Saturation 94.1 06/20/24 13:11 ABG Base Excess 3.5 mmol/L (-2.0-2.0) H 06/20/24 13:11 Rafal Test Pos 06/20/24 13:11 A-a O2 Gradient 14.6 mmHg (5-10) H 06/20/24 13:11 Hematocrit 26.1 % (37-47) L 06/20/24 13:11 Hgb O2 Saturation 92.4 % (95-100) L 06/20/24 13:11 Carboxyhemoglobin 1.7 %THgb (0.4-20.1) 06/20/24 13:11 Methemoglobin 0.2 % (0.4-1.5) L 06/20/24 13:11 Total Hemoglobin 8.5 g/dL (12-16) L 06/20/24 13:11 Sodium 141.0 mmol/L (131-143) 06/20/24 13:11 Potassium 4.2 mmol/L (3.5-5.0) 06/20/24 13:11 Glucose 132.0 mg/dL (70-115) H 06/20/24 13:11 Ionized Calcium 1.2 mmol/L (1.1-1.4) 06/20/24 13:11 O2 Delivery Device Nc 06/20/24 13:11 O2 Liters/Min 3.0 % 06/20/24 13:11 FiO2 32.0 % 06/20/24 13:11 Proofer Apprentice ID glc 06/20/24 13:11 Sodium 140 mmol/L (136-145) 06/20/24 12:49 Potassium 4.4 mmol/L (3.5-5.1) 06/20/24 12:49 Chloride 101 mmol/L (98-107) 06/20/24 12:49 Carbon Dioxide 28 mmol/L (22-29) 06/20/24 12:49 Anion Gap 15.4 (5-19) 06/20/24 12:49 BUN 14 mg/dL (8-23) 06/20/24 12:49 Creatinine 0.6 mg/dL (0.5-0.9) 06/20/24 12:49 GFR Calculation Not Reportable 06/20/24 12:49 Glucose 147 mg/dL (65-115) H 06/20/24 12:49 Calculated Osmolality 293 mOsm/kg (285-295) 06/20/24 12:49 Calcium 8.7 mg/dL (8.5-10.5) 06/20/24 12:49 Total Bilirubin 0.6 mg/dL (0.15-1.2) 06/20/24 12:49 AST 17 U/L (0-32) 06/20/24 12:49 ALT 13 U/L (0-33) 06/20/24 12:49 Alkaline Phosphatase 76 U/L (35-105) 06/20/24 12:49 Total Protein 6.3 g/dL (6.6-8.7) L 06/20/24 12:49 Albumin 3.7 g/dL (3.5-5.2) 06/20/24 12:49 Globulin 2.6 g/dL (1.3-4.6) 06/20/24 12:49 Coronavirus (PCR) Negative (Negative) 06/20/24 12:28 Influenza A (PCR) Negative (Negative) 06/20/24 12:28 Influenza Type B (PCR) Negative (Negative) 06/20/24 12:28 RSV (PCR) Negative (Negative) 06/20/24 12:28 All radiology interpretation(s) finalized by discharge Discharge Plan Discharge Patient Disposition: Home Clinical Impression: COPD (chronic obstructive pulmonary disease) Condition: Stable Prescriptions: New doxycycline hyclate 100 mg capsule 100 mg PO BID 10 Days Qty: 20 0RF methylprednisolone [Medrol (David)] 4 mg tablets,dose pack See Rx Instructions .ROUTE .COMPLEX Qty: 21 0RF Rx Instructions: orally per package directions No Action ketoconazole 2 % shampoo 1 applic TOPICAL .3 x week Qty: 120 2RF cyanocobalamin (vitamin B-12) 1,000 mcg/mL solution 1,000 mcg IM .monthly Qty: 3 6RF Zyrtec 10 mg tablet 10 mg PO DAILY PRN (Reason: Allergy Symptoms) Qty: 30 3RF ketoconazole 2 % cream 1 applic TOPICAL BID PRN (Reason: Rash) Qty: 30 3RF Rx Instructions: to rash on face and chin (DME) oxygen 2L via NC See Rx Instructions .Route .MEDSUPPLY Qty: 1 0RF Rx Instructions: As directed Brelalitri Aerosphere 160-9-4.8 mcg/actuation HFA aerosol inhaler 2 inh inhalation BID Qty: 10.7 2RF albuterol sulfate 90 mcg/actuation HFA aerosol inhaler 2 puff inhalation Q4H PRN (Reason: shortness of breath or wheezing) Qty: 18 2RF cholecalciferol (vitamin D3) 50 mcg (2,000 unit) tablet 2,000 unit PO EVERY OTHER DAY Qty: 14 2RF citalopram 20 mg tablet 20 mg PO DAILY Qty: 30 2RF oxybutynin chloride 5 mg tablet 5 mg PO BID Qty: 60 2RF rosuvastatin 10 mg tablet 10 mg PO .at bedtime Qty: 30 2RF metformin 500 mg tablet extended release 24 hr 1,500 mg PO DAILY Qty: 90 2RF Eliquis 5 mg tablet 5 mg PO BID@0900,2100 Qty: 60 2RF furosemide 20 mg tablet 20 mg PO DAILY@0800 Qty: 30 2RF metoprolol tartrate 25 mg tablet 37.5 mg PO BID@0900,2100 Qty: 90 2RF pantoprazole 20 mg tablet,delayed release (DR/EC) 20 mg PO QAM Qty: 30 2RF potassium chloride 10 mEq tablet extended release 10 meq PO BID Qty: 60 2RF Entresto 24-26 mg tablet 1 tab PO BID Qty: 60 2RF (DME) BiPap supplies See Rx Instructions .Route .MEDSUPPLY Qty: 1 0RF Rx Instructions: As directed BiPap supplies 99 months multivitamin Tablet 1 tab PO DAILY@1999 prednisone 20 mg Tablet 40 mg PO DAILY Qty: 4 0RF nitroglycerin [Nitrostat] 0.4 mg Tablet, Sublingual 0.4 mg SUBLINGUAL Q5M PRN (Reason: Chest Pain) Rx Instructions: do not exceed 3 doses per episode vitamin B complex Tablet 1 tab PO DAILY aspirin 81 mg tablet,delayed release (DR/EC) 81 mg PO BEDTIME tramadol 50 mg tablet 50 mg PO Q4H PRN (Reason: Pain) sennosides [Kimmie-osmar] 8.6 mg tablet 17.2 mg PO BEDTIME Discharge Orders: Discharge ED (Routine); Ordered 06/20/24 Ordered By: Niraj Krueger Referrals: Allan Mak, [employer] [Primary Care Provider] - Discharge Diet: Usual diet Discharge Activity: Increase activity as tolerated Patient Instructions: Opioid Safety, Pain Management Activity Restrictions/Additional Instructions: Thank you for choosing [facility] for your healthcare needs today. It is very important that you follow up as instructed or that you return to the Emergency Department should you have concerns or if your condition changes or worsens in any way. You were seen today with report of low oxygen saturation. While you are in the emergency room and oxygen saturation was stable. Recommend a short course of steroids and a round of antibiotics. Your other lab work was not significantly abnormal. You are mildly anemic but is on par with 3 of been in the past. Follow-up with your primary care doctor as needed. Coding Level of Care Code ED Deputy Bailiff for Baljeet Mcfarland
[2024-06-20 14:46] VITALS: BP 159/82; PULSE 69; O2SAT 98
== END 2024-06-20 15:30 | disposition home or self-care (01) ==
PROVIDERS: Emergency Provider Family Medicine; PCP Nurse Practitioner
DX: J44.9 Chronic obstructive pulmonary disease, unspecified (principal); I51.7 Cardiomegaly; K44.9 Diaphragmatic hernia without obstruction or gangrene; D64.9 Anemia, unspecified; Z87.891 Personal history of nicotine dependence
CPT/HCPCS: 0241U; 36415; 36600; 71045; 80051; 80053; 82330; 82805; 85025; 93005; 99285

== ENCOUNTER 2024-06-20 21:17 | Emergency (ER) | payer MEDICARE, SELFPAY ==
[2024-06-20] VITALS (7 sets, daily range): BP systolic 149–154; BP diastolic 67–68; PULSE 57–67; RESP 10–24; TEMP 36.8; O2SAT 97–100; BMI 30.2
--- NOTE | 2024-06-20 21:36 | ED_ITS ---
HPI - SOB/Dyspnea General: Chief Complaint: Shortness of Breath/Dyspnea Stated Complaint: sob Time Seen by Provider: 06/20/24 21:18 History of Present Illness: HPI Narrative: Patient presents here with complaints of shortness of breath. Patient was seen earlier in ER today and discharged. Patient had a prescription for doxycycline and a steroid sent to her pharmacy but she did not get it. Patient's family was worried about the patient because her heart rate when he had the pulse ox dipped down into the 40s sporadically but then it shot back up into the 60s and 70s. Her O2 sat on her chronic 2 L stayed in the 90s. EMS says patient has been using budesonide breathing treatments as a rescue inhaler thinking her albuterol. They did not see any albuterol breathing treatments at her home. Related Data Home Medications Medication Instructions Recorded Confirmed multivitamin 1 tab PO DAILY@199912/07/20 06/20/24 aspirin 81 mg tablet,delayed 81 mg PO BEDTIME 08/05/22 06/20/24 release nitroglycerin 0.4 mg sublingual 0.4 mg sublingual Q5M PRN Chest 08/05/22 06/20/24 tablet (Nitrostat) Pain sennosides 8.6 mg tablet (Kimmie-osmar) 17.2 mg PO BEDTIME 08/05/22 06/20/24 tramadol 50 mg tablet 50 mg PO Q4H PRN Pain 08/05/22 06/20/24 vitamin B complex 1 tab PO DAILY 08/05/22 06/20/24 Previous Rx's Medication Instructions Recorded ketoconazole 2 % shampoo 1 applic topical .3 x week #120 mL 05/12/22 cetirizine 10 mg tablet (Zyrtec) 10 mg PO DAILY PRN Allergy 12/02/23 Symptoms #30 tabs cyanocobalamin (vitamin B-12) 1,000 mcg IM .monthly #3 mL 12/02/23 1,000 mcg/mL injection solution ketoconazole 2 % topical cream 1 applic topical BID PRN Rash #30 12/02/23 grams oxygen 2L via NC #1 ea 12/02/23 albuterol sulfate 90 mcg/actuation 2 puff inhalation Q4H PRN 05/23/24 aerosol inhaler shortness of breath or wheezing #18 grams budesonide 160 mcg-glycopyr 9 2 inh inhalation BID #10.7 grams 05/23/24 mcg-formot 4.8 mcg/actuation HFA inhaler (Breztri Aerosphere) cholecalciferol (vitamin D3) 50 2,000 unit PO EVERY OTHER DAY #14 05/23/24 mcg (2,000 unit) tablet tabs citalopram 20 mg tablet 20 mg PO DAILY #30 tabs 05/23/24 oxybutynin chloride 5 mg tablet 5 mg PO BID #60 tabs 05/23/24 rosuvastatin 10 mg tablet 10 mg PO .at bedtime #30 tabs 05/23/24 prednisone 20 mg tablet 40 mg (2 x 20 mg) PO DAILY #4 tabs 06/01/24 apixaban 5 mg tablet (Eliquis) 5 mg PO BID@0900,2100 #60 tabs 06/06/24 furosemide 20 mg tablet 20 mg PO DAILY@0800 #30 tabs 06/06/24 metformin 500 mg tablet,extended 1,500 mg (3 x 500 mg) PO DAILY #90 06/06/24 release 24 hr tabs metoprolol tartrate 25 mg tablet 37.5 mg (1.5 x 25 mg) PO 06/06/24 BID@0900,2100 #90 tabs pantoprazole 20 mg tablet,delayed 20 mg PO QAM #30 tabs 06/06/24 release potassium chloride 10 mEq 10 meq PO BID #60 tabs 06/06/24 tablet,extended release sacubitril 24 mg-valsartan 26 mg 1 tab PO BID #60 tabs 06/06/24 tablet (Entresto) BiPap supplies #1 ea 06/10/24 albuterol sulfate 2.5 mg/0.5 mL 2.5 mg (0.5 mL) inhalation QID PRN 06/20/24 solution for nebulization shortness of breath or wheezing #30 ea doxycycline hyclate 100 mg capsule 100 mg PO BID 10 days #20 caps 06/20/24 methylprednisolone 4 mg tablets in See Rx Instructions PO .COMPLEX 06/20/24 a dose pack (Medrol (David)) #21 ea Allergies Allergy/AdvReac Type Severity Reaction Status Date / Time No Known Allergies Allergy Verified 06/20/24 12:21 Review of Systems General: Reports: 10 or more systems reviewed and unremarkable except in HPI and below PFS ED PFSH: Medical History Diabetes mellitus with hyperglycemia, without long-term current use of insulin Urolithiasis Superior mesenteric artery stenosis Moderate, noted on CTA 11/2020 Some celiac artery stenosis also noted Renal artery stenosis Moderate, noted on CTA 11/2020 Abnormal nuclear stress test Benign essential HTN Atherosclerotic heart disease of [place] coronary artery without angina pectoris Chronic neck and back pain Recurrent UTI Fibromyalgia intermediate frame tender (current) use of opiate analgesic Chronic low back pain Calculus of kidney right; 6 mm without change director time 01/10; 7 mm obstructing right proximal stone; evaluated and treated [facility] Hospitalized at [facility] 02/10 for sepsis, UTI, NSTEMI, and right proximal ureteral calculus with hydronephrosis Bilateral hearing loss 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, unspecified Anxiety and depression HX: breast cancer Chronic osteoarthritis Chronic idiopathic constipation PAD (peripheral artery disease) stent right SFA Mixed hyperlipidemia Vitamin D deficiency Gastro-esophageal reflux disease without esophagitis Asthma, mild persistent Urinary incontinence in female Chronic right shoulder pain Osteoporosis Asymptomatic cholelithiasis Obstructive sleep apnea on BiPAP Type 2 diabetes mellitus with diabetic polyneuropathy Surgical History Hx of bilateral cataract extraction Hx of lithotripsy History of lumpectomy of left breast (~1969) [place] History of shoulder surgery (~2014) right; Dr Chiu, [facility] Hx of bladder repair surgery (~2004) Dr Nunez's office in [place], [place] History of intravascular stent placement (~2003) right leg; [place], [place] Family History Brother Cancer Lung Father , at age 74 Diabetes Cancer colon Mother , age 89 Diabetes CAD (coronary artery disease) Cancer breast Denies family history of Clotting disorder Dementia Hyperlipidemia Psychiatric illness Chronic kidney disease (CKD) Suicide Anesthesia complication Bleeding disorder Family history of premature coronary artery disease Lung disease Hypertension Stroke Social History Smoking and tobacco/nicotine status: former use of tobacco/nicotine Quit status (tobacco/nicotine): has quit using Year quit tobacco: 2001 Former quit date comment: smoked 2PPD x 25 yrs Second hand smoke exposure: No Alcohol intake: never Substance/Drug Use: never Caregiver/support person: Yes Lives independently: Yes Household members: none Marital status: / Current occupational status: retired Current gender identity: Female Special shan needs: No Physical Exam Const: COMMON NORMALS: no acute distress, average body habitus, patient oriented x3, no limitations, healthy appearing, alert and well nourished HENMT: COMMON NORMALS: normocephalic, atraumatic, hearing grossly normal bilaterally, external ears normal, Normal external nose present and moist oral mucous membranes HEAD & SCALP: normocephalic and atraumatic NOSE: Normal external nose present EXTERNAL EAR: Yes external ears normal Neck/C-Spine: COMMON NORMALS: no JVD Chest: COMMONS NORMALS: normal inspection of the chest and normal palpation of entire chest wall Resp: COMMON NORMALS: normal respiratory effort, No retractions, No use of accessory muscles and clear to auscultation bilaterally AUSCULTATION: clear to auscultation bilaterally Cardio: COMMON NORMALS: no JVD, regular rate, regular rhythm, S1 normal heart sound present, S2 normal heart sound present, No gallops present (Cardio), No clicks present (Cardio), No murmurs present (Cardio) and No rub (Cardio) RATE: regular rate RHYTHM: regular rhythm HEART SOUNDS: S1 normal heart sound present and S2 normal heart sound present GI: COMMON NORMALS: Normal to inspection, nondistended, normoactive bowel sounds present, Soft to palpation, non-tender, No hepatosplenomegaly present and no masses PALPATION: Yes Soft to palpation and Yes No hepatosplenomegaly present Neuro: COMMON NORMALS: patient oriented x3 SENSORIUM/ORIENTATION: Yes alert Course Vital Signs: Vital signs: Vital Signs Temperature 98.3 F 06/20/24 21:18 Pulse Rate 67 06/20/24 22:26 Respiratory Rate 18 06/20/24 22:26 Blood Pressure 154/67 06/20/24 21:18 Pulse Oximetry 100 06/20/24 22:26 Oxygen Delivery Me thod Nasal Cannula 06/20/24 21:18 MDM - SOB/Dyspnea Medical Decision Making Patient was given a dose of Solu-Medrol 125 mg, DuoNeb treatment and doxycycline 100 mg, patient did good the entire time she is here patient is ready to be discharged home. Patient be discharged home and is is to pick her steroid and antibiotic up at her pharmacy and start taking it tomorrow. Medical Records I reviewed the patient's medical records. Lab Data I reviewed the patient's lab results. No radiology studies performed this visit Discharge Plan Discharge Patient Disposition: Home Clinical Impression: COPD (chronic obstructive pulmonary disease) Condition: Stable Prescriptions: New albuterol sulfate 2.5 mg/0.5 mL solution for nebulization 2.5 mg inhalation QID PRN (Reason: shortness of breath or wheezing) Qty: 30 0RF No Action ketoconazole 2 % shampoo 1 applic TOPICAL .3 x week Qty: 120 2RF cyanocobalamin (vitamin B-12) 1,000 mcg/mL solution 1,000 mcg IM .monthly Qty: 3 6RF Zyrtec 10 mg tablet 10 mg PO DAILY PRN (Reason: Allergy Symptoms) Qty: 30 3RF ketoconazole 2 % cream 1 applic TOPICAL BID PRN (Reason: Rash) Qty: 30 3RF Rx Instructions: to rash on face and chin (DME) oxygen 2L via NC See Rx Instructions .Route .MEDSUPPLY Qty: 1 0RF Rx Instructions: As directed Breztri Aerosphere 160-9-4.8 mcg/actuation HFA aerosol inhaler 2 inh inhalation BID Qty: 10.7 2RF albuterol sulfate 90 mcg/actuation HFA aerosol inhaler 2 puff inhalation Q4H PRN (Reason: shortness of breath or wheezing) Qty: 18 2RF cholecalciferol (vitamin D3) 50 mcg (2,000 unit) tablet 2,000 unit PO EVERY OTHER DAY Qty: 14 2RF citalopram 20 mg tablet 20 mg PO DAILY Qty: 30 2RF oxybutynin chloride 5 mg tablet 5 mg PO BID Qty: 60 2RF rosuvastatin 10 mg tablet 10 mg PO .at bedtime Qty: 30 2RF metformin 500 mg tablet extended release 24 hr 1,500 mg PO DAILY Qty: 90 2RF Eliquis 5 mg tablet 5 mg PO BID@0900,2100 Qty: 60 2RF furosemide 20 mg tablet 20 mg PO DAILY@0800 Qty: 30 2RF metoprolol tartrate 25 mg tablet 37.5 mg PO BID@0900,2100 Qty: 90 2RF pantoprazole 20 mg tablet,delayed release (DR/EC) 20 mg PO QAM Qty: 30 2RF potassium chloride 10 mEq tablet extended release 10 meq PO BID Qty: 60 2RF Entresto 24-26 mg tablet 1 tab PO BID Qty: 60 2RF (DME) BiPap supplies See Rx Instructions .Route .MEDSUPPLY Qty: 1 0RF Rx Instructions: As directed BiPap supplies 99 months multivitamin Tablet 1 tab PO DAILY@1999 prednisone 20 mg Tablet 40 mg PO DAILY Qty: 4 0RF nitroglycerin [Nitrostat] 0.4 mg Tablet, Sublingual 0.4 mg SUBLINGUAL Q5M PRN (Reason: Chest Pain) Rx Instructions: do not exceed 3 doses per episode vitamin B complex Tablet 1 tab PO DAILY aspirin 81 mg tablet,delayed release (DR/EC) 81 mg PO BEDTIME tramadol 50 mg tablet 50 mg PO Q4H PRN (Reason: Pain) sennosides [Kimmie-osmar] 8.6 mg tablet 17.2 mg PO BEDTIME doxycycline hyclate 100 mg capsule 100 mg PO BID 10 Days Qty: 20 0RF methylprednisolone [Medrol (David)] 4 mg tablets,dose pack See Rx Instructions .ROUTE .COMPLEX Qty: 21 0RF Rx Instructions: orally per package directions Discharge Orders: Discharge ED (Routine); Ordered 06/20/24 Ordered By: Gonzales Young Referrals: Allan Mak, [facility] [Primary Care Provider] - 1 week Patient Instructions: COPD (Chronic Obstructive Pulmonary Disease) (DC) Activity Restrictions/Additional Instructions: Please filler picker your antibiotic and your steroid at the pharmacy tomorrow morning and start taking it as directed. Thank you for choosing [facility] for your healthcare needs today. Please realize that you were seen in the emergency department and that we are providing you with an emergency medical screening exam and this may not be a complete and all exclusive of all testing and/or medical workup we may need to determine your element or severity of your illness. It is very important that you follow-up as instructed with your primary care provider or specialist for the additional evaluation and to discuss your medical treatment plan. You may return to the emergency department should you have concerns or if your condition changes or worsens in any way. Coding Level of Care Code ED Data Processing Mechanic for Baljeet Mcfarland
[2024-06-20] MEDS: doxycycline 100 mg Tablet PO (23:04)
[2024-06-20] MEDS: methylPREDNISolone sod succ 125 mg/2 mL INJ IVP (23:05)
[2024-06-20] MEDS: ipratropium-albuterol 3 mL Neb INHALATION (23:24)
== END 2024-06-20 23:50 | disposition home or self-care (01) ==
PROVIDERS: Emergency Provider Emergency Medicine; PCP Nurse Practitioner
DX: J44.9 Chronic obstructive pulmonary disease, unspecified (principal); Z87.891 Personal history of nicotine dependence
CPT/HCPCS: 94640; 96374; 99284; J2919

== ENCOUNTER → 2024-08-14 11:14 | Outpatient (BNVA) | payer MEDICARE, SELFPAY | PROVIDERS: PCP Nurse Practitioner; Visit Provider Nurse Practitioner | DX: E55.9 Vitamin D deficiency, unspecified (principal); E53.8 Deficiency of other specified B group vitamins; E11.65 Type 2 diabetes mellitus with hyperglycemia; E61.1 Iron deficiency; J44.9 Chronic obstructive pulmonary disease, unspecified; I48.91 Unspecified atrial fibrillation; F41.9 Anxiety disorder, unspecified; F32.9 Major depressive disorder, single episode, unspecified; I50.9 Heart failure, unspecified; R32 Unspecified urinary incontinence; K21.9 Gastro-esophageal reflux disease without esophagitis; I25.10 Atherosclerotic heart disease of native coronary artery without angina pectoris; I10 Essential (primary) hypertension | CPT/HCPCS: 80053; 82306; 82607; 83036; 83550; 85025 ==

== ENCOUNTER → 2024-08-30 15:20 | Outpatient (BNVA) | payer MEDICARE, SELFPAY | PROVIDERS: PCP Nurse Practitioner; Visit Provider Clinical Nurse Specialist Adult Health | DX: N39.0 Urinary tract infection, site not specified (principal) | CPT/HCPCS: 81000; 87086 ==

== ENCOUNTER 2024-09-11 19:41 | Emergency (ER) | payer MEDICARE, SELFPAY ==
[2024-09-11 19:43] VITALS: BP 127/81; PULSE 59; RESP 20; TEMP 36.7; O2SAT 97
--- NOTE | 2024-09-11 19:50 | XRR_ITS ---
PROCEDURE INFORMATION: Exam: XR Right Ribs with PA Chest Exam date and time: 09/11/2024 7:53 PM Age: 79 years old Clinical indication: Injury or trauma; Fall; Rib area; Blunt trauma (contusions or hematomas); Additional info: Fall right lateral rib pain TECHNIQUE: Imaging protocol: Radiologic exam of the right ribs with PA chest. Views: 3 views COMPARISON: CR XR chest 1V portable [id number] 06/20/2024 12:31 PM FINDINGS: Lungs: Mild bibasilar opacities likely represent chronic atelectasis/scarring. No consolidation. Pleural spaces: Unremarkable. No pleural effusion. No pneumothorax. Heart/Mediastinum: Stable mild cardiac enlargement. Redemonstrated hiatal hernia. Bones/joints: No definite acute rib fracture visualized. Surgical anchors in the right humeral head. XR/XR ribs RT mn 3V w CXR1V [id number] IMPRESSION: No acute findings.
--- NOTE | 2024-09-11 19:52 | ED_ITS ---
HPI - General Adult 2 General: Chief complaint: Weakness Stated complaint: fall-weakness Time Seen by Provider: 09/11/24 19:43 History of Present Illness: Patient reviewed [facility] from home with complaints of fall and weakness. Patient fell couple days ago and hurt her right ribs. Daughter said she is been more weak than normal. And her urine has been darker. She is afraid she is getting a urinary tract infection which is causing her falls and her to be weak. Related Data Home Medications Medication Instructions Recorded Confirmed multivitamin 1 tab PO DAILY@199912/07/20 08/14/24 aspirin 81 mg tablet,delayed 81 mg PO BEDTIME 08/05/22 08/14/24 release nitroglycerin 0.4 mg sublingual 0.4 mg sublingual Q5M PRN Chest 08/05/22 08/14/24 tablet (Nitrostat) Pain sennosides 8.6 mg tablet (Kimmie-osmar) 17.2 mg PO BEDTIME 08/05/22 08/14/24 tramadol 50 mg tablet 50 mg PO Q4H PRN Pain 08/05/22 08/14/24 vitamin B complex 1 tab PO DAILY 08/05/22 08/14/24 Previous Rx's Medication Instructions Recorded ketoconazole 2 % shampoo 1 applic topical .3 x week #120 mL 05/12/22 cetirizine 10 mg tablet (Zyrtec) 10 mg PO DAILY PRN Allergy 12/02/23 Symptoms #30 tabs ketoconazole 2 % topical cream 1 applic topical BID PRN Rash #30 12/02/23 grams oxygen 2L via NC #1 ea 12/02/23 BiPap supplies #1 ea 06/10/24 albuterol sulfate 2.5 mg/0.5 mL 2.5 mg (0.5 mL) inhalation QID PRN 06/20/24 solution for nebulization shortness of breath or wheezing #30 ea methylprednisolone 4 mg tablets in See Rx Instructions PO .COMPLEX 06/20/24 a dose pack (Medrol (David)) #21 ea albuterol sulfate 2.5 mg/3 mL 2.5 mg (3 mL) inhalation Q4H PRN 08/14/24 (0.083 %) solution for nebulization shortness of breath or wheezing #300 mL albuterol sulfate 90 mcg/actuation 2 puff inhalation Q4H PRN 08/14/24 aerosol inhaler shortness of breath or wheezing #18 grams apixaban 5 mg tablet (Eliquis) 5 mg PO BID@0900,2100 #60 tabs 08/14/24 budesonide 160 mcg-glycopyr 9 2 inh inhalation BID #10.7 grams 08/14/24 mcg-formot 4.8 mcg/actuation HFA inhaler (Breztri Aerosphere) citalopram 20 mg tablet 20 mg PO DAILY #30 tabs 08/14/24 cyanocobalamin (vitamin B-12) 1,000 mcg IM .monthly #3 mL 08/14/24 1,000 mcg/mL injection solution furosemide 20 mg tablet 20 mg PO DAILY@0800 #30 tabs 08/14/24 metformin 500 mg tablet,extended 1,500 mg (3 x 500 mg) PO DAILY #90 08/14/24 release 24 hr tabs metoprolol tartrate 25 mg tablet 37.5 mg (1.5 x 25 mg) PO 08/14/24 BID@0900,2100 #90 tabs oxybutynin chloride 5 mg tablet 5 mg PO BID #60 tabs 08/14/24 pantoprazole 20 mg tablet,delayed 20 mg PO QAM #30 tabs 08/14/24 release rosuvastatin 10 mg tablet 10 mg PO .at bedtime #30 tabs 08/14/24 sacubitril 24 mg-valsartan 26 mg 1 tab PO BID #60 tabs 08/14/24 tablet (Entresto) docusate sodium 100 mg capsule 100 mg PO BID #60 caps 08/19/24 (Colace) ferrous sulfate 325 mg (65 mg 325 mg PO BID #60 tabs 08/19/24 iron) tablet syringe with needle 3 mL 22 gauge #1 ea 08/20/24 x 1 cholecalciferol (vitamin D3) 50 2,000 unit PO EVERY OTHER DAY #14 08/22/24 mcg (2,000 unit) tablet tabs amoxicillin 500 mg-potassium 1 tab PO TID 7 days #21 tabs 08/30/24 clavulanate 125 mg tablet (Augmentin) doxycycline monohydrate 100 mg 100 mg PO BID #14 tabs 08/30/24 tablet prednisone 20 mg tablet See Rx Instructions .Route 08/30/24 .COMPLEX #14 tabs Allergies Allergy/AdvReac Type Severity Reaction Status Date / Time No Known Allergies Allergy Verified 09/11/24 19:53 Review of Systems 2 General: Reports: 10 or more systems reviewed and unremarkable except in HPI and below PFSH ED 2 PFSH: Medical History Diabetes mellitus with hyperglycemia, without long-term current use of insulin Urolithiasis Superior mesenteric artery stenosis Moderate, noted on CTA 11/2020 Some celiac artery stenosis also noted Renal artery stenosis Moderate, noted on CTA 11/2020 Abnormal nuclear stress test Benign essential HTN Atherosclerotic heart disease of [place] coronary artery without angina pectoris Chronic neck and back pain Recurrent UTI 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 Chronic low back pain Calculus of kidney right; 6 mm without address change clerk time 01/10; 7 mm obstructing right proximal stone; evaluated and treated [facility] at [facility] 02/10 for sepsis, UTI, NSTEMI, and right proximal ureteral calculus with hydronephrosis Bilateral hearing loss 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, unspecified Anxiety and depression HX: breast cancer Chronic osteoarthritis Chronic idiopathic constipation PAD (peripheral artery disease) stent right SFA Mixed hyperlipidemia Vitamin D deficiency Gastro-esophageal reflux disease without esophagitis Asthma, mild persistent Urinary incontinence in female Chronic right shoulder pain Osteoporosis Asymptomatic cholelithiasis Obstructive sleep apnea on BiPAP Type 2 diabetes mellitus with diabetic polyneuropathy Surgical History Hx of bilateral cataract extraction Hx of lithotripsy History of lumpectomy of left breast (~1969) [place] History of shoulder surgery (~2014) right; Dr Chiu, [facility] Hx of bladder repair surgery (~2004) Dr Nunez's office in [place], [place] History of intravascular stent placement (~2003) right leg; [place], [place] Family History Brother Cancer Lung Father , at age 74 Diabetes Cancer colon Mother , age 89 Diabetes CAD (coronary artery disease) Cancer breast Denies family history of Clotting disorder Dementia Hyperlipidemia Psychiatric illness Chronic kidney disease (CKD) Suicide Anesthesia complication Bleeding disorder Family history of premature coronary artery disease Lung disease Hypertension Stroke Social History Smoking and tobacco/nicotine status: former use of tobacco/nicotine Quit status (tobacco/nicotine): has quit using Year quit tobacco: 2001 Former quit date comment: smoked 2PPD x 25 yrs Second hand smoke exposure: No Alcohol intake: never Substance/Drug Use: never Caregiver/support person: Yes Lives independently: Yes Household members: none Marital status: / Current occupational status: retired Current gender identity: Female Special shan needs: No Physical Exam 2 Const: COMMON NORMALS: no acute distress, average body habitus, patient oriented x3, no limitations, healthy appearing, alert and well nourished HENMT: COMMON NORMALS: normocephalic, atraumatic, external ears normal, Normal external nose present and moist oral mucous membranes; hearing grossly not normal bilaterally (Very hard of hearing) HEAD & SCALP: n ormocephalic and atraumatic NOSE: Normal external nose present EXTERNAL EAR: Yes external ears normal Neck/C-Spine: COMMON NORMALS: no JVD Chest: COMMONS NORMALS: normal inspection of the chest; negative for normal palpation of entire chest wall (Tender to palpate right lateral chest wall) Resp: COMMON NORMALS: normal respiratory effort, No retractions, No use of accessory muscles and clear to auscultation bilaterally AUSCULTATION: clear to auscultation bilaterally Cardio: COMMON NORMALS: no JVD, regular rate, regular rhythm, S1 normal heart sound present, S2 normal heart sound present, No gallops present (Cardio), No clicks present (Cardio), No murmurs present (Cardio) and No rub (Cardio) R ATE: regular rate RHYTHM: regular rhythm HEART SOUNDS: S1 normal heart sound present and S2 normal heart sound present GI: COMMON NORMALS: Normal to inspection, nondistended, normoactive bowel sounds present, Soft to palpation, non-tender, No hepatosplenomegaly present and no masses PALPATION: Yes Soft to palpation and Yes No hepatosplenomegaly present Neuro: COMMON NORMALS: patient oriented x3 SENSORIUM/ORIENTATION: Yes alert Course 2 Vital Signs: Vital signs: Vital Signs Temperature 98.0 F 09/11/24 19:43 Pulse Rate 59 L 09/11/24 20:10 Respiratory Rate 18 09/11/24 20:10 Blood Pressure 153/72 09/11/24 20:10 Pulse Oximetry 100 09/11/24 20:10 Oxygen Delivery Me thod Nasal Cannula 09/11/24 20:10 Oxygen Flow Rate 2 09/11/24 20:10 MDM - General Adult Medical Decision Making Lab work was negative as well as x-ray, patient be discharged back home. Medical Records I reviewed the patient's medical records. Lab Data I reviewed the patient's lab results. 09/11/24 20:55 09/11/24 20:55 Radiology Impressions Ribs X-Ray 09/11/24 19:50 IMPRESSION: No acute findings. Laboratory Results WBC 9.04 10^3/uL (3.29-11.43) 09/11/24 20:55 RBC 3.80 10^6/uL (3.85-5.65) L 09/11/24 20:55 Hgb 9.60 g/dL (11.27-16.99) L 09/11/24 20:55 Hct 32.7 % (36-47) L 09/11/24 20:55 MCV 86.1 fl (85-98) 09/11/24 20:55 MCH 25.3 pg (27-33) L 09/11/24 20:55 MCHC 29.4 g/dL (30-55) L 09/11/24 20:55 RDW 17.2 % (12.1-15.1) H 09/11/24 20:55 Plt Count 236 10^3/cmm (157-399) 09/11/24 20:55 MPV 11.4 fL (7.4-10.4) H 09/11/24 20:55 Neut % (Auto) 74.5 % 09/11/24 20:55 Lymph % (Auto) 16.2 % 09/11/24 20:55 [place] % (Auto) 8.4 % 09/11/24 20:55 Eos % (Auto) 0.3 % 09/11/24 20:55 Baso % (Auto) 0.2 % 09/11/24 20:55 Neut # (Auto) 6.73 10^3/uL (1.8-7.7) 09/11/24 20:55 Lymph # (Auto) 1.5 10^3/uL (0.8-4.8) 09/11/24 20:55 [place] # (Auto) 0.8 10^3/uL (0.2-0.9) 09/11/24 20:55 Eos # (Auto) 0.0 10^3/uL (0.0-0.8) 09/11/24 20:55 Baso # (Auto) 0.0 10^3/uL (0.0-0.1) 09/11/24 20:55 Nucleated RBC % (auto) 0 % 09/11/24 20:55 Nucleated RBCs # 0.0 /100WBC 09/11/24 20:55 Sodium 137 mmol/L (136-145) 09/11/24 20:55 Potassium 4.6 mmol/L (3.5-5.1) 09/11/24 20:55 Chloride 96 mmol/L (98-107) L 09/11/24 20:55 Carbon Dioxide 32 mmol/L (22-29) H 09/11/24 20:55 Anion Gap 13.6 (5-19) 09/11/24 20:55 BUN 11 mg/dL (8-23) 09/11/24 20:55 Creatinine 0.7 mg/dL (0.5-0.9) 09/11/24 20:55 GFR Calculation Not Reportable 09/11/24 20:55 Glucose 162 mg/dL (65-115) H 09/11/24 20:55 Calculated Osmolality 287 mOsm/kg (285-295) 09/11/24 20:55 Calcium 8.5 mg/dL (8.5-10.5) 09/11/24 20:55 Total Bilirubin 0.5 mg/dL (0.15-1.2) 09/11/24 20:55 AST 11 U/L (0-32) 09/11/24 20:55 ALT 7 U/L (0-33) 09/11/24 20:55 Alkaline Phosphatase 51 U/L (35-105) 09/11/24 20:55 Total Protein 6.6 g/dL (6.6-8.7) 09/11/24 20:55 Albumin 3.8 g/dL (3.5-5.2) 09/11/24 20:55 Globulin 2.8 g/dL (1.3-4.6) 09/11/24 20:55 Urine Color Yellow (Yellow) 09/11/24 20:07 Urine Appearance Slightly cloudy (CLEAR) 09/11/24 20:07 Urine pH Not Reportable 09/11/24 20:07 Ur Specific [place] Not Reportable 09/11/24 20:07 Urine Protein Not Reportable 09/11/24 20:07 Urine Glucose (UA) Not Reportable 09/11/24 20:07 Urine Ketones Not Reportable 09/11/24 20:07 Urine Blood Not Reportable 09/11/24 20:07 Urine Nitrate Not Reportable 09/11/24 20:07 Urine Bilirubin Not Reportable 09/11/24 20:07 Urine Urobilinogen Not Reportable 09/11/24 20:07 Ur Leukocyte Esterase Not Reportable 09/11/24 20:07 Urine RBC 0-4 /hpf (0-2) H 09/11/24 20:07 Urine WBC 0-4 /hpf (0-5) H 09/11/24 20:07 Ur Squamous Epith Cells 10-15 /hpf (0-5) H 09/11/24 20:07 Amorphous Sediment Not Reportable 09/11/24 20:07 Urine Bacteria None /hpf (NONE) 09/11/24 20:07 All radiology interpretation(s) finalized by discharge Discharge Plan Discharge Patient Disposition: Home Clinical Impression: Fall, Right-sided chest wall pain Condition: Stable Prescriptions: No Action ketoconazole 2 % shampoo 1 applic TOPICAL .3 x week Qty: 120 2RF Zyrtec 10 mg tablet 10 mg PO DAILY PRN (Reason: Allergy Symptoms) Qty: 30 3RF ketoconazole 2 % cream 1 applic TOPICAL BID PRN (Reason: Rash) Qty: 30 3RF Rx Instructions: to rash on face and chin (DME) oxygen 2L via NC See Rx Instructions .Route .MEDSUPPLY Qty: 1 0RF Rx Instructions: As directed albuterol sulfate 90 mcg/actuation HFA aerosol inhaler 2 puff inhalation Q4H PRN (Reason: shortness of breath or wheezing) Qty: 18 2RF Eliquis 5 mg tablet 5 mg PO BID@0900,2100 Qty: 60 2RF albuterol sulfate 2.5 mg /3 mL (0.083 %) solution for nebulization 2.5 mg inhalation Q4H PRN (Reason: shortness of breath or wheezing) Qty: 300 2RF Breztri Aerosphere 160-9-4.8 mcg/actuation HFA aerosol inhaler 2 inh inhalation BID Qty: 10.7 2RF citalopram 20 mg tablet 20 mg PO DAILY Qty: 30 2RF cyanocobalamin (vitamin B-12) 1,000 mcg/mL solution 1,000 mcg IM .monthly Qty: 3 2RF furosemide 20 mg tablet 20 mg PO DAILY@0800 Qty: 30 2RF metformin 500 mg tablet extended release 24 hr 1,500 mg PO DAILY Qty: 90 2RF metoprolol tartrate 25 mg tablet 37.5 mg PO BID@0900,2100 Qty: 90 2RF oxybutynin chloride 5 mg tablet 5 mg PO BID Qty: 60 2RF pantoprazole 20 mg tablet,delayed release (DR/EC) 20 mg PO QAM Qty: 30 2RF rosuvastatin 10 mg tablet 10 mg PO .at bedtime Qty: 30 2RF Entresto 24-26 mg tablet 1 tab PO BID Qty: 60 2RF (DME) BiPap supplies See Rx Instructions .Route .MEDSUPPLY Qty: 1 0RF Rx Instructions: As directed BiPap supplies 99 months prednisone 20 mg tablet See Rx Instructions .Route .COMPLEX Qty: 14 0RF Rx Instructions: 2 tabs PO daily for 4 days, then 1 tab PO daily X 4 days, then 0.5 tab daily for 4 days, then stop; doxycycline monohydrate 100 mg tablet 100 mg PO BID Qty: 14 0RF amoxicillin-pot clavulanate [Augmentin] 500-125 mg tablet 1 tab PO TID 7 Days Qty: 21 0RF ferrous sulfate 325 mg (65 mg iron) tablet 325 mg PO BID Qty: 60 2RF docusate sodium [Colace] 100 mg capsule 100 mg PO BID Qty: 60 2RF (DME) syringe with needle 3 mL 22 gauge x 1 syringe See Rx Instructions .ROUTE .MEDSUPPLY Qty: 1 2RF Rx Instructions: use with B12 injection cholecalciferol (vitamin D3) 50 mcg (2,000 unit) tablet 2,000 unit PO EVERY OTHER DAY Qty: 14 2RF multivitamin Tablet 1 tab PO DAILY@2000 nitroglycerin [Nitrostat] 0.4 mg Tablet, Sublingual 0.4 mg SUBLINGUAL Q5M PRN (Reason: Chest Pain) Rx Instructions: do not exceed 3 doses per episode vitamin B complex Tablet 1 tab PO DAILY aspirin 81 mg tablet,delayed release (DR/EC) 81 mg PO BEDTIME tramadol 50 mg tablet 50 mg PO Q4H PRN (Reason: Pain) sennosides [Kimmie-osmar] 8.6 mg tablet 17.2 mg PO BEDTIME methylprednisolone [Medrol (David)] 4 mg tablets,dose pack See Rx Instructions .ROUTE .COMPLEX Qty: 21 0RF Rx Instructions: orally per package directions albuterol sulfate 2.5 mg/0.5 mL solution for nebulization 2.5 mg inhalation QID PRN (Reason: shortness of breath or wheezing) Qty: 30 0RF Discharge Orders: Discharge ED (Routine); Ordered 09/11/24 Ordered By: Gonzales Young Referrals: Allan Mak, GRINDING ROOM INSPECTORJellyC [Primary Care Provider] - 1 week Patient Instructions: Chest Pain - Chest Wall Activity Restrictions/Additional Instructions: Thank you for choosing [facility] for your healthcare needs today. Please realize that you were seen in the emergency department and that we are providing you with an emergency medical screening exam and this may not be a complete and all exclusive of all testing and/or medical workup we may need to determine your element or severity of your illness. It is very important that you follow-up as instructed with your primary care provider or specialist for the additional evaluation and to discuss your medical treatment plan. You may return to the emergency department should you have concerns or if your condition changes or worsens in any way. Coding Level of Care Code ED Assembler [employer] for Baljeet Mcfarland
[2024-09-11 20:10] VITALS: BP 153/72; PULSE 59; RESP 18; O2SAT 100
[2024-09-11 20:14] LABS: Add Urine Microscopic? NO
[2024-09-11 20:25] LABS: Urine Color Yellow (Yellow)
[2024-09-11 20:26] LABS: RBC Urine 0-4 /hpf (0-2); UA Manual Slide Review YES; Urine Appearance Slightly Cloudy (CLEAR); WBC Urine 0-4 /hpf (0-5)
[2024-09-11 20:27] LABS: Add Urine Culture? No; Charge for UA Resulting for Rev
[2024-09-11 21:12] LABS: Basophils % 0.2 %; Eosinophils % 0.3 %; Hematocrit 32.7 % (36-47); Lymphocytes # 1.5 10^3/uL (0.8-4.8); Lymphocytes % 16.2 %; Mean Corpuscular HGB Conc 29.4 g/dL (30-55); Mean Corpuscular Hemoglobin 25.3 pg (27-33); Mean Corpuscular Volume 86.1 fl (85-98); Mean Platelet Volume 11.4 fL (7.4-10.4); Monocytes # 0.8 10^3/uL (0.2-0.9); Monocytes % 8.4 %; Neutrophils # 6.73 10^3/uL (1.8-7.7); Neutrophils % 74.5 %; Nucleated Red Blood Cells % 0 %; Platelet Count 236 10^3/cmm (157-399); Red Cell Distribution Width 17.2 % (12.1-15.1); White Blood Count 9.04 10^3/uL (3.29-11.43)
[2024-09-11 21:23] LABS: Alanine Aminotransferase 7 U/L (0-33); Albumin Level 3.8 g/dL (3.5-5.2); Alkaline Phosphatase 51 U/L (35-105); Anion Gap 13.6 (5-19); Aspartate Amino Transferase 11 U/L (0-32); Blood Urea Nitrogen 11 mg/dL (8-23); Calcium 8.5 mg/dL (8.5-10.5); Carbon Dioxide 32 mmol/L (22-29); Chloride 96 mmol/L (98-107); Globulin 2.8 g/dL (1.3-4.6); Glucose 162 mg/dL (65-115); Osmolality Calculated 287 mOsm/kg (285-295); Potassium 4.6 mmol/L (3.5-5.1); Sodium 137 mmol/L (136-145); Total Bilirubin 0.5 mg/dL (0.15-1.2); Total Protein 6.6 g/dL (6.6-8.7)
[2024-09-11 21:43] VITALS: BP 140/69; PULSE 58; RESP 16; O2SAT 100
== END 2024-09-11 22:00 | disposition home or self-care (01) ==
PROVIDERS: Emergency Provider Emergency Medicine; PCP Nurse Practitioner
DX: R07.89 Other chest pain (principal); W19.XXXA Unspecified fall, initial encounter; Z79.01 Long term (current) use of anticoagulants; Z79.84 Long term (current) use of oral hypoglycemic drugs; Z79.82 Long term (current) use of aspirin; Z87.891 Personal history of nicotine dependence; E11.42 Type 2 diabetes mellitus with diabetic polyneuropathy; I10 Essential (primary) hypertension; Z85.3 Personal history of malignant neoplasm of breast; E78.5 Hyperlipidemia, unspecified
CPT/HCPCS: 36415; 71101; 80053; 81003; 85025; 99284

== ENCOUNTER → 2024-10-30 13:45 | Outpatient (BNVA) | payer MEDICARE, SELFPAY | PROVIDERS: PCP Nurse Practitioner; Visit Provider Nurse Practitioner | DX: E11.65 Type 2 diabetes mellitus with hyperglycemia (principal); I10 Essential (primary) hypertension | CPT/HCPCS: 80053; 80061; 84443; 85025 ==

== ENCOUNTER → 2025-01-14 14:40 | Outpatient (BNVA) | payer MEDICARE, SELFPAY | PROVIDERS: PCP Nurse Practitioner; Visit Provider Nurse Practitioner | DX: E11.65 Type 2 diabetes mellitus with hyperglycemia (principal); E55.9 Vitamin D deficiency, unspecified; J44.9 Chronic obstructive pulmonary disease, unspecified; D50.9 Iron deficiency anemia, unspecified | CPT/HCPCS: 80053; 80061; 82306; 82607; 83036; 83540; 84443; 85025 ==

== ENCOUNTER 2025-01-31 12:08 | Outpatient (CLI) | payer MEDICARE, SELFPAY ==
[2025-01-23] MEDS: iohexol 350 mg/mL 500 mL Btl (per mL) PO (16:12)
--- NOTE | 2025-01-31 12:00 | CT_ITS ---
WS: [id number] CT CHEST, ABDOMEN AND PELVIS WITH CONTRAST HISTORY: J44.9 - Chronic obstructive pulmonary disease, unspecified, weight loss. TECHNIQUE: Contiguous 5 mm axial imaging performed through the chest, abdomen and pelvis with IV contrast, oral contrast has been provided. Coronal and sagittal reformats chest. Coronal and sagittal reformats through the abdomen and pelvis. All CT scans at [facility] use at least one of these dose optimization techniques: automated exposure control; mA and/or kV adjustment per patient size (includes targeted exams where dose is matched to clinical indication); or iterative reconstruction. CONTRAST: Omnipaque 350; 100 mL IV. DLP: 483.85 mGy.cm COMPARISON: 08/05/2022, 01/22/[address]: Pulmonary hyperexpansion from centrilobular emphysema. Mild breathing motion artifact. Stable tiny pulmonary nodules towards the lingula. No pneumonia. A few granulomata are identified. Heart is slightly enlarged. Pulmonary arteries enlarged from hypertension. Mild atherosclerosis aorta. There is oral contrast within the esophagus. Contrast extends to the thoracic inlet. No mediastinal or hilar adenopathy. Marked increase in thoracic kyphosis. Osteopenia. Abdomen CT: Motion artifact. Liver is normal size. No abnormality identified. Normal spleen. Gallbladder contains several stones. No bile duct dilatation. Atrophic pancreas. No pancreatic duct dilatation. No adrenal mass. Atrophic kidneys with no obstruction. Dense calcification within the aorta and mesenteric arteries. Very limited opacification of the mesenteric arteries is probably due to the limited contrast bolus. Mesenteric arteries are heavily calcified. No ischemic changes noted. Stomach is well distended with oral contrast. No small bowel obstruction. No colon obstruction. Negative appendix. Moderate sigmoid diverticulosis without acute diverticulitis. Pelvic CT: No free fluid or adenopathy in the pelvis. Heavily calcified uterus. Suspect fibroid uterus. Endometrium 6 mm. Mild increase in lumbar lordosis. No destructive bone lesions. CT/CT chest abdpel w/*[id number] IMPRESSION: 1. Chronic emphysema with no pneumonia. 2. No pathologically enlarged lymph nodes in the chest, abdomen or pelvis. 3. Large amount of oral contrast filling nearly the entire esophagus. Probably due to reflux disease. Patient is at risk for aspiration pneumonia. 4. Cholelithiasis without acute cholecystitis. 5. Extensive vascular atherosclerotic disease. Heavy calcification of the aort a and mesenteric arteries. Patient is at risk for ischemia. No ischemia identif ied on today's exam. 6. Sigmoid diverticulosis without acute diverticulitis. 7. No ascites. 8. Osteopenia. Sarcopenia.
[2025-01-31] MEDS: iohexol 350 mg/mL 500 mL Btl (per mL) PO (12:39)
[2025-01-31] MEDS: iohexol 350 mg/mL 500 mL Btl (per mL) IV (13:26)
== END 2025-01-31 12:09 | disposition home or self-care (01) ==
PROVIDERS: PCP Nurse Practitioner; Visit Provider Nurse Practitioner
DX: J44.9 Chronic obstructive pulmonary disease, unspecified (principal); J43.8 Other emphysema; R93.89 Abnormal findings on diagnostic imaging of other specified body structures; K80.20 Calculus of gallbladder without cholecystitis without obstruction; I70.0 Atherosclerosis of aorta; K55.1 Chronic vascular disorders of intestine; K57.30 Diverticulosis of large intestine without perforation or abscess without bleeding; M85.80 Other specified disorders of bone density and structure, unspecified site; M62.84 Sarcopenia; J43.2 Centrilobular emphysema; J84.10 Pulmonary fibrosis, unspecified; I77.89 Other specified disorders of arteries and arterioles; I28.9 Disease of pulmonary vessels, unspecified; M40.294 Other kyphosis, thoracic region; K86.89 Other specified diseases of pancreas; N26.1 Atrophy of kidney (terminal); N85.8 Other specified noninflammatory disorders of uterus
CPT/HCPCS: 71260; 74177

== ENCOUNTER 2025-03-18 17:20 | Inpatient (IN) | payer MEDICARE, SELFPAY ==
[2025-03-18] VITALS (12 sets, daily range): BP systolic 102–150; BP diastolic 50–83; PULSE 66–158; RESP 16–27; TEMP 37.4–37.6; O2SAT 92–100
--- NOTE | 2025-03-18 17:23 | ECG_ITS ---
[facility]: 2025-[facility]18 Pat Name: Lucy Galindo Department: Room: Gender: Female [employer]: : 1945 Requested By: Rosalia Aleman Order Number: [id number] Jimi MD: Chavez Gunn M.D. Measurements Intervals [place] Rate: 129 P: 0 MT: 0 QRS: 18 QRSD: 112 T: 224 QT: 397 QTc: 582 Interpretive Statements ATRIAL FIBRILLATION WITH RAPID VENTRICULAR RESPONSE WITH ABERRANT CONDUCTION OR VENTRICULAR PREMATURE COMPLEXES MODERATE INTRAVENTRICULAR CONDUCTION DELAY [110+ ms QRS DURATION] ST DEVIATION AND MODERATE T-WAVE ABNORMALITY, CONSIDER ANTEROLATERAL ISCHEMIA [-0.1+ mV T-WAVE IN V3-V6] ST DEVIATION AND MODERATE T-WAVE ABNORMALITY, CONSIDER INFERIOR ISCHEMIA [-0.1+ mV T-WAVE IN II/aVF] Compared to ECG 06/20/2024 12:11:04 Ventricular premature complex(es) now present Aberrant conduction of supraventricular beat(s) now present Short MT interval no longer present Electronically Signed On 03-21-2025 09:06:57 CDT by Chavez Gunn M.D. [email or web address]
--- NOTE | 2025-03-18 17:23 | XRR_ITS ---
PROCEDURE INFORMATION: Exam: XR Chest Exam date and time: 03/18/2025 5:55 PM Age: 79 years old Clinical indication: Shortness of breath; Additional info: SOB TECHNIQUE: Imaging protocol: Radiologic exam of the chest. Views: 1 view. COMPARISON: CT chest abdpel w/*[id number] 01/31/2025 1:12 PM FINDINGS: Lungs: Lungs are hyperinflated. No focal consolidation. Chronic interstitial markings and bibasilar scarring. Pleural spaces: Unremarkable. No pleural effusion. No pneumothorax. Heart/Mediastinum: Mild cardiac enlargement, stable. Hiatal hernia. Bones/joints: Unremarkable. XR/XR chest 1V portable [id number] IMPRESSION: No acute cardiopulmonary process. Chronic findings as above.
--- OUTSIDE RECORDS SUMMARY | 2025-03-18 17:32 | XMS_ITS | Encounter Summary ---
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); CA in Situ Breast Social History Tobacco Use Types Packs/Day Years Used Date Smoking Tobacco: Never Assessed Comments Unknown Sex and Gender Information Value Date Recorded Sex Assigned at Not on file 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
--- OUTSIDE RECORDS SUMMARY | 2025-03-18 17:32 | XMS_ITS | Encounter Summary ---
Author Organization [facility] Address [address] [place] [address] Care Team Providers Care Structures Mechanic Name Role Phone Fabian López DO Primary Care Provider [phone] Encounter Details Date Type Department Care Team (Latest Contact Info) Description 08/19/2006 Outpatient Historical [facility] Gen Spec Surg 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
--- OUTSIDE RECORDS SUMMARY | 2025-03-18 17:32 | XMS_ITS | Clinical Summary ---
Author Organization [facility] Address [address] [facility] Attn: Epic Prelude ADT [place] [address] Care Team Providers Care Patient'S Librarian Name Role Phone MaribelFabian Primary Care Provider [phone] Allergies No known active allergies Medications traMADoL (ULTRAM) 50 mg tablet Take 100 mg by mouth every 8 hours as needed for Pain. 08/22/2015 Active Fish Oil-[place]-3 Fatty Acids 360-1,200 mg Capsule Take 2 Caplet by mouth daily. 08/22/2015 Active fosinopriL (MONOPRIL) 10 mg tablet Take 10 mg by mouth daily. 08/22/2015 Active magnesium oxide 500 mg Tablet Take 1 Tablet by mouth daily. 08/22/2015 Active acetaminophen (TYLENOL) 500 mg tablet Take 1,000 mg by mouth every 6 hours as needed for Pain or Pain, Mild / Temperature. 08/22/2015 Active glucosam/nini-m sm1/C/marguerite/bosw (OSTEO BI-FLEX TRIPLE STRENGTH ORAL) Take 2 Tablet by mouth daily. 08/22/2015 Active citalopram (CeleXA) 20 mg tablet Take 1 Tablet (20 mg) by mouth daily at bedtime Stop taking until August 29, 2015.. 08/22/2015 Active multivitamin,tx -iron-ca-min (THERA-M) 27-0.4 mg Tablet Take 1 Tablet by mouth daily. 08/22/2015 Active azithromycin (ZITHROMAX) 500 mg tablet Take 1 tablet 08/23 and the other 08/24/15.. 2 Tablet None 08/22/2015 Active ascorbic acid/vitamin E/biotin (HAIR,SKIN & NAILS WITH BIOTIN ORAL) Take 3 Caplet by mouth daily. 08/22/2015 Active pravastatin (PRAVACHOL) 40 mg tablet Take 40 mg by mouth Daily LATE. 08/22/2015 Active aspirin (ECOTRIN EC) 81 mg Tablet, Delayed Release (E.C.) Take 81 mg by mouth daily. 08/22/2015 Active Cholecalciferol , Vitamin D3, 50 mcg (2,000 unit) Capsule Take 1 Caplet by mouth. 08/22/2015 Active guaiFENesin (Mucinex) Tablet Extended Release 12hr Take 1 Tablet by mouth every 12 hours as needed. 08/22/2015 Active calcium citrate-vitamin d3 (CITRACAL D MAX) 315 mg-6.25 mcg (250 unit) Tablet Take 2 Tablet by mouth daily. 08/22/2015 Active polyethylene glycol 3350 (MIRALAX) 17 gram/dose Powder Take 1 SCOOP by mouth daily Dissolve in 8 ounces of fluid and drink entire liquid . 08/22/2015 Active metFORMIN (GLUCOPHAGE) 500 mg tablet Take 500 mg by mouth 2 times daily with meals. 08/22/2015 Active omeprazole (PriLOSEC) 20 mg Capsule, Delayed Release(E.C.) Take 20 mg by mouth daily. 08/22/2015 Active Active Problems Problem Noted Date Diagnosed Date High cholesterol Social History Tobacco Use Types Packs/Day Years Used Date Smoking Tobacco: Former Cigarettes Q uit: 09/18/2001 Smokeless Tobacco: Never Alcohol Use Standard Drinks/Week Comments No 0 (1 standard drink = 0.6 oz pur e alcohol) Comments Unknown Sex and Gender Information Value Date Recorded Sex Assigned at Not on file Legal Sex Female 2:17 PM COLLEGE SPECIALIST Gender Identity Not on file Sexual Orientation Not on file Last Filed Vital Signs Vital Sign Reading Time Taken Comments Blood Pressure 119/69 08/22/2015 12:50 PM COLLEGE SPECIALIST Pulse - - Temperature 36.7 C (98.1 F) 08/22/2015 12:50 PM COLLEGE SPECIALIST Respiratory Rate 19 08/22/2015 12:50 PM COLLEGE SPECIALIST Oxygen Saturation - - Inhaled Oxygen Concentration - - Weight 54.4 kg (120 lb) 08/22/2015 11:08 AM COLLEGE SPECIALIST Height 149.9 cm (4' 11 ) 08/22/2015 11:08 AM COLLEGE SPECIALIST Body Mass Index 24.24 08/22/2015 11:08 AM COLLEGE SPECIALIST Plan of Treatment Health Maintenance Due Date Last Done Comments DTAP/TDAP/TD VACCINES (1 - Tdap) 1964 PNEUMOCOCCAL VACCINE 50+ YEARS (1 of 1 - PCV) 03/19/19 95 ZOSTER VACCINE (1 of 2) 1995 OSTEOPOROSIS SCREENING 2010 RSV VACCINE (60+ or ) (1 - 1-dose 75+ series) 2020 INFLUENZA VACCINE (#1) 2025 Medical Devices Implanted Type Area Projection Welding Machine Operator Device Identifier Shelf Expiration Date Model / Serial / Lot Stent Description:cardiac Stent Description:Behind right kne e Care Teams Patient'S Librarian Relationship Specialty Start Date End Date Fabian López DO [address] [place] [address] PCP - General Specialist 08/22/15
--- OUTSIDE RECORDS SUMMARY | 2025-03-18 17:32 | XMS_ITS | Encounter Summary ---
Author Organization [facility] Address [address] [place] [address] Care Team Providers Care Venetian Blind Cleaner Name Role Phone Fabian López DO Primary Care Provider [phone] Encounter Details Date Type Department Care Team (Latest Contact Info) Description 09/15/2006 Outpatient Historical [facility] [address] [facility] [address] [place] [address] Nataly Arnold MD NO ADDRESS ON FILE Malignant Neoplasm of Breast (Female), Unspecified Site (CMS/HCC) (Primary Dx); Mammographic Microcalcification Social History Tobacco Use Types Packs/Day Years Used Date Smoking Tobacco: Never Assessed Comments Unknown Sex and Gender Information Value Date Recorded Sex Assigned at Not on file Legal Sex Female 4:50 AM PAROLE HEARING OFFICER Gender Identity Not on file Sexual Orientation Not on file documented as of this encounter Plan of Treatment Not on file documented as of this encounter Visit Diagnoses Diagnosis Malignant neoplasm of breast (female), unspecified site- Primary Mammographic microcalcification documented in this encounter Care Teams Venetian Blind Cleaner Relationship Specialty Start Date End Date Fabian López DO [address] [place] [address] PCP - General Specialist 08/22/15 documented as of this encounter
--- OUTSIDE RECORDS SUMMARY | 2025-03-18 17:32 | XMS_ITS | Encounter Summary ---
Author Organization [facility] Address [address] [place] [address] Care Team Providers Care Levers Lace Machine Operator Name Role Phone Fabian López DO Primary Care Provider [phone] Encounter Details Date Type Department Care Team (Latest Contact Info) Description 09/29/2006 Outpatient Historical [facility] [address] [place] [address] Jasvir Hughes MD NO ADDRESS ON FILE Malignant Neoplasm of Breast (Female), Unspecified Site (CMS/HCC) (Primary Dx) Social History Tobacco Use Types Packs/Day Years Used Date Smoking Tobacco: Never Assessed Comments Unknown Sex and Gender Information Value Date Recorded Sex Assigned at Not on file Legal Sex Female 4:50 AM SENIOR COPYWRITER Gender Identity Not on file Sexual Orientation Not on file documented as of this encounter Plan of Treatment Not on file documented as of this encounter Visit Diagnoses Diagnosis Malignant neoplasm of breast (female), unspecified site- Primary documented in this encounter Care Teams Levers Lace Machine Operator Relationship Specialty Start Date End Date Fabian López DO [address] [place] [address] PCP - General Specialist 08/22/15 documented as of this encounter
--- OUTSIDE RECORDS SUMMARY | 2025-03-18 17:32 | XMS_ITS | Encounter Summary ---
Author Organization [employer] [facility] Address [address] [place] [address] Care Team Providers Care Software Quality Assurance Analyst Name Role Phone Fabian López DO Primary Care Provider [phone] Encounter Details Date Type Department Care Team (Latest Contact Info) Description 09/15/2006 Outpatient [facility] [address] [place] [address] Jasvir Hughes MD NO ADDRESS ON FILE Malignant Neoplasm of Breast (Female), Unspecified Site (CMS/HCC) (Primary Dx) Social History Tobacco Use Types Packs/Day Years Used Date Smoking Tobacco: Never Assessed Comments Unknown Sex and Gender Information Value Date Recorded Sex Assigned at Not on file Legal Sex Female 4:50 AM CATAPULT AND ARRESTING GEAR OFFICER Gender Identity Not on file Sexual Orientation Not on file documented as of this encounter Plan of Treatment Not on file documented as of this encounter Visit Diagnoses Diagnosis Malignant neoplasm of breast (female), unspecified site- Primary documented in this encounter Care Teams Software Quality Assurance Analyst Relationship Specialty Start Date End Date Fabian López DO [address] [place] [address] PCP - General Specialist 08/22/15 documented as of this encounter
--- OUTSIDE RECORDS SUMMARY | 2025-03-18 17:32 | XMS_ITS | Encounter Summary ---
Author Organization [facility] Address [address] [facility] Attn: [place] [address] Care Team Providers Care Clinical Science Consultant Name Role Phone Fabian López DO Primary Care Provider [phone] Encounter Details Date Type Department Care Team (Late st Contact Info) Description 09/18/2001 Inpatient Historical Mauricio Meeks MD [address] [facility] [address] [place] [id number] ADMINISTRTVE ENCOUNT NOS (Primary Dx) Social History Tobacco Use Types Packs/Day Years Used Date Smoking Tobacco: Never Assessed Comments Unknown Sex and Gender Information Value Date Recorded Sex Assigned at Not on file Legal Sex Female 4:50 AM BULLDOZER OPERATOR Gender Identity Not on file Sexual Orientation Not on file documented as of this encounter Plan of Treatment Not on file documented as of this encounter Visit Diagnoses Diagnosis Encounters for unspecified administrative purpose- Primary documented in this encounter Care Teams Clinical Science Consultant Relationship Specialty Start Date End Date Fabian López DO [address] [place] [address] PCP - General Specialist 08/22/15 documented as of this encounter
--- OUTSIDE RECORDS SUMMARY | 2025-03-18 17:32 | XMS_ITS | Encounter Summary ---
Author Organization [facility] Address [address] [place] [address] Care Team Providers Care Field Consultant Name Role Phone Fabian López DO Primary Care Provider [phone] Encounter Details Date Type Department Care Team (Latest Contact Info) Description 10/05/2006 Outpatient Historical [facility] Gen Spec Surg [place] 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); CA in Situ Breast; Follow-Up Examination, Following Unspecified Surgery Social History Tobacco Use Types Packs/Day Years Used Date Smoking Tobacco: Never Assessed Comments Unknown Sex and Gender Information Value Date Recorded Sex Assigned at Not on file Legal Sex Female 4:50 AM WIND FIELD MANAGER Gender Identity Not on file Sexual Orientation Not on file documented as of this encounter Plan of Treatment Not on file documented as of this encounter Visit Diagnoses Diagnosis Malignant neoplasm of lower-inner quadrant of female breast (CMS/HCC)- Primary Malignant neoplasm of lower-inner quadrant of female breast 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
--- OUTSIDE RECORDS SUMMARY | 2025-03-18 17:32 | XMS_ITS | Clinical Summary ---
Author Organization [facility] Address [address] [place] [address] Care Team Providers Care Protective Services Social Worker Name Role Phone Fabian López Primary Care Provider [phone] Allergies No known active allergies Medications aspirin (ECOTRIN EC) 81 mg Tablet, Delayed Release (E.C.) Take 81 mg by mouth daily. Active omeprazole (PRILOSEC) 20 mg Capsule, Delayed Release(E.C.) Take 20 mg by mouth daily. Active pravastatin (PRAVACHOL) 40 mg tablet Take 40 mg by mouth Daily LATE. Active metFORMIN (GLUCOPHAGE) 500 mg tablet Take 500 mg by mouth 2 times daily with meals. Active traMADol (ULTRAM) 50 mg tablet Take 100 mg by mouth every 8 hours as needed for Pain. Active fosinopril (MONOPRIL) 10 mg tablet Take 10 mg by mouth daily. Active calcium citrate-vitamin d3 (CITRACAL D MAX) 315-250 mg-unit Tablet Take 2 Tablet by mouth daily. Active Cholecalciferol , Vitamin D3, 2,000 unit Capsule Take 1 Caplet by mouth. Active multivitamin,tx -iron-ca-min (THERA-M) 27-0.4 mg Tablet Take 1 Tablet by mouth daily. Active magnesium oxide 500 mg Tablet Take 1 Tablet by mouth daily. Active ASCORBIC ACID/VITAMIN E/BIOTIN (HAIR,SKIN & NAILS WITH BIOTIN ORAL) Take 3 Caplet by mouth daily. Active GLUC/TYLOR-MSM#1 /C/CHARLES/MARY/BOR (OSTEO BI-FLEX TRIPLE STRENGTH ORAL) Take 2 Tablet by mouth daily. Active Fish Oil-[place]-3 Fatty Acids 360-1,200 mg Capsule Take 2 Caplet by mouth daily. Active acetaminophen (TYLENOL) 500 mg tablet Take 1,000 mg by mouth every 6 hours as needed for Pain or Pain, Mild / Temperature. Active polyethylene glycol 3350 (MIRALAX) 17 gram/dose Powder Take 1 SCOOP by mouth daily Dissolve in 8 ounces of fluid and drink entire liquid . Active Guaifenesin 1,200 mg Tablet Extended Release 12hr Take 1 Tablet by mouth every 12 hours as needed. Active azithromycin (ZITHROMAX) 500 mg tablet Take 1 tablet 08/23 and the other 08/24/15.. 2 Tablet None 08/22/2015 Active citalopram (CELEXA) 20 mg tablet Take 1 Tablet (20 mg) by mouth daily at bedtime Stop taking until August 29, 2015.. 08/22/2015 Active Active Problems Problem Noted Date Diagnosed Date High cholesterol Social History Tobacco Use Types Packs/Day Years Used Date Smoking Tobacco: Former Cigarettes 2 30 0 09/18/1971 - 09/18/2001 Smokeless Tobacco: Never Alcohol Use Standard Drinks/Week Comments No 0 (1 standard drink = 0.6 oz pur e alcohol) Comments No Sex and Gender Information Value Date Recorded Sex Assigned at Not on file Legal Sex Female 4:50 AM CARD RUNNER Gender Identity Not on file Sexual Orientation Not on file Last Filed Vital Signs Vital Sign Reading Time Taken Comments Blood Pressure 119/69 08/22/2015 12:50 PM CARD RUNNER Pulse - - Temperature 36.7 C (98.1 F) 08/22/2015 12:50 PM CARD RUNNER Respiratory Rate 19 08/22/2015 12:50 PM CARD RUNNER Oxygen Saturation 99% 08/22/2015 12:50 PM CARD RUNNER Inhaled Oxygen Concentration - - Weight 54.4 kg (120 lb) 08/22/2015 11:08 AM CARD RUNNER Height 149.9 cm (4' 11 ) 08/22/2015 11:08 AM CARD RUNNER Body Mass Index 24.24 08/22/2015 11:08 AM CARD RUNNER Plan of Treatment Health Maintenance Due Date Last Done Comments DTAP/TDAP/TD VACCINES (1 - Tdap) 1964 PNEUMOCOCCAL VACCINE 50+ YEARS (1 of 1 - PCV) 03/19/19 95 ZOSTER VACCINE (1 of 2) 1995 OSTEOPOROSIS SCREENING 2010 RSV VACCINE (60+ or ) (1 - 1-dose 75+ series) 2020 INFLUENZA VACCINE (#1) 2025 Medical Devices Implanted Type Area Metallurgist Process Device Identifier Shelf Expiration Date Model / Serial / Lot Stent Description:cardiac Stent Description:Behind right kne e Insurance MEDICARE PART A AND B [facility] Care Teams Protective Services Social Worker Relationship Specialty Start Date End Date Fabian López DO [address] [place] [address] PCP - General Specialist 08/22/15
--- OUTSIDE RECORDS SUMMARY | 2025-03-18 17:32 | XMS_ITS | Encounter Summary ---
Author Organization [facility] Address [address] [place] [address] Care Team Providers Care Timber Skidder Name Role Phone MaribelFabian Primary Care Provider [phone] Encounter Details Date Type Department Care Team (Late st Contact Info) Description 08/26/2007 Outpatient Historical [facility], Physician NO ADDRESS ON FILE Valdo Ramsey MD NO ADDRESS ON FILE Mauricio Meeks MD [address] [facility] [address] [place] [address] Social History Tobacco Use Types Packs/Day Years Used Date Smoking Tobacco: Never Assessed Comments Unknown Sex and Gender Information Value Date Recorded Sex Assigned at Not on file Legal Sex Female 4:50 AM MAILROOM ASSOCIATE Gender Identity Not on file Sexual Orientation Not on file documented as of this encounter Plan of Treatment Not on file documented as of this encounter Procedures Procedure Name Priority Date/Time Associated Diagnosis Comments CARDIAC ENZYMES Routine 08/27/2007 5:19 AM MAILROOM ASSOCIATE ALT Routine 08/27/2007 5:19 AM MAILROOM ASSOCIATE AST Routine 08/27/2007 5:19 AM MAILROOM ASSOCIATE LIPID PANEL Routine 08/27/2007 5:19 AM MAILROOM ASSOCIATE CARDIAC ENZYMES Routine 08/26/2007 11:39 PM MAILROOM ASSOCIATE CARDIAC ENZYMES Routine 08/26/2007 5:14 PM MAILROOM ASSOCIATE documented in this encounter Results * (ABNORMAL) LIPID PANEL (08/27/2007 5:19 AM MAILROOM ASSOCIATE) CHOLESTEROL 103 75 - 200 mg/dL INTERFACE SYSTEM HDL 34(L) 40 - 60 mg/dL INTERFACE SYSTEM TRIGLYCERIDE 81 0 - 200 mg/dL INTERFACE SYSTEM CALCULATED LDL CHOLESTEROL 53 0 - 130 mg/dL INTERFACE SYSTEM CALCULATED TOTAL CHOLESTEROL TO HDL RATIO 3.03(L) 3.27 - 4.44 INTERFACE SYSTEM 08/27/2007 5:19 AM MAILROOM ASSOCIATE us Mauricio Meeks MD CHEMISTRY ORDERABLES Edited Performing Organization Address City/[facility] Co de Phone Number INTERFACE SYSTEM Refer to clinic/hospital department * ALT (08/27/2007 5:19 AM MAILROOM ASSOCIATE) ALT 19 4 - 36 IU/L INTERFAC E SYSTEM 08/27/2007 5:19 AM MAILROOM ASSOCIATE us Mauricio Meeks MD CHEMISTRY ORDERABLES Edited Performing Organization Address City/[facility] Co de Phone Number INTERFACE SYSTEM Refer to clinic/hospital department * AST (08/27/2007 5:19 AM MAILROOM ASSOCIATE) AST 17 8 - 33 U/L INTERFACE SYSTEM 08/27/2007 5:19 AM MAILROOM ASSOCIATE us Mauricio Meeks MD CHEMISTRY ORDERABLES Edited Performing Organization Address City/[facility] Co de Phone Number INTERFACE SYSTEM Refer to clinic/hospital department * CARDIAC ENZYMES (08/27/2007 5:19 AM MAILROOM ASSOCIATE) TROPONIN I <0.1 0.0 - 1.3 ng/mL INTERFACE SYSTEM CKMB 0.9 0.0 - 5.0 ng/mL INTERFACE SYSTEM 08/27/2007 5:19 AM MAILROOM ASSOCIATE Valdo Ramsey MD CHEMISTRY ORDERABLES Edit ed Performing Organization Address [facility] de Phone Number INTERFACE SYSTEM Refer to clinic/hospital department * CARDIAC ENZYMES (08/26/2007 11:39 PM MAILROOM ASSOCIATE) TROPONIN I <0.1 0.0 - 1.3 ng/mL INTERFACE SYSTEM CKMB 0.7 0.0 - 5.0 ng/mL INTERFACE SYSTEM 08/26/2007 11:3 9 PM MAILROOM ASSOCIATE Valdo Ramsey MD CHEMISTRY ORDERABLES Edit ed Performing Organization Address [facility] Phone Number INTERFACE SYSTEM Refer to clinic/hospital department * CARDIAC ENZYMES (08/26/2007 5:14 PM MAILROOM ASSOCIATE) TROPONIN I <0.1 0.0 - 1.3 ng/mL INTERFACE SYSTEM CKMB 1.1 0.0 - 5.0 ng/mL INTERFACE SYSTEM 08/26/2007 5:14 PM MAILROOM ASSOCIATE Valdo Ramsey MD CHEMISTRY ORDERABLES Edit ed Performing Organization Address [facility] Phone Number INTERFACE SYSTEM Refer to clinic/hospital department documented in this encounter Visit Diagnoses Not on filedocumented in this encounter Care Teams Timber Skidder Relationship Specialty Start Date End Date Fabian López DO [address] [place] [address] PCP - General Specialist 08/22/15 documented as of this encounter
--- OUTSIDE RECORDS SUMMARY | 2025-03-18 17:32 | XMS_ITS | Encounter Summary ---
Author Organization [facility] Address [address] [place] [address] Care Team Providers Care Cage Loader Name Role Phone Fabian López DO Primary Care Provider [phone] Encounter Details Date Type Department Care Team (Latest Contact Info) Description 11/04/2006 Outpatient Historical [facility] Gen Spec Surg [place] 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
--- OUTSIDE RECORDS SUMMARY | 2025-03-18 17:32 | XMS_ITS | Encounter Summary ---
Author Organization [facility] Address [address] [place] [address] Care Team Providers Care Patient Accounts Specialist Name Role Phone Fabian López DO Primary Care Provider [phone] Encounter Details Date Type Department Care Team (Latest Contact Info) Description 09/21/2006 Outpatient Historical [facility] Gen Spec Surg [place] [address] [place] [address] Jasvir Hughes MD NO ADDRESS ON FILE Malignant Neoplasm of Breast (Female), Unspecified Site (CMS/HCC) (Primary Dx) Social History Tobacco Use Types Packs/Day Years Used Date Smoking Tobacco: Never Assessed Comments Unknown Sex and Gender Information Value Date Recorded Sex Assigned at Not on file Legal Sex Female 4:50 AM TELEVISION ANNOUNCER Gender Identity Not on file Sexual Orientation Not on file documented as of this encounter Plan of Treatment Not on file documented as of this encounter Visit Diagnoses Diagnosis Malignant neoplasm of breast (female), unspecified site- Primary documented in this encounter Care Teams Patient Accounts Specialist Relationship Specialty Start Date End Date Fabian López DO [address] [place] [address] PCP - General Specialist 08/22/15 documented as of this encounter
--- OUTSIDE RECORDS SUMMARY | 2025-03-18 17:32 | XMS_ITS | Encounter Summary ---
Author Organization [facility] Address [address] [place] [address] Care Team Providers Care School Of Nursing Director Name Role Phone Fabian López Primary Care Provider [phone] Encounter Details Date Type Department Care Team (Late st Contact Info) Description 09/27/2006 Outpatient Historical [facility] [address] [place] [address] Britt Leigh MD NO ADDRESS ON FILE Malignant Neoplasm of Breast (Female), Unspecified Site (CMS/HCC) (Primary Dx) Social History Tobacco Use Types Packs/Day Years Used Date Smoking Tobacco: Never Assessed Comments Unknown Sex and Gender Information Value Date Recorded Sex Assigned at Not on file Legal Sex Female 4:50 AM LIGHT RAIL SIGNAL TECHNICIAN Gender Identity Not on file Sexual Orientation Not on file documented as of this encounter Plan of Treatment Not on file documented as of this encounter Procedures Procedure Name Priority Date/Time Associated Diagnosis Comments MRI BREAST W CONTRAST BILAT Routine 09/27/2006 12:01 AM LIGHT RAIL SIGNAL TECHNICIAN documented in this encounter Results * MRI BREAST W CONTRAST BILAT (09/27/2006 12:01 AM LIGHT RAIL SIGNAL TECHNICIAN) Anatomical Region Laterality Modality Breast Bilateral Other 09/27/2006 12:0 1 AM LIGHT RAIL SIGNAL TECHNICIAN Narrative 09/27/2006 12:01 AM LIGHT RAIL SIGNAL TECHNICIAN ATTENTION: The findings of this examination are reported in their entirety in this patient's records on the [employer] system. Blanch is referred to that document. Dictated By: Britt Leigh M.D. Electronically Signed By: Britt Leigh M.D. Date Signed: 10/04/06 [facility] Procedure Note 07/18/2009 ATTENTION: The findings of this examination are reported in their entirety in thispatient's records on the [employer] system. Blanch is referred to that document. Dictated By: Britt Leigh M.D. Electronically Signed By: Britt Leigh M.D. Date Signed: 10/04/06 [facility] Jasvir Hughes MD MR ORDERABLES Final Result documented in this encounter Visit Diagnoses Diagnosis Malignant neoplasm of breast (female), unspecified site- Primary documented in this encounter Care Teams School Of Nursing Director Relationship Specialty Start Date End Date Fabian López DO [address] [place] [address] PCP - General Specialist 08/22/15 documented as of this encounter
--- OUTSIDE RECORDS SUMMARY | 2025-03-18 17:32 | XMS_ITS | Encounter Summary ---
Author Organization [facility] Address [address] [place] [address] Care Team Providers Care Net Technical Architect Name Role Phone Fabian López DO Primary Care Provider [phone] Encounter Details Date Type Department Care Team (Latest Contact Info) Description 09/21/2006 Outpatient Historical [facility] [place] [address] [place] [id number] Jasvir Hughes MD NO ADDRESS ON FILE Malignant Neoplasm of Breast (Female), Unspecified Site (CMS/HCC) (Primary Dx) Social History Tobacco Use Types Packs/Day Years Used Date Smoking Tobacco: Never Assessed Comments Unknown Sex and Gender Information Value Date Recorded Sex Assigned at Not on file Legal Sex Female 4:50 AM MEMBER SERVICES REPRESENTATIVE Gender Identity Not on file Sexual Orientation Not on file documented as of this encounter Plan of Treatment Not on file documented as of this encounter Visit Diagnoses Diagnosis Malignant neoplasm of breast (female), unspecified site- Primary documented in this encounter Care Teams Net Technical Architect Relationship Specialty Start Date End Date Fabian López DO [address] [place] [address] PCP - General Specialist 08/22/15 documented as of this encounter
--- OUTSIDE RECORDS SUMMARY | 2025-03-18 17:32 | XMS_ITS | Encounter Summary ---
Author Organization [facility] Address [address] [place] [address] Care Team Providers Care Hydroelectric Operator Name Role Phone Fabian López DO Primary Care Provider [phone] Encounter Details Date Type Department Care Team (Latest Contact Info) Description 09/27/2006 Outpatient Historical [facility] [address] [place] [address] Jasvir Hughes MD NO ADDRESS ON FILE Malignant Neoplasm of Breast (Female), Unspecified Site (CMS/HCC) (Primary Dx) Social History Tobacco Use Types Packs/Day Years Used Date Smoking Tobacco: Never Assessed Comments Unknown Sex and Gender Information Value Date Recorded Sex Assigned at Not on file Legal 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
[2025-03-18] MEDS: dilTIAZem 5 mg/mL SDV 5 mL 10 MG IVP (17:59)
[2025-03-18 18:02] LABS: Hematocrit 28.7 % (36-47); Hemoglobin 8.70 g/dL (11.27-16.99); Mean Corpuscular HGB Conc 30.3 g/dL (30-55); Mean Corpuscular Hemoglobin 27.1 pg (27-33); Mean Corpuscular Volume 89.4 fl (85-98); Nucleated Red Blood Cells % 0 %; Platelet Count 314 10^3/cmm (157-399); Red Blood Count 3.21 10^6/uL (3.85-5.65); White Blood Count 10.47 10^3/uL (3.29-11.43)
--- NOTE | 2025-03-18 18:02 | W.ED.SOB ---
HPI - SOB/Dyspnea General: Chief Complaint: Shortness of Breath/Dyspnea Stated Complaint: SOB Time Seen by Provider: 03/18/25 17:46 Source: patient and EMS Mode of arrival: EMS Limitations: no limitations History of Present Illness: HPI Narrative: 79-year-old female has a history of CHF COPD along with A-fib. Patient went to the [facility] today because she been having neck pain states she has not been feeling very well either. They called MS because she is hypoxic she typically wears 3 L pulse ox here is 89% on 3 L she is in A-fib with RVR as well with heart rate in the 130s. Related Data Home Medications ?Medication ?Instructions ?Recorded ?Confirmed multivitamin 1 tab PO DAILY@199912/07/20 03/18/25 aspirin 81 mg tablet,delayed 81 mg PO BEDTIME 08/05/22 03/18/25 release nitroglycerin 0.4 mg sublingual 0.4 mg sublingual Q5M PRN Chest 08/05/22 03/18/25 tablet (Nitrostat) Pain sennosides 8.6 mg tablet (Kimmie-osmar) 17.2 mg PO BEDTIME 08/05/22 03/18/25 tramadol 50 mg tablet 50 mg PO Q4H PRN Pain 08/05/22 03/18/25 vitamin B complex 1 tab PO DAILY 08/05/22 03/18/25 Previous Rx's ?Medication ?Instructions ?Recorded ketoconazole 2 % shampoo 1 applic topical .3 x week #120 mL 05/12/22 cetirizine 10 mg tablet (Zyrtec) 10 mg PO DAILY PRN Allergy 12/02/23 Symptoms #30 tabs ketoconazole 2 % topical cream 1 applic topical BID PRN Rash #30 12/02/23 grams BiPap supplies #1 ea 06/10/24 Disposable nebulizer circuit #1 ea 10/30/24 potassium chloride 20 mEq 20 meq PO DAILY #30 tabs 10/30/24 tablet,extended release(part/cryst) ferrous sulfate 300 mg (60 mg 300 mg (5 mL) PO BID #300 mL 01/30/25 iron)/5 mL oral liquid albuterol sulfate 2.5 mg/3 mL 2.5 mg (3 mL) inhalation Q4H PRN 02/16/25 (0.083 %) solution for nebulization shortness of breath or wheezing #300 mL albuterol sulfate 90 mcg/actuation 2 puff inhalation Q4H PRN 02/16/25 aerosol inhaler shortness of breath or wheezing #18 grams apixaban 5 mg tablet (Eliquis) 5 mg PO BID@0900,2100 #60 tabs 02/16/25 budesonide 160 mcg-glycopyr 9 2 inh inhalation BID #10.7 grams 02/16/25 mcg-formot 4.8 mcg/actuation HFA inhaler (Breztri Aerosphere) cholecalciferol (vitamin D3) 50 2,000 unit PO EVERY OTHER DAY #14 02/16/25 mcg (2,000 unit) tablet tabs citalopram 20 mg tablet 20 mg PO DAILY #30 tabs 02/16/25 cyanocobalamin (vitamin B-12) 1,000 mcg IM .monthly #3 mL 02/16/25 1,000 mcg/mL injection solution docusate sodium 100 mg capsule 100 mg PO BID #60 caps 02/16/25 (Colace) furosemide 20 mg tablet 20 mg PO DAILY@0800 #30 tabs 02/16/25 metformin 500 mg tablet,extended 1,500 mg (3 x 500 mg) PO DAILY #90 02/16/25 release 24 hr tabs metoprolol tartrate 25 mg tablet 37.5 mg (1.5 x 25 mg) PO 02/16/25 BID@0900,2100 #90 tabs oxybutynin chloride 5 mg tablet 5 mg PO BID #60 tabs 02/16/25 pantoprazole 20 mg tablet,delayed 20 mg PO QAM #30 tabs 02/16/25 release rosuvastatin 10 mg tablet 10 mg PO .at bedtime #30 tabs 02/16/25 sacubitril 24 mg-valsartan 26 mg 1 tab PO BID #60 tabs 02/16/25 tablet (Entresto) syringe with needle 3 mL 22 gauge #1 ea 02/16/25 x 1 Protable oxygen 2L NC #1 ea 02/18/25 Allergies Allergy/AdvReac Type Severity Reaction Status Date / Time No Known Allergies Allergy Verified 03/18/25 17:38 [facility] PFS: Medical History (Updated 03/18/25 @ 19:32 by Rosalia Aleman MD) Diabetes mellitus with hyperglycemia, without long-term current use of insulin Urolithiasis Superior mesenteric artery stenosis Moderate, noted on CTA 11/2020 Some celiac artery stenosis also noted Renal artery stenosis Moderate, noted on CTA 11/2020 Abnormal nuclear stress test Benign essential HTN Atherosclerotic heart disease of [place] coronary artery without angina pectoris Chronic neck and back pain Recurrent UTI Fibromyalgia long-term (current) use of opiate analgesic Chronic low back pain Calculus of kidney right; 6 mm without oil change technician time 01/10; 7 mm obstructing right proximal stone; evaluated and treated [facility] 02/10 for sepsis, UTI, NSTEMI, and right proximal ureteral calculus with hydronephrosis Bilateral hearing loss 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, unspecified Anxiety and depression HX: breast cancer Chronic osteoarthritis Chronic idiopathic constipation PAD (peripheral artery disease) stent right SFA Mixed hyperlipidemia Vitamin D deficiency Gastro-esophageal reflux disease without esophagitis Asthma, mild persistent Urinary incontinence in female Chronic right shoulder pain Osteoporosis Asymptomatic cholelithiasis Obstructive sleep apnea on BiPAP Type 2 diabetes mellitus with diabetic polyneuropathy Surgical History Hx of bilateral cataract extraction Hx of lithotripsy History of lumpectomy of left breast (~1969) [facility] History of shoulder surgery (~2014) right; Dr Chiu, [facility] Hx of bladder repair surgery (~2004) Dr Nunez's office in [place], [place] History of intravascular stent placement (~2003) right leg; [place], [place] Family History Brother Cancer Lung Father , at age 74 Diabetes Cancer colon Mother , age 89 Diabetes CAD (coronary artery disease) Cancer breast Denies family history of Clotting disorder Dementia Hyperlipidemia Psychiatric illness Chronic kidney disease (CKD) Suicide Anesthesia complication Bleeding disorder Family history of premature coronary artery disease Lung disease Hypertension Stroke Social History Smoking and tobacco/nicotine status: former use of tobacco/nicotine Quit status (tobacco/nicotine): has quit using Year quit tobacco: 2001 Former quit date comment: smoked 2PPD x 25 yrs Second hand smoke exposure: No Alcohol intake: never Substance/Drug Use: never Caregiver/support person: Yes Lives independently: Yes Household members: none Marital status: / Current occupational status: retired Current gender identity: Female Special shan needs: No Course Vital Signs: Vital signs: Vital Signs Temperature 99.6 F 03/18/25 17:33 Pulse Rate 66 03/18/25 18:30 Respiratory Rate 18 03/18/25 18:30 Blood Pressure 122/50 03/18/25 18:30 Pulse Oximetry 95 03/18/25 19:01 Oxygen Delivery Me thod Nasal Cannula 03/18/25 18:30 Oxygen Flow Rate 3 03/18/25 18:30 Fraction of Inspir ed Oxygen 40 03/18/25 19:01 MDM - SOB/Dyspnea Medical Decision Making Patient presents here with shortness of breath she requiring BiPAP currently does have a slight pleural effusion along with elevated BNP she also has hypokalemia and hypomagnesia will follow A-fib with RVR she is on amiodarone drip I spoke to the hospitalist will admit at this time Medical Records I reviewed the patient's medical records. Lab Data I reviewed the patient's lab results. 03/18/25 17:55 03/18/25 17:55 Labs/Radiology: Radiology Impressions Chest X-Ray 03/18/25 17:23 IMPRESSION: No acute cardiopulmonary process. Chronic findings as above. Laboratory Results WBC 10.47 10^3/uL (3.29-11.43) 03/18/25 17:55 RBC 3.21 10^6/uL (3.85-5.65) L 03/18/25 17:55 Hgb 8.70 g/dL (11.27-16.99) L 03/18/25 17:55 Hct 28.7 % (36-47) L 03/18/25 17:55 MCV 89.4 fl (85-98) 03/18/25 17:55 MCH 27.1 pg (27-33) 03/18/25 17:55 MCHC 30.3 g/dL (30-55) 03/18/25 17:55 RDW 15.8 % (12.1-15.1) H 03/18/25 17:55 Plt Count 314 10^3/cmm (157-399) 03/18/25 17:55 MPV 11.0 fL (7.4-10.4) H 03/18/25 17:55 Neut % (Auto) 87.7 % 03/18/25 17:55 Lymph % (Auto) 4.5 % 03/18/25 17:55 [place] % (Auto) 7.1 % 03/18/25 17:55 Eos % (Auto) 0.0 % 03/18/25 17:55 Baso % (Auto) 0.2 % 03/18/25 17:55 Neut # (Auto) 9.19 10^3/uL (1.8-7.7) H 03/18/25 17:55 Lymph # (Auto) 0.5 10^3/uL (0.8-4.8) L 03/18/25 17:55 [place] # (Auto) 0.7 10^3/uL (0.2-0.9) 03/18/25 17:55 Eos # (Auto) 0.0 10^3/uL (0.0-0.8) 03/18/25 17:55 Baso # (Auto) 0.0 10^3/uL (0.0-0.1) 03/18/25 17:55 Nucleated RBC % (auto) 0 % 03/18/25 17:55 Nucleated RBCs # 0.0 /100WBC 03/18/25 17:55 PT 22.50 SECONDS (12.1-14.9) H 03/18/25 17:55 INR 1.85 (0.8-1.2) H 03/18/25 17:55 Specimen Type Arterial 03/18/25 18:25 Sample Site Brachial, left 03/18/25 18:25 ABG pH 7.49 (7.35-7.45) H 03/18/25 18:25 ABG pCO2 52.4 mmHg (35-45) H 03/18/25 18:25 ABG pO2 46.3 mmHg (80.0-100.0) L 03/18/25 18:25 ABG PO2/FiO2 Ratio 144 03/18/25 18:25 ABG HCO3 39.8 mmol/L (22-26) H 03/18/25 18:25 ABG O2 Saturation 83.5 03/18/25 18:25 ABG Base Excess 14.7 mmol/L (-2.0-2.0) H 03/18/25 18:25 Rafal Test N/a 03/18/25 18:25 A-a O2 Gradient 15.3 mmHg (5-10) H 03/18/25 18:25 Hematocrit 26.8 % (37-47) L 03/18/25 18:25 Hgb O2 Saturation 81.1 % (95-100) L 03/18/25 18:25 Carboxyhemoglobin 1.8 %THgb (0.4-20.1) 03/18/25 18:25 Methemoglobin 1.0 % (0.4-1.5) 03/18/25 18:25 Total Hemoglobin 8.7 g/dL (12-16) L 03/18/25 18:25 Sodium 140.0 mmol/L (131-143) 03/18/25 18:25 Potassium 1.8 mmol/L (3.5-5.0) L 03/18/25 18:25 Glucose 175.0 mg/dL (70-115) H 03/18/25 18:25 Ionized Calcium 1.0 mmol/L (1.1-1.4) L 03/18/25 18:25 O2 Delivery Device Nc 03/18/25 18:25 O2 Liters/Min 3.0 % 03/18/25 18:25 FiO2 32.0 % 03/18/25 18:25 Guest Relations Executive ID Gd 03/18/25 18:25 Sodium 142 mmol/L (136-145) 03/18/25 17:55 Potassium 2.1 mmol/L (3.5-5.1) L* 03/18/25 17:55 Chloride 90 mmol/L (98-107) L 03/18/25 17:55 Carbon Dioxide 34 mmol/L (22-29) H 03/18/25 17:55 Anion Gap 20.1 (5-19) H 03/18/25 17:55 BUN 10 mg/dL (8-23) 03/18/25 17:55 Creatinine 0.9 mg/dL (0.5-0.9) 03/18/25 17:55 GFR Calculation Not Reportable 03/18/25 17:55 Glucose 150 mg/dL (65-115) H 03/18/25 17:55 Calculated Osmolality 296 mOsm/kg (285-295) H 03/18/25 17:55 Calcium 8.4 mg/dL (8.5-10.5) L 03/18/25 17:55 Magnesium 1.2 mg/dL (1.7-2.3) L 03/18/25 17:56 Total Bilirubin 0.9 mg/dL (0.15-1.2) 03/18/25 17:55 AST 20 U/L (0-32) 03/18/25 17:55 ALT 15 U/L (0-33) 03/18/25 17:55 Alkaline Phosphatase 73 U/L (35-105) 03/18/25 17:55 Troponin T Baseline 44 ng/L (0-10) H 03/18/25 17:56 NT-Pro-B Natriuret Pep 65491 pg/mL (0-450) H 03/18/25 17:55 Total Protein 6.0 g/dL (6.6-8.7) L 03/18/25 17:55 Albumin 3.5 g/dL (3.5-5.2) 03/18/25 17:55 Globulin 2.5 g/dL (1.3-4.6) 03/18/25 17:55 All radiology interpretation(s) finalized by discharge EKG Data EKG 1: I personally reviewed and interpreted this EKG as follows: EKG Interpretation Date: 03/18/25 EKG interpretation time: 17:41 Interpretation: afib with rvr hr [address] elevation qrs 112 qtc 473 Critical Care Time Critical Care Time: Critical Care Time: Yes Total Critical Care Time: 45 Attestation: The high probability of a clinically significant, sudden or life threatening deterioration of the patient's resp system(s) required my full and direct attention, intervention and personal management. The critical care time is as shown. This time is in addition to time spent performing any reported procedures but includes the following: [x] Data and vital sign review and interpretation [x] Patient assessment, examination and intervention [x] Documentation [x] Medication orders and management Discharge Plan Discharge Patient Disposition: Admitted As Inpatient Clinical Impression: Acute exacerbation of CHF (congestive heart failure), Hypokalemia, Hypomagnesemia, Acute respiratory failure with hypoxemia, Atrial fibrillation with rapid ventricular response Condition: Stable Coding Level of Care Code ED Consumer Experience Consultant for Baljeet Mcfarland
[2025-03-18] MEDS: amiodarone 150 MG/100 ML PREMIX 400 MG IV (18:08)
--- NOTE | 2025-03-18 18:14 | PC.NURSE ---
Pt continues to drop into mid 80s on 6L NC, placed pt on oxymask 10L
[2025-03-18 18:15] LABS: INR 1.85 (0.8-1.2); Prothrombin Time 22.50 SECONDS (12.1-14.9)
[2025-03-18 18:35] LABS: Alanine Aminotransferase 15 U/L (0-33); Albumin Level 3.5 g/dL (3.5-5.2); Alkaline Phosphatase 73 U/L (35-105); Anion Gap 20.1 (5-19); Aspartate Amino Transferase 20 U/L (0-32); Blood Urea Nitrogen 10 mg/dL (8-23); Calcium 8.4 mg/dL (8.5-10.5); Carbon Dioxide 34 mmol/L (22-29); Chloride 90 mmol/L (98-107); Creatinine Clr Calc Pharmacy 35.5685; Globulin 2.5 g/dL (1.3-4.6); Glucose 150 mg/dL (65-115); NT Pro B Type Natriuretic Pept 23029 pg/mL (0-450); Osmolality Calculated 296 mOsm/kg (285-295); Sodium 142 mmol/L (136-145); Total Protein 6.0 g/dL (6.6-8.7)
[2025-03-18 18:45] LABS: Blood Gas Sample Type Arterial; Ionized Calcium Level - ABG 1.0 mmol/L (1.1-1.4)
[2025-03-18 18:47] LABS: Potassium 2.1 mmol/L (3.5-5.1)
[2025-03-18 18:54] LABS: Troponin(5th) Baseline 44 ng/L (0-10)
[2025-03-18 18:59] LABS: ABG PCO2 52.4 mmHg (35-45); ABG PH Result 7.49 (7.35-7.45); Alveolar-Arterial Oxygen Gradi 15.3 mmHg (5-10); Arterial Blood Gas Hematocrit 26.8 % (37-47); Blood Gas LPM 3.0 %; Blood Gas Operator Identificat GD; Blood Gas Sample Site Brachial, left; Carboxyhemoglobin 1.8 %THgb (0.4-20.1); Glucose Level-ABG 175.0 mg/dL (70-115); HCO3 ABG 39.8 mmol/L (22-26); Methemoglobin 1.0 % (0.4-1.5); Oxygen Saturation ABG 83.5; PO2 ABG 46.3 mmHg (80.0-100.0); PO2 FiO2 Ratio Arterial Blood 144; Potassium Level - ABG 1.8 mmol/L (3.5-5.0); Sodium Level - ABG 140.0 mmol/L (131-143)
[2025-03-18 19:20] LABS: Magnesium 1.2 mg/dL (1.7-2.3)
--- NOTE | 2025-03-18 19:46 | ECG_ITS ---
[facility] Test Date: 2025-03-18 Pat Name: Lucy Galindo Department: Room: Gender: Female Sliding Joint Maker: : 1945 Requested By: Rosalia Aleman Order Number: [id number] Reading MD: Measurements Intervals Gilbert Rate: 81 P: 0 OK: 0 QRS: 38 QRSD: 116 T: -3 QT: 428 QTc: 497 Interpretive Statements ATRIAL FIBRILLATION MODERATE INTRAVENTRICULAR CONDUCTION DELAY [110+ ms QRS DURATION] NONSPECIFIC T-WAVE ABNORMALITY ABNORMAL RHYTHM ECG [email or web address]
[2025-03-18] MEDS: FUROsemide 10 mg/mL SDV 10mL 60 MG IVP (19:50)
[2025-03-18] MEDS: cefTRIAXone 1,000 mg SDV 1000 MG IVP (19:50)
[2025-03-18] MEDS: AZITHROMYCIN ADD-Vantage 500 MG in 0.9% NaCl ADD-Vantage 250 ML 250 MG IV (20:05)
[2025-03-18 20:32] LABS: Troponin 5 2HR 46.64 ng/L (0-10); Troponin 5 2HR Delta 2.64 ABS# (0-10)
[2025-03-18] MEDS: magnesium sulfate premix 2 GM/50 ML PIGGYBACK IV (20:58)
--- NOTE | 2025-03-18 21:47 | P.HP_ITS ---
Providers/Chief Complaint 2 Admitting Physician: Millicent Paez MD Primary Care Provider: Allan Mak, HUMAN FACTORS ADVISOR LEAD-C Chief Complaint: SOB History of Present Illness Lucy Galindo is a 79 year old female with a past medical history of COPD, CAD, hypertension, diabetes mellitus, A-fib, aortic stenosis who is presenting to the emergency room today with feeling short of breath over the past week. Patient states that she has been having increasing dyspnea at rest over the past week and visited with her primary care physician today. At the office she was noted to be hypoxic and stated to the emergency room for further evaluation. It was thought she may have a pneumonia. Upon arrival here she was found to be in A- fib with RVR with signs of hypervolemia. She has received Lasix intravenously, was found to have hypokalemia with a potassium of 2.1 and an oxygen requirement of 6 L/min. She needed to be placed on BiPAP in the emergency room. However by the time of my assessment patient reports feeling claustrophobic and will is pulling at the machine wishing for it to be taken off. She denies any chest pain. Denies any increased coughing. Denies any fever at home. She is chronically on Eliquis due to a history of A-fib. Chest x-ray taken in the ER showed hyperinflated lungs without any focal consolidation. There was chronic interstitial markings and bibasilar scarring. Review of Systems 2 General: Reports: 10 or more systems reviewed and unremarkable except in HPI and below Const: Denies: fever(s), chills or body aches Eyes: Denies: change in vision, blurry vision or photophobia ENMT: Reports: hoarseness; Denies: throat pain, enlarged tonsils, odynophagia or nasal congestion Card: Denies: chest pain, palpitations, irregular heart rhythm, edema, swelling of feet/ankles, lightheadedness, pre-syncope, dyspnea on exertion or orthopnea Resp: Reports: dyspnea; Denies: productive cough, non-productive cough, wheezing, stridor, pain on inspiration, change in phlegm color, hemoptysis or chest congestion GI: Denies: abdominal pain, nausea, vomiting, hematemesis, coffee ground emesis, dysphagia, heartburn, diarrhea, constipation, GI cramping, change in stool character, hematochezia or melena : Denies: flank pain, difficulty voiding, dysuria, urinary frequency, urinary urgency, urinary hesitancy or hematuria Musc: Denies: neck pain, back pain, extremity pain, joint swelling, joint warmth or deformity Neuro: Denies: headache(s), numbness in extremities, weakness in extremities, sensory changes, difficulty walking, frequent falls, dizziness, vertigo, behavioral changes, Slurred speech present or seizure-like activity Psych: Denies: anxiety, depression, suicidal ideation or homicidal ideation Endo: Denies: polyuria, polydipsia, tired all the time, cold intolerance or hot flashes Emery/Lymph: Denies: easy bruising or easy bleeding Medications/Allergies Home Medications ?Medication ?Instructions ?Recorded ?Confirmed ?Last Taken ?Type multivitamin 1 tab PO DAILY@199912/07/20 03/18/25 06/19/24 History ketoconazole 2 % shampoo 1 applic topical .3 x week # 120 mL 05/12/22 03/18/25 Unknown Rx aspirin 81 mg tablet,delayed 81 mg PO BEDTIME 08/05/22 03/18/25 06/19/24 History release nitroglycerin 0.4 mg sublingual 0.4 mg sublingual Q5M PRN Chest 08/05/22 03/18/25 Unknown History tablet (Nitrostat) Pain sennosides 8.6 mg tablet (Kimmie-osmar) 17.2 mg PO BEDTIME 08/05/22 03/18/25 06/19/24 History tramadol 50 mg tablet 50 mg PO Q4H PRN Pain 03/18/25 06/19/24 History vitamin B complex 1 tab PO DAILY 08/05/2202/2706/20/24 History cetirizine 10 mg tablet (Zyrtec) 10 mg PO DAILY PRN Al lergy 12/02/23 03/18/25 Unknown Rx Symptoms #30 tabs ketoconazole 2 % topical cream 1 applic topical BID UT N Rash #30 12/02/23 03/18/25 Unknown Rx grams BiPap supplies #1 ea 06/10/24 03/18/25 Unkn own Rx Disposable nebulizer circuit #1 ea 10/30/24 03/18/25 U nknown Rx potassium chloride 20 mEq 20 meq PO DAILY #30 tabs 12/2103/18/25 Unknown Rx tablet,extended release(part/cryst) ferrous sulfate 300 mg (60 mg 300 mg (5 mL) PO BID #30 0 mL 01/30/25 03/18/25 Unknown Rx iron)/5 mL oral liquid albuterol sulfate 2.5 mg/3 mL 2.5 mg (3 mL) inhalation Q4H PRN 02/16/25 03/18/25 Unknown Rx (0.083 %) solution for nebulization shortness of breat h or wheezing #300 mL albuterol sulfate 90 mcg/actuation 2 puff inhalation Q 4H PRN 02/16/25 03/18/25 Unknown Rx aerosol inhaler shortness of breath or wheez ing #18 grams apixaban 5 mg tablet (Eliquis) 5 mg PO BID@0900,2100 # 60 tabs 02/16/25 03/18/25 Unknown Rx budesonide 160 mcg-glycopyr 9 2 inh inhalation BID #10 .7 grams 02/16/25 03/18/25 Unknown Rx mcg-formot 4.8 mcg/actuation HFA inhaler (Breztri Aerosphere) cholecalciferol (vitamin D3) 50 2,000 unit PO EVERY OT HER DAY #14 02/16/25 03/18/25 Unknown Rx mcg (2,000 unit) tablet tabs citalopram 20 mg tablet 20 mg PO DAILY #30 tabs 01/2803/18/25 Unknown Rx cyanocobalamin (vitamin B-12) 1,000 mcg IM .monthly #3 mL 02/16/25 03/18/25 Unknown Rx 1,000 mcg/mL injection solution docusate sodium 100 mg capsule 100 mg PO BID #60 caps 02/16/25 03/18/25 Unknown Rx (Colace) furosemide 20 mg tablet 20 mg PO DAILY@0800 #30 tabs 02/16/25 03/18/25 Unknown Rx metformin 500 mg tablet,extended 1,500 mg (3 x 500 mg) PO DAILY #90 02/16/25 03/18/25 Unknown Rx release 24 hr tabs metoprolol tartrate 25 mg tablet 37.5 mg (1.5 x 25 mg) PO 02/16/25 03/18/25 Unknown Rx BID@0900,2100 #90 tabs oxybutynin chloride 5 mg tablet 5 mg PO BID #60 tabs 0 02/16/25 03/18/25 Unknown Rx pantoprazole 20 mg tablet,delayed 20 mg PO QAM #30 tab s 02/16/25 03/18/25 Unknown Rx release rosuvastatin 10 mg tablet 10 mg PO .at bedtime #30 tab s 02/16/25 03/18/25 Unknown Rx sacubitril 24 mg-valsartan 26 mg 1 tab PO BID #60 tabs 02/16/25 03/18/25 Unknown Rx tablet (Entresto) syringe with needle 3 mL 22 gauge #1 ea 02/16/2503/18 Unknown Rx x 1 Protable oxygen 2L NC #1 ea 02/18/25 03/18/25 Unkn own Rx Allergies Allergy/AdvReac Type Severity Reaction Status Date / Time No Known Allergies Allergy Verified 03/18/25 17:38 PFSH Acute 2 PFSH: Medical History Diabetes mellitus with hyperglycemia, without long-term current use of insulin Urolithiasis Superior mesenteric artery stenosis Moderate, noted on CTA 11/2020 Some celiac artery stenosis also noted Renal artery stenosis Moderate, noted on CTA 11/2020 Abnormal nuclear stress test Benign essential HTN Atherosclerotic heart disease of [place] coronary artery without angina pectoris Chronic neck and back pain Recurrent UTI Fibromyalgia 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 Hospitalized at [facility] 02/10 for sepsis, UTI, NSTEMI, and right proximal ureteral calculus with hydronephrosis Bilateral hearing loss 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, unspecified Anxiety and depression HX: breast cancer Chronic osteoarthritis Chronic idiopathic constipation PAD (peripheral artery disease) stent right SFA Mixed hyperlipidemia Vitamin D deficiency Gastro-esophageal reflux disease without esophagitis Asthma, mild persistent Urinary incontinence in female Chronic right shoulder pain Osteoporosis Asymptomatic cholelithiasis Obstructive sleep apnea on BiPAP Type 2 diabetes mellitus with diabetic polyneuropathy Surgical History Hx of bilateral cataract extraction Hx of lithotripsy History of lumpectomy of left breast (~1969) [place] History of shoulder surgery (~2014) right; Dr Chiu, [facility] [place] Hx of bladder repair surgery (~2004) Dr Nunez's office in [place], [place] History of intravascular stent placement (~2003) right leg; [place], [place] Family History Brother Cancer Lung Father , at age 74 Diabetes Cancer colon Mother , age 89 Diabetes CAD (coronary artery disease) Cancer breast Denies family history of Clotting disorder Dementia Hyperlipidemia Psychiatric illness Chronic kidney disease (CKD) Suicide Anesthesia complication Bleeding disorder Family history of premature coronary artery disease Lung disease Hypertension Stroke Social History Smoking and tobacco/nicotine status: former use of tobacco/nicotine Quit status (tobacco/nicotine): has quit using Year quit tobacco: 2001 Former quit date comment: smoked 2PPD x 25 yrs Second hand smoke exposure: No Alcohol intake: never Substance/Drug Use: never Caregiver/support person: Yes Lives independently: Yes Household members: none Marital status: / Current occupational status: retired Current gender identity: Female Special shan needs: No Vitals/I&O/Wt Last Vital Signs Temp 99.4 F 03/18/25 20:37 Pulse 107 H 03/18/25 20:37 Resp 24 H 03/18/25 20:37 BP 131/83 03/18/25 20:37 Pulse Ox 99 03/18/25 21:06 O2 Del Method BiPAP 03/18/25 20:37 O2 Flow Rate 3 03/18/25 18:30 FiO2 50 03/18/25 21:06 03/18/25 03/18/25 03/18/25 06:59 14:59 22:59 Intake Total 850 / 850 Balance 850 / 850 Weight last 48 hrs Weight 45.269 kg Weight 44.452 kg Physical Exam 2 Narrative: General: Chronically ill-appearing lady laying in bed HEENT: PERRLA, pupils bilaterally equal and reactive, pallors not present Chest: Coarse crackles to auscultation bilaterally CVS: S1-S2 regular, no murmurs, no tachycardia, no gallops, no rubs Abdomen: Soft, nontender, no organomegaly, bowel sounds present Neuro: No focal deficits, no facial deformity, AO x3, power 5/5 in all limbs Urinary Catheter Management: Peoples: Cath Placed During This Visit: yes Urinary Catheter Date of Insertion: 03/18/25 Urinary Catheter Time of Insertion: 19:15 Data 03/18/25 17:55 03/18/25 17:55 Micro: Microbiology 03/18/25 19:43 Blood Culture - Preliminary Blood SPECIMEN COLLECTED 03/18/25 19:40 Blood Culture - Preliminary Blood SPECIMEN COLLECTED A&P Assessment and plan 1. Atrial fibrillation with rapid ventricular response: Patient brought to the emergency room with 1 week of increasing dyspnea. Upon ER arrival she is found to be in A-fib with RVR with heart rate of 158 upon arrival. She has been started on amiodarone infusion in the emergency room Currently blood pressure is 131/83 at the time of this assessment. Continue with home dose of metoprolol 37.5 mg p.o. twice daily alongside the amiodarone infusion. Currently heart rate is improved between 70 to 90 bpm, rhythm continues to be in A-fib Continue Eliquis 5 mg p.o. twice daily as she takes at home. 2. Acute exacerbation of CHF (congestive heart failure): Acute on chronic CHF exacerbation with preserved ejection fraction. In reviewing last echocardiogram from May 2024, patient has a normal LVEF of 64% with mild LVH. There is low gradient aortic valve stenosis, estimated pulmonary artery pressure of 51 mmHg. Likely acute CHF exacerbation triggered by A-fib RVR. BNP elevated at 23,000 She has received 60 mg of IV Lasix in the ER, will continue with 40 mg IV every 24 hours starting tomorrow morning. Closely monitor KASHIF and kidney function with ongoing diuresis. continue entresto 3. Hypokalemia: Hypokalemia 2.1 She has received 60 mEq of oral potassium in the emergency room. Will recheck potassium and replete as appropriate. Target to keep potassium at 4.0. 4. Acute and chronic respiratory failure with hypoxia: Likely related to underlying COPD, severe emphysema and CHF exacerbation Chest x-ray without consolidation Check COVID PCR Unlikely PE as patient is chronically maintained on Eliquis Inhalation with DuoNeb every 6 hours scheduled, budesonide 0.5 mg twice daily Supplemental O2 to keep saturation 88 to 90%. Family reports she wears intermittent 3 L/min oxygen as needed. Currently at the time of this assessment she is on 6 L/min via high flow nasal cannula. Family also reports she has a CPAP machine at home but does not like to use it regularly. Plan: DVT ppx: Eliquis limited resuscitation : okay for short term ventilation, no chest compressions PDMP PDMP Reviewed: Not Reviewed Attestations 2 Medical Necessity Statement*: Greater than 2 midnight stay is anticipated Coding Level of Care Code Acute Code for Chg Fwd High MDM includes number and complexity of problems actively addressed during encounter, amount and/or complexity of data reviewed/ordered and described risk of complication, morbidity or mortality of management as documented Diagnoses Atrial fibrillation with rapid ventricular response I48.91 Acute exacerbation of CHF (congestive heart failure) I50.9 Hypokalemia E87.6 Acute and chronic respiratory failure with hypoxia J96.21
--- NOTE | 2025-03-18 21:49 | USCV_ITS ---
Lucy Galindo Age: 79 Gender: F : 1945 Exam Date: 03/18/2025 23:29 Ordering Phys: Millicent Paez MD Technologist: NICKI Exam Location: [facility] [place] Indication: CHF COPD, O2-dependent 3L, DM, long smoking history BP: 131 / 83 HR: 104 Rhythm: Sinus Technical Quality: MEASUREMENTS (Male / Female) Normal Values 2D ECHO LV Diastolic Diameter PLAX 4.4 cm 4.2 - 5.9 / 3.9 - 5.3 cm IVS Diastolic Thickness 1.1 cm 0.6 - 1.0 / 0.6 - 0.9 cm IVS Systolic Thickness 1.7 cm LVPW Diastolic Thickness 1.1 cm 0.6 - 1.0 / 0.6 - 0.9 cm LVPW Systolic Thickness 0.9 cm LVOT Diameter 1.9 cm LV Ejection Fraction 2D Teich 65.5 % LV Ejection Fraction MOD 4C 66.7 % LV Ejection Fraction MOD 2C 62.0 % LV Ejection Fraction 2C AL 66.4 % LA Diameter 5.0 cm Aorta at Sinotubular Diameter 1.9 cm IVC Diameter 1.5 cm M-MODE LA Ao Ratio MM 1.0 AV Cusp Separation MM 0.8 cm DOPPLER AV Peak Velocity 193.0 cm/s LVOT Peak Velocity 66.0 cm/s AV Area Cont Eq vti 0.9 cm squared AV Area Cont Eq pk 0.9 cm squared MV Peak Velocity 165.0 cm/s MV Area PHT 3.4 cm squared Mitral E to A Ratio 1.2 TV Peak Velocity 253.3 cm/s TR Peak Velocity 304.0 cm/s TR Peak Gradient 37.0 mmHg TV Peak E Velocity 38.0 cm/s PV Peak Velocity 102.0 cm/s FINDINGS Left Ventricle Left ventricle is normal in size. LV systolic function is normal with EF of 55-60%. No regional wall motion abnormalities. Right Ventricle Normal in size and function Right Atrium Normal in size Left Atrium Severely dilated Mitral Valve Moderate to severe mitral annular calcification. Mild mitral regurgitation. Mild mitral stenosis with mean gradient across mitral valve of 4.68mmHg. Aortic Valve Aortic valve is thickened and calcified. Mean gradient across aortic valve is 10 mmHg with valve area calculated to be 0.93cm2. Moderate to severe low flow low gradient aortic stenosis. Tricuspid Valve Mild tricuspid regurgitation. RVSP is 35 to 40 mmHg. This is consistent with mild pulmonary hypertension. Pulmonic Valve Not well visualized Pericardium Normal Aorta Normal IVC Normal in size CONCLUSIONS LV systolic function is normal with EF of 55-60% Left atrium is severely dilated. Mild mitral regurgitation Mild mitral stenosis Moderate to severe low flow low gradient aortic stenosis. Mild tricuspid regurgitation. Mild pulmonary hypertension Chavez Gunn MD (Electronically Signed) Final Date: 19 March 2025 09:35 S
--- NOTE | 2025-03-18 23:46 | ECG_ITS ---
[email or web address] Date: 2025-[facility]-19 Pat Name: Lucy Galindo Department: Room: Gender: Female Funeral Counselor: : 1945 Requested By: Rosalia Aleman Order Number: [id number] Reading MD: Measurements Intervals [place] Rate: 83 P: 44 PA: 138 QRS: 33 QRSD: 115 T: 49 QT: 501 QTc: 591 Interpretive Statements SINUS RHYTHM WITH FREQUENT SUPRAVENTRICULAR PREMATURE COMPLEXES MODERATE INTRAVENTRICULAR CONDUCTION DELAY [110+ ms QRS DURATION] MODERATE T-WAVE ABNORMALITY, CONSIDER ANTEROLATERAL ISCHEMIA [-0.1+ mV T-WAVE IN V3-V6] Compared to ECG 03/18/2025 21:01:23 Possible ischemia now present Atrial fibrillation no longer present T-wave abnormality still present [email or web address]
[2025-03-19] VITALS (18 sets, daily range): BP systolic 90–107; BP diastolic 55–68; PULSE 71–111; RESP 20–26; TEMP 36.4–37.2; O2SAT 92–100
[2025-03-19 00:11] LABS: Troponin 5 6HR 50.42 ng/L (0-10); Troponin 5 6HR Delta 6.42 ng/L (0-12)
[2025-03-19 00:15] LABS: Potassium 2.1 mmol/L (3.5-5.1)
[2025-03-19 00:21] LABS: Coronavirus 229E,HKU1,NL63,OC4 Not Detected (NOT DETECT); Parainfluenza Virus Type 1 Not Detected (NOT DETECT); Parainfluenza Virus Type 2 Not Detected (NOT DETECT); Parainfluenza Virus Type 3 Not Detected (NOT DETECT); Parainfluenza Virus Type 4 Not Detected (NOT DETECT); SARS-COV-2 Not Detected (NOT DETECT)
[2025-03-19 00:32] LABS: Glucose Urine UA Negative (Normal); Nitrate Urine Negative (Negative); Specific Gravity, Urine 1.006 (1.005-1.030)
[2025-03-19 00:37] LABS: Add Urine Microscopic? YES
[2025-03-19] MEDS: lidocaine 1% 5 ML in potassium chloride premix 100 ML 26.25 ML IV (01:33)
[2025-03-19 06:24] LABS: Hematocrit 28.5 % (36-47); Hemoglobin 8.50 g/dL (11.27-16.99); Mean Corpuscular HGB Conc 29.8 g/dL (30-55); Mean Corpuscular Hemoglobin 26.9 pg (27-33); Mean Corpuscular Volume 90.2 fl (85-98); Nucleated Red Blood Cells % 0 %; Platelet Count 299 10^3/cmm (157-399); Red Blood Count 3.16 10^6/uL (3.85-5.65); White Blood Count 7.47 10^3/uL (3.29-11.43)
[2025-03-19 06:46] LABS: Alanine Aminotransferase 15 U/L (0-33); Albumin Level 3.0 g/dL (3.5-5.2); Alkaline Phosphatase 75 U/L (35-105); Anion Gap 13.5 (5-19); Aspartate Amino Transferase 22 U/L (0-32); Blood Urea Nitrogen 11 mg/dL (8-23); Calcium 8.1 mg/dL (8.5-10.5); Carbon Dioxide 38 mmol/L (22-29); Chloride 95 mmol/L (98-107); Creatinine Clr Calc Pharmacy 31.9685; Globulin 3.0 g/dL (1.3-4.6); Glucose 138 mg/dL (65-115); Magnesium 1.8 mg/dL (1.7-2.3); Osmolality Calculated 296 mOsm/kg (285-295); Potassium 4.5 mmol/L (3.5-5.1); Sodium 142 mmol/L (136-145); Total Protein 6.0 g/dL (6.6-8.7)
--- NOTE | 2025-03-19 08:16 | PC.PHAR ---
Tarik Rodriguez is faxing current med list 03/19/25 8:16M
--- NOTE | 2025-03-19 09:00 | PC.PHAR ---
Pts' daughter states pt took am medications but not pm medications. Family forgot to leave med list with us so Tarik Rodriguez faxed current med list.
[2025-03-19] MEDS: FUROsemide 10 mg/mL SDV 4mL 40 MG IVP (09:55)
--- NOTE | 2025-03-19 15:09 | P.CONIM_ITS ---
<Statement entered by Chavez Gunn M.D - 03/23/25 10:56> Patient was evaluated and cared for in conjunction with an advanced practice practitioner.? I personally examined the patient and reviewed the chart and all pertinent data including imaging, telemetry, and laboratory results.? I discussed the patient in detail with the advanced practice practitioner.? Please see? their note for complete consult note, testing results and agreed upon plan of care for the patient. GENERAL: Patient is alert, awake and oriented x3. HEART: Irregularly irregular, grade 3/6 systolic murmur LUNGS: Diminished air entry bilaterally CENTRAL NERVOUS SYSTEM: Grossly nonfocal. EXTREMITIES: Lower extremities with out edema bilaterally. Providers/Reason For Consult 2 Consulting Physician/Specialty*: Dr Gunn, cardiology Reason for Consult*: severe aortic stenosis Requesting Physician: Chin Sy MD Attending Physician: Chin Sy MD Primary Care Provider: Allan Mak, WAREHOUSE MANAGER-C History of Present Illness History of Present Illness Lucy Galindo is a 80 year old female with past medical history of CAD, hypertension, diabetes, aortic stenosis presenting emergency room with shortness of breath, found to be in atrial fibrillation with RVR and volume overloaded. She required BiPAP in the emergency room, diuresed with IV Lasix. Amiodarone was started in the ER for rhythm control along with metoprolol for rate control. As of this morning she had converted to sinus rhythm and had been switched to oral amiodarone. When the IV infusion was discontinued she returned back into atrial fibrillation with ventricular rates around 110 bpm, blood pressure soft. Echocardiogram obtained yesterday revealed LVEF 55 to 60%, mild mitral stenosis mean gradient 4.6 mmHg, moderate to severe low-flow low gradient aortic stenosis mean gradient 10 mmHg [place] 0.93 cm?, mild pulmonary hypertension mild tricuspid regurgitation. Consult is requested regarding the severe aortic stenosis. Review of Systems 2 Const: Denies: fever(s), chills, change in weight, fatigue or diaphoresis Eyes: Denies: change in vision ENMT: Denies: epistaxis Card: Denies: chest pain, palpitations, irregular heart rhythm, edema, syncope, pre-syncope, dyspnea on exertion, orthopnea or leg pain with exertion Resp: Denies: dyspnea, productive cough or wheezing GI: Denies: nausea, vomiting, hematemesis, hematochezia or melena : Denies: hematuria Musc: Denies: extremity swelling Emery/Lymph: Denies: easy bruising or easy bleeding Medications/Allergies Home Medications ?Medication ?Instructions ?Recorded ?Confirmed ?Last Taken ?Type multivitamin 1 tab PO DAILY@199912/07/20 03/19/25 03/17/25 History aspirin 81 mg tablet,delayed 81 mg PO BEDTIME 08/05/22 03/19/25 03/17/25 History release nitroglycerin 0.4 mg sublingual 0.4 mg sublingual Q5M PRN Chest 08/05/22 03/19/25 Unknown History tablet (Nitrostat) Pain tramadol 50 mg tablet 50 mg PO Q4H PRN Pain 03/19/25 06/19/24 History vitamin B complex 1 tab PO DAILY 08/05/2202/2703/18/25 History cetirizine 10 mg tablet (Zyrtec) 10 mg PO DAILY PRN Al lergy 12/02/23 03/19/25 Unknown Rx Symptoms #30 tabs BiPap supplies #1 ea 06/10/24 03/19/25 Unkn own Rx Disposable nebulizer circuit #1 ea 10/30/24 03/19/25 U nknown Rx ferrous sulfate 300 mg (60 mg 300 mg (5 mL) PO BID #30 0 mL 01/30/25 03/19/25 03/18/25 Rx iron)/5 mL oral liquid albuterol sulfate 2.5 mg/3 mL 2.5 mg (3 mL) inhalation Q4H PRN 02/16/25 03/19/25 Unknown Rx (0.083 %) solution for nebulization shortness of breat h or wheezing #300 mL albuterol sulfate 90 mcg/actuation 2 puff inhalation Q 4H PRN 02/16/25 03/19/25 Unknown Rx aerosol inhaler shortness of breath or wheez ing #18 grams apixaban 5 mg tablet (Eliquis) 5 mg PO BID@0900,2100 # 60 tabs 02/16/25 03/19/25 03/18/25 Rx budesonide 160 mcg-glycopyr 9 2 inh inhalation BID #10 .7 grams 02/16/25 03/19/25 03/18/25 Rx mcg-formot 4.8 mcg/actuation HFA inhaler (Breztri Aerosphere) cholecalciferol (vitamin D3) 50 2,000 unit PO EVERY OT HER DAY #14 02/16/25 03/19/25 Unknown Rx mcg (2,000 unit) tablet tabs citalopram 20 mg tablet 20 mg PO DAILY #30 tabs 06/09/2203/19/25 03/18/25 Rx cyanocobalamin (vitamin B-12) 1,000 mcg IM .monthly #3 mL 02/16/25 03/19/25 02/18/25 Rx 1,000 mcg/mL injection solution docusate sodium 100 mg capsule 100 mg PO BID #60 caps 02/16/25 03/19/25 03/18/25 Rx (Colace) furosemide 20 mg tablet 20 mg PO DAILY@0800 #30 tabs 02/16/25 03/19/25 03/18/25 Rx metformin 500 mg tablet,extended 1,500 mg (3 x 500 mg) PO DAILY #90 02/16/25 03/19/25 03/18/25 Rx release 24 hr tabs metoprolol tartrate 25 mg tablet 37.5 mg (1.5 x 25 mg) PO 02/16/25 03/19/25 03/18/25 Rx BID@0900,2100 #90 tabs oxybutynin chloride 5 mg tablet 5 mg PO BID #60 tabs 0 02/16/25 03/19/25 03/18/25 Rx pantoprazole 20 mg tablet,delayed 20 mg PO QAM #30 tab s 02/16/25 03/19/25 03/18/25 Rx release rosuvastatin 10 mg tablet 10 mg PO .at bedtime #30 tab s 02/16/25 03/19/25 03/17/25 Rx sacubitril 24 mg-valsartan 26 mg 1 tab PO BID #60 tabs 02/16/25 03/19/25 03/18/25 Rx tablet (Entresto) syringe with needle 3 mL 22 gauge #1 ea 02/16/2503/19 Unknown Rx x 1 Protable oxygen 2L NC #1 ea 02/18/25 03/19/25 Unkn own Rx Allergies Allergy/AdvReac Type Severity Reaction Status Date / Time No Known Allergies Allergy Verified 07/21/25 17:38 Current Medications Generic Name Dose Route Start Last Admin Trade Name Silvano PRN Reason Stop Dose Admin Albuterol/Ipratropium 3 ml 03/19/25 02:00 03/19/25 13:52 Ipratropium-Albuterol 3 Ml Neb INHALATION 3 ml Q6H.RESP LUIS Administration Amiodarone HCl 400 mg 03/19/25 10:00 03/19/25 10:08 Amiodarone 200 Mg Tablet PO 400 mg Q12H LUIS Administration Apixaban 5 mg 03/19/25 09:00 03/19/25 09:58 Apixaban 5 Mg Tablet PO 5 mg BID@0900,2100 LUIS Administration Budesonide 0.5 mg 03/19/25 08:00 03/19/25 09:15 Budesonide 0.5 Mg/2 Ml Neb INHALATION 0.5 mg BID.RESPIRATORY LUIS Administration Citalopram Hydrobromide 20 mg 03/19/25 09:00 03/19/25 09:58 Citalopram 20 Mg Tablet PO 20 mg DAILY LUIS Administration Ferrous Sulfate 300 mg 03/19/25 09:00 03/19/25 09:56 Ferrous Sulfate 300 Mg/5 Ml Udc PO 300 mg BID LUIS Administration Furosemide 40 mg 03/19/25 08:00 03/19/25 09:55 Furosemide 10 Mg/Ml Sdv 4ml IVP 40 mg Q24H LUIS Administration Amiodarone HCl/Dextrose 360 mg in 200 mls @ 16.667 mls/hr 03/19/25 13:15 03/19/25 12:00 Nexterone IV 0.5 mg/min .Q12H LUIS 16.67 mls/hr Protocol Administration 0.5 MG/MIN Metoprolol Tartrate 37.5 mg 03/18/25 22:00 03/19/25 09:56 Metoprolol Tartrate 25 Mg Tablet PO 37.5 mg BID@0900,2100 LUIS Administration Pantoprazole Sodium 40 mg 03/19/25 09:00 03/19/25 09:[address] 40 Mg Tablet PO 40 mg DAILY LUIS Administration Potassium Chloride 20 meq 03/19/25 09:10 03/19/25 09:56 Potassium Chloride Er 20 Meq Tablet PO 20 meq DAILY LUIS Administration Sacubitril/Valsartan 1 each 03/19/25 09:00 07/22/25 09:56 Sacubitril/Valsartan 24-26 Mg Tablet PO 1 each BID LUIS Administration Tramadol HCl 50 mg 03/18/25 21:55 03/18/25 22:55 Tramadol 50 Mg Tablet PO 50 mg Q6H PRN Administration PAIN PFSH Acute 2 PFSH: Medical History Diabetes mellitus with hyperglycemia, without long-term current use of insulin Urolithiasis Superior mesenteric artery stenosis Moderate, noted on CTA 11/2020 Some celiac artery stenosis also noted Renal artery stenosis Moderate, noted on CTA 11/2020 Abnormal nuclear stress test Benign essential HTN Atherosclerotic heart disease of [place] coronary artery without angina pectoris Chronic neck and back pain Recurrent UTI Fibromyalgia [facility] (current) use of opiate analgesic Chronic low back pain Calculus of kidney right; 6 mm without liner roll changer time 01/10; 7 mm obstructing right proximal stone; evaluated and treated [facility] 02/10 for sepsis, UTI, NSTEMI, and right proximal ureteral calculus with hydronephrosis Bilateral hearing loss 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, unspecified Anxiety and depression HX: breast cancer Chronic osteoarthritis Chronic idiopathic constipation PAD (peripheral artery disease) stent right SFA Mixed hyperlipidemia Vitamin D deficiency Gastro-esophageal reflux disease without esophagitis Asthma, mild persistent Urinary incontinence in female Chronic right shoulder pain Osteoporosis Asymptomatic cholelithiasis Obstructive sleep apnea on BiPAP Type 2 diabetes mellitus with diabetic polyneuropathy Surgical History Hx of bilateral cataract extraction Hx of lithotripsy History of lumpectomy of left breast (~1969) [facility] History of shoulder surgery (~2014) right; [place] [facility] [place]x of bladder repair surgery (~2004) Dr Nunez's office in [place], [place] History of intravascular stent placement (~2003) right leg; [place], [place] Family History Brother Cancer Lung Father , at age 74 Diabetes Cancer colon Mother , age 89 Diabetes CAD (coronary artery disease) Cancer breast Denies family history of Clotting disorder Dementia Hyperlipidemia Psychiatric illness Chronic kidney disease (CKD) Suicide Anesthesia complication Bleeding disorder Family history of premature coronary artery disease Lung disease Hypertension Stroke Social History Smoking and tobacco/nicotine status: former use of tobacco/nicotine Quit status (tobacco/nicotine): has quit using Year quit tobacco: 2001 Former quit date comment: smoked 2PPD x 25 yrs Second hand smoke exposure: No Alcohol intake: never Substance/Drug Use: never Caregiver/support person: Yes Lives independently: Yes Household members: none Marital status: / Current occupational status: retired Current gender identity: Female Special shan needs: No Vitals/I&O/Wt Last Vital Signs Temp 97.6 F 03/19/25 12:00 Pulse 72 03/19/25 13:58 Resp 22 H 03/19/25 13:58 BP 91/62 03/19/25 12:00 Pulse Ox 93 03/19/25 13:58 O2 Del Method High Flow Nasal Cannula 03/19/25 13:58 O2 Flow Rate 4 03/19/25 13:58 FiO2 50 03/19/25 05:38 03/19/25 03/19/25 03/19/25 06:59 14:59 22:59 Intake Total 665 / 1565 440 / 440 Output Total 430 / 1530 Balance 235 / 35 440 / 440 Weight last 48 hrs Weight 99 lb 8 oz Weight 99 lb 12.8 oz Weight 98 lb Physical Exam 2 Const: COMMON NORMALS: no acute distress and patient oriented x3 Chest: COMMONS NORMALS: normal inspection of the chest and normal palpation of entire chest wall CHEST: Yes Symmetrical chest wall rise Resp: COMMON NORMALS: normal respiratory effort, No retractions, No use of accessory muscles and clear to auscultation bilaterally EFFORT & INSPECTION: Yes symmetric chest movement AUSCULTATION: clear to auscultation bilaterally Cardio: COMMON NORMALS: S1 normal heart sound present, S2 normal heart sound present, No gallops present (Cardio), No clicks present (Cardio), No murmurs present (Cardio) and No rub (Cardio) RHYTHM: abnormal rhythm irregularly irregular HEART SOUNDS: S1 normal heart sound present and S2 normal heart sound present PERIPHERAL PULSES: radial pulses present, posterior tibial pulses present and dorsalis pedis present Neuro: COMMON NORMALS: patient oriented x3 and moves all extremities Psych: COMMON NORMALS: mental status grossly normal and cooperative Urinary Catheter Management: Peoples: Cath Placed During This Visit: yes Reason for Continuing Indwelling Catheter: Accurate Measurement of Urinary Output in Critically Ill Patients Urinary Catheter Date of Insertion: 03/18/25 Urinary Catheter Time of Insertion: 19:15 Data 03/19/25 06:17 03/19/25 06:17 Micro: Microbiology 03/19/25 09:00 Occult Blood (FIT) - Final Stool 03/18/25 19:43 Blood Culture - Preliminary Blood SPECIMEN COLLECTED 03/18/25 19:40 Blood Culture - Preliminary Blood SPECIMEN COLLECTED A&P Assessment and plan 1. Severe calcific aortic valve stenosis: 2. Acute exacerbation of CHF (congestive heart failure): 3. Atrial fibrillation: 4. Dyslipidemia (high LDL; low HDL): 5. Benign essential HTN: 6. Atherosclerotic heart disease of [place] coronary artery without angina pectoris: 7. PAD (peripheral artery disease): Plan: Severe low gradient aortic stenosis was previously diagnosed on an echocardiogram in May 2024. Patient has been asymptomatic up to this point. She is not very active, spends most of her time in the bed or the chair. She is also a DNR-does not desire chest compressions; intubation is okay for short term ventilation. She appears euvolemic at this time. Would recommend continuation of amiodarone infusion for another 2 hours then discontinue and continue oral amiodarone, as long as she remains rate controlled. I did discuss with the patient and her significant other at the bedside, the possible treatment options of TAVR and required workup of the aortic stenosis. She would be willing to undergo TAVR if she was deemed to be a candidate. She is relatively asymptomatic at this point, volume overload is resolved. There is no necessity of performing TAVR urgently. This can be discussed with Dr. Maguire her primary vocational trainer as an outpatient. PDMP PDMP Reviewed: Not Reviewed Coding Level of Care Code Acute Code for Chg Fwd Diagnoses Severe calcific aortic valve stenosis I35.0 Acute exacerbation of CHF (congestive heart failure) I50.9 Atrial fibrillation I48.91 Dyslipidemia (high LDL; low HDL) E78.5 Benign essential HTN I10 Atherosclerotic heart disease of [place] coronary artery without angina pectoris I25.10 PAD (peripheral artery disease) I73.9
--- NOTE | 2025-03-19 16:56 | P.PN_ITS ---
Subjective 2 Subjective: - Patient was seen this morning, current ly alert oriented x 3, following all commands, does complain of shortness of breath currently on 6 L, patient's lifetime partner is at bedside, she denies any chest pain, no palpitations, she also complains of a cough, Vitals/I&O/Wt Last Vital Signs Temp 97.8 F 03/19/25 16:00 Pulse 111 H 03/19/25 16:00 Resp 24 H 03/19/25 16:00 BP 90/61 03/19/25 16:00 Pulse Ox 92 03/19/25 16:00 O2 Del Method Nasal Cannula 03/19/25 16:00 O2 Flow Rate 6 03/19/25 16:00 FiO2 50 03/19/25 05:38 03/19/25 03/19/25 03/19/25 06:59 14:59 22:59 Intake Total 665 / 1565 440 / 440 Output Total 430 / 1530 Balance 235 / 35 440 / 440 Weight last 48 hrs Weight 45.132 kg Weight 45.269 kg Weight 44.452 kg Physical Exam 2 Const: COMMON NORMALS: no acute distress and patient oriented x3 Resp: COMMON NORMALS: normal respiratory effort, No retractions and No use of accessory muscles AUSCULTATION: crackles and wheezes Cardio: COMMON NORMALS: regular rate, regular rhythm, S1 normal heart sound present and S2 normal heart sound present RATE: regular rate RHYTHM: r egular rhythm HEART SOUNDS: S1 normal heart sound present and S2 normal heart sound present GI: COMMON NORMALS: Normal to inspection, nondistended, normoactive bowel sounds present and non-tender Extremity: COMMON NORMALS: no pedal edema Neuro: COMMON NORMALS: patient oriented x3, CN's II-XII intact bilaterally and moves all extremities Psych: COMMON NORMALS: mental status grossly normal Urinary Catheter Management: Peoples: Cath Placed During This Visit: yes Reason for Continuing Indwelling Catheter: Accurate Measurement of Urinary Output in Critically Ill Patients Urinary Catheter Date of Insertion: 03/18/25 Urinary Catheter Time of Insertion: 19:15 Data 03/19/25 06:17 03/19/25 06:17 Micro: Microbiology 03/19/25 09:00 Occult Blood (FIT) - Final Stool 03/18/25 19:43 Blood Culture - Preliminary Blood SPECIMEN COLLECTED 03/18/25 19:40 Blood Culture - Preliminary Blood SPECIMEN COLLECTED A&P Assessment and plan 1. Atrial fibrillation with rapid ventricular response: 2. Acute exacerbation of CHF (congestive heart failure): 3. Hypokalemia: 4. Acute and chronic respiratory failure with hypoxia: Plan: Acute hypoxic respiratory failure - Multifactorial - From diastolic CHF exacerbation, fluid overload - From severe aortic stenosis - With underlying COPD - Was on BiPAP currently on 6 L -Concerns for COPD exacerbation Plan -Monitor respiratory status closely - BiPAP as needed during today's, scheduled during the night - Lasix 40 IV twice daily with metolazone -Monitor urine output, monitor creatinine - Solu-Medrol 40 mg IV every 8 hours - Continue Rocephin, Zithromycin - DuoNeb - Budesonide Severe aortic stenosis CONCLUSIONS LV systolic function is normal with EF of 55-60% Left atrium is severely dilated. Mild mitral regurgitation Mild mitral stenosis Moderate to severe low flow low gradient aortic stenosis. Mild tricuspid regurgitation. Mild pulmonary hypertension - Cardiology consulted Pulmonary hypertension, likely secondary to COPD A-fib with rapid ventricular response - Amiodarone drip - Continue p.o. Eliquis Physical deconditioning, BMI 20.1, protein calorie malnutrition DVT ppx: Eliquis limited resuscitation : okay for short term ventilation, no chest compressions PDMP PDMP Reviewed: Not Reviewed Attestations 2 Medical Necessity Statement*: Patient requires hospitalization for acute hypoxic respiratory failure secondary to CHF, COPD, severe aortic stenosis Diagnoses Atrial fibrillation with rapid ventricular response I48.91 Acute exacerbation of CHF (congestive heart failure) I50.9 Hypokalemia E87.6 Acute and chronic respiratory failure with hypoxia J96.21
[2025-03-19] MEDS: albumin 25 G/100 ML BAG 60 G IV (19:14)
[2025-03-19] MEDS: cefTRIAXone 1,000 mg SDV 1000 MG IVP (19:14)
[2025-03-19] MEDS: methylPREDNISolone sod succ 40 mg/mL INJ IVP (19:15)
--- NOTE | 2025-03-19 22:16 | PC.NURSE ---
contacted for BP of 94/62 after a dose of albumin given and midodrine given, with a dose of 40mg IV lasix due MD said to hold 40mg IV lasix and give 20mg PO lasix instead, orders are entered
[2025-03-20] VITALS (18 sets, daily range): BP systolic 89–124; BP diastolic 53–75; PULSE 80–105; RESP 14–30; TEMP 36.4–37.1; O2SAT 89–98
[2025-03-20] MEDS: albumin 25 G/100 ML BAG 60 G IV ×3 (01:28→17:05)
[2025-03-20] MEDS: methylPREDNISolone sod succ 40 mg/mL INJ IVP ×3 (01:28→17:06)
--- NOTE | 2025-03-20 03:00 | PC.NURSE ---
Contacted MD about low BP of 86/69 40 minutes after receiving a dose of midodrine and 2 hours after oral lasix dose see MD JUAN CARLOS orders 1 bag of albumin 25g to be given, orders clarified that MD wants the 0515 dose given as well of albumin, MD said give one bag now and then the 0515 as well. orders entered and given. Updated MD of BP of 91/70 after albumin was done infusing
[2025-03-20 03:31] LABS: Hematocrit 29.6 % (36-47); Hemoglobin 8.70 g/dL (11.27-16.99); Mean Corpuscular HGB Conc 29.4 g/dL (30-55); Mean Corpuscular Hemoglobin 26.8 pg (27-33); Mean Corpuscular Volume 91.1 fl (85-98); Nucleated Red Blood Cells % 0 %; Platelet Count 329 10^3/cmm (157-399); Red Blood Count 3.25 10^6/uL (3.85-5.65); White Blood Count 5.55 10^3/uL (3.29-11.43)
[2025-03-20 04:01] LABS: Magnesium 1.9 mg/dL (1.7-2.3)
[2025-03-20 04:04] LABS: Anion Gap 16.6 (5-19); Blood Urea Nitrogen 16 mg/dL (8-23); Calcium 9.1 mg/dL (8.5-10.5); Carbon Dioxide 38 mmol/L (22-29); Chloride 92 mmol/L (98-107); Creatinine Clr Calc Pharmacy 26.4267; Glucose 236 mg/dL (65-115); NT Pro B Type Natriuretic Pept 14232 pg/mL (0-450); Osmolality Calculated 305 mOsm/kg (285-295); Potassium 3.6 mmol/L (3.5-5.1); Sodium 143 mmol/L (136-145)
--- NOTE | 2025-03-20 05:56 | PC.NURSE ---
contacted about BP of with upcoming lasix due, said to hold
--- NOTE | 2025-03-20 08:20 | P.PN_ITS ---
<Statement entered by Chavez Gunn M.D - 03/23/25 11:00> Patient was cared for in conjunction with an advanced practice practitioner.? I reviewed the chart and all pertinent data including imaging, telemetry, and laboratory results.? I discussed the patient in detail with the advanced practice practitioner.? Please see?their note for progress note, testing results and agreed upon plan of care for the patient. Subjective 2 Subjective: No events overnight. She has had some soft blood pressures and has been started on midodrine 10 mg 4 times daily. Entresto held. She continues to be in atrial fibrillation, currently on amiodarone infusion. Plan is to transition to oral amiodarone. Vitals/I&O/Wt Last Vital Signs Temp 98.1 F 03/20/25 11:05 Pulse 98 03/20/25 14:07 Resp 24 H 03/20/25 14:07 BP 114/69 03/20/25 11:05 Pulse Ox 92 03/20/25 14:07 O2 Del Method High Flow Nasal Cannula 03/20/25 14:07 O2 Flow Rate 5 03/20/25 14:07 FiO2 40 03/20/25 00:45 03/20/25 03/20/25 03/20/25 06:59 14:59 22:59 Intake Total 400 / 1310 560 / 560 Output Total 850 / 1950 Balance -450 / -640 560 / 560 Weight last 48 hrs Weight 98 lb 11.2 oz Weight 99 lb 8 oz Weight 99 lb 12.8 oz Weight 98 lb Physical Exam 2 Const: COMMON NORMALS: no acute distress and patient oriented x3 GENERAL APPEARANCE: cooperative and comfortable ORIENTATION/CONSCIOUSNESS: Yes awake, Yes oriented to person, Yes oriented to place and Yes oriented to time Chest: COMMONS NORMALS: normal inspection of the chest and normal palpation of entire chest wall CHEST: Yes Symmetrical chest wall rise Resp: COMMON NORMALS: normal respiratory effort, No retractions and No use of accessory muscles EFFORT & INSPECTION: Yes symmetric chest movement A USCULTATION: rhonchi Cardio: COMMON NORMALS: regular rate, S1 normal heart sound present, S2 normal heart sound present, No gallops present (Cardio), No clicks present (Cardio), No murmurs present (Cardio) and No rub (Cardio) RATE: regular rate RHYTHM: a bnormal rhythm irregularly irregular HEART SOUNDS: S1 normal heart sound present and S2 normal heart sound present PERIPHERAL PULSES: radial pulses present Extremity: COMMON NORMALS: no pedal edema Neuro: COMMON NORMALS: patient oriented x3 and moves all extremities S ENSORIUM/ORIENTATION: Yes oriented to person, Yes oriented to place and Yes oriented to time Urinary Catheter Management: Peoples: Cath Placed During This Visit: yes Reason for Continuing Indwelling Catheter: Accurate Measurement of Urinary Output in Critically Ill Patients Urinary Catheter Date of Insertion: 03/18/25 Urinary Catheter Time of Insertion: 19:15 Data 03/20/25 02:50 03/20/25 14:37 Micro: Microbiology 03/18/25 19:43 Blood Culture - Preliminary Blood NEGATIVE TO DATE 03/18/25 19:40 Blood Culture - Preliminary Blood NEGATIVE TO DATE A&P Assessment and plan 1. Severe calcific aortic valve stenosis: 2. Acute exacerbation of CHF (congestive heart failure): 3. Atrial fibrillation: 4. Dyslipidemia (high LDL; low HDL): 5. Benign essential HTN: 6. Atherosclerotic heart disease of [place] coronary artery without angina pectoris: 7. PAD (peripheral artery disease): Plan: She is not experiencing any chest pain or worsening shortness of breath- although is intermittently short of breath with rhonchi. Her cough is not productive although she cannot cough deeply even with coaching. Agree with hospitalist service in regards to diuresis. With the overlapping COPD exacerbation, difficult to determine volume status, although she does not have any increase in weight, lower extremity edema or abdominal distention. As long as she is able to maintain good ventricular rate control can continue oral amiodarone. She can follow-up with Dr. Maguire in the clinic in regards to her severe aortic stenosis. She does not seem to be a good surgical candidate given her DNR status and frailty. She is not very active at home either so it may be difficult to prove benefit from TAVR. PDMP PDMP Reviewed: Not Reviewed Attestations 2 Medical Necessity Statement*: Per hospitalist Coding Level of Care Code Acute Code for Chg Fwd Diagnoses Severe calcific aortic valve stenosis I35.0 Acute exacerbation of CHF (congestive heart failure) I50.9 Atrial fibrillation I48.91 Dyslipidemia (high LDL; low HDL) E78.5 Benign essential HTN I10 Atherosclerotic heart disease of [place] coronary artery without angina pectoris I25.10 PAD (peripheral artery disease) I73.9
[2025-03-20] MEDS: FUROsemide 10 mg/mL SDV 4mL 40 MG IVP ×2 (08:44→17:06)
--- NOTE | 2025-03-20 09:34 | PC.SOCIAL ---
IMM Updated Updated pt on IMM. No questions voiced. Provided pt a copy. Initialed, dated, & timed a copy & placed in chart.
--- NOTE | 2025-03-20 12:57 | P.PN_ITS ---
Subjective 2 Subjective: Patient was seen this morning, reports shortness of breath, does have cough, no fevers, no chills, she is very hard of hearing, but was able to communicate with the patient, tells me that she is ambulatory at home, she can take care of herself, she does not drive Vitals/I&O/Wt Last Vital Signs Temp 98.1 F 03/20/25 11:05 Pulse 87 03/20/25 11:05 Resp 28 H 03/20/25 11:05 BP 114/69 03/20/25 11:05 Pulse Ox 92 03/20/25 11:05 O2 Del Method High Flow Nasal Cannula 03/20/25 07:52 O2 Flow Rate 3 03/20/25 07:52 FiO2 40 03/20/25 00:45 03/19/25 03/20/25 03/20/25 22:59 06:59 14:59 Intake Total 470 / 910 400 / 1310 440 / 440 Output Total 1100 / 1100 850 / 1950 Balance -630 / -190 -450 / -640 440 / 440 Weight last 48 hrs Weight 44.77 kg Weight 45.132 kg Weight 45.269 kg Weight 44.452 kg Physical Exam 2 Const: COMMON NORMALS: no acute distress and patient oriented x3 Resp: COMMON NORMALS: normal respiratory effort, No retractions and No use of accessory muscles AUSCULTATION: crackles and wheezes Cardio: COMMON NORMALS: regular rate, regular rhythm, S1 normal heart sound present and S2 normal heart sound present RATE: regular rate RHYTHM: r egular rhythm HEART SOUNDS: S1 normal heart sound present and S2 normal heart sound present GI: COMMON NORMALS: Normal to inspection, nondistended, normoactive bowel sounds present, Soft to palpation, non-tender, No hepatosplenomegaly present, no masses and no bruits PALPATION: Yes Soft to palpation and Yes No hepatosplenomegaly present Extremity: COMMON NORMALS: no pedal edema Neuro: COMMON NORMALS: patient oriented x3 Psych: COMMON NORMALS: mental status grossly normal Urinary Catheter Management: Peoples: Cath Placed During This Visit: yes Reason for Continuing Indwelling Catheter: Accurate Measurement of Urinary Output in Critically Ill Patients Urinary Catheter Date of Insertion: 03/18/25 Urinary Catheter Time of Insertion: 19:15 Data 03/20/25 02:50 03/20/25 02:50 Micro: Microbiology 03/18/25 19:43 Blood Culture - Preliminary Blood NEGATIVE TO DATE 03/18/25 19:40 Blood Culture - Preliminary Blood NEGATIVE TO DATE 03/19/25 09:00 Occult Blood (FIT) - Final Stool A&P Assessment and plan 1. Atrial fibrillation with rapid ventricular response: 2. Acute exacerbation of CHF (congestive heart failure): 3. Hypokalemia: 4. Acute and chronic respiratory failure with hypoxia: Plan: Acute hypoxic respiratory failure - Multifactorial - From diastolic CHF exacerbation, fluid overload - From severe aortic stenosis - With underlying COPD - Was on BiPAP currently on 6 L -Concerns for COPD exacerbation Plan -Monitor respiratory status closely - BiPAP as needed during today's, scheduled during the night - Lasix 40 IV twice daily with metolazone -Monitor urine output, monitor creatinine - Solu-Medrol 40 mg IV every 8 hours - Continue Rocephin, Zithromycin - DuoNeb - Budesonide Severe aortic stenosis CONCLUSIONS LV systolic function is normal with EF of 55-60% Left atrium is severely dilated. Mild mitral regurgitation Mild mitral stenosis Moderate to severe low flow low gradient aortic stenosis. Mild tricuspid regurgitation. Mild pulmonary hypertension - Cardiology consulted Pulmonary hypertension, likely secondary to COPD A-fib with rapid ventricular response - Amiodarone drip, wean to p.o. amiodarone - Continue p.o. Eliquis Physical deconditioning, BMI 20.1, protein calorie malnutrition DVT ppx: Eliquis limited resuscitation : okay for short term ventilation, no chest compressions Plan for today IV diuresis, continue IV antibiotics, PT OT PDMP PDMP Reviewed: Not Reviewed Attestations 2 Medical Necessity Statement*: Patient requires hospitalization for CHF, pneumonia, COPD Diagnoses Atrial fibrillation with rapid ventricular response I48.91 Acute exacerbation of CHF (congestive heart failure) I50.9 Hypokalemia E87.6 Acute and chronic respiratory failure with hypoxia J96.21
[2025-03-20 15:47] LABS: Anion Gap 18.3 (5-19); Blood Urea Nitrogen 18 mg/dL (8-23); Calcium 10.1 mg/dL (8.5-10.5); Chloride 85 mmol/L (98-107); Creatinine Clr Calc Pharmacy 24.3939; Glucose 72 mg/dL (65-115); Osmolality Calculated 294 mOsm/kg (285-295); Potassium 3.3 mmol/L (3.5-5.1); Sodium 142 mmol/L (136-145)
[2025-03-20 16:04] LABS: Carbon Dioxide 42 mmol/L (22-29)
[2025-03-20] MEDS: cefTRIAXone 1,000 mg SDV 1000 MG IVP (17:06)
[2025-03-21] VITALS (11 sets, daily range): BP systolic 111–173; BP diastolic 64–112; PULSE 61–105; RESP 15–30; TEMP 36.1–37.2; O2SAT 87–98; BMI 19.1
[2025-03-21] MEDS: methylPREDNISolone sod succ 40 mg/mL INJ IVP ×3 (01:36→16:23)
[2025-03-21 04:10] LABS: Hematocrit 27.2 % (36-47); Hemoglobin 8.20 g/dL (11.27-16.99); Mean Corpuscular HGB Conc 30.1 g/dL (30-55); Mean Corpuscular Hemoglobin 27.1 pg (27-33); Mean Corpuscular Volume 89.8 fl (85-98); Nucleated Red Blood Cells % 0 %; Platelet Count 351 10^3/cmm (157-399); Red Blood Count 3.03 10^6/uL (3.85-5.65); White Blood Count 9.40 10^3/uL (3.29-11.43)
[2025-03-21 04:31] LABS: Magnesium 1.8 mg/dL (1.7-2.3)
[2025-03-21 04:44] LABS: Anion Gap 17.3 (5-19); Blood Urea Nitrogen 24 mg/dL (8-23); Calcium 10.1 mg/dL (8.5-10.5); Chloride 85 mmol/L (98-107); Creatinine Clr Calc Pharmacy 19.8201; Glucose 193 mg/dL (65-115); Osmolality Calculated 305 mOsm/kg (285-295); Potassium 3.3 mmol/L (3.5-5.1); Sodium 143 mmol/L (136-145)
[2025-03-21 04:46] LABS: Carbon Dioxide 44 mmol/L (22-29)
[2025-03-21 05:05] LABS: NT Pro B Type Natriuretic Pept 41178 pg/mL (0-450)
[2025-03-21] MEDS: albumin 25 G/100 ML BAG 60 G IV (05:28)
--- NOTE | 2025-03-21 09:50 | P.PN_ITS ---
<Statement entered by Chavez Gunn M.D - 03/23/25 11:10> Patient was cared for in conjunction with an advanced practice practitioner.? I reviewed the chart and all pertinent data including imaging, telemetry, and laboratory results.? I discussed the patient in detail with the advanced practice practitioner.? Please see?their note for progress note, testing results and agreed upon plan of care for the patient. Subjective 2 Subjective: No events noted overnight. She reports her breathing is not labored. She remains in atrial fibrillation, good ventricular rate control. BNP 41,000, creatinine 1.6 this morning, CO2 increased to 44. Patient and family are considering hospice. Vitals/I&O/Wt Last Vital Signs Temp 96.9 F L 03/21/25 07:53 Pulse 94 03/21/25 08:03 Resp 30 H 03/21/25 08:03 BP 173/101 03/21/25 07:53 Pulse Ox 97 03/21/25 08:03 O2 Del Method BiPAP 03/21/25 08:03 O2 Flow Rate 5 03/21/25 01:35 FiO2 45 03/21/25 08:03 03/20/25 03/21/25 03/21/25 22:59 06:59 14:59 Intake Total 350 / 1010 100 / 1010 100 / 100 Output Total 2000 / 2500 500 / 2500 Balance -1650 / -1490 -400 / -1490 100 / 100 Weight last 48 hrs Weight 94 lb 9 oz Weight 98 lb 11.2 oz Physical Exam 2 Const: COMMON NORMALS: no acute distress GENERAL APPEARANCE: cooperative and comfortable ORIENTATION/CONSCIOUSNESS: Yes awake and Yes oriented to person Chest: COMMONS NORMALS: normal inspection of the chest and normal palpation of entire chest wall CHEST: Yes Symmetrical chest wall rise Resp: COMMON NORMALS: normal respiratory effort, No retractions and No use of accessory muscles EFFORT & INSPECTION: Yes able to speak in complete sentences, Yes symmetric chest movement, Yes tachypneic and Yes labored A USCULTATION: crackles and diminished lung sounds bilateral in the lower lung [place] Cardio: COMMON NORMALS: S1 normal heart sound present, S2 normal heart sound present, No gallops present (Cardio), No clicks present (Cardio), No murmurs present (Cardio) and No rub (Cardio) RHYTHM: abnormal rhythm irregularly irregular HEART SOUNDS: S1 normal heart sound present and S2 normal heart sound present PERIPHERAL PULSES: radial pulses present, posterior tibial pulses present and dorsalis pedis present Neuro: COMMON NORMALS: moves all extremities SENSORIUM/ORIENTATION: Yes oriented to person Psych: COMMON NORMALS: cooperative and speech normal SPEECH: Yes normal speech Urinary Catheter Management: Peoples: Cath Placed During This Visit: yes Reason for Continuing Indwelling Catheter: Acute Urinary Retention or Obstruction Urinary Catheter Date of Insertion: 03/18/25 Urinary Catheter Time of Insertion: 19:15 Data 03/21/25 04:00 03/21/25 04:00 A&P Assessment and plan 1. Atrial fibrillation: 2. Severe calcific aortic valve stenosis: 3. Acute exacerbation of CHF (congestive heart failure): 4. Dyslipidemia (high LDL; low HDL): 5. Benign essential HTN: 6. Atherosclerotic heart disease of [place] coronary artery without angina pectoris: 7. PAD (peripheral artery disease): Plan: Will obtain chest x-ray to guide decisions regarding diuretic therapy. For now she has good ventricular rate control with amiodarone 400 mg twice daily, she can continue. Continue Lasix 40 mg twice daily until chest x-ray can be obtained. Agree with discussion regarding hospice as she is not a good surgical candidate for TAVR, her respiratory status appears to be worsening, requiring BiPAP at times. She is also DNR. PDMP PDMP Reviewed: Not Reviewed Attestations 2 Medical Necessity Statement*: per hospitalist Coding Level of Care Code Acute Code for g Fwd Diagnoses Atrial fibrillation I48.91 Severe calcific aortic valve stenosis I35.0 Acute exacerbation of CHF (congestive heart failure) I50.9 Dyslipidemia (high LDL; low HDL) E78.5 Benign essential HTN I10 Atherosclerotic heart disease of [place] coronary artery without angina pectoris I25.10 PAD (peripheral artery disease) I73.9
--- NOTE | 2025-03-21 11:31 | XR_ITS ---
WS: [id number] Portable AP upright chest, 03/21/2025 Clinical Data: sob Comparison: Portable chest, 03/18/2025 Findings: Diaphragms are flattened. There are interstitial changes throughout both lungs from chronic disease. The heart is at the upper limits of normal. No nodules, masses or effusions are seen. The aortic arch shows calcification. There is a hiatal hernia behind the heart. Monitor leads are on the chest wall. There are orthopedic anchors in the right humeral head. XR/XR chest 1V portable [id number] Impression: 1. Hyperinflation and atherosclerosis. 2. Chronic interstitial change in both lungs. 3. Minimal cardiomegaly.
[2025-03-21 12:12] LABS: ABG PH Result 7.42 (7.35-7.45); Arterial Blood Gas Hematocrit 25.8 % (37-47); Blood Gas LPM 7.0 %; Blood Gas Operator Identificat AMH; Blood Gas Sample Site Brachial, right; Blood Gas Sample Type Arterial; HCO3 ABG 48.2 mmol/L (22-26); PO2 ABG 60.4 mmHg (80.0-100.0)
[2025-03-21 12:13] LABS: ABG PCO2 74.8 mmHg (35-45)
--- NOTE | 2025-03-21 13:08 | P.PN_ITS ---
Subjective 2 Subjective: Patient was seen this morning, she is alert to person, not place, not to time she can follow some commands she reports shortness of breath, reports a cough, no fevers, no chills, she is on 6 L she appears in mild respiratory distress with nasal flaring, suprasternal intercostal retractions tachypnea, tachycardia, creatinine is 1.6, BNP over 41,000 has received Lasix, she is -2500 mL, I had a detailed discussion with Lucy about her CHF, her CKD, her JESS, but likely the persistent shortness of breath from her severe aortic stenosis, with her underlying COPD, pulmonary hypertension however I was able to get a good gauge that Lucy could not really understand what I was telling her, she is hard of hearing so I repeated my conversation in her ear, but I cannot really get a good indication that she understands what I am discussing with her - I was able to speak to Sade over the p mary anne who is 1 of Lucy's daughters - Discussed with Sade [facility] acute respiratory failure, multifactorial from CHF, pneumonia, COPD, pulmonary hypertension, persistent shortness of breath despite diuresis likely secondary to her severe aortic stenosis - Discussed the possibility of aortic va lve replacement, discussed that it is in most cases a elective procedure, however Sade tells me that she does not believe her mom could tolerate the surgery - Discussed with Sade that given Lucy's deconditioning, her COPD, pulm hypertension, her BMI of 19.1 she is at high risk for surgery ? She would likely need to be optimized for surgery need a coronary angiogram, CTA of her chest, follow-up with cardiology, pulmonary as outpatient before they will decide to do an aortic valve replacement - However without aortic valve replaceme nt Lucy will likely get worse, she would have a high risk of morbidity and and mortality, high risk of rehospitalization, high risk of acute flash pulmonary edema - Discussed morbidity and mortality asso ciate with Lucy's condition, Sade voiced understanding, all questions answered, agrees to proceed with medical intervention, we also discussed the possibility of her having high risk of cardiac arrest/respiratory failure during her hospitalization, and also outside the hospital, her overall poor prognosis - Patient has persistent shortness of br eath throughout the morning - Reexamined, patient's long-term life p robner at bedside, her other daughter is at bedside - Discussed Lucy's condition - Discussed her acute hypoxic hypercarbi c respiratory failure - Secondary to COPD, CHF, pneumonia, sev ere aortic valve stenosis - Discussed her severe aortic stenosis i s likely significant underlying etiology that cannot be intervened on acutely here at [facility] she will need to have aortic valve replacement however there is significant risks with surgery, they are most typically done electively, she needs to have further optimization of her pulmonary status, coronary angiography before they would even consider aortic valve replacement - Given Lucy's current presentation I do not think that she would be a good candidate for aortic valve replacement currently - Discussed her high risk of morbidity a nd mortality, daughter at bedside wants Lucy above all to be kept comfortable, she and her family are considering hospice - But above all they want Lucy to be kep t comfortable, for us to ease her pain and ease her suffering, they understand the morbidity and mortality associate with her condition currently, her poor prognosis - They are interested in hospice, but th ey want to continue a trial of medical therapy Vitals/I&O/Wt Last Vital Signs Temp 98.9 F 03/21/25 12:00 Pulse 61 03/21/25 12:00 Resp 16 03/21/25 12:00 BP 162/112 03/21/25 12:00 Pulse Ox 96 03/21/25 12:00 O2 Del Method BiPAP 03/21/25 08:03 O2 Flow Rate 5 03/21/25 01:35 FiO2 45 03/21/25 08:03 03/20/25 03/21/25 03/21/25 22:59 06:59 14:59 Intake Total 350 / 910 100 / 1010 100 / 100 Output Total 1999 / 1999 500 / 2500 Balance -1650 / -1090 -400 / -1490 100 / 100 Weight last 48 hrs Weight 42.893 kg Weight 44.77 kg Physical Exam 2 Const: ORIENTATION/CONSCIOUSNESS: Yes awake, Yes oriented to person and Yes oriented to place; not oriented to time Eye: COMMON NORMALS: Equal, round and reactive pupils present and EOMs intact bilaterally PUPIL: Yes Equal, round and reactive pupils present Neck/C-Spine: COMMON NORMALS: full ROM and no lymphadenopathy Resp: EFFORT & INSPECTION: Yes tachypneic, Yes respiratory distress, Yes Actively coughing and Yes retractions AUSCULTATION: crackles and wheezes O THER: Intercostal, suprasternal retractions, tachypnea, tachycardia Cardio: COMMON NORMALS: S1 normal heart sound present and S2 normal heart sound present RATE: tachycardic RHYTHM: abnormal rhythm irregularly irregular HEART SOUNDS: S1 normal heart sound present and S2 normal heart sound present GI: COMMON NORMALS: Normal to inspection, nondistended, normoactive bowel sounds present and non-tender Extremity: COMMON NORMALS: no pedal edema Neuro: SENSORIUM/ORIENTATION: Yes oriented to person, Yes oriented to place and No oriented to time Psych: COMMON NORMALS: mental status grossly normal Urinary Catheter Management: Peoples: Cath Placed During This Visit: yes Reason for Continuing Indwelling Catheter: Acute Urinary Retention or Obstruction Urinary Catheter Date of Insertion: 03/18/25 Urinary Catheter Time of Insertion: 19:15 Data 03/21/25 04:00 03/21/25 04:00 A&P Assessment and plan 1. Atrial fibrillation with rapid ventricular response: 2. Acute exacerbation of CHF (congestive heart failure): 3. Hypokalemia: 4. Acute and chronic respiratory failure with hypoxia: 5. Acute respiratory distress: 6. JESS (acute kidney injury): 7. Physical deconditionin. Type 2 diabetes mellitus with diabetic polyneuropathy: 9. Severe calcific aortic valve stenosis: 10. COPD (chronic obstructive pulmonary disease): 11. Acute exacerbation of chronic obstructive airways disease: 12. Pneumonia: 13. Obstructive sleep apnea: Plan: Acute hypoxic respiratory failure - Multifactorial - From diastolic CHF exacerbation, fluid overload - From severe aortic stenosis - With underlying COPD -Concerns for pneumonia -Concerns for COPD exacerbation -Pulmonary hypertension -Currently on 6 to 7 L, mild to moderate respiratory distress Plan -Monitor respiratory status closely - BiPAP as needed during today's, scheduled during the night - Creatinine up to 1.6, -BNP over 41,000 -Chest x-ray mild cardiomegaly -Monitor urine output, monitor creatinine - Solu-Medrol 40 mg IV every 8 hours - Continue Rocephin, Zithromycin - DuoNeb - Budesonide Severe aortic stenosis CONCLUSIONS LV systolic function is normal with EF of 55-60% Left atrium is severely dilated. Mild mitral regurgitation Mild mitral stenosis Moderate to severe low flow low gradient aortic stenosis. Mild tricuspid regurgitation. Mild pulmonary hypertension - Cardiology consulted Pulmonary hypertension, likely secondary to COPD A-fib with rapid ventricular response - Amiodarone drip, wean to p.o. amiodarone - Continue p.o. Eliquis Physical deconditioning, BMI 20.1, protein calorie malnutrition Acute on chronic anemia, monitor hemoglobin DVT ppx: Eliquis limited resuscitation : okay for short term ventilation, DNR Prognosis is poor, status critical Plan for today IV diuresis, continue IV antibiotics, PT OT PDMP PDMP Reviewed: Not Reviewed Attestations 2 Medical Necessity Statement*: Patient requires hospitalization for acute hypoxic respiratory failure, from diastolic CHF, COPD, pneumonia, severe aortic valve stenosis Diagnoses Atrial fibrillation with rapid ventricular response I48.91 Acute exacerbation of CHF (congestive heart failure) I50.9 Hypokalemia E87.6 Acute and chronic respiratory failure with hypoxia J96.21 Acute respiratory distress R06.03 JESS (acute kidney injury) N17.9 Physical deconditioning R53.81 Type 2 diabetes mellitus with diabetic polyneuropathy E11.42 Severe calcific aortic valve stenosis I35.0 COPD (chronic obstructive pulmonary disease) J44.9 Acute exacerbation of chronic obstructive airways disease J44.1 Pneumonia J18.9 Obstructive sleep apnea G47.33
[2025-03-21 13:57] LABS: Anion Gap 18.1 (5-19); Blood Urea Nitrogen 31 mg/dL (8-23); Calcium 10.0 mg/dL (8.5-10.5); Chloride 85 mmol/L (98-107); Creatinine Clr Calc Pharmacy 17.8721; Glucose 182 mg/dL (65-115); Osmolality Calculated 307 mOsm/kg (285-295); Potassium 3.1 mmol/L (3.5-5.1); Sodium 143 mmol/L (136-145)
[2025-03-21 14:03] LABS: Carbon Dioxide 43 mmol/L (22-29)
[2025-03-21] MEDS: FUROsemide 10 mg/mL SDV 10mL 60 MG IVP (15:34)
[2025-03-21] MEDS: cefTRIAXone 1,000 mg SDV 1000 MG IVP (16:21)
--- NOTE | 2025-03-21 16:38 | PC.NURSE ---
Daughter Shannan, removed all rings from patient's hand. This RN and signficant other were witness to this. Rings were placed in denture cup and placed in Shannan's purse at bedside.
--- NOTE | 2025-03-21 18:19 | PM.CCNAC ---
Critical Care Event Note The high probability of a clinically significant, sudden or life threatening deterioration of the patient's [] system(s) required my full and direct attention, intervention and personal management. The critical care time is as shown. This time is in addition to time spent performing any reported procedures but includes the following: [x] Data and vital sign review and interpretation [x] Patient assessment, examination and intervention [x] Documentation [x] Medication orders and management Critical Care Time Code activated: No Critical Care Time (min): 35 Additional information about critical care time: - Family meeting this afternoon - Lucy was seen, she is still in mild respiratory distress suprasternal intercostal retractions, nasal flaring, tachypnea, tachycardia, - She has put out about 250 mL since the Lasix I gave to her, 60 mg - She is more comfortable - I had a detailed discussion with patient family, patient's daughter Sade at bedside about her overall goals of care - Discussed her diastolic CHF, COPD, her severe aortic valve stenosis with underlying deconditioning - Discussed below options available - Medical management versus hospice versus considering surgical intervention - Family tells me that she would not tolerate any surgery, they would not want to put her through any significant surgery - Discussed continued medical management versus hospice - After discussing risk benefits of all options, patient's evaluation study, presents her, shared decision making agreed to proceed with hospice - Their goal is to continue medical interventions for tonight, ultimate goal is to overall keep her comfortable, set up hospice for her in the morning and hopefully she can go home and peacefully at home with family as that is her wish - Currently with medications, continue with Lasix - Discussing goals of care she is a DNR - Discussed her goals of care, she is a DNI, they do not want her to be intubated - Patient is DNR/DNI, overall goals of care above everything is to keep her comfortable and for her condition rapidly deteriorates, goal is to keep her comfortable and ease her pain and ease her suffering Coding Level of Care Code Acute Code for Baljeet Mcfarland
--- NOTE | 2025-03-21 18:29 | PC.NURSE ---
Patient to be transferred to [facility]. Report called to eloise gonzalez. Patient will move to room [id number] after shift change
--- NOTE | 2025-03-21 21:23 | PC.NURSE ---
Family request Family requested for 4am labs to be cancelled due to pt electing to be on comfort care.
[2025-03-22] VITALS: BP 115/64; PULSE 102; RESP 16; TEMP 36.6; O2SAT 97
[2025-03-22 04:00] VITALS: BP 115/67; PULSE 102; RESP 16; TEMP 36.3; O2SAT 90
[2025-03-22 07:39] VITALS: BP 114/71; PULSE 112; RESP 24; TEMP 36.4; O2SAT 98
--- NOTE | 2025-03-22 08:40 | PC.OT ---
D/C pt from OT services at this time due to pt being on comfort care.
[2025-03-22] MEDS: methylPREDNISolone sod succ 40 mg/mL INJ IVP (09:11)
--- NOTE | 2025-03-22 10:27 | PM.DCS ---
Discharge Providers Date of Admission: 03/18/25 19:17 Date of Discharge: March 22, 2025 Attending Provider at Admission: Millicent Paez MD Attending Provider at Discharge: Chin Sy MD Primary Care Provider: REJI Soares Diagnoses at Discharge Discharge Diagnosis 1. Atrial fibrillation: 2. Severe calcific aortic valve stenosis: 3. Acute exacerbation of CHF (congestive heart failure): 4. Dyslipidemia (high LDL; low HDL): 5. Benign essential HTN: 6. Atherosclerosis of [place] coronary artery of [place] heart without angina pectoris: 7. PAD (peripheral artery disease): Reason for Visit Reason for Visit: SOB Hospital Course Hospital Course Lucy Galindo is a 79 year old female with a past medical history of COPD, CAD, hypertension, diabetes mellitus, A-fib, aortic stenosis who is presenting to the emergency room today with feeling short of breath Patient presented to [facility] for acute hypoxic respiratory failure multifactorial, from diastolic CHF exacerbation, COPD, pneumonia, pulmonary hypertension, with severe aortic valve stenosis, and atrial fibrillation with rapid ventricular response. Patient received inpatient diuresis, IV steroids, IV antibiotics. Fortunately, patient had persistent episodes of acute hypoxic respiratory failure, with JESS, with encephalopathy, with A-fib with RVR secondary to severe aortic valve stenosis. After discussing the risks and benefits of all options, patient and family wanted to proceed with home hospice, patient will be discharged home with home hospice. Physical Exam Const: COMMON NORMALS: no acute distress ORIENTATION/CONSCIOUSNESS: Yes awake and Yes oriented to person; not oriented to place and not oriented to time Resp: COMMON NORMALS: normal respiratory effort, No retractions and No use of accessory muscles AUSCULTATION: crackles and wheezes Cardio: COMMON NORMALS: regular rate, regular rhythm, S1 normal heart sound present and S2 normal heart sound present RATE: regular rate RHYTHM: regular rhythm HEART SOUNDS: S1 normal heart sound present and S2 normal heart sound present GI: COMMON NORMALS: Normal to inspection, nondistended, normoactive bowel sounds present and non-tender Extremity: COMMON NORMALS: no pedal edema Neuro: SENSORIUM/ORIENTATION: Yes oriented to person, No oriented to place and No oriented to time Psych: COMMON NORMALS: mental status grossly normal Urinary Catheter Management: Peoples: Cath Placed During This Visit: yes Reason for Continuing Indwelling Catheter: Hospice/Comfort/Palliative Care Urinary Catheter Date of Insertion: 03/18/25 Urinary Catheter Time of Insertion: 19:15 Discharge Data Studies Completed and Pending Completed Studies During Hospitalization Category Date Time Status XR chest 1V portable [id number] Routine Exams 03/21/25 11:31 Completed XR chest 1V portable [id number] Stat Exams 03/18/25 17:23 Completed CV. echo complete* [id number] Routine Ultrasound 03/18/25 21:49 Completed Pending at discharge Category Date Time Status Blood Culture Stat Lab 03/18/25 19:43 Results Radiology Impressions Chest X-Ray 03/21/25 11:31 Impression: 1. Hyperinflation and atherosclerosis. 2. Chronic interstitial change in both lungs. 3. Minimal cardiomegaly. Laboratory Results WBC 9.40 10^3/uL (3.29-11.43) 03/21/25 04:00 RBC 3.03 10^6/uL (3.85-5.65) L 03/21/25 04:00 Hgb 8.20 g/dL (11.27-16.99) L 03/21/25 04:00 Hct 27.2 % (36-47) L 03/21/25 04:00 MCV 89.8 fl (85-98) 03/21/25 04:00 MCH 27.1 pg (27-33) 03/21/25 04:00 MCHC 30.1 g/dL (30-55) 03/21/25 04:00 RDW 15.9 % (12.1-15.1) H 03/21/25 04:00 Plt Count 351 10^3/cmm (157-399) 03/21/25 04:00 MPV 10.6 fL (7.4-10.4) H 03/21/25 04:00 Neut % (Auto) 90.4 % 03/21/25 04:00 Lymph % (Auto) 4.7 % 03/21/25 04:00 [place] % (Auto) 4.3 % 03/21/25 04:00 Eos % (Auto) 0.0 % 03/21/25 04:00 Baso % (Auto) 0.1 % 03/21/25 04:00 Neut # (Auto) 8.50 10^3/uL (1.8-7.7) H 03/21/25 04:00 Lymph # (Auto) 0.4 10^3/uL (0.8-4.8) L 03/21/25 04:00 [place] # (Auto) 0.4 10^3/uL (0.2-0.9) 03/21/25 04:00 Eos # (Auto) 0.0 10^3/uL (0.0-0.8) 03/21/25 04:00 Baso # (Auto) 0.0 10^3/uL (0.0-0.1) 03/21/25 04:00 Nucleated RBC % (auto) 0 % 03/21/25 04:00 Nucleated RBCs # 0.0 /100WBC 03/21/25 04:00 PT 22.50 SECONDS (12.1-14.9) H 03/18/25 17:55 INR 1.85 (0.8-1.2) H 03/18/25 17:55 Specimen Type Arterial 03/21/25 12:00 Sample Site Brachial, right 03/21/25 12:00 ABG pH 7.42 (7.35-7.45) 03/21/25 12:00 ABG pCO2 74.8 mmHg (35-45) H* 03/21/25 12:00 ABG pO2 60.4 mmHg (80.0-100.0) L 03/21/25 12:00 ABG PO2/FiO2 Ratio 144 03/18/25 18:25 ABG HCO3 48.2 mmol/L (22-26) H 03/21/25 12:00 ABG O2 Saturation 83.5 03/18/25 18:25 ABG Base Excess 21.0 mmol/L (-2.0-2.0) H 03/21/25 12:00 Rafal Test N/a 03/21/25 12:00 A-a O2 Gradient 15.3 mmHg (5-10) H 03/18/25 18: Hematocrit 25.8 % (37-47) L 03/21/25 12:00 Hgb O2 Saturation 81.1 % (95-100) L 03/18/25 18: Carboxyhemoglobin 1.8 %THgb (0.4-20.1) 03/18/25 18: Methemoglobin 1.0 % (0.4-1.5) 03/18/25 18:25 Total Hemoglobin 8.7 g/dL (12-16) L 03/18/25 18:25 Sodium 140.0 mmol/L (131-143) 03/18/25 18:25 Potassium 1.8 mmol/L (3.5-5.0) L 03/18/25 18:25 Glucose 175.0 mg/dL (70-115) H 03/18/25 18:25 Ionized Calcium 1.0 mmol/L (1.1-1.4) L 03/18/25 18:25 O2 Delivery Device Nc 03/21/25 12:00 O2 Liters/Min 7.0 % 03/21/25 12:00 FiO2 32.0 % 03/18/25 18:25 Drug And Alcohol Treatment Specialist ID Amh 03/21/25 12:00 Sodium 143 mmol/L (136-145) 03/21/25 13:26 Potassium 3.1 mmol/L (3.5-5.1) L 03/21/25 13:26 Chloride 85 mmol/L (98-107) L 03/21/25 13:26 Carbon Dioxide 43 mmol/L (22-29) H* 03/21/25 13:26 Anion Gap 18.1 (5-19) 03/21/25 13:26 BUN 31 mg/dL (8-23) H 03/21/25 13:26 Creatinine 1.7 mg/dL (0.5-0.9) H 03/21/25 13:26 GFR Calculation Not Reportable 03/21/25 13:26 Glucose 182 mg/dL (65-115) H 03/21/25 13:26 POC Glucose 247 mg/dL (70-110) H 03/22/25 08:36 Calculated Osmolality 307 mOsm/kg (285-295) H 03/21/25 13:26 Calcium 10.0 mg/dL (8.5-10.5) 03/21/25 13:26 Magnesium 1.8 mg/dL (1.7-2.3) 03/21/25 04:00 Total Bilirubin 0.5 mg/dL (0.15-1.2) 03/19/25 06:17 AST 22 U/L (0-32) 03/19/25 06:17 ALT 15 U/L (0-33) 03/19/25 06:17 Alkaline Phosphatase 75 U/L (35-105) 03/19/25 06:17 Troponin T Baseline 44 ng/L (0-10) H 03/18/25 17:56 Troponin T 120 Minute 46.64 ng/L (0-10) H 03/18/25 19:46 Delta Troponin T 2.64 ABS# (0-10) 03/18/25 19:46 Troponin T Hi Sens 6Hr 50.42 ng/L (0-10) H 03/18/25 23:42 Troponin T Hi Sens 6Hr Delta 6.42 ng/L (0-12) 03/18/25 23:42 NT-Pro-B Natriuret Pep 85810 pg/mL (0-450) H 03/21/25 04:00 Total Protein 6.0 g/dL (6.6-8.7) L 03/19/25 06:17 Albumin 3.0 g/dL (3.5-5.2) L 03/19/25 06:17 Globulin 3.0 g/dL (1.3-4.6) 03/19/25 06:17 Urine Color Yellow (Yellow) 03/19/25 00:06 Urine Appearance Clear (CLEAR) 03/19/25 00:06 Urine pH 6.5 (5-7) 03/19/25 00:06 Ur Specific [place] 1.006 (1.005-1.030) 03/19/25 00:06 Urine Protein Trace (Negative) A 03/19/25 00:06 Urine Glucose (UA) Negative (Normal) 03/19/25 00:06 Urine Ketones Negative (Negative) 03/19/25 00:06 Urine Blood Trace (Negative) A 03/19/25 00:06 Urine Nitrate Negative (Negative) 03/19/25 00:06 Urine Bilirubin Negative (Negative) 03/19/25 00:06 Urine Urobilinogen 1.0 mg/dL (Negative) 03/19/25 00:06 Ur Leukocyte Esterase Negative (Negative) 03/19/25 00:06 Urine RBC 0-2 /hpf (0-2) 03/19/25 00:06 Urine WBC 0-5 /hpf (0-5) 03/19/25 00:06 Ur Squamous Epith Cells 0-5 /hpf (0-5) 03/19/25 00:06 Amorphous Sediment Not Reportable 03/19/25 00:06 Urine Bacteria None seen /hpf (NONE) 03/19/25 00:06 Hyaline Casts 0.81 /lpf 03/19/25 00:06 Coronavirus 229E (PCR) Not detected (NOT DETECT) 03/18/25 22:12 SARS-CoV-2 (PCR) Not detected (NOT DETECT) 03/18/25 22:12 Vitals Last Vital Signs Temp 97.6 F 03/22/25 07:39 Pulse 112 H 03/22/25 07:39 Resp 24 H 03/22/25 07:39 BP 114/71 03/22/25 07:39 Pulse Ox 98 03/22/25 07:39 O2 Del Method High Flow Nasal Cannula 03/22/25 08:00 O2 Flow Rate 6 03/22/25 00:00 FiO2 45 03/21/25 08:03 Discharge Plan Discharge Patient Disposition: Hospice - Home Condition: Stable Prescriptions: New amiodarone [Pacerone] 200 mg Tablet 200 mg PO DAILY 30 Days Qty: 30 0RF Continued Zyrtec 10 mg tablet 10 mg PO DAILY PRN (Reason: Allergy Symptoms) Qty: 30 3RF albuterol sulfate 90 mcg/actuation HFA aerosol inhaler 2 puff inhalation Q4H PRN (Reason: shortness of breath or wheezing) Qty: 18 2RF albuterol sulfate 2.5 mg /3 mL (0.083 %) solution for nebulization 2.5 mg inhalation Q4H PRN (Reason: shortness of breath or wheezing) Qty: 300 2RF Eliquis 5 mg tablet 5 mg PO BID@0900,2100 Qty: 60 2RF Breztri Aerosphere 160-9-4.8 mcg/actuation HFA aerosol inhaler 2 inh inhalation BID Qty: 10.7 2RF cholecalciferol (vitamin D3) 50 mcg (2,000 unit) tablet 2,000 unit PO EVERY OTHER DAY Qty: 14 2RF citalopram 20 mg tablet 20 mg PO DAILY Qty: 30 2RF cyanocobalamin (vitamin B-12) 1,000 mcg/mL solution 1,000 mcg IM .monthly Qty: 3 2RF docusate sodium [Colace] 100 mg capsule 100 mg PO BID Qty: 60 2RF metoprolol tartrate 25 mg tablet 37.5 mg PO BID@0900,2100 Qty: 90 2RF oxybutynin chloride 5 mg tablet 5 mg PO BID Qty: 60 2RF pantoprazole 20 mg tablet,delayed release (DR/EC) 20 mg PO QAM Qty: 30 2RF rosuvastatin 10 mg tablet 10 mg PO .at bedtime Qty: 30 2RF ferrous sulfate 300 mg (60 mg iron)/5 mL liquid 300 mg PO BID Qty: 300 2RF multivitamin Tablet 1 tab PO DAILY@2000 nitroglycerin [Nitrostat] 0.4 mg Tablet, Sublingual 0.4 mg SUBLINGUAL Q5M PRN (Reason: Chest Pain) Rx Instructions: do not exceed 3 doses per episode vitamin B complex Tablet 1 tab PO DAILY aspirin 81 mg tablet,delayed release (DR/EC) 81 mg PO BEDTIME tramadol 50 mg tablet 50 mg PO Q4H PRN (Reason: Pain) Changed furosemide 20 mg tablet 40 mg PO DAILY@0800 Qty: 30 2RF Discontinued metformin 500 mg tablet extended release 24 hr 1,500 mg PO DAILY Qty: 90 2RF Entresto 24-26 mg tablet 1 tab PO BID Qty: 60 2RF No Action (DME) BiPap supplies See Rx Instructions .Route .MEDSUPPLY Qty: 1 0RF Rx Instructions: As directed BiPap supplies 99 months (DME) syringe with needle 3 mL 22 gauge x 1 syringe See Rx Instructions .ROUTE .MEDSUPPLY Qty: 1 2RF Rx Instructions: use with B12 injection (DME) Disposable nebulizer circuit See Rx Instructions .ROUTE .MEDSUPPLY Qty: 1 0RF Rx Instructions: As directed (DME) Protable oxygen 2L NC See Rx Instructions .Route .MEDSUPPLY Qty: 1 0RF Rx Instructions: As directed Discharge Order = DC NOW: Discharge Order (Routine); Ordered 03/22/25 Ordered By: Chin Sy Referrals: [facility] [Outside] Allan Mak FNP-C [Primary Care Provider, Family Practice] Discharge Diet: Regular Discharge Activity: Resume usual activity Patient Instructions: Amiodarone (By mouth) (Cordarone, Pacerone), Heart Failure (DC), Hospice Care (GEN), COPD (Chronic Obstructive Pulmonary Disease) (DC), Acute Respiratory Failure (ED), CHF Stoplight, COPD Stoplight, Opioid Safety, Pain Management, Patient Portal & Tracey Instructions Discharge Attestations Time Spent in Discharge Care*: greater than 30 min Status at Discharge: Cognitive status at discharge: cognitively intact, Behavioral status at discharge: cooperative, Quality Metrics Clinical Quality Measures [ No reported AMI, CVA or VTE this stay] Coding Level of Care Code 97293 Total time (in minutes) for Discharge: 45 Diagnoses Atrial fibrillation I48.91 Severe calcific aortic valve stenosis I35.0 Acute exacerbation of CHF (congestive heart failure) I50.9 Dyslipidemia (high LDL; low HDL) E78.5 Benign essential HTN I10 Athe[address] [place] coronary artery of [place] heart without angina pectoris I25.10 [place] vs. transplanted heart: [place] heart PAD (peripheral artery disease) I73.9
[2025-03-22] MEDS: FUROsemide 10 mg/mL SDV 4mL 40 MG IVP (10:39)
[2025-03-22 11:26] VITALS: BP 137/93; PULSE 107; RESP 26; TEMP 36.4; O2SAT 84
[2025-03-22 11:53] VITALS: BP 137/93; PULSE 107; RESP 26; TEMP 36.4; O2SAT 84
--- NOTE | 2025-03-22 14:04 | PC.SOCIAL ---
IMM Update pg 2 of IMM updated and reviewed w/ patient. Copy provided and copy dated, initialed and placed in chart.
== END 2025-03-22 11:54 | disposition hospice, home (50) | DRG 291 ==
LOC: ER 19:32 → CSU 19:52 → MEDSURG 03-21 18:55
PROVIDERS: Admitting Provider Student in an Organized Health Care Education/Training Program; Emergency Provider Emergency Medicine; PCP Nurse Practitioner; Visit Provider Family Medicine
DX: I11.0 Hypertensive heart disease with heart failure (principal); I50.33 Acute on chronic diastolic (congestive) heart failure; J96.21 Acute and chronic respiratory failure with hypoxia; J18.9 Pneumonia, unspecified organism; J44.1 Chronic obstructive pulmonary disease with (acute) exacerbation; J44.0 Chronic obstructive pulmonary disease with (acute) lower respiratory infection; N17.9 Acute kidney failure, unspecified; G93.40 Encephalopathy, unspecified; E46 Unspecified protein-calorie malnutrition; Z68.1 Body mass index [BMI] 19.9 or less, adult; I48.91 Unspecified atrial fibrillation; I35.0 Nonrheumatic aortic (valve) stenosis; E78.5 Hyperlipidemia, unspecified; I25.10 Atherosclerotic heart disease of native coronary artery without angina pectoris; E11.51 Type 2 diabetes mellitus with diabetic peripheral angiopathy without gangrene; I27.20 Pulmonary hypertension, unspecified; E87.6 Hypokalemia; J43.9 Emphysema, unspecified; G47.33 Obstructive sleep apnea (adult) (pediatric); K21.9 Gastro-esophageal reflux disease without esophagitis; E55.9 Vitamin D deficiency, unspecified; F41.9 Anxiety disorder, unspecified; F32.A Depression, unspecified; Z66 Do not resuscitate; D64.9 Anemia, unspecified; Z87.891 Personal history of nicotine dependence; Z99.81 Dependence on supplemental oxygen; Z79.82 Long term (current) use of aspirin; Z79.02 Long term (current) use of antithrombotics/antiplatelets; Z79.84 Long term (current) use of oral hypoglycemic drugs
CPT/HCPCS: 36415; 36416; 36600; 51702; 71045; 80048; 80051; 80053; 81001; 82274; 82330; 82803; 82805; 82962; 83735; 83880; 84132; 84484; 85025; 85610; 87040; 87635; 93005; 93306; 94640; 94660; 96365; 96366; 96367; 96372; 96375; 96376; 97110; 97162; 97167; 97530; 99291; A4222; J0283; J0456; J0696; J1815; J1938; J2919; J3475; J3480; J3490; J7040; J7050; J7626; J9999; P9046